=== PATIENT | female | born 1955 | race Caucasian/White ===

== ENCOUNTER 2018-02-12 12:31 | Inpatient (IN) | payer OTHER ==
[~2018-02-12] VITALS: Ht 157.5 cm; Wt 111.8 kg
--- NOTE | 2018-02-12 13:08 | EMERGENCY ROOM VISIT NOTE ---
History Report prepared by Roopa: Jimy Licona Under the Supervision of: Dr. Shira Carrion D.O. First contact with patient: 12:47 Chief Complaint: STROKE SYMPTOMS Stated Complaint: POSSIBLE STROKE Nursing Triage Summary: Pt reports yesterday at 0230 her right upper arm began hurting. She states "I was walking a little funny too so I got my cane out." and patient report that her speech is different, which they noticed last night. Pt states "I cant really write." Symptoms started 02/11/18 at 0230 in the morning. History of Present Illness The patient is a 62 year old female who presents to the Emergency Room with complaints of constant stroke symptoms starting two nights ago. The patient states that two nights ago she was starting to have difficulty speaking, and yesterday morning she woke up with some right shoulder soreness. She denies any numbness of tingling. She notes that she went to work, and she was having difficulty writing yesterday and today. The patient states that she has been having to use a cane because she feels off balance and is leaning to the right. She additionally notes that she has been having cramping in her lower back and her legs. The patient states that she went to her chiropractor for her shoulder , though they did not do anything for her. She denies any headache, recent cold symptoms, and any recent medication changes. The patient has a history of a hip replacement, diabetes, hypertension, and a kidney stone. She states that she takes a baby aspirin daily. She also has a history of HLD, though she does not take her medications. Source of History: patient Onset: two nights ago Position: other (global) Quality: other (stroke symptoms) Timing: constant Associated Symptoms: No numbness Note: Associated symptoms: Difficulty speaking, difficulty writing, right shoulder pain, cramping in her back and legs Review of Systems See HPI for pertinent positives & negatives. A total of 10 systems reviewed and were otherwise negative. Past Medical & Surgical Medical Problems: (1) Depression (2) DM type 2 (diabetes mellitus, type 2) (3) Dyslipidemia (4) HTN (hypertension) Surgical Problems: (1) History of appendectomy (2) History of carpal tunnel surgery (3) History of hysterectomy (4) History of tonsillectomy Social History Smoking Status: Never Smoker Marital Status: Housing Status: lives with family Occupation Status: employed Current/Historical Medications Scheduled Ascorbic Acid (Vitamin C), 500 MG PO DAILY Aspirin (Aspirin EC Low Dose), 81 MG PO QAM Atorvastatin (Lipitor), 80 MG PO QAM B-Complex W/ Folic Acid (B Complex Plus), 1 TAB PO DAILY Calcium/Vitamin D (Os-Santhosh 500 Plus D), 1 TAB PO DAILY Carvedilol (Coreg), 3.125 MG PO BID Cholecalciferol (Vitamin D3), 1 TAB PO DAILY Clopidogrel Bisulfate (Clopidogrel), 75 MG PO QAM Coenzyme Q10 (Ubidecarenone) (Co Q10), 1 CAP PO DAILY Escitalopram (Lexapro), 5 MG PO DAILY Losartan Potassium (Cozaar), 75 MG PO DAILY Metformin Hcl Er (Glucophage Er), 500 MG PO DAILY Soybean Lecithin (Bulk) (Lecithin), 1 TAB PO DAILY Vitamin E (Vitamin E), 1 TAB PO DAILY Scheduled PRN Loratadine (Claritin), 10 MG PO DAILY PRN for allergies Allergies Uncoded Allergies: ANTIBIOTICS (Adverse Reaction, Unknown, RASH, 02/12/18) PT SAID SOME ANTIBIOTICS GIVE HER A SLIGHT RASH BUT WASN'T SURE WHICH ONES THEY WERE Physical Exam Vital Signs Date Time Temp Pulse Resp B/P (MAP) Pulse Ox O2 Delivery O2 Flow Rate FiO2 02/12/18 14:43 73 18 189/94 97 Room Air 02/12/18 13:58 71 18 168/87 95 Room Air 02/12/18 13:24 73 20 156/101 97 Room Air 02/12/18 13:13 74 02/12/18 12:33 36.6 75 18 182/116 97 Room Air Physical Exam GENERAL: alert, obese, well appearing, well nourished, no distress, non-toxic EYE EXAM: normal conjunctiva, PERRL and EOM's grossly intact OROPHARYNX: no exudate, no erythema, lips, buccal mucosa, and tongue normal and mucous membranes are moist NECK: supple, no nuchal rigidity, no adenopathy, non-tender LUNGS: Clear to auscultation. Normal chest wall mechanics HEART: no murmurs, S1 normal and S2 normal ABDOMEN: abdomen soft, non-tender, normo-active bowel sounds, no masses, no rebound or guarding. BACK: Back is symmetrical on inspection and there is no deformity, no midline tenderness, no CVA tenderness. SKIN: no rashes and no bruising UPPER EXTREMITIES: upper extremities are grossly normal. Full range of motion. No reproducible right upper extremity pain. LOWER EXTREMITIES: No pitting edema. NEURO EXAM: Normal sensorium, cranial nerves II-XII intact, intermittent dysarthria, no weakness of arms, no weakness of legs. No drift. Finger to nose intact. Gross sensation intact. Normal heel to veliz. No facial droop. No ataxia. Medical Decision & Procedures ER Provider Diagnostic Interpretation: Radiology results have been interpreted by the radiologist and reviewed by me. HEAD WITHOUT CONTRAST (CT) CLINICAL HISTORY: 62 years-old Female with slurred speech, dizziness. Acute dizziness with slurred speech TECHNIQUE: Multiple axial CT images of the head were obtained without contrast. A dose lowering technique was utilized adhering to the principles of ALARA. CT DOSE: 1253.18 mGy.cm COMPARISON: CT cervical spine of same day. FINDINGS: No acute intracranial hemorrhage, midline shift, intracranial mass, hydrocephalus, territorial ischemia or abnormal extra-axial collection. Calcifications of the falx cerebri are noted. Ill-defined areas of low attenuation within the white matter of the signature block measures bilaterally suggest chronic microvascular ischemic changes. Cerebral vascular calcifications are seen at the level of the skull base. Ill-defined area of low attenuation is noted within the central luis enrique. The calvarium is intact. The paranasal sinuses, mastoid air cells, and middle ear cavities are clear. Orbits and soft tissues are unremarkable. IMPRESSION: 1. No acute intracranial hemorrhage, midline shift or territorial infarction. 2. Chronic microvascular ischemic changes with ill-defined area of low-attenuation within the central luis enrique suggesting age-indeterminate lacunar infarction. The above report was generated using voice recognition software. It may contain grammatical, syntax or spelling errors. Electronically signed by: Abad Lagos M.D. 02/12/2018 1:43 PM Dictated Date/Time: 02/12/2018 1:40 PM CHEST ONE VIEW PORTABLE CLINICAL HISTORY: 62 years-old Female presenting with dizziness, possible stroke. TECHNIQUE: Portable upright AP view of the chest was obtained. COMPARISON: None. FINDINGS: Atherosclerosis of the aortic arch. Heart top normal in size. Pulmonary vascular prominence. Lungs and pleural spaces clear. Degenerative changes of the thoracic spine. IMPRESSION: 1. Suggestion of mild volume overload. No steve pulmonary edema or other evidence of acute cardiopulmonary disease. Electronically signed by: Jersey Cornell M.D. 02/12/2018 1:41 PM Dictated Date/Time: 02/12/2018 1:[address] OF THE CERVICAL SPINE WITHOUT CONTRAST CLINICAL HISTORY: Right shoulder pain. Paresthesias. COMPARISON STUDY: No previous studies for comparison. TECHNIQUE: Helical axial images of the cervical spine were obtained without IV contrast. Sagittal and coronal reconstructions were viewed. A dose lowering technique was utilized adhering to the principles of ALARA. FINDINGS: Alignment of the cervical spine is anatomic with the exception of straightening. Craniocervical junction is intact. There is no fracture or suspicious lesion within the cervical spine by CT. There is made of moderate disc space narrowing and osteophytosis at C6-C7. There is suspected posterior osteophyte complex which is suboptimally assessed by CT. Note is made of several left lobe thyroid nodules that measure up to 1.2 cm. IMPRESSION: 1. No acute cervical spine fracture or subluxation. 2. Moderate degenerative disc disease at C6-C7 with moderate multilevel facet arthrosis. Suboptimal evaluation of the central canal and neural foramen given CT technique. Electronically signed by: Ruy Pagan M.D. 02/12/2018 1:45 PM Dictated Date/Time: 02/12/2018 1:42 PM Laboratory Results Test 02/12/18 13:00 02/12/18 13:15 Urine Color YELLOW Urine Appearance CLEAR (CLEAR) Urine pH 7.0 (4.5-7.5) Urine Specific [place] 1.020 (1.000-1.030) Urine Protein NEG (NEG) Urine Glucose (UA) 2+ (NEG) Urine Ketones NEG (NEG) Urine Occult Blood NEG (NEG) Urine Nitrite NEG (NEG) Urine Bilirubin NEG (NEG) Urine Urobilinogen NEG (NEG) Urine Leukocyte Esterase NEG (NEG) Prothrombin Time 9.6 SECONDS (9.0-12.0) Prothromb Time International Ratio 0.9 (0.9-1.1) Estimated Average Glucose 171 mg/dl Hemoglobin A1c 7.6 % (4.5-5.6) Magnesium Level 2.3 mg/dl (1.8-2.4) Total Bilirubin 0.5 mg/dl (0.2-1) Aspartate Amino Transf (AST/SGOT) 26 U/L (15-37) Alanine Aminotransferase (ALT/SGPT) 39 U/L (12-78) Alkaline Phosphatase 104 U/L (45-117) Troponin I < 0.015 ng/ml (0-0.045) Total Protein 7.8 gm/dl (6.4-8.2) Albumin 3.6 gm/dl (3.4-5.0) Globulin 4.2 gm/dl (2.5-4.0) Albumin/Globulin Ratio 0.9 (0.9-2) Laboratory results per my review. Medications Administered Medications (Trade) Dose Ordered Sig/Yoni Route Start Time Stop Time Status Last Admin Dose Admin Aspirin/Aluminum/ Magnesium/Ca Carb (Ascriptin Tab) 325 mg NOW STAT PO 02/12/18 14:21 02/12/18 14:22 DC 02/12/18 14:42 325 MG Acetaminophen (Tylenol Tab) 650 mg Q4H PRN PO 02/12/18 15:00 02/14/18 14:29 DC 02/13/18 11:18 650 MG ECG Per My Interpretation Indication: other (stroke symptoms) Rate (beats per minute): 66 Rhythm: normal sinus Findings: nonspecific-ST abn (mostly in V5 and V6), no ectopy, other (Normal axis. Normal intervals) ED Course 1247: The patient was evaluated in room B9. A complete history and physical exam was performed. 1410: I updated the patient, and she has had no change. I discussed the treatment plan with her, and she was agreeable. She will be evaluated by the hospitalist. 1418: I reviewed the patient's case with Latoya Rothman. She will evaluate the patient for further management. 1421: Ascriptin Tab 325mg PO Medical Decision Differential diagnosis: Etiologies such as benign positional vertigo, dehydration, hypovolemia, anemia, tumor, infection, hypoglycemia, electrolyte abnormalities, cardiac sources, intracerebral event, toxicologic, neurologic, as well as others were entertained. Patient with atypical presentation that began 48 hours prior to both pain and neurologic findings. Pain in the patient's right upper extremity as well as right upper extremity numbness and tingling with difficulty writing potentially explained by arthritis in the neck and cervical radiculopathy, however other findings of difficulty ambulating, and slurred speech more concerning for possible stroke. Patient with several risk factors for stroke and currently has untreated hyperlipidemia. No bleed noted on CT, no other evidence of infectious etiology. Electrolytes and glucose otherwise reassuring. Doubt primary cardiac etiology. Mild dysarthria noted during bedside exam, no significant extremity focal deficits noted. No other facial droop. Patient's labs otherwise reassuring. Patient agreeable with plan for additional evaluation and case discussed with the hospitalist. Medication Reconcilliation Current Medication List: was personally reviewed by me Blood Pressure Screening Patient's blood pressure: Elevated blood pressure Monitored by the hospitalist. Consults Time Called: 1411 Consulting Physician: Latoya Rothman Hospitalist Returned Call: 1418 I reviewed the patient's case with Latoya Rothman. She will evaluate the patient for further management. Impression Primary Impression: CVA (cerebral vascular accident) Additional Impressions: Cervical radiculopathy HTN (hypertension) Obesity Scribe Attestation The scribe's documentation has been prepared under my direction and personally reviewed by me in its entirety. I confirm that the note above accurately reflects all work, treatment, procedures, and medical decision making performed by me. Departure Information Dispostion Being Evaluated By Hospitalist Prescriptions Aspirin (Aspirin EC Low Dose) 81 Mg Ectab 81 MG PO QAM for 30 Days Prov: Adrian Joyner M.D. 02/14/18 Atorvastatin (LIPITOR) 40 Mg Tab 80 MG PO QAM for 30 Days, #60 TAB Prov: Adrian Joyner M.D. 02/14/18 Clopidogrel Bisulfate (Clopidogrel) 75 Mg Tab 75 MG PO QAM for 30 Days, #30 TAB Prov: Adrian Joyner M.D. 02/14/18 Referrals Med Sanchez M.D. (PCP) Patient Instructions My [facility] Health Problem Qualifiers Primary Impression: CVA (cerebral vascular accident) CVA mechanism: unspecified Qualified Codes: I63.9 - Cerebral infarction, unspecified Additional Impressions: HTN (hypertension) Hypertension type: essential hypertension Qualified Codes: I10 - Essential ( primary) hypertension Obesity Obesity type: unspecified obesity type Obesity classification: unspecified obesity classification Serious obesity comorbidity presence: unspecified whether serious comorbidity present Qualified Codes: E66.9 - Obesity, unspecified
[2018-02-12 13:26] LABS: BASO % 0.6 %; BASO ABS # 0.05 K/uL (0-0.2); EOS % 1.3 %; EOS ABS # 0.12 K/uL (0-0.5); HEMATOCRIT 37.9 % (37-47); HEMOGLOBIN 13.2 g/dL (12.0-16.0); IG# 0.02 K/uL (0.00-0.02); LYMPH % 31.5 %; LYMPH ABS # 2.81 K/uL (1.2-3.4); MEAN CELL VOLUME 92.4 fL (80-100); MEAN CORPUSCULAR HEMOGLOBIN 32.2 pg (25-34); MEAN CORPUSCULAR HGB CONC 34.8 g/dl (32-36); MEAN PLATELET VOLUME 9.6 fL (7.4-10.4); MONO ABS # 0.45 K/uL (0.11-0.59); NEUT % 61.4 %; NEUT ABS # 5.47 K/uL (1.4-6.5); PLATELET COUNT 224 K/uL (130-400); RED CELL DISTRIBUTION WIDTH CV 12.7 % (11.5-14.5); WHITE BLOOD COUNT 8.92 K/uL (4.8-10.8)
[2018-02-12 13:33] LABS: INR 0.9 (0.9-1.1)
--- NOTE | 2018-02-12 13:42 | DIAGNOSTIC IMAGING REPORT ---
CHEST ONE VIEW PORTABLE CLINICAL HISTORY: 62 years-old Female presenting with dizziness, possible stroke. TECHNIQUE: Portable upright AP view of the chest was obtained. COMPARISON: None. FINDINGS: Atherosclerosis of the aortic arch. Heart top normal in size. Pulmonary vascular prominence. Lungs and pleural spaces clear. Degenerative changes of the thoracic spine. IMPRESSION: 1. Suggestion of mild volume overload. No steve pulmonary edema or other evidence of acute cardiopulmonary disease. Electronically signed by: Jersey Cornell M.D. 02/12/2018 1:41 PM Dictated Date/Time: 02/12/2018 1:40 PM
--- NOTE | 2018-02-12 13:45 | DIAGNOSTIC IMAGING REPORT ---
HEAD WITHOUT CONTRAST (CT) CLINICAL HISTORY: 62 years-old Female with slurred speech, dizziness. Acute dizziness with slurred speech TECHNIQUE: Multiple axial CT images of the head were obtained without contrast. A dose lowering technique was utilized adhering to the principles of ALARA. CT DOSE: 1253.18 mGy.cm COMPARISON: CT cervical spine of same day. FINDINGS: No acute intracranial hemorrhage, midline shift, intracranial mass, hydrocephalus, territorial ischemia or abnormal extra-axial collection. Calcifications of the falx cerebri are noted. Ill-defined areas of low attenuation within the white matter of the signature block measures bilaterally suggest chronic microvascular ischemic changes. Cerebral vascular calcifications are seen at the level of the skull base. Ill-defined area of low attenuation is noted within the central luis enrique. The calvarium is intact. The paranasal sinuses, mastoid air cells, and middle ear cavities are clear. Orbits and soft tissues are unremarkable. IMPRESSION: 1. No acute intracranial hemorrhage, midline shift or territorial infarction. 2. Chronic microvascular ischemic changes with ill-defined area of low-attenuation within the central luis enrique suggesting age-indeterminate lacunar infarction. The above report was generated using voice recognition software. It may contain grammatical, syntax or spelling errors. Electronically signed by: Abad Lagos M.D. 02/12/2018 1:43 PM Dictated Date/Time: 02/12/2018 1:40 PM
--- NOTE | 2018-02-12 13:46 | DIAGNOSTIC IMAGING REPORT ---
CT OF THE CERVICAL SPINE WITHOUT CONTRAST CLINICAL HISTORY: Right shoulder pain. Paresthesias. COMPARISON STUDY: No previous studies for comparison. TECHNIQUE: Helical axial images of the cervical spine were obtained without IV contrast. Sagittal and coronal reconstructions were viewed. A dose lowering technique was utilized adhering to the principles of ALARA. FINDINGS: Alignment of the cervical spine is anatomic with the exception of straightening. Craniocervical junction is intact. There is no fracture or suspicious lesion within the cervical spine by CT. There is made of moderate disc space narrowing and osteophytosis at C6-C7. There is suspected posterior osteophyte complex which is suboptimally assessed by CT. Note is made of several left lobe thyroid nodules that measure up to 1.2 cm. IMPRESSION: 1. No acute cervical spine fracture or subluxation. 2. Moderate degenerative disc disease at C6-C7 with moderate multilevel facet arthrosis. Suboptimal evaluation of the central canal and neural foramen given CT technique. Electronically signed by: Ruy Pagan M.D. 02/12/2018 1:45 PM Dictated Date/Time: 02/12/2018 1:42 PM
[2018-02-12 13:47] LABS: ALBUMIN 3.6 gm/dl (3.4-5.0); ALT/SGPT 39 U/L (12-78); AST/SGOT 26 U/L (15-37); BLOOD UREA NITROGEN 15 mg/dl (7-18); CARBON DIOXIDE 25 mmol/L (21-32); CREATININE 0.79 mg/dl (0.60-1.20); GLUCOSE 173 mg/dl (70-99); POTASSIUM 3.7 mmol/L (3.5-5.1); SODIUM 140 mmol/L (136-145)
[2018-02-12 13:52] LABS: ALKALINE PHOSPHATASE 104 U/L (45-117); TOTAL PROTEIN 7.8 gm/dl (6.4-8.2)
[2018-02-12] MEDS ORDERED: ASPIRIN/ALUM/MAGNES/CAL CARB 325 MG TAB PO STA (14:21)
[2018-02-12] MEDS ORDERED: CARV3.122 PO (14:49)
[2018-02-12] MEDS ORDERED: ESCI10TA17 PO (14:49)
[2018-02-12] MEDS ORDERED: LOSA50TA54 PO (14:49)
[2018-02-12] MEDS ORDERED: CLR10 PO (14:49)
[2018-02-12] MEDS ORDERED: CHOL1000 PO (14:49)
[2018-02-12] MEDS ORDERED: SOYBGRA9 PO (14:49)
[2018-02-12] MEDS ORDERED: METF500T5 PO (14:49)
[2018-02-12] MEDS ORDERED: ASCO1CAP3 PO (14:49)
[2018-02-12] MEDS ORDERED: HYDR-5688 PO (14:49)
[2018-02-12] MEDS ORDERED: VITACRE PO (14:49)
[2018-02-12] MEDS ORDERED: ACETAMINOPHEN 325 MG TAB PO PRN (15:00)
[2018-02-12] MEDS ORDERED: ONDANSETRON INJ 2 MG/ML 2 ML VIAL IV PRN (15:00)
[2018-02-12] MEDS ORDERED: PHARMACIST DISCHARGE MED REC CONSULT PRN ×2 (15:15→20:15)
[2018-02-12] MEDS ORDERED: DEXTROSE 50% 50 ML SYR IV PRN (15:45)
[2018-02-12] MEDS ORDERED: GLUCOSE 40% GEL 15 GM TUBE PO PRN (15:45)
[2018-02-12] MEDS ORDERED: GLUCOSE 10 TABS/TUBE PO PRN (15:45)
[2018-02-12] MEDS ORDERED: GLUCAGON FOR INJ 1 MG VIAL SQ PRN (15:45)
[2018-02-12] MEDS ORDERED: B-CO-27 PO (15:50)
[2018-02-12] MEDS ORDERED: CALC500C70 PO (15:50)
[2018-02-12] MEDS ORDERED: COEN1CAP PO (15:50)
[2018-02-12] MEDS ORDERED: VITA1TAB4 PO (15:50)
[2018-02-12] MEDS ORDERED: PERFLUTREN LIPID MICROSPHERE (DEFINITY) IV ONE (16:14)
--- NOTE | 2018-02-12 16:14 | Neurology Consultation ---
Neurology Consultation Date of Consultation: Feb 12, 2018. Attending Physician: Primary Care Physician: Med Sanchez M.D. Reason for Consultation: slurred speech History of Present Illness Source: patient, spouse Azalia is a 62 year old female who has a PMH DM, HTN, kidney stone, DL (on no medications) states she started having some slurred speech Thursday night which became worse on and she woke with shoulder soreness. She went to work and was having some difficulty with writing and also started walking with a cane because she felt off balance and was walking to the right. She went to her chiropractor for her shoulder but they would treat her. She was a work and her coworker insisted she come to the ED. When asked about her blood pressure she states 190's is actually good for her. Denies CP, SOB, abdominal pain, vision changes, swallowing issues, N, V, falls +one sides weakness, slurred speech. Past Medical/Surgical History Medical Problems: (1) Cervical radiculopathy Status: Acute (2) CVA (cerebral vascular accident) Status: Acute Social History Marital Status: Housing Status: lives with family Occupation Status: employed Allergies Uncoded Allergies: ANTIBIOTICS (Adverse Reaction, Unknown, RASH, 02/12/18) PT SAID SOME ANTIBIOTICS GIVE HER A SLIGHT RASH BUT WASN'T SURE WHICH ONES THEY WERE Current Inpatient Medications Current Inpatient Medications Medications (Trade) Dose Ordered Sig/Yoni Route Start Time Stop Time Status Last Admin Dose Admin Acetaminophen (Tylenol Tab) 650 mg Q4H PRN PO 02/12/18 15:00 03/14/18 14:59 Ondansetron HCl (Zofran Inj) 4 mg Q6H PRN IV 02/12/18 15:00 03/14/18 14:59 Aspirin (Ecotrin Tab) 81 mg QAM PO 02/13/18 09:00 03/15/18 08:59 UNV Atorvastatin Calcium (Lipitor Tab) 40 mg QAM PO 02/12/18 15:15 03/14/18 15:14 UNV Miscellaneous Information (Pharmacist Discharge Med Rec Consult) 1 ea UD PRN N/A 02/12/18 15:15 03/14/18 15:14 Insulin Aspart (novoLOG ASPART) SLIDING SCALE If C... ACHS SC 02/12/18 16:00 03/14/18 15:59 UNV Glucose (Glucose 40% Gel) 15-30 GRAMS 15 GRAMS... UD PRN PO 02/12/18 15:45 03/14/18 15:44 UNV Glucose (Glucose Chew Tab) 4-8 Tablets 4 Tabl... UD PRN PO 02/12/18 15:45 03/14/18 15:44 UNV Dextrose (Dextrose 50% 50ML Syringe) 25-50ML OF 50% DW IV FOR... UD PRN IV 02/12/18 15:45 03/14/18 15:44 UNV Glucagon (Glucagon Inj) 1 mg UD PRN SQ 02/12/18 15:45 03/14/18 15:44 UNV Physical Exam Vital Signs (Past 24 Hrs): Date Time Temp Pulse Resp B/P (MAP) Pulse Ox O2 Delivery O2 Flow Rate FiO2 02/12/18 14:43 73 18 189/94 97 Room Air 02/12/18 13:58 71 18 168/87 95 Room Air 02/12/18 13:24 73 20 156/101 97 Room Air 02/12/18 13:13 74 02/12/18 12:33 36.6 75 18 182/116 97 Room Air Physical Exam: Constitutional: appearance nourished, healthy and obese Ears, Nose, Mouth and Throat: mucous membranes moist, no injection and skin normal, eyes normal Cardiovascular: normal S-1 and S-2 and regular rate and rhythm Respiratory: clear to auscultation (CTA) and no rales, rhonchi or wheeze Musculoskeletal: non pitting peripheral edema Skin: some neurocutaneous disease in LE Eyes: extraocular muscles intact (EOMI) and pupils equal, round and reactive to light (PERRL), gross peripheral vision intact NEUROLOGIC EXAMINATION: Mental status: Alert and interactive Oriented to full date and location, [facility], 2018, president penny, knows her and name Oriented to person Speech dysarthric and slurred speech Cranial Nerves flattening right nasolabial fold Reflexes: Deep tendon reflexes were symmetrical and graded 2/5. 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, hip flex right decreased (hip replacement with decreased ROM), plantar flex ext 5/5 bilaterally Laboratory Results Past 24 Hours: 02/12/18 13:15 Red Blood Count 4.10, Mean Corpuscular Volume 92.4, Mean Corpuscular Hemoglobin 32.2, Mean Corpuscular Hemoglobin Concent 34.8, Mean Platelet Volume 9.6, Neutrophils (%) (Auto) 61.4, Lymphocytes (%) (Auto) 31.5, Monocytes (%) (Auto) 5.0, Eosinophils (%) (Auto) 1.3, Basophils (%) (Auto) 0.6, Neutrophils # (Auto) 5.47, Lymphocytes # (Auto) 2.81, Monocytes # (Auto) 0.45, Eosinophils # (Auto) 0.12, Basophils # (Auto) 0.05 02/12/18 13:15 Test 02/12/18 13:00 02/12/18 13:15 Urine Color YELLOW Urine Appearance CLEAR (CLEAR) Urine pH 7.0 (4.5-7.5) Urine Specific [place] 1.020 (1.000-1.030) Urine Protein NEG (NEG) Urine Glucose (UA) 2+ (NEG) Urine Ketones NEG (NEG) Urine Occult Blood NEG (NEG) Urine Nitrite NEG (NEG) Urine Bilirubin NEG (NEG) Urine Urobilinogen NEG (NEG) Urine Leukocyte Esterase NEG (NEG) White Blood Count 8.92 K/uL (4.8-10.8) Red Blood Count 4.10 M/uL (4.2-5.4) Hemoglobin 13.2 g/dL (12.0-16.0) Hematocrit 37.9 % (37-47) Mean Corpuscular Volume 92.4 fL (80-100) Mean Corpuscular Hemoglobin 32.2 pg (25-34) Mean Corpuscular Hemoglobin Concent 34.8 g/dl (32-36) Platelet Count 224 K/uL (130-400) Mean Platelet Volume 9.6 fL (7.4-10.4) Neutrophils (%) (Auto) 61.4 % Lymphocytes (%) (Auto) 31.5 % Monocytes (%) (Auto) 5.0 % Eosinophils (%) (Auto) 1.3 % Basophils (%) (Auto) 0.6 % Neutrophils # (Auto) 5.47 K/uL (1.4-6.5) Lymphocytes # (Auto) 2.81 K/uL (1.2-3.4) Monocytes # (Auto) 0.45 K/uL (0.11-0.59) Eosinophils # (Auto) 0.12 K/uL (0-0.5) Basophils # (Auto) 0.05 K/uL (0-0.2) RDW Standard Deviation 43.0 fL (36.4-46.3) RDW Coefficient of Variation 12.7 % (11.5-14.5) Immature Granulocyte % (Auto) 0.2 % Immature Granulocyte # (Auto) 0.02 K/uL (0.00-0.02) Prothrombin Time 9.6 SECONDS (9.0-12.0) Prothromb Time International Ratio 0.9 (0.9-1.1) Anion Gap 7.0 mmol/L (3-11) Est Creatinine Clear Calc Drug Dose 82.5 ml/min Estimated GFR () 92.3 Estimated GFR (Non- 79.7 BUN/Creatinine Ratio 18.7 (10-20) Calcium Level 9.0 mg/dl (8.5-10.1) Magnesium Level 2.3 mg/dl (1.8-2.4) Total Bilirubin 0.5 mg/dl (0.2-1) Aspartate Amino Transf (AST/SGOT) 26 U/L (15-37) Alanine Aminotransferase (ALT/SGPT) 39 U/L (12-78) Alkaline Phosphatase 104 U/L (45-117) Troponin I < 0.015 ng/ml (0-0.045) Total Protein 7.8 gm/dl (6.4-8.2) Albumin 3.6 gm/dl (3.4-5.0) Globulin 4.2 gm/dl (2.5-4.0) Albumin/Globulin Ratio 0.9 (0.9-2) Imaging CXR- Suggestion of mild volume overload. No steve pulmonary edema or other evidence of acute cardiopulmonary disease. CT head- . No acute intracranial hemorrhage, midline shift or territorial infarction. 2. Chronic microvascular ischemic changes with ill-defined area of low-attenuation within the central luis enrique suggesting age-indeterminate lacunar infarction. CT c spine- . No acute cervical spine fracture or subluxation. Moderate degenerative disc disease at C6-C7 with moderate multilevel facet arthrosis. Suboptimal evaluation of the central canal and neural foramen given CT technique. Impression 62 year old female PMH DM, uncontrolled HTN, DL, morbid obesity with slurred speech and right sided weakness Plan 1. MRI for better definition of ischemic event 2. optimize HTN, DL, DM- LDL < 70 3. PT/OT speech for discharge needs 4. aspirin 81 mg continue add plavix 75 mg 5. TTE pending 6. carotid doppler 7. further recommendations after imaging is completed I have discussed above patient with Dr Kathrine Kirkpatrick, neurology. Pt still in ER, will see in am, MD Delia
--- NOTE | 2018-02-12 16:27 | History and Physical ---
History & Physical Date & Time of Service: Feb 12, 2018 ~ 14:45 Chief Complaint: Slurred Speech, Difficulty Walking Primary Care Physician: Med Sanchez M.D. History of Present Illness 62-year-old female who presents to the ER with chief complaint of slurred speech and difficulty walking. at the bedside reports that when he spoke to his on the phone Thursday evening he noted that her speech was not right. Patient reports she woke up yesterday morning and had right upper extremity pain. Whenever she was at work she noticed that she was having some troubles writing as well as using a calculator. She noted increased speech difficulties yesterday. This morning when she was trying to walk she reports she felt very off balance, requiring use of a cane. She denies headache and blurred vision. No lightheadedness, dizziness, or syncopal events. She denies chest pain, shortness of breath, diaphoresis. No other recent illnesses fever or chills. She denies abdominal pain, nausea, vomiting, diarrhea. She denies urinary symptoms. In the ED head CT is showing age-indeterminate lacunar infarct. She is hypertensive, other vitals are stable. Labs are unremarkable. She was given a full dose aspirin. Past Medical/Surgical History Medical Problems: (1) Depression (2) DM type 2 (diabetes mellitus, type 2) (3) Dyslipidemia (4) HTN (hypertension) Surgical Problems: (1) History of appendectomy (2) History of carpal tunnel surgery (3) History of hysterectomy (4) History of tonsillectomy Family History Diabetes mellitus FATHER Social History Smoking Status: Never Smoker Alcohol Use: occasionally Marital Status: Occupational Status: employed Immunizations History of Tetanus Vaccine?: Yes Tetanus Immunization Date: Jun 06, 2009 Allergies Uncoded Allergies: ANTIBIOTICS (Adverse Reaction, Unknown, RASH, 02/12/18) PT SAID SOME ANTIBIOTICS GIVE HER A SLIGHT RASH BUT WASN'T SURE WHICH ONES THEY WERE Home Medications Scheduled Ascorbic Acid (Vitamin C), 500 MG PO DAILY B-Complex W/ Folic Acid (B Complex Plus), 1 TAB PO DAILY Calcium/Vitamin D (Os-Santhosh 500 Plus D), 1 TAB PO DAILY Carvedilol (Coreg), 3.125 MG PO BID Cholecalciferol (Vitamin D3), 1 TAB PO DAILY Coenzyme Q10 (Ubidecarenone) (Co Q10), 1 CAP PO DAILY Escitalopram (Lexapro), 5 MG PO DAILY Losartan Potassium (Cozaar), 75 MG PO DAILY Metformin Hcl Er (Glucophage Er), 500 MG PO DAILY Soybean Lecithin (Bulk) (Lecithin), 1 TAB PO DAILY Vitamin E (Vitamin E), 1 TAB PO DAILY Scheduled PRN Loratadine (Claritin), 10 MG PO DAILY PRN for allergies Review of Systems ROS per HPI, all other systems reviewed and negative Physical Exam Vital Signs Date Time Temp Pulse Resp B/P (MAP) Pulse Ox O2 Delivery O2 Flow Rate FiO2 02/12/18 14:43 73 18 189/94 97 Room Air 02/12/18 13:58 71 18 168/87 95 Room Air 02/12/18 13:24 73 20 156/101 97 Room Air 02/12/18 13:13 74 02/12/18 12:33 36.6 75 18 182/116 97 Room Air General Appearance: WD/WN, no apparent distress, + obese Head: atraumatic Eyes: normal inspection, PERRL, EOMI, sclerae normal ENT: hearing grossly normal, + pertinent finding (Mucous membranes moist) Neck: supple, no JVD, trachea midline Respiratory/Chest: lungs clear, normal breath sounds, no respiratory distress Cardiovascular: regular rate, rhythm, no edema, normal peripheral pulses Abdomen/GI: normal bowel sounds, non tender, soft, no organomegaly Extremities/Musculoskelatal: normal inspection, no calf tenderness, normal capillary refill Neurologic/Psych: alert, oriented x 3, + pertinent finding (Mild difficulty with finger to nose on the right upper extremity, mild right upper extremity drift noted, slurred speech; no other focal deficits noted) Skin: normal color, warm/dry Diagnostics Laboratory Results Results Past 24 Hours Test 02/12/18 13:00 02/12/18 13:15 Range/Units Urine Color YELLOW Urine Appearance CLEAR CLEAR Urine pH 7.0 4.5-7.5 Urine Specific [place] 1.020 1.000-1.030 Urine Protein NEG NEG Urine Glucose (UA) 2+ NEG Urine Ketones NEG NEG Urine Occult Blood NEG NEG Urine Nitrite NEG NEG Urine Bilirubin NEG NEG Urine Urobilinogen NEG NEG Urine Leukocyte Esterase NEG NEG White Blood Count 8.92 4.8-10.8 K/uL Red Blood Count 4.10 4.2-5.4 M/uL Hemoglobin 13.2 12.0-16.0 g/dL Hematocrit 37.9 37-47 % Mean Corpuscular Volume 92.4 80-100 fL Mean Corpuscular Hemoglobin 32.2 25-34 pg Mean Corpuscular Hemoglobin Concent 34.8 32-36 g/dl Platelet Count 224 130-400 K/uL Mean Platelet Volume 9.6 7.4-10.4 fL Neutrophils (%) (Auto) 61.4 % Lymphocytes (%) (Auto) 31.5 % Monocytes (%) (Auto) 5.0 % Eosinophils (%) (Auto) 1.3 % Basophils (%) (Auto) 0.6 % Neutrophils # (Auto) 5.47 1.4-6.5 K/uL Lymphocytes # (Auto) 2.81 1.2-3.4 K/uL Monocytes # (Auto) 0.45 0.11-0.59 K/uL Eosinophils # (Auto) 0.12 0-0.5 K/uL Basophils # (Auto) 0.05 0-0.2 K/uL RDW Standard Deviation 43.0 36.4-46.3 fL RDW Coefficient of Variation 12.7 11.5-14.5 % Immature Granulocyte % (Auto) 0.2 % Immature Granulocyte # (Auto) 0.02 0.00-0.02 K/uL Prothrombin Time 9.6 9.0-12.0 SECONDS Prothromb Time International Ratio 0.9 0.9-1.1 Sodium Level 140 136-145 mmol/L Potassium Level 3.7 3.5-5.1 mmol/L Chloride Level 108 98-107 mmol/L Carbon Dioxide Level 25 21-32 mmol/L Anion Gap 7.0 3-11 mmol/L Blood Urea Nitrogen 15 7-18 mg/dl Creatinine 0.79 0.60-1.20 mg/dl Est Creatinine Clear Calc Drug Dose 82.5 ml/min Estimated GFR () 92.3 Estimated GFR (Non- 79.7 BUN/Creatinine Ratio 18.7 10-20 Random Glucose 173 70-99 mg/dl Calcium Level 9.0 8.5-10.1 mg/dl Magnesium Level 2.3 1.8-2.4 mg/dl Total Bilirubin 0.5 0.2-1 mg/dl Aspartate Amino Transf (AST/SGOT) 26 15-37 U/L Alanine Aminotransferase (ALT/SGPT) 39 12-78 U/L Alkaline Phosphatase 104 45-117 U/L Troponin I < 0.015 0-0.045 ng/ml Total Protein 7.8 6.4-8.2 gm/dl Albumin 3.6 3.4-5.0 gm/dl Globulin 4.2 2.5-4.0 gm/dl Albumin/Globulin Ratio 0.9 0.9-[address] IMPRESSION: 1. No acute intracranial hemorrhage, midline shift or territorial infarction. 2. Chronic microvascular ischemic changes with ill-defined area of low-attenuation within the central luis enrique suggesting age-indeterminate lacunar infarction. CXR IMPRESSION: 1. Suggestion of mild volume overload. No steve pulmonary edema or other evidence of acute cardiopulmonary disease. CERVICAL SPINE CT IMPRESSION: 1. No acute cervical spine fracture or subluxation. 2. Moderate degenerative disc disease at C6-C7 with moderate multilevel facet arthrosis. Suboptimal evaluation of the central canal and neural foramen given CT technique. Impression Assessment and Plan SLURRED SPEECH RIGHT UPPER EXTREMITY WEAKNESS R/O CVA -Admit to telemetry -Patient presenting with slurred speech and difficulty using her right arm for the past 2 days; in the ED head CT showing age-indeterminate lacunar infarct, patient denies history of prior CVA -Question if patient's right upper extremity weakness could possibly be cervical radiculopathy however given slurred speech findings, will rule out CVA -Risk factors: Hypertension, diabetes, dyslipidemia -Brain MRI, echocardiogram, carotid Dopplers -Neurochecks -Permissive hypertension -Patient with history of dyslipidemia however has declined statin therapy in the past, patient is willing to start now, will start atorvastatin 40 mg daily -S/P full dose aspirin in the ED, will continue with 81 mg daily tomorrow -Consider Plavix pending brain MRI results -Neuro consult, case discussed with Kathrine More PA-C HYPERTENSION -BP currently elevated, allowing for permissive hypertension in the setting of possible CVA -We will continue carvedilol and losartan with holding parameters in place DIABETES -Hgb A1c 7.0 10/2017 -Hold metformin and utilize SSI while hospitalized DEPRESSION -Continue escitalopram DVT PROPHYLAXIS -SCDs until brain MRI resulted DISPOSITION -In my clinical judgment this beneficiary meets acute admission criteria, established by [facility], that includes being hospitalized through two midnights. ATTENDING ADDENDUM: Patient seen and examined, care coordinated with Latoya CABRERA 62-year-old female with past medical history of hyperlipidemia, hypertension diabetes, resented with approximately > 48 hours history of right-sided weakness , slurred speech CT head without contrast: Showed chronic microvascular ischemic change with ill- defined area of low attenuation within the central luis enrique suggestive of age indeterminate lacunar infarction. No evidence of any acute stroke PHYSICAL EXAM: GENERAL: Very pleasant, well appearing female, no sign of any distress HEENT: Sclera nonicteric, PERRLA/EOMI HEART: Regular S1-S2 LUNGS: Clear to auscultate no wheezes or rales ABDOMEN: Soft nontender, active bowel sounds EXTREMITY: No lower extremity edema, no rash or deformity NEURO: Alert awake oriented 3, noted to have thick/slurred speechpatient recognizes that is different from her baseline, experiencing incoordination, dysmetria on the right hand right extremity Difficulty in writing, positive pronator drift, poor coordination on right side. Strength 4 out of 5 Normal exam on the left ASSESSMENT AND PLAN: Possible acute CVA: Presented with slurred speech/right upper extremity weakness For more than 48 hours -Out of the window for t-PA -CT head shows old lacunar stroke -MRI of brain ordered report still pending -Carotid Doppler shows: Moderate mixed plaque of the left carotid bulb and left ICA results in elevated peak systolic velocities correlate relating with stenosis of 50-69%. Possible causing embolic phenomena leading to left-sided CVA -Appreciate input from neurology -Patient already been on aspirin , added Plavix -Lipitor dose increased to 80 mg daily for high intensity statin treatment -Ordered for CT angiogram of neck for further evaluation of left carotid stenosis - will need vascular surgery consult if it is more than 70% ICA stenosis -Given acute CVA, systolic blood pressure should be maintained equal or improved to 160 for adequate cerebral perfusion -Resting echo shows: Mild concentric left ventricular hypertrophy. Left ventricular wall motion is normal. Left ventricle is hyperdynamic Ejection fraction more than 70% Mild mitral annular calcification. Grade 1 diastolic dysfunction -Patient will be monitored in telemetry to rule out any evidence of cardiac arrhythmia CODE STATUS full code Please refer to for the documentation by Latoya lynn PA-C For further discussion of other issues. Carolyn Singh MD Resuscitation Status VTE Prophylaxis Will order VTE Prophylaxis: Yes
[2018-02-12] MEDS ORDERED: CLOPIDOGREL BISULFATE 75 MG TAB PO ONE (17:15)
--- NOTE | 2018-02-12 17:39 | DIAGNOSTIC IMAGING REPORT ---
CAROTID DOPPLER NECK ART CLINICAL HISTORY: 62 years-old Female with Stroke. Acute strokelike symptoms COMPARISON: Head CT of same day TECHNIQUE: Multiple real time sonographic images of the carotid bifurcations were obtained assessing ingram scale, color Doppler and spectral wave form appearance FINDINGS: Study is limited secondary to patient body habitus. Blood pressures were not obtained secondary to intravenous catheters. RIGHT INTERNAL CAROTID: The peak systolic velocity measured 102 cm/sec. The end diastolic velocity measured 24 cm/sec. The ICA to CCA ratio measured 1.4 which correlates with a stenosis of 0-50%. Mild to moderate atherosclerotic plaquing. LEFT INTERNAL CAROTID: The peak systolic velocity measured 161 cm/sec within the mid ICA. The end diastolic velocity measured 44 cm/sec. The ICA to CCA ratio measured 2.0 which correlates with a stenosis of 50-69%. Moderate mixed plaquing of the left carotid bulb and left ICA. There is normal antegrade vertebral flow bilaterally. IMPRESSION: 1. Moderate mixed plaquing of the left carotid bulb and left ICA results in elevated peak systolic velocities correlating with stenosis of 50-69%. 2. Atherosclerotic plaquing of the right internal carotid artery without hemodynamically significant stenosis. 3. Antegrade flow of the bilateral vertebral arteries. The above report was generated using voice recognition software. It may contain grammatical, syntax or spelling errors. Electronically signed by: Abad Lagos M.D. 02/12/2018 5:38 PM Dictated Date/Time: 02/12/2018 5:34 PM
[2018-02-12 17:49] VITALS: BP 177/86; PULSE 81; TEMP 36.9; O2SAT 97; Ht 157.5 cm; Wt 111.8 kg
[2018-02-12] MEDS ORDERED: ATORVASTATIN 40 MG TAB PO SCH (18:00)
[2018-02-12] MEDS ORDERED: LORAZEPAM 2 MG/ML 1 ML VIAL IV SCH (18:30)
[2018-02-12] MEDS: INSULIN ASPART 100 UNITS/ML 3 ML PEN SC SCH ×2 (18:41→22:14)
--- NOTE | 2018-02-12 19:10 | ECHOCARDIOGRAM REPORT ---
*NOTICE TO RECEIVING CONSTITUTION PARTY AGENCY This information is strictly Confidential and protected under [place] law. [place] law prohibits you from making any further disclosure of this information unless further disclosure is expressly permitted by the written consent of the person to whom it pertains or is authorized by law. A general authorization for the release of medical or other information is not sufficient for this purpose. Hospital accepts no responsibility if the information is made available to any other person, INCLUDING THE PATIENT. Interpretation Summary * Name: SHAD EASLEY Study Date: 02/12/2018 03:40 PM BP: 189/94 mmHg * Patient Location: .ED HR: 73 * : 1955 (M/d/yyyy) Gender: Female Height: 62 in * Age: 62 yrs Ethnicity: [place] Weight: 229 lb * Ordering Physician: Latoya Calvo * Referring Physician: Self, Referred * Performed By: Rebecca Albarran RDCS * * Reason For Study: CVA * BSA: 2.0 m2 * The study was technically adequate. * -- Conclusions -- * There is mild concentric left ventricular hypertrophy. * The left ventricular wall motion is normal. * The left ventricle is hyperdynamic. * Ejection Fraction = >70 %. * There is mild mitral annular calcification. * Grade I diastolic dysfunction, (abnormal relaxation pattern). Procedure Details * A complete two-dimensional transthoracic echocardiogram was performed (2D, M-mode, Doppler and color flow Doppler). * A saline contrast injection was performed to assess for cardiac shunting. * The injection was performed through an intravenous line in the right arm. * The attending nurse who injected the saline contrast was Tammy Rogers RN. * A total of 10 cc of agitated saline was given. * A contrast injection of Definity was performed to improve assessment of LV function. * Contrast was injected into an intravenous site in the right arm. * One vial of Definity ultrasound contrast was diluted in normal saline to a total volume of 10 ml. A total of '1' ml of solution was administered during imaging. * Lot # [id number] of Definity utilized for procedure. * Expiration date 1 JAN 18. * The attending nurse who injected the contrast agent was Tammy Rogers RN. Left Ventricle * The left ventricle is normal in size. * There is mild concentric left ventricular hypertrophy. * The left ventricle is hyperdynamic. * Ejection Fraction = >70 %. * The left ventricular wall motion is normal. Right Ventricle * The right ventricle is normal size. * The right ventricular systolic function is normal as assessed by tricuspid annular plane systolic excursion (TAPSE) (normal >1.5 cm). Atria * The left atrial size is normal. * Right atrial size is normal. * The interatrial septum is intact with no evidence for an atrial septal defect. Mitral Valve * There is mild mitral annular calcification. * There is no mitral valve stenosis. * Significant mitral regurgitation is absent. Tricuspid Valve * The tricuspid valve is normal. * There is no tricuspid stenosis. * Significant tricuspid regurgitation is absent. Aortic Valve * The aortic valve is trileaflet. * Aortic stenosis is absent. * There is no significant aortic regurgitation. Pulmonic Valve * The pulmonary valve is not well seen, but the Doppler examination is normal without significant regurgitation or stenosis. Great Vessels * The aortic root and proximal ascending aorta are normal sized. Pericardium/Pleural * There is no pericardial effusion. Great Vessels * Normal inferior vena cava diameter and respiratory variation suggests normal central venous pressure. Left Ventricular Diastolic Function * Grade I diastolic dysfunction, (abnormal relaxation pattern). MMode 2D Measurements and Calculations IVSd 0.88 cm LVIDd 4.0 cm LVIDs 2.4 cm LVPWd 1.2 cm IVS/LVPW 0.76 FS 39.2 % EDV(Teich) 69.5 ml ESV(Teich) 20.7 ml EF(Teich) 70.2 % EDV(cubed) 63.4 ml ESV(cubed) 14.3 ml EF(cubed) 77.5 % LV mass(C)d 130.4 grams LV mass(C)dI 64.4 grams/m\S\2 SV(Teich) 48.8 ml SI(Teich) 24.1 ml/m\S\2 SV(cubed) 49.1 ml SI(cubed) 24.3 ml/m\S\2 Ao root diam 2.4 cm Ao root area 4.5 cm\S\2 ACS 1.8 cm LA dimension 2.9 cm asc Aorta Diam 2.0 cm LA/Ao 1.2 LVOT diam 2.0 cm LVOT area 3.2 cm\S\2 LVAd ap4 31.3 cm\S\2 LVLd ap4 8.6 cm EDV(MOD-sp4) 91.5 ml EDV(sp4-el) 96.7 ml LVAs ap4 15.7 cm\S\2 LVLs ap4 6.8 cm ESV(MOD-sp4) 29.6 ml ESV(sp4-el) 30.5 ml EF(MOD-sp4) 67.6 % EF(sp4-el) 68.5 % LVAd ap2 29.9 cm\S\2 LVLd ap2 7.7 cm EDV(MOD-sp2) 91.7 ml EDV(sp2-el) 98.7 ml LVAs ap2 16.1 cm\S\2 LVLs ap2 6.3 cm ESV(MOD-sp2) 33.1 ml ESV(sp2-el) 34.9 ml EF(MOD-sp2) 63.9 % EF(sp2-el) 64.6 % LVLd %diff -12.02 % EDV(MOD-bp) 94.4 ml LVLs %diff -80 % ESV(MOD-bp) 32.1 ml EF(MOD-bp) 66.0 % SV(MOD-sp4) 61.9 ml SI(MOD-sp4) 30.5 ml/m\S\2 SV(MOD-sp2) 58.6 ml SI(MOD-sp2) 29.0 ml/m\S\2 SV(MOD-bp) 62.3 ml SI(MOD-bp) 30.8 ml/m\S\2 SV(sp4-el) 66.3 ml SI(sp4-el) 32.7 ml/m\S\2 SV(sp2-el) 63.8 ml SI(sp2-el) 31.5 ml/m\S\2 Doppler Measurements and Calculations MV E max makenzie 89.5 cm/sec MV A max makenzie 80.3 cm/sec MV E/A 1.1 MV dec time 0.18 sec Ao V2 max 149.3 cm/sec Ao max PG 8.9 mmHg Ao max PG (full) 5.2 mmHg DELANEY(V,A) 2.1 cm\S\2 DELANEY(V,D) 2.1 cm\S\2 LV V1 max PG 3.7 mmHg LV V1 max 95.9 cm/sec PA V2 max 91.5 cm/sec PA max PG 3.3 mmHg PA acc slope 792.9 cm/sec\S\2 PA acc time 0.12 sec PI max makenzie 119.1 cm/sec PI max PG 5.7 mmHg PI dec slope 84.7 cm/sec\S\2 PI P1/2t 411.7 msec TR max makenzie 144.9 cm/sec PA pr(Accel) 24.8 mmHg
[2018-02-12 19:19] VITALS: BP_SYST 166; BP_SYST 179; BP_DIAS 111; BP_DIAS 116; PULSE 81; TEMP 36.4; O2SAT 97
[2018-02-12] MEDS ORDERED: LOSARTAN POTASSIUM 50 MG TAB PO SCH (19:45)
[2018-02-12] MEDS: CARVEDILOL 3.125 MG TAB PO SCH (19:45)
[2018-02-12] MEDS ORDERED: CARVEDILOL 3.125 MG TAB PO SCH (21:00)
--- NOTE | 2018-02-12 21:27 | DIAGNOSTIC IMAGING REPORT ---
BRAIN COMBO CLINICAL HISTORY: Stroke mental status change COMPARISON STUDY: No previous studies for comparison. TECHNIQUE: Utilizing a 1.5 Ciara magnet and dedicated coil, multiplanar, multiecho imaging of the brain was performed pre and postcontrast administration. IV administration of 10 mL of Gadavist contrast was uneventful. FINDINGS: Diffusion-weighted images show a small focus of acute ischemic change left anterior luis enrique. Signal characteristics otherwise indicate a component of mild chronic small vessel change throughout both cerebral hemispheres. Ventricular system is midline. There is no evidence for abnormal postcontrast enhancement. IMPRESSION: Small focus of acute ischemic change left anterior luis enrique. Mild chronic small vessel change. Otherwise negative study. The above report was generated using voice recognition software. It may contain grammatical, syntax or spelling errors. Electronically signed by: Hermelindo Small M.D. 02/12/2018 9:26 PM Dictated Date/Time: 02/12/2018 9:22 PM
--- NOTE | 2018-02-12 21:32 | DIAGNOSTIC IMAGING REPORT ---
MRA HEAD WITHOUT CONTRAST HISTORY: Stroke - Attention to [facility] [place] TECHNIQUE: 3-D [id number] MRA of the brain was performed without contrast. COMPARISON STUDY: None. FINDINGS: There is a component of the intracranial vasculature demonstrate moderate scattered atherosclerotic change. Multifocal areas of mild to moderate narrowing identified within the anterior middle as well as posterior cerebral circulation. The anterior cerebral is fed via a left-sided circulation. There is focal high-grade stenosis of the origin of the right anterior cerebral. Left anterior cerebral is unremarkable. The posterior circulation shows a left vertebral artery to be dominant. There is mild atherosclerotic change of the basilar. Right vertebral artery is very small most likely on a chronic and/or congenital basis. IMPRESSION: 1. Moderate multifocal areas of narrowing of the intracranial vasculature throughout the anterior middle and posterior cerebral circulation.. 2. The origin of the right anterior cerebral shows a high-grade stenosis 3. 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 The above report was generated using voice recognition software. It may contain grammatical, syntax or spelling errors. Electronically signed by: Hermelindo Small M.D. 02/12/2018 9:30 PM Dictated Date/Time: 02/12/2018 9:26 PM
--- NOTE | 2018-02-12 21:34 | DIAGNOSTIC IMAGING REPORT ---
ADDENDUM The report should read 50% to 70% narrowing of the origin of the left internal carotid artery. Electronically signed by: Hermelindo Small M.D. 02/12/2018 9:40 PM Dictated Date/Time: 02/12/2018 9:40 PM ORIGINAL REPORT MRA NECK COMBO HISTORY: Mental status change Stroke TECHNIQUE: [id number] and gadolinium-enhanced MRA of the neck was performed both before and after the intravenous administration of contrast. All measurements were calculated based on NASCET criteria. COMPARISON STUDY: None. FINDINGS: The aortic arch and proximal great vessels are widely patent. Right vertebral artery is quite small in terms of overall diameter presumably on a congenital basis. Carotid system shows a 50-70% narrowing of the origin of the right internal carotid artery. There is no significant stenotic process of the left common or internal carotid arteries. IMPRESSION: 1. Somewhat limited exam due to patient respiratory and somatic motion. 2. 50-70% narrowing origin right internal carotid artery. 3. Mild plaque formation left carotid bifurcation with no significant stenosis. 4. Small caliber right vertebral artery most likely on a congenital basis. The above report was generated using voice recognition software. It may contain grammatical, syntax or spelling errors. Electronically signed by: Hermelindo Small M.D. 02/12/2018 9:32 PM Dictated Date/Time: 02/12/2018 9:30 PM
--- NOTE | 2018-02-12 21:44 | DIAGNOSTIC IMAGING REPORT ---
NECK ANGIO WITH CONTRAST HISTORY: Stroke mental status change TECHNIQUE: Multiaxial CT images of the neck were performed following the intravenous administration of contrast to evaluate the major cervical vessels. Maximum intensity projection images were also obtained. All measurements were calculated based on NASCET criteria. A dose lowering technique was utilized adhering to the principles of ALARA. COMPARISON STUDY: MRA neck same date. Carotid Doppler same date. FINDINGS: The aortic arch and proximal great vessels are widely patent. 50-60% narrowing origin left internal carotid artery as well as left carotid bifurcation. Moderate plaque dimension right bifurcation although no significant stenotic process is appreciated at that site. Small caliber right vertebral artery and a congenital basis. Left vertebral artery is unremarkable. IMPRESSION: 1. 50% narrowing origin left internal carotid artery as well as left carotid bifurcation. 2. Scattered additional plaque formation with no additional significant stenosis. 3. Small caliber right vertebral artery on a congenital basis. The above report was generated using voice recognition software. It may contain grammatical, syntax or spelling errors. Electronically signed by: Hermelindo Small M.D. 02/12/2018 9:42 PM Dictated Date/Time: 02/12/2018 9:41 PM
[2018-02-12] MEDS ORDERED: OPTIRAY 320 IV PRN (21:45)
[2018-02-12] MEDS: LOSARTAN POTASSIUM 50 MG TAB PO SCH (22:19)
[2018-02-12 23:58] VITALS: BP 170/95; PULSE 69; TEMP 36.6; O2SAT 95
[2018-02-13] VITALS (7 sets, daily range): BP systolic 151–200; BP diastolic 83–109; PULSE 65–92; TEMP 36.8–37; O2SAT 97–99
[2018-02-13 06:41] LABS: HEMOGLOBIN A1C 7.6 % (4.5-5.6)
[2018-02-13] MEDS: CARVEDILOL 3.125 MG TAB PO SCH ×2 (07:23→21:00)
[2018-02-13] MEDS: ATORVASTATIN 40 MG TAB PO SCH (07:23)
[2018-02-13 07:24] LABS: BASO % 0.4 %; BASO ABS # 0.03 K/uL (0-0.2); EOS ABS # 0.14 K/uL (0-0.5); HEMATOCRIT 37.6 % (37-47); HEMOGLOBIN 12.7 g/dL (12.0-16.0); IG# 0.02 K/uL (0.00-0.02); LYMPH % 39.4 %; LYMPH ABS # 2.75 K/uL (1.2-3.4); MEAN CELL VOLUME 94.2 fL (80-100); MEAN CORPUSCULAR HEMOGLOBIN 31.8 pg (25-34); MEAN CORPUSCULAR HGB CONC 33.8 g/dl (32-36); MEAN PLATELET VOLUME 9.7 fL (7.4-10.4); MONO % 6.6 %; MONO ABS # 0.46 K/uL (0.11-0.59); NEUT % 51.3 %; NEUT ABS # 3.58 K/uL (1.4-6.5); PLATELET COUNT 208 K/uL (130-400); RED CELL DISTRIBUTION WIDTH CV 12.7 % (11.5-14.5); WHITE BLOOD COUNT 6.98 K/uL (4.8-10.8)
[2018-02-13] MEDS: ASPIRIN 81 MG ECTAB PO SCH (07:24)
[2018-02-13] MEDS: CALCIUM 600MG + VIT D 400 IU TAB PO SCH (07:24)
[2018-02-13] MEDS: ESCITALOPRAM OXALATE 10 MG TAB PO SCH (07:24)
[2018-02-13] MEDS: CLOPIDOGREL BISULFATE 75 MG TAB PO SCH (07:24)
[2018-02-13] MEDS: CHOLECALCIFEROL 1000 INTER.UNIT TAB PO SCH (07:25)
[2018-02-13] MEDS: INSULIN ASPART 100 UNITS/ML 3 ML PEN SC SCH ×4 (07:29→20:07)
[2018-02-13 07:43] LABS: CALCIUM 8.8 mg/dl (8.5-10.1); CREATININE 0.9 mg/dl (0.60-1.20); POTASSIUM 3.9 mmol/L (3.5-5.1)
[2018-02-13] MEDS ORDERED: LOSARTAN POTASSIUM 50 MG TAB PO SCH (09:00)
--- NOTE | 2018-02-13 09:45 | PROGRESS NOTE ---
DATE: 02/13/2018 SUBJECTIVE: I am seeing Mrs. Laureano today. Kathrine More saw her yesterday. To review her history, she had some waxing and waning neurologic symptoms from Thursday evening on. Speech was mildly dysarthric. She noted that her right arm was clumsy and there was some pain in the right arm and she went to the chiropractor on Thursday and chiropractor directed her to the hospital. She has not had any change in vision, diplopia, or dysphagia. During the night, last night at 04:00 a.m., she indicated that she had more trouble with ambulation than then she had, although that has improved. She has not had any head or neck injury, chiropractic manipulation of the neck, chest pain or palpitation. She has known significant hypertension. She has hyperlipidemia and was not on medicine. I am unsure if she was taking aspirin prior to admission. She is a nonsmoker and nondrinker. She has a family history of stroke. Her echocardiography showed no source. She has been in a sinus rhythm. 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 MRA of the neck showed a 50%-70% narrowing of the left internal carotid. MRA of the head, multifocal areas of intracranial narrowing through the anterior and posterior circulation. 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 PHYSICAL EXAMINATION: VITAL SIGNS: Temperature 36.9, pulse 92, respiratory rate 16 and blood pressure 200/96. GENERAL: She is awake and alert. Speech is dysarthric. There is mild nystagmus and right lateral gaze. Normal tompkins. Mild flattening of the right nasolabial fold. No facial anesthesia. Tongue is midline. Gag is hypoactive bilaterally. Right upper extremity strength is diffusely about 4, distally 3+ at the deltoid. There is a right drift. Right iliopsoas is 4, which may be from a prior hip surgery. Distally, she has 5. She is clumsy on the right. Reflexes are increased in the right upper. The right toe was upgoing. Gait was not tested. SELECTED LABS: LDL 132. Hemoglobin A1c 7.6. IMPRESSION: Small pontine infarct. No high-grade posterior circulation stenosis. Continue aspirin and Plavix. We will repeat a CT due to some transient worsening during the evening. I think that her care is optimized. She is obviously not hypotensive. She appears to be not dehydrated. Recommend PT, OT, and speech. I think the patient will likely need some inpatient rehabilitation. We will continue to follow with you. SYEDA
--- NOTE | 2018-02-13 09:53 | DIAGNOSTIC IMAGING REPORT ---
HEAD WITHOUT CONTRAST (CT) CT DOSE: 537.48 mGy.cm HISTORY: increased weakness, left pontine infarct TECHNIQUE: Multiaxial CT images of the head were performed without the use of intravenous contrast. A dose lowering technique was utilized adhering to the principles of ALARA. Comparison: 02/12/2018. MRI brain 02/12/2018. Findings: The paranasal sinuses and mastoid air cells are clear. Small anterior left pontine infarct is developing. No evidence for hemorrhage. No midline shift. All remaining components of the brain are unremarkable. Impression: Small acute/subacute anterior left pontine infarct. No evidence for acute intracranial hemorrhage. The above report was generated using voice recognition software. It may contain grammatical, syntax or spelling errors. Electronically signed by: Hermelindo Small M.D. 02/13/2018 9:52 AM Dictated Date/Time: 02/13/2018 9:49 AM
--- NOTE | 2018-02-13 14:19 | Progress Note ---
Medicine Progress Note Date & Time of Visit: Feb 13, 2018 at 13:51. Subjective Pt was seen and examined Sitting in chair comfortable with no distress Pt said that she feels fine She said that her speech a little slurred She said that her strength in the right upper extremity is getting better Denies any chest pain, palpitation, dizziness and SOB Objective Last 8 Hrs Date Time Temp Pulse Resp B/P (MAP) Pulse Ox O2 Delivery O2 Flow Rate FiO2 02/13/18 12:00 Room Air 02/13/18 11:20 37.0 65 18 165/102 (123) 99 Room Air 02/13/18 08:00 Room Air 02/13/18 06:59 36.9 92 16 200/96 (130) 98 Room Air Physical Exam: General- No acute distress Head- atraumatic Eyes- PERRL, EOMI ENT- oropharynx clear Neck- supple, no JVD Lungs- clear to auscultation Heart- regular rhythm; no murmur Abdomen- normal bowel sounds, soft Extremities-no calf tenderness Neuro- alert, oriented x 3; PERRL, EOMI, slurred speech, slightly decrease drier tender strength in right hand Skin- warm & dry Laboratory Results: Last 24 Hours Test 02/12/18 17:45 02/12/18 21:45 02/13/18 04:44 02/13/18 07:05 Bedside Glucose 209 mg/dl 184 mg/dl 164 mg/dl White Blood Count 6.98 K/uL Red Blood Count 3.99 M/uL Hemoglobin 12.7 g/dL Hematocrit 37.6 % Mean Corpuscular Volume 94.2 fL Mean Corpuscular Hemoglobin 31.8 pg Mean Corpuscular Hemoglobin Concent 33.8 g/dl Platelet Count 208 K/uL Mean Platelet Volume 9.7 fL Neutrophils (%) (Auto) 51.3 % Lymphocytes (%) (Auto) 39.4 % Monocytes (%) (Auto) 6.6 % Eosinophils (%) (Auto) 2.0 % Basophils (%) (Auto) 0.4 % Neutrophils # (Auto) 3.58 K/uL Lymphocytes # (Auto) 2.75 K/uL Monocytes # (Auto) 0.46 K/uL Eosinophils # (Auto) 0.14 K/uL Basophils # (Auto) 0.03 K/uL RDW Standard Deviation 44.0 fL RDW Coefficient of Variation 12.7 % Immature Granulocyte % (Auto) 0.3 % Immature Granulocyte # (Auto) 0.02 K/uL Sodium Level 138 mmol/L Potassium Level 3.9 mmol/L Chloride Level 105 mmol/L Carbon Dioxide Level 27 mmol/L Anion Gap 6.0 mmol/L Blood Urea Nitrogen 19 mg/dl Creatinine 0.90 mg/dl Est Creatinine Clear Calc Drug Dose 75.5 ml/min Estimated GFR () 78.9 Estimated GFR (Non- 68.0 BUN/Creatinine Ratio 21.2 Random Glucose 172 mg/dl Calcium Level 8.8 mg/dl Triglycerides Level 84 mg/dl Cholesterol Level 200 mg/dl HDL Cholesterol 51 mg/dl LDL Cholesterol, Calculated 132 mg/dl VLDL Cholesterol, Calculated 17 mg/dl Cholesterol/HDL Ratio 3.9 Test 02/13/18 07:18 02/13/18 11:18 Bedside Glucose 163 mg/dl 135 mg/dl Assessment & Plan SMALL ACUTE/SUBACUTE ANTERIOR LEFT PONTINE INFARCT Present with slurred speech, right upper extremity weakness and unsteady gait. MRI showed small focus of acute ischemic change left anterior luis enrique. MRA neck showed 50% to 70% narrowing of the origin of the left internal carotid artery. MRA head showed moderate multifocal areas of narrowing of the intracranial vasculature throughout the anterior middle and posterior cerebral circulation.. Repeat CT head today showed small acute/subacute anterior left pontine infarct. No evidence for acute intracranial hemorrhage. No arrhythmia on tele monitor Chol 200, LDL 132, HDL 51 and trig 84 Continue statins, plavix and aspirin Continue neuro check BP elevated to allow permissive HTN Neuro on board Continue PT/OT/Speech therapy ECHO showed * There is mild concentric left ventricular hypertrophy. * The left ventricular wall motion is normal. * The left ventricle is hyperdynamic. * Ejection Fraction = >70 %. * There is mild mitral annular calcification. * Grade I diastolic dysfunction, (abnormal relaxation pattern). HYPERTENSION BP elevated Allowing for permissive hypertension in the setting of possible CVA BP med on hold Will resume beta katy tomorrow and Losartan possible once discharge DIABETES Hgb A1c 7.6 on 02/13/18 Metformin on hold on insulin coverage DEPRESSION Continue escitalopram stable DVT PROPHYLAXIS On SCDs, Will start on heparin subq DISPOSITION Continue monitor in tele Current Inpatient Medications: Current Inpatient Medications Medications (Trade) Dose Ordered Sig/Yoni Route Start Time Stop Time Status Last Admin Dose Admin Acetaminophen (Tylenol Tab) 650 mg Q4H PRN PO 02/12/18 15:00 03/14/18 14:59 02/13/18 11:18 650 MG Ondansetron HCl (Zofran Inj) 4 mg Q6H PRN IV 02/12/18 15:00 03/14/18 14:59 Aspirin (Ecotrin Tab) 81 mg QAM PO 02/13/18 09:00 03/15/18 08:59 02/13/18 07:24 81 MG Insulin Aspart (novoLOG ASPART) SLIDING SCALE If C... ACHS SC 02/12/18 16:00 03/14/18 15:59 02/13/18 11:58 7 UNITS Glucose (Glucose 40% Gel) 15-30 GRAMS 15 GRAMS... UD PRN PO 02/12/18 15:45 03/14/18 15:44 Glucose (Glucose Chew Tab) 4-8 Tablets 4 Tabl... UD PRN PO 02/12/18 15:45 03/14/18 15:44 Dextrose (Dextrose 50% 50ML Syringe) 25-50ML OF 50% DW IV FOR... UD PRN IV 02/12/18 15:45 03/14/18 15:44 Glucagon (Glucagon Inj) 1 mg UD PRN SQ 02/12/18 15:45 03/14/18 15:44 Calcium/Vitamin D (Caltrate Plus Tab) 1 tab DAILY PO 02/13/18 09:00 03/15/18 08:59 02/13/18 07:24 1 TAB Cholecalciferol (Vitamin D Tab) 1,000 inter.unit DAILY PO 02/13/18 09:00 03/15/18 08:59 02/13/18 07:25 1,000 INTER.UNIT Escitalopram Oxalate (Lexapro Tab) 5 mg DAILY PO 02/13/18 09:00 03/15/18 08:59 02/13/18 07:24 5 MG Clopidogrel Bisulfate (plAVix TAB) 75 mg QAM PO 02/13/18 09:00 03/15/18 08:59 02/13/18 07:24 75 MG Carvedilol (Coreg Tab) 3.125 mg BID PO 02/12/18 19:45 03/14/18 20:59 02/13/18 07:23 3.125 MG Atorvastatin Calcium (Lipitor Tab) 80 mg QAM PO 02/13/18 09:00 03/14/18 17:59 02/13/18 07:23 80 MG Losartan Potassium (coZAAR TAB) 75 mg HS PO 02/12/18 21:00 03/15/18 08:59 02/12/18 22:19 75 MG Miscellaneous Information (Pharmacist Discharge Med Rec Consult) 1 ea UD PRN N/A 02/12/18 20:15 03/14/18 20:14 Ioversol (Optiray 320) 92 ml UD PRN IV 02/12/18 21:45 02/16/18 21:44
[2018-02-13] MEDS: LOSARTAN POTASSIUM 50 MG TAB PO SCH (20:11)
[2018-02-13] MEDS: HEPARIN SOD 5000 UNIT/0.5 ML CARP SQ SCH (20:14)
[2018-02-14 03:56] VITALS: BP 170/109; PULSE 66; TEMP 37; O2SAT 97
[2018-02-14 06:22] LABS: BASO % 0.5 %; BASO ABS # 0.04 K/uL (0-0.2); EOS % 2.8 %; EOS ABS # 0.21 K/uL (0-0.5); HEMATOCRIT 37.9 % (37-47); HEMOGLOBIN 12.5 g/dL (12.0-16.0); IG# 0.01 K/uL (0.00-0.02); LYMPH ABS # 3.11 K/uL (1.2-3.4); MEAN CELL VOLUME 94.5 fL (80-100); MEAN CORPUSCULAR HEMOGLOBIN 31.2 pg (25-34); MONO ABS # 0.53 K/uL (0.11-0.59); NEUT % 48.6 %; NEUT ABS # 3.69 K/uL (1.4-6.5); PLATELET COUNT 215 K/uL (130-400); RED CELL DISTRIBUTION WIDTH CV 12.6 % (11.5-14.5); RED CELL DISTRIBUTION WIDTH SD 43.7 fL (36.4-46.3); WHITE BLOOD COUNT 7.59 K/uL (4.8-10.8)
[2018-02-14 06:40] LABS: CALCIUM 8.8 mg/dl (8.5-10.1); CREATININE 0.78 mg/dl (0.60-1.20); POTASSIUM 3.7 mmol/L (3.5-5.1)
[2018-02-14] MEDS: CLOPIDOGREL BISULFATE 75 MG TAB PO SCH (07:51)
[2018-02-14] MEDS: CHOLECALCIFEROL 1000 INTER.UNIT TAB PO SCH (07:51)
[2018-02-14] MEDS: ATORVASTATIN 40 MG TAB PO SCH (07:51)
[2018-02-14] MEDS: ESCITALOPRAM OXALATE 10 MG TAB PO SCH (07:51)
[2018-02-14] MEDS: CARVEDILOL 3.125 MG TAB PO SCH (07:52)
[2018-02-14] MEDS: ASPIRIN 81 MG ECTAB PO SCH (07:52)
[2018-02-14] MEDS: CALCIUM 600MG + VIT D 400 IU TAB PO SCH (07:53)
[2018-02-14] MEDS: HEPARIN SOD 5000 UNIT/0.5 ML CARP SQ SCH (07:56)
[2018-02-14] MEDS: INSULIN ASPART 100 UNITS/ML 3 ML PEN SC SCH ×2 (07:56→11:58)
[2018-02-14 08:27] VITALS: BP 155/76; PULSE 70; TEMP 36.7; O2SAT 95
--- NOTE | 2018-02-14 13:01 | PROGRESS NOTE ---
DATE: 02/14/2018 SUBJECTIVE: I am seeing Mrs. Laureano in followup of a left pontine infarct. Follow up CT yesterday done because of transient worsening of neurologic symptoms shows an unchanged pontine infarct. The patient has improved overnight. PHYSICAL EXAMINATION: VITAL SIGNS: Temperature 36.7, pulse 70, respirations 20, blood pressure 155/76. NEUROLOGIC: The patient is awake and alert. Mild but improved dysarthria. Normal visual tompkins. Mild flattening of the right nasolabial fold. Right upper extremity is probably 4 approximately 3 distally with decreased right rapid alternating movements. There may be minimal weakness of the right iliopsoas. [id number] is clumsy on the right. [id number] is normal. Gait was not tested. IMPRESSION AND PLAN: 1. Left pontine infarction, multiple vascular risk factors including uncontrolled hypertension, hyperlipidemia and diabetes. Continue Plavix and aspirin for 3 months and then Plavix alone with risk factor modification. 2. MRA of the neck suggests a 50-70% narrowing of the left internal carotid. Follow up carotid ultrasound should be performed in 6 months and then yearly thereafter with referral to vascular surgery if 70% or greater. The patient should see us in follow up with myself or Kathrine More in 2-3 weeks. She may not return to driving at this point and she may not yet return to work. SYEDA
--- NOTE | 2018-02-14 13:13 | Progress Note ---
Medicine Progress Note Date & Time of Visit: Feb 14, 2018 at 13:06. Subjective Pt was seen and examined Sitting in chair with no distress with at bedside Pt said that strength seems to get better She said that her speech fluctuated because sometimes she feels speech got better and other time feels it is slurred Denies any chest pain, palpitation, dizziness, weakness and SOB Objective Last 8 Hrs Date Time Temp Pulse Resp B/P (MAP) Pulse Ox O2 Delivery O2 Flow Rate FiO2 02/14/18 12:00 Room Air 02/14/18 08:27 36.7 70 20 155/76 (102) 95 02/14/18 08:00 Room Air Physical Exam: General- No acute distress Head- atraumatic Eyes- PERRL, EOMI ENT- oropharynx clear Neck- supple, no JVD Lungs- clear to auscultation Heart- regular rhythm; no murmur Abdomen- normal bowel sounds, soft Extremities-no calf tenderness Neuro- alert, oriented x 3; PERRL, EOMI, slurred speech, 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 (4/5) Skin- warm & dry Laboratory Results: Last 24 Hours Test 02/13/18 16:21 02/13/18 20:06 02/14/18 05:56 02/14/18 06:57 Bedside Glucose 124 mg/dl 150 mg/dl 161 mg/dl White Blood Count 7.59 K/uL Red Blood Count 4.01 M/uL Hemoglobin 12.5 g/dL Hematocrit 37.9 % Mean Corpuscular Volume 94.5 fL Mean Corpuscular Hemoglobin 31.2 pg Mean Corpuscular Hemoglobin Concent 33.0 g/dl Platelet Count 215 K/uL Mean Platelet Volume 10.0 fL Neutrophils (%) (Auto) 48.6 % Lymphocytes (%) (Auto) 41.0 % Monocytes (%) (Auto) 7.0 % Eosinophils (%) (Auto) 2.8 % Basophils (%) (Auto) 0.5 % Neutrophils # (Auto) 3.69 K/uL Lymphocytes # (Auto) 3.11 K/uL Monocytes # (Auto) 0.53 K/uL Eosinophils # (Auto) 0.21 K/uL Basophils # (Auto) 0.04 K/uL RDW Standard Deviation 43.7 fL RDW Coefficient of Variation 12.6 % Immature Granulocyte % (Auto) 0.1 % Immature Granulocyte # (Auto) 0.01 K/uL Sodium Level 140 mmol/L Potassium Level 3.7 mmol/L Chloride Level 106 mmol/L Carbon Dioxide Level 28 mmol/L Anion Gap 6.0 mmol/L Blood Urea Nitrogen 19 mg/dl Creatinine 0.78 mg/dl Est Creatinine Clear Calc Drug Dose 87.2 ml/min Estimated GFR () 93.8 Estimated GFR (Non- 80.9 BUN/Creatinine Ratio 24.6 Random Glucose 162 mg/dl Calcium Level 8.8 mg/dl Test 02/14/18 11:26 Bedside Glucose 118 mg/dl Assessment & Plan SMALL ACUTE/SUBACUTE ANTERIOR LEFT PONTINE INFARCT Present with slurred speech, right upper extremity weakness and unsteady gait. MRI showed small focus of acute ischemic change left anterior luis enrique. MRA neck showed 50% to 70% narrowing of the origin of the left internal carotid artery. MRA head showed moderate multifocal areas of narrowing of the intracranial vasculature throughout the anterior middle and posterior cerebral circulation.. Repeat CT head today showed small acute/subacute anterior left pontine infarct. No evidence for acute intracranial hemorrhage. No arrhythmia on tele monitor Chol 200, LDL 132, HDL 51 and trig 84 Continue statins, plavix and aspirin Continue neuro check BP elevated to allow permissive HTN Neuro on board Continue PT/OT/Speech therapy Follow up with neuro Dr. Kirkpatrick on 03/19 @ 9:05AM ECHO showed * There is mild concentric left ventricular hypertrophy. * The left ventricular wall motion is normal. * The left ventricle is hyperdynamic. * Ejection Fraction = >70 %. * There is mild mitral annular calcification. * Grade I diastolic dysfunction, (abnormal relaxation pattern). HYPERTENSION BP elevated Allowing for permissive hypertension in the setting of possible CVA BP med on hold Will resume beta katy and Losartan on discharge LEFT INTERNAL CAROTID ARTERY STENOSIS MRA neck showed 50% to 70% narrowing of the origin of the left internal carotid artery. Repeat carotid u/s in 6 weeks If stenosis greater than 70%, please refer to vascular surgery DIABETES Hgb A1c 7.6 on 02/13/18 Metformin on hold on insulin coverage DEPRESSION Continue escitalopram stable DVT PROPHYLAXIS On SCDs, on heparin subq DISPOSITION Will discharge home today with home services Consultants: Neuro Current Inpatient Medications: Current Inpatient Medications Medications (Trade) Dose Ordered Sig/Yoni Route Start Time Stop Time Status Last Admin Dose Admin Acetaminophen (Tylenol Tab) 650 mg Q4H PRN PO 02/12/18 15:00 03/14/18 14:59 02/13/18 11:18 650 MG Ondansetron HCl (Zofran Inj) 4 mg Q6H PRN IV 02/12/18 15:00 03/14/18 14:59 Aspirin (Ecotrin Tab) 81 mg QAM PO 02/13/18 09:00 03/15/18 08:59 02/14/18 07:52 81 MG Insulin Aspart (novoLOG ASPART) SLIDING SCALE If C... ACHS SC 02/12/18 16:00 03/14/18 15:59 02/14/18 11:58 8 UNITS Glucose (Glucose 40% Gel) 15-30 GRAMS 15 GRAMS... UD PRN PO 02/12/18 15:45 03/14/18 15:44 Glucose (Glucose Chew Tab) 4-8 Tablets 4 Tabl... UD PRN PO 02/12/18 15:45 03/14/18 15:44 Dextrose (Dextrose 50% 50ML Syringe) 25-50ML OF 50% DW IV FOR... UD PRN IV 02/12/18 15:45 03/14/18 15:44 Glucagon (Glucagon Inj) 1 mg UD PRN SQ 02/12/18 15:45 03/14/18 15:44 Calcium/Vitamin D (Caltrate Plus Tab) 1 tab DAILY PO 02/13/18 09:00 03/15/18 08:59 02/14/18 07:53 1 TAB Cholecalciferol (Vitamin D Tab) 1,000 inter.unit DAILY PO 02/13/18 09:00 03/15/18 08:59 02/14/18 07:51 1,000 INTER.UNIT Escitalopram Oxalate (Lexapro Tab) 5 mg DAILY PO 02/13/18 09:00 03/15/18 08:59 02/14/18 07:51 5 MG Clopidogrel Bisulfate (plAVix TAB) 75 mg QAM PO 02/13/18 09:00 03/15/18 08:59 02/14/18 07:51 75 MG Carvedilol (Coreg Tab) 3.125 mg BID PO 02/12/18 19:45 03/14/18 20:59 02/13/18 07:23 3.125 MG Atorvastatin Calcium (Lipitor Tab) 80 mg QAM PO 02/13/18 09:00 03/14/18 17:59 02/14/18 07:51 80 MG Losartan Potassium (coZAAR TAB) 75 mg HS PO 02/12/18 21:00 03/15/18 08:59 02/13/18 20:11 75 MG Miscellaneous Information (Pharmacist Discharge Med Rec Consult) 1 ea UD PRN N/A 02/12/18 20:15 03/14/18 20:14 Ioversol (Optiray 320) 92 ml UD PRN IV 02/12/18 21:45 02/16/18 21:44 Heparin Sodium (Porcine) (Heparin Sq 5000 Unit/0.5ml) 5,000 unit Q12 SQ 02/13/18 21:00 03/15/18 20:59 02/14/18 07:56 5,000 UNIT
[2018-02-14] MEDS ORDERED: LPT40 PO (13:17)
[2018-02-14] MEDS ORDERED: PLV75 PO (13:17)
[2018-02-14] MEDS ORDERED: ASPI-320 PO (13:17)
--- NOTE | 2018-02-14 13:37 | Discharge Instructions ---
Discharge Instructions Date of Service Feb 14, 2018. Admission Reason for Admission: Slurred Speech Discharge Discharge Diagnosis / Problem: SMALL ACUTE/SUBACUTE ANTERIOR LEFT PONTINE INFARCT, Hypertension Discharge Goals Goal(s): Decrease discomfort, Improve function, Improve disease control Activity Recommendations Activity Limitations: resume your previous activity (as tolerated) . Instructions / Follow-Up Instructions / Follow-Up Follow up with your primary care provider within 1 week ( Dr. Sanchez's office will call you for the appointment) If you don't hear from Dr. Sanchez's office by Thursday, please call for the appointment. Follow up with Neurology Dr. Kirkpatrick on 03/19 @ 9:05 AM Continue physical therapy, occupational therapy and speech therapy ( student financial aid manager will arrange that as well as home health services) No driving or working until you reevaluate by your physician/neurology Fall precaution Your physician will check your liver enzymes between 1 to 2 weeks since you were starting on statin. Please notify physician if you see any abnormal bleeding, blood in your stool or urine since you were starting on Plavix that can thin your blood and risk of bleeding. Your physician will order a carotid ultrasound in 6 months to monitor the narrowing of the left carotid artery (in your neck) Monitor blood pressure Risk Factors for Stroke: You can reduce your chances of stroke by working with your medical provider to adopt a healthy lifestyle. Some specific ways to lower your chance of stroke are: * If you are a smoker, now is the time to stop smoking cigarettes * If you are diabetic, improve the control of your blood sugars * Avoid excessive amounts of alcohol * Control high blood pressure * Lose weight if you are overweight * Be sure to lead an active lifestyle * Eat a healthy diet low in salt, cholesterol and fat You should know about other risk factors for stroke that you are unable to control. These include: * Age 55 years or older * Male gender * Certain racial groups: , or / * Family History of Stroke, Mini stroke or Heart Attack * Sickle Cell Disease Follow Up: It is important for you to keep your follow up appointments with your medical provider. Current Hospital Diet Patient's current hospital diet: AHA Diet (Heart Healthy), Diabetes Type 2 Diet Discharge Diet Recommended Diet: AHA Diet (Heart Healthy), Diabetes Type 2 Diet Pending Studies Studies pending at discharge: no Laboratory Results Hemoglobin A1c Test 02/12/18 13:15 Range/Units Estimated Average Glucose 171 mg/dl Hemoglobin A1c 7.6 H 4.5-5.6 % Lipid Panel Test 02/13/18 07:05 Range/Units Triglycerides Level 84 0-150 mg/dl Cholesterol Level 200 0-200 mg/dl HDL Cholesterol 51 mg/dl Cholesterol/HDL Ratio 3.9 LDL Cholesterol, Calculated 132 mg/dl Medical Emergencies . Who to Call and When: Medical Emergencies: Call 911 immediately if you experience any of the following warning signs and symptoms of Stroke: * Sudden numbness or weakness of the face, arm or leg, especially on one side of the body * Sudden confusion, trouble speaking or understanding * Sudden trouble seeing in one or both eyes * Sudden trouble walking, dizziness, loss of balance or coordination * Sudden severe headache with no cause Do not delay calling 911 if you experience any warning signs or symptoms of a stroke. Delay in seeking medical attention may affect what treatments can be given to you. . Non-Emergent Contact Non-Emergency issues call your: Primary Care Provider Call Non-Emergent contact if: you have any medication questions . . "Provider Documentation" section prepared by Adrian Joyner. . Stroke Core Measures Reason no t-PA for Stroke: Treatment not indicated (out of the window) Reason no antithrom by day 2: Treatment provided - N/A Reason no antithrom at D/C: Treatment provided - N/A Reason no statin at D/C: Treatment provided - N/A Reason no anticoag w/a fib: Treatment not indicated
[2018-02-14 13:48] VITALS: BP 155/76; PULSE 70; TEMP 36.7; O2SAT 95
--- NOTE | 2018-02-17 01:20 | Discharge Summary ---
Discharge Summary Date of Service Feb 17, 2018. Discharge Summary Admission Date: Feb 12, 2018 at 15:04 Discharge Date: Feb 14, 2018 Discharge Disposition: Home with services Principal Diagnosis: SMALL ACUTE/SUBACUTE ANTERIOR LEFT PONTINE INFARCT Secondary Diagnoses/Problems: HTN LEFT INTERNAL CAROTID ARTERY STENOSIS DEPRESSION DM TYPE 2 Procedures: HEAD WITHOUT CONTRAST (CT) CT DOSE: 537.48 mGy.cm HISTORY: increased weakness, left pontine infarct TECHNIQUE: Multiaxial CT images of the head were performed without the use of intravenous contrast. A dose lowering technique was utilized adhering to the principles of ALARA. Comparison: 02/12/2018. MRI brain 02/12/2018. Findings: The paranasal sinuses and mastoid air cells are clear. Small anterior left pontine infarct is developing. No evidence for hemorrhage. No midline shift. All remaining components of the brain are unremarkable. Impression: Small acute/subacute anterior left pontine infarct. No evidence for acute intracranial hemorrhage. The above report was generated using voice recognition software. It may contain grammatical, syntax or spelling errors. Electronically signed by: Hermelindo Small M.D. 02/13/2018 9:52 AM Dictated Date/Time: 02/13/2018 9:49 AM [~ rep ct add3]] NECK ANGIO WITH CONTRAST HISTORY: Stroke mental status change TECHNIQUE: Multiaxial CT images of the neck were performed following the intravenous administration of contrast to evaluate the major cervical vessels. Maximum intensity projection images were also obtained. All measurements were calculated based on NASCET criteria. A dose lowering technique was utilized adhering to the principles of ALARA. COMPARISON STUDY: MRA neck same date. Carotid Doppler same date. FINDINGS: The aortic arch and proximal great vessels are widely patent. 50-60% narrowing origin left internal carotid artery as well as left carotid bifurcation. Moderate plaque dimension right bifurcation although no significant stenotic process is appreciated at that site. Small caliber right vertebral artery and a congenital basis. Left vertebral artery is unremarkable. IMPRESSION: 1. 50% narrowing origin left internal carotid artery as well as left carotid bifurcation. 2. Scattered additional plaque formation with no additional significant stenosis. 3. Small caliber right vertebral artery on a congenital basis. The above report was generated using voice recognition software. It may contain grammatical, syntax or spelling errors. Electronically signed by: Hermelindo Small M.D. 02/12/2018 9:42 PM Dictated Date/Time: 02/12/2018 9:41 PM [~ rep ct add3]] MRA HEAD WITHOUT CONTRAST HISTORY: Stroke - Attention to [place] TECHNIQUE: 3-D [id number] MRA of the brain was performed without contrast. COMPARISON STUDY: None. FINDINGS: There is a component of the intracranial vasculature demonstrate moderate scattered atherosclerotic change. Multifocal areas of mild to moderate narrowing identified within the anterior middle as well as posterior cerebral circulation. The anterior cerebral is fed via a left-sided circulation. There is focal high-grade stenosis of the origin of the right anterior cerebral. Left anterior cerebral is unremarkable. The posterior circulation shows a left vertebral artery to be dominant. There is mild atherosclerotic change of the basilar. Right vertebral artery is very small most likely on a chronic and/or congenital basis. IMPRESSION: 1. Moderate multifocal areas of narrowing of the intracranial vasculature throughout the anterior middle and posterior cerebral circulation.. 2. The origin of the right anterior cerebral shows a high-grade stenosis 3. 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 The above report was generated using voice recognition software. It may contain grammatical, syntax or spelling errors. Electronically signed by: Hermelindo Small M.D. 02/12/2018 9:30 PM Dictated Date/Time: 02/12/2018 9:26 PM ADDENDUM The report should read 50% to 70% narrowing of the origin of the left internal carotid artery. Electronically signed by: Hermelindo Small M.D. 02/12/2018 9:40 PM Dictated Date/Time: 02/12/2018 9:40 PM ORIGINAL REPORT MRA NECK COMBO HISTORY: Mental status change Stroke TECHNIQUE: [id number] and gadolinium-enhanced MRA of the neck was performed both before and after the intravenous administration of contrast. All measurements were calculated based on NASCET criteria. COMPARISON STUDY: None. FINDINGS: The aortic arch and proximal great vessels are widely patent. Right vertebral artery is quite small in terms of overall diameter presumably on a congenital basis. Carotid system shows a 50-70% narrowing of the origin of the right internal carotid artery. There is no significant stenotic process of the left common or internal carotid arteries. IMPRESSION: 1. Somewhat limited exam due to patient respiratory and somatic motion. 2. 50-70% narrowing origin right internal carotid artery. 3. Mild plaque formation left carotid bifurcation with no significant stenosis. 4. Small caliber right vertebral artery most likely on a congenital basis. The above report was generated using voice recognition software. It may contain grammatical, syntax or spelling errors. Electronically signed by: Hermelindo Small M.D. 02/12/2018 9:32 PM Dictated Date/Time: 02/12/2018 9:30 PM BRAIN COMBO CLINICAL HISTORY: Stroke mental status change COMPARISON STUDY: No previous studies for comparison. TECHNIQUE: Utilizing a 1.5 Ciara magnet and dedicated coil, multiplanar, multiecho imaging of the brain was performed pre and postcontrast administration. IV administration of 10 mL of Gadavist contrast was uneventful. FINDINGS: Diffusion-weighted images show a small focus of acute ischemic change left anterior luis enrique. Signal characteristics otherwise indicate a component of mild chronic small vessel change throughout both cerebral hemispheres. Ventricular system is midline. There is no evidence for abnormal postcontrast enhancement. IMPRESSION: Small focus of acute ischemic change left anterior luis enrique. Mild chronic small vessel change. Otherwise negative study. The above report was generated using voice recognition software. It may contain grammatical, syntax or spelling errors. Electronically signed by: Hermelindo Small M.D. 02/12/2018 9:26 PM Dictated Date/Time: 02/12/2018 9:22 PM CAROTID DOPPLER NECK ART CLINICAL HISTORY: 62 years-old Female with Stroke. Acute strokelike symptoms COMPARISON: Head CT of same day TECHNIQUE: Multiple real time sonographic images of the carotid bifurcations were obtained assessing ingram scale, color Doppler and spectral wave form appearance FINDINGS: Study is limited secondary to patient body habitus. Blood pressures were not obtained secondary to intravenous catheters. RIGHT INTERNAL CAROTID: The peak systolic velocity measured 102 cm/sec. The end diastolic velocity measured 24 cm/sec. The ICA to CCA ratio measured 1.4 which correlates with a stenosis of 0-50%. Mild to moderate atherosclerotic plaquing. LEFT INTERNAL CAROTID: The peak systolic velocity measured 161 cm/sec within the mid ICA. The end diastolic velocity measured 44 cm/sec. The ICA to CCA ratio measured 2.0 which correlates with a stenosis of 50-69%. Moderate mixed plaquing of the left carotid bulb and left ICA. There is normal antegrade vertebral flow bilaterally. IMPRESSION: 1. Moderate mixed plaquing of the left carotid bulb and left ICA results in elevated peak systolic velocities correlating with stenosis of 50-69%. 2. Atherosclerotic plaquing of the right internal carotid artery without hemodynamically significant stenosis. 3. Antegrade flow of the bilateral vertebral arteries. The above report was generated using voice recognition software. It may contain grammatical, syntax or spelling errors. Electronically signed by: Abad Lagos M.D. 02/12/2018 5:38 PM Dictated Date/Time: 02/12/2018 5:[address] OF THE CERVICAL SPINE WITHOUT CONTRAST CLINICAL HISTORY: Right shoulder pain. Paresthesias. COMPARISON STUDY: No previous studies for comparison. TECHNIQUE: Helical axial images of the cervical spine were obtained without IV contrast. Sagittal and coronal reconstructions were viewed. A dose lowering technique was utilized adhering to the principles of ALARA. FINDINGS: Alignment of the cervical spine is anatomic with the exception of straightening. Craniocervical junction is intact. There is no fracture or suspicious lesion within the cervical spine by CT. There is made of moderate disc space narrowing and osteophytosis at C6-C7. There is suspected posterior osteophyte complex which is suboptimally assessed by CT. Note is made of several left lobe thyroid nodules that measure up to 1.2 cm. IMPRESSION: 1. No acute cervical spine fracture or subluxation. 2. Moderate degenerative disc disease at C6-C7 with moderate multilevel facet arthrosis. Suboptimal evaluation of the central canal and neural foramen given CT technique. Electronically signed by: Ruy Pagan M.D. 02/12/2018 1:45 PM Dictated Date/Time: 02/12/2018 1:42 PM ECHO Interpretation Summary * Name: SHAD EASLEY Study Date: 02/12/2018 03:40 PM BP: 189/94 mmHg * Patient Location: C.EDB HR: 73 * : 1955 (M/d/yyyy) Gender: Female Height: 62 in * Age: 62 yrs Ethnicity: CA Weight: 229 lb * Ordering Physician: Latoya Calvo * Referring Physician: Self, Referred * Performed By: Rebecca Albarran RDCS * * Reason For Study: CVA * BSA: 2.0 m2 * The study was technically adequate. * -- Conclusions -- * There is mild concentric left ventricular hypertrophy. * The left ventricular wall motion is normal. * The left ventricle is hyperdynamic. * Ejection Fraction = >70 %. * There is mild mitral annular calcification. * Grade I diastolic dysfunction, (abnormal relaxation pattern). Procedure Details * A complete two-dimensional transthoracic echocardiogram was performed (2D, M- mode, Doppler and color flow Doppler). * A saline contrast injection was performed to assess for cardiac shunting. * The injection was performed through an intravenous line in the right arm. * The attending nurse who injected the saline contrast was Tammy Rogers RN. * A total of 10 cc of agitated saline was given. * A contrast injection of Definity was performed to improve assessment of LV function. * Contrast was injected into an intravenous site in the right arm. * One vial of Definity ultrasound contrast was diluted in normal saline to a total volume of 10 ml. A total of '1' ml of solution was administered during imaging. * Lot # [id number] of Definity utilized for procedure. * Expiration date 1 JAN 18. * The attending nurse who injected the contrast agent was Tammy Rogers RN. Left Ventricle * The left ventricle is normal in size. * There is mild concentric left ventricular hypertrophy. * The left ventricle is hyperdynamic. * Ejection Fraction = >70 %. * The left ventricular wall motion is normal. Right Ventricle * The right ventricle is normal size. * The right ventricular systolic function is normal as assessed by tricuspid annular plane systolic excursion (TAPSE) (normal >1.5 cm). Atria * The left atrial size is normal. * Right atrial size is normal. * The interatrial septum is intact with no evidence for an atrial septal defect. Mitral Valve * There is mild mitral annular calcification. * There is no mitral valve stenosis. * Significant mitral regurgitation is absent. Tricuspid Valve * The tricuspid valve is normal. * There is no tricuspid stenosis. * Significant tricuspid regurgitation is absent. Aortic Valve * The aortic valve is trileaflet. * Aortic stenosis is absent. * There is no significant aortic regurgitation. Pulmonic Valve * The pulmonary valve is not well seen, but the Doppler examination is normal without significant regurgitation or stenosis. Great Vessels * The aortic root and proximal ascending aorta are normal sized. Pericardium/Pleural * There is no pericardial effusion. Great Vessels * Normal inferior vena cava diameter and respiratory variation suggests normal central venous pressure. Left Ventricular Diastolic Function * Grade I diastolic dysfunction, (abnormal relaxation pattern). Consultations: Neuro Medication Reconciliation New Medications: Aspirin (Aspirin EC Low Dose) 81 Mg Ectab 81 MG PO QAM for 30 Days Atorvastatin (Lipitor) 40 Mg Tab 80 MG PO QAM for 30 Days, #60 TAB Clopidogrel Bisulfate (Clopidogrel) 75 Mg Tab 75 MG PO QAM for 30 Days, #30 TAB Continued Medications: Ascorbic Acid (Vitamin C) 500 Mg Cap 500 MG PO DAILY B-Complex W/ Folic Acid (B Complex Plus) 1 Tab Tab 1 TAB PO DAILY Calcium/Vitamin D (Os-Santhosh 500 Plus D) Tab 1 TAB PO DAILY, TAB Carvedilol (Coreg) 3.125 Mg Tab 3.125 MG PO BID, TAB Cholecalciferol (Vitamin D3) 1,000 Unit Tab 1 TAB PO DAILY for 90 Days, #90 TAB 3 Refills Coenzyme Q10 (Ubidecarenone) (Co Q10) 30 Mg Cap 1 CAP PO DAILY, CAP Escitalopram (Lexapro) 10 Mg Tab 5 MG PO DAILY, TAB Loratadine (Claritin) 10 Mg Tab 10 MG PO DAILY PRN for allergies, TAB Losartan Potassium (Cozaar) 50 Mg Tab 75 MG PO DAILY, TAB Metformin Hcl Er (Glucophage Er) 500 Mg Tab 500 MG PO DAILY, TAB Soybean Lecithin (Bulk) (Lecithin) 1 Gra Gra 1 TAB PO DAILY Vitamin E (Vitamin E) 400 Unit Tab 1 TAB PO DAILY Admission Information HPI (per Admitting provider): 62-year-old female who presents to the ER with chief complaint of slurred speech and difficulty walking. at the bedside reports that when he spoke to his on the phone Thursday evening he noted that her speech was not right. Patient reports she woke up yesterday morning and had right upper extremity pain. Whenever she was at work she noticed that she was having some troubles writing as well as using a calculator. She noted increased speech difficulties yesterday. This morning when she was trying to walk she reports she felt very off balance, requiring use of a cane. She denies headache and blurred vision. No lightheadedness, dizziness, or syncopal events. She denies chest pain, shortness of breath, diaphoresis. No other recent illnesses fever or chills. She denies abdominal pain, nausea, vomiting, diarrhea. She denies urinary symptoms. In the ED head CT is showing age-indeterminate lacunar infarct. She is hypertensive, other vitals are stable. Labs are unremarkable. She was given a full dose aspirin. Physical Exam (per Admitting): General Appearance: WD/WN, no apparent distress, + obese Head: atraumatic Eyes: normal inspection, PERRL, EOMI, sclerae normal ENT: hearing grossly normal, + pertinent finding (Mucous membranes moist) Neck: supple, no JVD, trachea midline Respiratory/Chest: lungs clear, normal breath sounds, no respiratory distress Cardiovascular: regular rate, rhythm, no edema, normal peripheral pulses Abdomen/GI: normal bowel sounds, non tender, soft, no organomegaly Extremities/Musculoskelatal: normal inspection, no calf tenderness, normal capillary refill Neurologic/Psych: alert, oriented x 3, + pertinent finding (Mild difficulty with finger to nose on the right upper extremity, mild right upper extremity drift noted, slurred speech; no other focal deficits noted) Skin: normal color, warm/dry Hospital Course SMALL ACUTE/SUBACUTE ANTERIOR LEFT PONTINE INFARCT Present with slurred speech, right upper extremity weakness and unsteady gait. MRI showed small focus of acute ischemic change left anterior luis enrique. MRA neck showed 50% to 70% narrowing of the origin of the left internal carotid artery. MRA head showed moderate multifocal areas of narrowing of the intracranial vasculature throughout the anterior middle and posterior cerebral circulation.. Repeat CT head today showed small acute/subacute anterior left pontine infarct. No evidence for acute intracranial hemorrhage. No arrhythmia on tele monitor Chol 200, LDL 132, HDL 51 and trig 84 Continue statins, plavix and aspirin Continue neuro check BP elevated to allow permissive HTN Neuro on board Continue PT/OT/Speech therapy Follow up with neuro Dr. Kirkpatrick on 03/19 @ 9:05AM ECHO showed * There is mild concentric left ventricular hypertrophy. * The left ventricular wall motion is normal. * The left ventricle is hyperdynamic. * Ejection Fraction = >70 %. * There is mild mitral annular calcification. * Grade I diastolic dysfunction, (abnormal relaxation pattern). HYPERTENSION BP elevated Allowing for permissive hypertension in the setting of possible CVA BP med on hold Will resume beta katy and Losartan on discharge LEFT INTERNAL CAROTID ARTERY STENOSIS MRA neck showed 50% to 70% narrowing of the origin of the left internal carotid artery. Repeat carotid u/s in 6 weeks, then yearly If stenosis greater than 70%, please refer to vascular surgery DIABETES Hgb A1c 7.6 on 02/13/18 Metformin on hold on insulin coverage DEPRESSION Continue escitalopram stable DVT PROPHYLAXIS On SCDs, on heparin subq DISPOSITION Will discharge home today with home services Total time spent on discharge = 35 MINUTES This includes examination of the patient, discharge planning, medication reconciliation, and communication with other providers. Discharge Instructions Discharge Instructions Date of Service Feb 14, 2018. Admission Reason for Admission: Slurred Speech Discharge Discharge Diagnosis / Problem: SMALL ACUTE/SUBACUTE ANTERIOR LEFT PONTINE INFARCT, Hypertension Discharge Goals Goal(s): Decrease discomfort, Improve function, Improve disease control Activity Recommendations Activity Limitations: resume your previous activity (as tolerated) . Instructions / Follow-Up Instructions / Follow-Up Follow up with your primary care provider within 1 week ( Dr. Sanchez's office will call you for the appointment) If you don't hear from Dr. Sanchez's office by Thursday, please call for the appointment. Follow up with Neurology Dr. Kirkpatrick on 03/19 @ 9:05 AM Continue physical therapy, occupational therapy and speech therapy ( [facility] manager will arrange that as well as home health services) No driving or working until you reevaluate by your physician/neurology Fall precaution Your physician will check your liver enzymes between 1 to 2 weeks since you were starting on statin. Please notify physician if you see any abnormal bleeding, blood in your stool or urine since you were starting on Plavix that can thin your blood and risk of bleeding. Your physician will order a carotid ultrasound in 6 months to monitor the narrowing of the left carotid artery (in your neck) Monitor blood pressure Risk Factors for Stroke: You can reduce your chances of stroke by working with your medical provider to adopt a healthy lifestyle. Some specific ways to lower your chance of stroke are: * If you are a smoker, now is the time to stop smoking cigarettes * If you are diabetic, improve the control of your blood sugars * Avoid excessive amounts of alcohol * Control high blood pressure * Lose weight if you are overweight * Be sure to lead an active lifestyle * Eat a healthy diet low in salt, cholesterol and fat You should know about other risk factors for stroke that you are unable to control. These include: * Age 55 years or older * Male gender * Certain racial groups: , or / * Family History of Stroke, Mini stroke or Heart Attack * Sickle Cell Disease Follow Up: It is important for you to keep your follow up appointments with your medical provider. Current Hospital Diet Patient's current hospital diet: AHA Diet (Heart Healthy), Diabetes Type 2 Diet Discharge Diet Recommended Diet: AHA Diet (Heart Healthy), Diabetes Type 2 Diet Pending Studies Studies pending at discharge: no Laboratory Results Hemoglobin A1c Test 02/12/18 13:15 Range/Units Estimated Average Glucose 171 mg/dl Hemoglobin A1c 7.6 H 4.5-5.6 % Lipid Panel Test 02/13/18 07:05 Range/Units Triglycerides Level 84 0-150 mg/dl Cholesterol Level 200 0-200 mg/dl HDL Cholesterol 51 mg/dl Cholesterol/HDL Ratio 3.9 LDL Cholesterol, Calculated 132 mg/dl Medical Emergencies . Who to Call and When: Medical Emergencies: Call 911 immediately if you experience any of the following warning signs and symptoms of Stroke: * Sudden numbness or weakness of the face, arm or leg, especially on one side of the body * Sudden confusion, trouble speaking or understanding * Sudden trouble seeing in one or both eyes * Sudden trouble walking, dizziness, loss of balance or coordination * Sudden severe headache with no cause Do not delay calling 911 if you experience any warning signs or symptoms of a stroke. Delay in seeking medical attention may affect what treatments can be given to you. . Non-Emergent Contact Non-Emergency issues call your: Primary Care Provider Call Non-Emergent contact if: you have any medication questions . . "Provider Documentation" section prepared by Adrian Joyner. . Stroke Core Measures Reason no t-PA for Stroke: Treatment not indicated (out of the window) Reason no antithrom by day 2: Treatment provided - N/A Reason no antithrom at D/C: Treatment provided - N/A Reason no statin at D/C: Treatment provided - N/A Reason no anticoag w/a fib: Treatment not indicated Additional Copies To Med Sanchez M.D.
== END 2018-02-14 14:29 | disposition home health service (06) | DRG 65 ==
LOC: C.EDB 12:31 → C.2E 15:04 → EDBEDREQ 15:08 → ENRESERV 15:17 → CANBEDREQ 16:53
PROVIDERS: ADMIT Hospitalist; ATTEND Internal Medicine
DX: I63.8 Other cerebral infarction (principal); Z68.42 Body mass index [BMI] 45.0-49.9, adult; R47.81 Slurred speech; R47.1 Dysarthria and anarthria; G83.31 Monoplegia, unspecified affecting right dominant side; R26.81 Unsteadiness on feet; R29.701 NIHSS score 1; I65.22 Occlusion and stenosis of left carotid artery; I10 Essential (primary) hypertension; E11.9 Type 2 diabetes mellitus without complications; E78.5 Hyperlipidemia, unspecified; F32.9 Major depressive disorder, single episode, unspecified; E66.01 Morbid (severe) obesity due to excess calories; Z51.81 Encounter for therapeutic drug level monitoring; Z79.899 Other long term (current) drug therapy; Z79.84 Long term (current) use of oral hypoglycemic drugs; Z79.82 Long term (current) use of aspirin; Z88.1 Allergy status to other antibiotic agents; Z83.3 Family history of diabetes mellitus

== ENCOUNTER 2024-04-24 06:43 | Inpatient (IN) ==
--- OUTSIDE RECORDS SUMMARY | 2024-04-24 06:49 | External Medical Summary | Summary of Care ---
Author Name Unknown Organization [facility] Address [address] [place] [address] Phone [phone] Care Team Providers Care Barrel Turner Name Role Phone Med Sanchez MD Primary Care Provider +1- [phone] Encounter Details Date Type Department Care Team (Late st Contact Info) Description 03/21/2024 Orders Only [place] [address] [place] [address] Clare Valles PA-C [address] [place] [address] Allergies Active Allergy Reactions Criticality Noted Date Comments Amlodipine Besylate Edema face/lips/tongue,Hiv es,Itching High 08/10/2013 Chlorthalidone Other (Please comment) 07/02/2018 Itchy eyes, red face Ciprofloxacin Itching 08/10/2013 Hydrochlorothiazide Muscle pain 08/10/2013 Lisinopril Other (Please comment) 12/04/2005 lips tingle, tolerates prinivil Other - Environmental Itching 03/16/2007 wool Saccharin 06/03/2023 Adhesive Tape Rash 09/19/2005 rash, blistering Valacyclovir Hcl Itching 08/10/2013 documented as of this encounter (statuses as of 03/21/2024) Medications Medication Sig Dispensed Refills Start Date End Date Status U-AUWWQTK-M-BIOTIN- MINERALS-FA 5 MG PO TABS takes 1 po daily 0 03/16/2007 Active VITAMIN C 500 MG PO TABS takes 1 po daily 0 03/16/2007 Active LORATADINE 10 MG PO CAPS daliy 0 Active VITAMIN E COMPLEX 400 UNIT PO CAPS 1 CAPSULE DAILY 0 07/23/2011 Act siamar VITAMIN D3 1000 UNITS PO TABS 1 daily 0 Active Coenzyme Q10 (CO Q10) 30 MG CAPS Take 1 Capsule by mouth in the morning. 30 Cap 0 07/21/2016 Active Lecithin GRAN Take by mouth. 0 11/18/2017 Active NATURAL SUPPLEMENT Take by mouth daily. shaklee osteomatrix 0 Active NATURAL SUPPLEMENTIndicatio ns:Herblax - senna and 8 complementary herbs Take by mouth daily. Indications: Herblax - senna and 8 complementary herbs 0 Active OneTouch Delica Lancets 33GIndications:DM (diabetes mellitus), type 2, uncontrolled Use to check blood sugars up to three times per day, dx E11.9 300 Each 3 08/12/2022 Active 1001 MenusTouch Ultra In Vitro Strip (Glucose Blood)Indications:U ncontrolled type 2 diabetes mellitus with complication, without long-term current use of insulin USE TO CHECK BLOOD SUGARS UP TO THREE TIMES A DAY 300 Strip 3 08/12/2022 Active Draftster María 2 [place] DeviceIndications:T ype 2 diabetes mellitus with hemoglobin A1c goal of less than 8.0% ([facility]) Use as directed. Use to monitor bg Dx E11.9 6 Each 1 12/23/2022 Active Carvedilol 6.25 MG Oral Tablet (Coreg) TAKE 1 TABLET EVERY MORNINGAND 1 TABLET BEFORE BEDTIME 180 Tablet 3 06/04/2023 Active Escitalopram Oxalate 5 MG Oral Tablet (Lexapro)Indication s:Stress and adjustment reaction TAKE 1 TABLET EVERY MORNING 90 Tablet 3 06/04/2023 Active Additional Information Patient taking differently: Takes at night, Reported on 01/22/2024 Losartan Potassium 100 MG Oral Tablet (Cozaar)Indications :HTN, goal below 140/90 TAKE 1 TABLET EVERY MORNING 90 Tablet 2 10/09/2023 Active Additional Information Patient taking differently:100 mg Oral Daily(AM), Takes at night, Reported on 01/22/2024 Clopidogrel Bisulfate 75 MG Oral Tablet (pLAVix)Indications :Hemiplga following cerebral infrc aff right dominant side (HCC) TAKE 1 TABLET EVERY MORNING 90 Tablet 2 10/09/2023 Active Allopurinol 300 MG Oral Tablet (Zyloprim) TAKE 1 TABLET EVERY MORNING 90 Tablet 2 10/09/2023 Active Additional Information Patient taking differently: Takes at night, Reported on 01/22/2024 Cyclobenzaprine HCl 5 MG Oral Tablet (Flexeril) Take 1 Tablet by mouth in the morning and 1 Tablet at noon and 1 Tablet before bedtime. 0 Active Glimepiride 2 MG Oral Tablet (Amaryl)Indications :Uncontrolled type 2 diabetes mellitus with hyperglycemia (HCC) Take 1 Tablet by mouth in the morning. 90 Tablet 1 01/19/2024 Active metFORMIN HCl ER 500 MG Oral Tablet Extended Release 24 Hour (Glucophage XR)Indications:DM type 2, not at goal (HCC) Take 1 Tablet by mouth daily. 90 Tablet 1 01/19/2024 Active documented as of this encounter (statuses as of 03/21/2024) Active Problems Problem Noted Date Diagnosed Date Uncontrolled type 2 diabetes mellitus with hyper glycemia 12/03/2022 Benign paroxysmal vertigo 09/23/2021 Type 2 diabetes mellitus wit h mild nonproliferative diabetic retinopathy without macular edema, bilateral 03/16/2019 Morbid obesity with body mas s index (BMI) of 45.0 to 49.9 in adult 02/23/2018 Major depressive disorder wi th single episode, in partial remission 02/23/2018 LVH (left ventricular hypertrophy) 02/23/2018 Asymptomatic stenosis of left carotid artery Overview: LICA 50-69% Type 2 diabetes mellitus wit h hemoglobin A1c goal of less than 8.0% 02/23/2018 Speech or language deficit, post-stroke 02/24/20 18 Hemiplga following cerebral infrc aff right murphy nant side 02/23/2018 MARJAN inhibitor intolerance 09/21/2017 Calculus of kidney 08/10/2013 HTN, GOAL BELOW 140/90 10/22/2009 Overview: Modified per HTN protocol #16. Monoclonal paraproteinemia 09/23/2007 ALLERGIC RHINITIS - MIXED TYPE 12/11/2005 Osteoarthrosis, localized, primary, involving lo wer leg 09/19/2005 Overview: ICD-10 update of inactive term documented as of this encounter (statuses as of 03/21/2024) Resolved Problems Problem Noted Date Diagnosed Date Resolved Date Body mass index (BMI) of 40. 0 to 44.9 in adult 10/13/2017 02/23/2018 Overview: Per Obesity protocol #1 DM type 2, not at goal 08/10/201309/21 Myalgia 08/10/2013 04/15/2016 Obesity, morbid (more than 1 00 lbs over ideal weight or BMI > 40) 05/14/2010 09/21/2017 Overview: Per Obesity Protocol, #19 ICD-10 update of inactive term Headache 12/11/2005 09/21/2017 Overview: ICD-10 update of inactive term HTN, goal to be determined 09/19/2005 1 12/22/2008 Overview: Modified per HTN protocol #16. Trigger finger 09/19/2005 02/23/2018 documented as of this encounter (statuses as of 03/21/2024) Immunizations Name Administration Dates Next Due COVID-19 mRNA, LNP-s, No Pre serve, 2-Dose Series (Moderna) 03/06/2021,02/06/2021 COVID-19, mRNA, LNP-s, PF, B ooster, 100mcg/0.5mg (Moderna) 06/17/2022,10/01/2021 Covid-19, Mrna, Lnp-s, Pf, B ivalent, 50 Mcg, IM, 12 yrs and above (Moderna) 12/01/2022 Seasonal Influenza, Quadrivalent Hd (Fluzone Hd) 10/20/2023 TD - Tetanus/Diptheria (ADULT) 06/06/2009 TDAP (age 11 and older)(Adacel) 08/18/2019 Varicella Zoster Vaccine (Adult) 09/01/2014 documented as of this encounter Social History Tobacco Use Types Packs/Day Years Used Date Smoking Tobacco: Never Smokeless Tobacco: Never Comments:no passive smoke ex posures Alcohol Use Standard Drinks/Week Comments Not Currently 0 (1 standard drink = 0.6 oz pur e alcohol) PHQ-2 Answer Date Recorded PHQ Adult Total Score 1 12/19/2022 Hunger Vital Sign Answer Date Recorded Within the past 12 months, y ou worried that your food would run out before you got the money to buy more. Never true 12/19/19 23 Within the past 12 months, t he food you bought just didn't last and you didn't have money to get more. Never true 12/19/2022 Sex and Gender Information Value Date Recorded Sex Assigned at Female 03/16/2019 9:08 AM EDT Gender Identity Female 03/16/2019 9:08 AM EDT Sexual Orientation Straight 03/16/2019 9: 08 AM EDT Job Start Date Occupation Industry Not on file Not on file Not on file documented as of this encounter Plan of Treatment Upcoming Encounters Date Type Department Care Team (Late st Contact Info) Description 05/27/2024 9:00 AM EDT Laboratory Laboratory, [place] [address] [place] [facility] [place] [phone] [facility] Laboratory [address] [facility] [place] [id number] 06/03/2024 2:40 PM EDT Office Visit Family [facility], [place] [address] [place] [facility] [place] [phone] Med Sanchez MD [address] [place] [facility] [place] [address] 08/02/2024 1:00 PM EDT Office Visit [facility] [place] [address] [facility] [phone] Kiya Webb MD [address] [facility] [place] [address] 03/21/2025 11:00 AM EDT Nurse Only Ancillary Department, [place] [address] [facility] [address] [place], Nurse Annual Wellness [address] [place] [facility] [place] [address] Health Maintenance Due Date Last Done Comments Pneumococcal Vaccine: 65+ Years (1 of 2 - PCV) 1960 Hepatitis C Screening 1972 Fecal Occult Blood Test 1999 Sigmoidoscopy 1999 Zoster Vaccines (2 of 3) 10/27/2014 09/01/2014 *BASELINE EKG FOR HTN 03/10/2023 COVID-19 Vaccine ( season) 2023 12/01/2022, 06/17/2022, 10/01/2021, Additional history exists Cologuard 09/12/2023 09/12/2020, 05/2020, 09/05/2020 B-12 05/15/2024 05/15/2023, 04/30, 12/21/2020, Additional history exists HbA1c 05/28/2024 11/27/2023, 04/30, 11/27/2022, Additional history exists Diabetic Eye Exam 09/22/2024 09/22/2023, , 09/19/2022, Additional history exists Albumin/Creatinine Ratio 11/27/2024 023, 05/15/2023, 11/27/2022, Additional history exists GFR 11/27/2024 11/27/2023, 04/30, 07/25/2022, Additional history exists Diabetic Foot Exam 03/15/2025 03/15/2024, 0 12/19/2022, 12/17/2021, Additional history exists Mammogram 03/21/2025 03/18/2024, 11/30, 12/11/2022, Additional history exists DXA Scan 12/04/2027 12/04/2020 DTaP,Tdap,and Td Vaccines (2 - Td or Tdap) 08/18/2029 08/18/2019, 06/06/2009 Colonoscopy 02/04/2034 02/05/2024, 02/05/2024 Colorectal Cancer Screening 02/04/2034 Influenza Vaccine (FLU shot) Completed 10/20/2023 GARDASIL-HPV IMMUNIZATION SERIES Aged Out No longer eligible based on patient's age to complete this topic Hepatitis B Aged Out No longer eligi ble based on patient's age to complete this topic MENINGOCOCCAL (MENACTRA/MENVEO) Aged Out No longer eligible based on patient's age to complete this topic documented as of this encounter Medical Devices Not on filedocumented as of this encounter Procedures Procedure Name Priority Date/Time Associated Diagnosis Comments MAMMOGRAM SCREENING BILATERAL Routine 03/18/2024 documented in this encounter Results * MAMMOGRAM SCREENING BILATERAL (03/18/2024) Anatomical Region Laterality Modality Breast Bilateral Other 03/18/2024 Clare Valles PA-C RAD MAMMOGRAPHY documented in this encounter Care Teams Barrel Turner Relationship Specialty Start Date End Date Med Sanchez MD [address] [place] [address] PCP - General Family Medicine 03/10/19 documented as of this encounter
--- OUTSIDE RECORDS SUMMARY | 2024-04-24 06:49 | External Medical Summary | Summary of Care ---
Author Name Unknown Organization [facility] Address [address] [place] [address] Phone [phone] Care Team Providers Care Radiologic Technology Instructor Name Role Phone Med Sanchez MD Primary Care Provider +1- [phone] Encounter Details Date Type Department Care Team (Late st Contact Info) Description 03/21/2024 Orders Only [place] [address] [place] [address] Clare Valles PA-C [address] [place] [address] Allergies Active Allergy Reactions Criticality [...] Dispensed Refills Start Date End Date Status [id number]-DKLHSHV-P-BIOTIN- MINERALS-FA 5 MG PO TABS takes 1 po daily 0 03/16/2007 Active VITAMIN C 500 MG PO TABS takes 1 po daily 0 03/16/2007 Active LORATADINE 10 MG PO CAPS daliy 0 Active VITAMIN E COMPLEX 400 UNIT PO CAPS 1 CAPSULE DAILY 0 07/23/2011 Act isamar VITAMIN D3 1000 UNITS PO TABS 1 [...] dx E11.9 300 Each 3 08/12/2022 Active [employer]Touch Ultra In Vitro Strip (Glucose Blood)Indications:U ncontrolled type 2 diabetes mellitus with complication, without long-term current use of insulin USE TO CHECK BLOOD SUGARS UP TO THREE TIMES A DAY 300 Strip 3 08/12/2022 Active Cubito María 2 [place] DeviceIndications:T ype 2 diabetes mellitus with hemoglobin A1c goal of less than 8.0% ([facility]) Use as directed. Use to monitor bg [...] on file documented as of this encounter Miscellaneous Notes * Result Encounter Note - Jessa Zhang RN - 03/21/2024 3:03 PM EDT Reason for Call: Mammogram Contact: My [facility] Contact Type: Test Results Outcome: MyChart letter sent Face to face time spent with Patient (minutes): 0 Total Time including non face to face (minutes): 10 * Result Encounter Note - Jessa Zhang RN - 03/21/2024 3:03 PM EDT Normal mammogram. MyChart letter sent documented in this encounter Plan of Treatment Upcoming Encounters Date Type Department Care Team (Late st Contact Info) Description 05/27/2024 9:00 AM EDT Laboratory Laboratory, [place] [address] [facility] [address] [place] [facility] [address] [facility] [id number] 06/03/2024 2:40 PM EDT Office Visit [facility] [address] [facility] [address] Med Sanchez MD [address] [place] [facility] [place] [address] 08/02/2024 1:00 PM EDT Office Visit Hematology/Oncology [place] Carrero [place] [address] [facility] [place] [phone] Kiya Webb MD [address] [place], [place] [address] 03/21/2025 11:00 AM EDT Nurse Only Ancillary Department, [place] [address] [place] [address] [place], Nurse Annual Wellness [address] [place] [facility] [place] [address] Health Maintenance Due Date Last Done Comments [...] , 09/19/2022, Additional history exists Albumin/Creatinine Ratio 11/27/202411/27/2 023, 05/15/2023, 11/27/2022, Additional history exists GFR 11/27/2024 11/27/2023, 04/30, 07/25/2022, Additional history exists Diabetic Foot Exam 03/15/2025 03/15/2024, 0 12/19/2022, 12/17/2021, Additional history exists Mammogram 03/18/2025 03/18/2024, 11/30, 12/11/2022, Additional history exists DXA [...] MAMMOGRAPHY documented in this encounter Care Teams Radiologic Technology Instructor Relationship Specialty Start Date End Date Med Sanchez MD [address] [place], [place] [phone] PCP - General Family Medicine 03/10/19 documented as of this encounter
--- OUTSIDE RECORDS SUMMARY | 2024-04-24 06:49 | External Medical Summary | Summary of Care ---
Author Name Unknown Organization [facility] Address [address] [place] [address] Phone [phone] Care Team Providers Care Care Support Representative Name Role Phone Med Sanchez MD Primary Care Provider +1- [phone] Encounter Details Date Type Department Care Team (Late st Contact Info) Description 03/21/2024 Orders Only [place] [address] [place] [address] Clare Valles PA-C [address] [place] [address] Allergies Active Allergy Reactions Criticality [...] Dispensed Refills Start Date End Date Status H-LQMWRCC-H-BIOTIN- MINERALS-FA 5 MG PO TABS takes 1 [...] dx E11.9 300 Each 3 08/12/2022 Active [employer]Touch Ultra In Vitro Strip (Glucose Blood)Indications:U ncontrolled type 2 diabetes mellitus with complication, without long-term current use of insulin USE TO CHECK BLOOD SUGARS UP TO THREE TIMES A DAY 300 Strip 3 08/12/2022 Active Get[employer] María 2 [place] DeviceIndications:T ype 2 diabetes mellitus with hemoglobin A1c goal of less than 8.0% ([facility]) Use as directed. Use to monitor bg [...] Description 05/27/2024 9:00 AM EDT Laboratory Laboratory, [place] [address] [place] [facility] [place] [phone] [facility] Laboratory [address] [facility] [place] [phone] 06/03/2024 2:40 PM EDT Office Visit Family [facility], [place] [address] [place] [phone] Med Sanchez MD [address] [place] [address] 08/02/2024 1:00 PM EDT [facility] [place] [address] [facility] [place] [phone] Kiya Webb MD [address] [facility] [place] [address] 03/21/2025 11:00 AM EDT Nurse Only Ancillary Department, [place] [address] [facility] [address] [place], Nurse Annual Wellness [address] [place] [address] Health Maintenance Due Date Last Done Comments [...] MAMMOGRAPHY documented in this encounter Care Teams Care Support Representative Relationship Specialty Start Date End Date Med Sanchez MD [address] [place] [address] PCP - General Family Medicine 03/10/19 documented as of this encounter
--- OUTSIDE RECORDS SUMMARY | 2024-04-24 06:49 | External Medical Summary | Summary of Care ---
Author Name Unknown Organization [facility] Address [address] [place] [address] Phone [phone] Care Team Providers Care Plant Operations Vice President Name Role Phone Med Sanchez MD Primary Care Provider +1- [phone] Reason for Visit * Reason Onset Date Comments Advice 01/22/2024 Encounter Details Date Type Department Care Team (Late st Contact Info) Description 01/22/2024 Telephone [facility] [address] [place] [address] Med Sanchez MD [address] [place] [address] Advice Allergies Active Allergy Reactions Criticality Noted Date [...] as of this encounter (statuses as of 04/22/2024) Medications Medication Sig Dispensed Refills Start Date End Date Status G-MYXMBKD-M-BIOTIN- MINERALS-FA 5 MG PO TABS takes 1 po daily 0 03/16/2007 Active VITAMIN C 500 MG PO TABS takes 1 po daily 0 03/16/2007 Active LORATADINE 10 MG PO CAPS daliy Active VITAMIN E COMPLEX 400 UNIT PO CAPS 1 CAPSULE DAILY 07/23/2011 Act isamar VITAMIN D3 1000 UNITS PO TABS 1 daily Active Coenzyme Q10 (CO Q10) 30 MG CAPS Take 1 Capsule by mouth in the morning. 30 Cap 0 07/21/2016 Active Lecithin GRAN Take by mouth. 11/18/2017 Active NATURAL SUPPLEMENT Take by mouth daily. coralrafaelami osteomatrix Active NATURAL SUPPLEMENTIndicatio ns:Herblax - senna and 8 complementary herbs Take by mouth daily. Indications: Herblax - senna and 8 complementary herbs Active OneTouch Delbrien Lancdemarcus 33GIndications:DM (diabetes mellitus), type 2, uncontrolled Use to check blood sugars up to three times per day, dx E11.9 300 Each 3 08/12/2022 Active OneTouch Ultra In Vitro Strip (Glucose Blood)Indications:U ncontrolled type 2 diabetes mellitus with complication, without long-term current use of insulin USE TO CHECK BLOOD SUGARS UP TO THREE TIMES A DAY 300 Strip 3 08/12/2022 Active Twones María 2 [place] DeviceIndications:T ype 2 diabetes mellitus with hemoglobin A1c goal of less than 8.0% ([facility]) Use as directed. Use to monitor bg [...] at noon and 1 Tablet before bedtime. Active Glimepiride 2 MG Oral Tablet (Amaryl)Indications [...] as of this encounter (statuses as of 04/22/2024) Active Problems Problem Noted Date Diagnosed Date [...] as of this encounter (statuses as of 04/22/2024) Resolved Problems Problem Noted Date Diagnosed Date [...] as of this encounter (statuses as of 04/22/2024) Immunizations Name Administration Dates Next Due COVID-19 [...] as of this encounter Miscellaneous Notes * Telephone Encounter - Triny Gatica LPN - 01/25/2024 1:49 PM EST Patient has been informed of below message and verbalized understanding. * Telephone Encounter - Med Sanchez MD - 01/22/2024 6:24 PM EST Suggest that she stop the clopidogrel (plavix) 5 days before the procedure. She can re-start the day after the procedure as long as there is no concern for bleeding complications. * Telephone Encounter - Henrietta Saleem OSA - 01/22/2024 12:59 PM EST Patient is having colonoscopy 02/05/24. Patient is wanting to know if she can be off her blood thinners 5-7 days before the colonoscopy. documented in this encounter Plan of Treatment Upcoming Encounters Date Type Department Care Team (Late st Contact Info) Description 06/03/2024 2:40 PM EDT Office Visit [address] [place] [address] Med Sanchez [facility] [address] [facility] [address] 08/03/2024 11:30 AM EDT [facility] [place] [address] [facility] [phone] Mitra Mueller CRNP [address] [facility] [place] [address] 03/21/2025 11:00 AM EDT Nurse Only Ancillary Department, [place] [address] [facility] [address] [place], Nurse [facility] [address] [facility] [address] Health Maintenance Due Date Last Done Comments [...] Not on filedocumented as of this encounter Care Teams Plant Operations Vice President Relationship Specialty Start Date End Date Med Sanchez MD [address] [place] [facility] [place] [address] PCP - General Family Medicine 03/10/19 documented as of this encounter
--- NOTE | 2024-04-24 06:57 | Emergency Department Note ---
ED Provider Note History of Present Illness Chief Complaint: Urinary Symptoms Stated Complaint: HEADACHE,FEVER,FREQ URINATION,LEG/BACK PAIN Time Seen by Provider: 04/24/24 06:57 This is a 69-year-old female with a history of type 2 diabetes, kidney stones, urinary incontinence, hypertension, accompanied by her brother, who presents to the emergency department with 2 days of a headache, body aches, increased urinary frequency, chills, sweats, and reported fever of 105. Symptoms started 2 days ago. She took some ibuprofen last night with minimal relief. She took her temperature under the tongue this morning which is when it read 105. She states that she checked this multiple times and it was always this high. She is still eating and drinking, staying well-hydrated. She had a little bit of nausea at one point but has not had any vomiting. Symptoms feel different than kidney stone pain. She endorses a stuffy nose but relates this to seasonal allergies. She denies any sore throat or cough. No chest pain, shortness of breath, or abdominal pain. She denies any dysuria. No known recent tick bites. No skin rashes. Of note, patient states that she did not take any of her medications this morning including blood pressure. Home Medications Medication Instructions Recorded Confirmed Type allopurinol 300 mg tablet 300 mg PO DAILY 01/03/21 04/24/24 History ascorbic acid (vitamin C) 500 mg PO DAILY 10/29/21 04/24/24 History cholecalciferol (vitamin D3) 1 cap PO DIRECTED 10/29/21 04/24/24 History [Vitamin D3] lecithin 1 cap PO DIRECTED 10/29/21 04/24/24 History loratadine 10 mg PO DAILY 10/29/21 04/24/24 History omega-3 fatty acids-fish oil 360 1 cap PO DAILY #30 caps 01/01/23 04/24/24 Rx mg-1,200 mg capsule (Fish Oil) B Complex 1 cap PO DIRECTED 04/24/24 04/24/24 History Liver Complex 1 cap PO DIRECTED 04/24/24 04/24/24 History carvedilol 6.25 mg tablet 6.25 mg PO BID 04/24/24 04/24/24 History clopidogrel 75 mg tablet 75 mg PO DAILY 04/24/24 04/24/24 History escitalopram oxalate 5 mg tablet 5 mg PO DAILY 04/24/24 04/24/24 History glimepiride 2 mg tablet 2 mg PO DAILY 04/24/24 04/24/24 History losartan 100 mg tablet 100 mg PO DAILY 04/24/24 04/24/24 History metformin 500 mg tablet,extended 500 mg PO DAILY 04/24/24 04/24/24 History release 24 hr Allergies Allergy/AdvReac Type Severity Reaction Status Date / Time adhesive tape Allergy rash Verified 11/27/22 10:41 amlodipine Allergy edema Verified 11/27/22 10:41 face/lips/tongue, hives, and itching chlorthalidone Allergy itchy Verified 11/27/22 10:41 eyes, red face ciprofloxacin [From Cipro] Allergy itching Verified 11/27/22 10:41 lisinopril Allergy lips tingle Verified 11/27/22 10:41 valacyclovir Allergy itching Verified 11/27/22 10:41 hydrochlorothiazide AdvReac muscle pain Verified 11/27/22 10:41 Past Med/Surg History Problem List (Updated 04/24/24 @ 11:55 by PRIYANK North) Leukocytosis (Acute) Acute UTI (Acute) Nephrolithiasis Urge incontinence Urinary incontinence Urinary urgency DM type 2 (diabetes mellitus, type 2) (Chronic) HTN (hypertension) (Chronic) Depression (Chronic) Dyslipidemia (Chronic) Medical History History of nephrolithiasis Surgical History History of hysterectomy History of tonsillectomy History of appendectomy History of carpal tunnel surgery Social History Smoking Status: Never smoker Preferred Language: [place] Island[place] marital status: Current Living Situation: Spouse Feels Safe at Home: Yes Physical Exam Vital Signs Vital Signs - 24 hr 04/24/24 06:46 04/24/24 07:40 04/24/24 08:40 Temperature 98.6 F Temperature Source Oral Pulse Rate 96 H 89 Pulse Rate [Finger] 87 Respiratory Rate 20 18 Blood Pressure 232/104 H 249/140 H Blood Pressure [Left Arm] 167/93 H Blood Pressure Mean 146 Blood Pressure Mean [Left Arm] 117 Pulse Oximetry 95 96 Oxygen Delivery Method Room Air Sepsis Recent Fever Within 48 Hours Yes Sepsis New/Unexplained Change in Mental Status No Sepsis Action Taken by Nursing No Action Required 04/24/24 08:47 04/24/24 08:53 04/24/24 08:59 Temperature Temperature Source Pulse Rate 88 86 Pulse Rate [Finger] Respiratory Rate 91 H Blood Pressure 167/93 H Blood Pressure [Left Arm] 172/75 H Blood Pressure Mean Blood Pressure Mean [Left Arm] 107 Pulse Oximetry 98 Oxygen Delivery Method Sepsis Recent Fever Within 48 Hours Sepsis New/Unexplained Change in Mental Status Sepsis Action Taken by Nursing 04/24/24 09:46 Temperature Temperature Source Pulse Rate Pulse Rate [Finger] 87 Respiratory Rate 22 Blood Pressure Blood Pressure [Left Arm] 184/99 H Blood Pressure Mean Blood Pressure Mean [Left Arm] 127 Pulse Oximetry 98 Oxygen Delivery Method Sepsis Recent Fever Within 48 Hours Sepsis New/Unexplained Change in Mental Status Sepsis Action Taken by Nursing CONSTITUTIONAL: Well developed, well nourished, in no acute distress, pleasant. HEAD: Normocephalic, atraumatic. EYES: conjunctivae normal, extraocular muscles intact. ENMT: External ears normal. Nose with normal external appearance, minimal congestion. Oral mucous membranes moist. Oropharynx normal. NECK: Full active range of motion. No rigidity. LYMPHATIC: No cervical adenopathy RESPIRATORY: Breathing unlabored and symmetric. Lungs clear to auscultation bilaterally. No wheeze, rales, or rhonchi. CARDIOVASCULAR: Regular rate and rhythm. No murmurs, rubs, or gallops. ABDOMEN: Normal bowel sounds. Soft, nontender, no peritonitis. No masses. No CVA tenderness bilaterally. MUSCULOSKELETAL: Moves all extremities at all joints without pain or difficulty. No cyanosis or edema. Back with full range of motion. SKIN: [place], warm, dry. No obvious rashes. NEUROLOGIC: Awake, alert, oriented. Gaze is conjugate. Face symmetric, speech normal. Moves head and all four extremities spontaneously. PSYCHIATRIC: Appropriate. Normal affect Course Administered Medications Discontinued Medications Acetaminophen (Acetaminophen 325 Mg Tab) 650 mg PO NOW STA Stop: 04/24/24 10:08 Last Admin: 04/24/24 10:19 Dose: 650 mg Documented By: NANCY Sodium Chloride (Nss) 500 mls @ 999 mls/hr IV .Q31M ONE Stop: 04/24/24 07:40 Last Infusion: 04/24/24 08:14 Dose: Infused Documented By: Admin: 04/24/24 07:40 Dose: 999 mls/hr Documented By: KT Ceftriaxone Sodium (Rocephin) 2,000 mg in 50 mls @ 100 mls/hr IV NOW STA Stop: 04/24/24 09:18 Last Infusion: 04/24/24 10:22 Dose: Infused Documented By: Admin: 04/24/24 09:46 Dose: 100 mls/hr Documented By: KT Labetalol HCl (Labetalol Hcl Iv 5 Mg/Ml 20ml) 10 mg IV NOW STA Stop: 04/24/24 07:28 Last Admin: 04/24/24 07:40 Dose: 10 mg Documented By: KT Co-signed By: MATIAS Medical Decision Making Differential Diagnosis Viral syndrome, UTI, pyelonephritis, ureterolithiasis, tickborne illness, pneumonia, abdominal infection, among other pathology Laboratory Data 04/24/24 07:17 04/24/24 07:17 Lab Results 04/24/24 04/24/24 Range/Units 07:17 08:10 WBC 14.55 H (4.8-10.8) K/ul RBC 4.01 L (4.20-5.40) M/uL Hgb 13.2 (12.0-16.0) g/dl Hct 37.8 (37.0-47.0) % MCV 94.3 (80.0-100.0) fL MCH 32.9 (25.0-34.0) pg MCHC 34.9 (32.0-36.0) g/dL RDW Std Deviation 43.5 (36.4-46.3) fL RDW Coeff of [place] 12.5 (11.5-14.5) % Plt Count 190 (130-400) K/uL MPV 10.4 (9.4-12.4) fL Immature Gran % (Auto) 0.5 % Neut % (Auto) 84.2 % Lymph % (Auto) 7.5 % [place] % (Auto) 7.4 % Eos % (Auto) 0.1 % Baso % (Auto) 0.3 % Neut # (Auto) 12.26 H (1.40-6.50) K/uL Lymph # (Auto) 1.09 L (1.20-3.40) K/uL Floyd # (Auto) 1.07 H (0.11-0.59) K/uL Eos # (Auto) 0.02 (0.00-0.50) K/uL Baso # (Auto) 0.04 (0.00-0.20) K/uL Immature Gran # (Auto) 0.07 (0.01-0.20) K/uL Sodium 136 (136-145) mmol/L Potassium 3.9 (3.5-5.1) mmol/L Chloride 103 (98-107) mmol/L Carbon Dioxide 24 (21-32) mmol/L Anion Gap 9 (3-11) BUN 15 (6-23) mg/dl Creatinine 0.84 (0.6-1.2) mg/dl Est Cr Clr Drug Dosing Not Reportable Est GFR ( Amer) 81.6 ml/min Est GFR (Non-Af Amer) 70.4 ml/min BUN/Creatinine Ratio 17.9 (10-20) Glucose 227 H (70-99(Fasting)) mg/dl Lactate 1.9 (0.4-2.0) mmol/L Calcium 9.4 (8.6-10.3) mg/dl Total Bilirubin 0.8 (0.2-1.0) mg/dl AST 18 (13-39) U/L ALT 19 (7-52) U/L Alkaline Phosphatase 82 (34-104) U/L Total Protein 7.4 (6.0-8.3) gm/dl Albumin 4.0 (3.4-5.0) gm/dl Globulin 3.4 (2.5-4.0) gm/dl Albumin/Globulin Ratio 1.2 (0.9-2) Urine Color Yellow Urine Appearance Clear (Clear) Urine pH 7.0 (4.5-7.5) Ur Specific Ignacio 1.008 (1.000-1.030) Urine Protein Negative (Negative) Urine Glucose (UA) Negative (Negative) Urine Ketones Negative (Negative) Urine Blood 3+ H (Negative) Urine Nitrite Positive A (Negative) Urine Bilirubin Negative (Negative) Urine Urobilinogen Negative (Negative) Ur Leukocyte Esterase 2+ H (Negative) Urine WBC (Auto) >50 H (0-5) /hpf Urine RBC (Auto) 3-5 H (0-2) /hpf U Hyaline Cast (Auto) 0-2 (0-2) /lpf U Epithel Cells (Auto) 0-2 (0-2) /hpf Urine Bacteria (Auto) 3+ H (None Seen) Adenovirus (PCR) Not Detected (NotDetected) B. pertussis DNA (PCR) Not Detected (NotDetected) B.parapertussis DNA PCR Not Detected (NotDetected) C. pneumoniae DNA (PCR) Not Detected (NotDetected) Coronavirus OC43 (PCR) Not Detected (NotDetected) Coronavirus HKU1 (PCR) Not Detected (NotDetected) Coronavirus 229E (PCR) Not Detected (NotDetected) SARS-CoV-2 (PCR) Not Detected (NotDetected) Coronavirus NL63 (PCR) Not Detected (NotDetected) Human Metapneumovir PCR Not Detected (NotDetected) Influenza Type A (PCR) Not Detected (NotDetected) Influenza Type B (PCR) Not Detected (NotDetected) M. pneumoniae (PCR) Not Detected (NotDetected) Parainfluenza 1 (PCR) Not Detected (NotDetected) Parainfluenza 2 (PCR) Not Detected (NotDetected) Parainfluenza 3 (PCR) Not Detected (NotDetected) Parainfluenza 4 (PCR) Not Detected (NotDetected) RSV (PCR) Not Detected (NotDetected) Entero/Rhino (PCR) Not Detected (NotDetected) Imaging Data Attestation: I personally reviewed and interpreted this imaging study as follows: (I agree with the radiologist's interpretation) Radiologist's Impression: Chest X-Ray 04/24/24 07:10 XR chest 1V portable CLINICAL HISTORY: fever body aches congestion TECHNIQUE: Single frontal radiograph of the chest was obtained. Comparison: Comparison is made to chest radiograph 02/12/2018 FINDINGS: Exam is limited by underpenetration. The cardiomediastinal silhouette is stable. The lungs are clear. No evidence of pleural effusion or pneumothorax. IMPRESSION: No acute abnormalities and in particular no radiographic evidence of pneumonia. ACT 112: Negative or not required by law. Electronically signed by: Darrel Mo M.D. 04/24/2024 8:04 AM MDM Narrative 69-year-old female presents to the emergency department with 2 days of headache, body aches, chills, sweats, increased urinary frequency, and a reported fever of 105. Symptoms started 2 days ago. See above for further details. Patient minimally uncomfortable but certainly nontoxic. She is pleasant. I checked her temperature myself orally and it was 99.0. She is hypertensive at 249/140, not tachycardic. She did not take any of her morning medications including blood pressure so she was given a dose of labetalol. Her mucous membranes are not overly dry. The rest of her exam is reassuring. IV was inserted and labs were obtained. Will check urinalysis, [employer] upper respiratory panel, chest x-ray, and decide if additional testing is necessary. Labs: Leukocytosis at 14.55. No significant anemia. No thrombocytopenia. No electrolyte disturbances. Renal function is normal. Glucose elevated 227, patient is a known diabetic. Her urine is consistent with infection with 3+ blood, positive nitrites, 2+ leukocyte esterase, greater than 50 white blood cells, 3+ bacteria, and no epithelial cells. Upper respiratory panel negative. Blood cultures obtained. Chest x-ray 1 view: Negative Patient's blood pressure did improve to 160s/170s systolic after the labetalol. Nursing stated that she was somewhat unsteady ambulating to the restroom. Patient does live at home alone. Case was reviewed with ED attending Dr. Clemente. Given the patient's report of systemic symptoms over the past few days with reported fever at home in the setting of leukocytosis and a highly suspicious UTI with significant hypertension, as well as the patient living at home alone with unsteadiness, it was felt prudent to admit her for treatment. She was given a dose of ceftriaxone. Case was discussed with Dr. Figueroa with [facility] hospitalist group who agrees patient should be admitted and will manage her care. Impression Acute UTI, Leukocytosis Discharge Plan Visit Data Chief Complaint: Urinary Symptoms Stated Complaint: HEADACHE,FEVER,FREQ URINATION,LEG/BACK PAIN ED Provider: Trevor Clemente ED Midlevel Provider: Dennis Gill Discharge Problem: Acute UTI, Leukocytosis Patient Disposition: Admitted As Inpatient Condition: Fair Forms Stand Alone Forms: [employer] [facility] Prescriptions Prescriptions: No Action ascorbic acid (vitamin C) 500 mg PO DAILY Rx Instructions: otc cholecalciferol (vitamin D3) [Vitamin D3] 1 cap PO DIRECTED Rx Instructions: otc unknown dose lecithin 1 cap PO DIRECTED Rx Instructions: otc unknown dose loratadine 10 mg PO DAILY omega-3 fatty acids-fish oil [Fish Oil] 360-1,200 mg capsule 1 cap PO DAILY Qty: 30 0RF allopurinol 300 mg tablet 300 mg PO DAILY B Complex 1 cap PO DIRECTED Rx Instructions: otc unknown dose carvedilol 6.25 mg tablet 6.25 mg PO BID clopidogrel 75 mg tablet 75 mg PO DAILY glimepiride 2 mg tablet 2 mg PO DAILY losartan 100 mg tablet 100 mg PO DAILY metformin 500 mg tablet extended release 24 hr 500 mg PO DAILY escitalopram oxalate 5 mg tablet 5 mg PO DAILY Liver Complex 1 cap PO DIRECTED Referrals Referrals: Med Sanchez MD [Primary Care Provider] - Discharge Problem: Leukocytosis Qualifiers: Leukocytosis type: unspecified Qualified Code(s): D72.829 - Elevated white blood cell count, unspecified
[2024-04-24 07:35] LABS: Basophils # (auto) 0.04 K/uL (0.00-0.20); Basophils % (auto) 0.3 %; Eosinophils # (auto) 0.02 K/uL (0.00-0.50); Eosinophils % (auto) 0.1 %; Hematocrit (blood only) 37.8 % (37.0-47.0); Hemoglobin 13.2 g/dl (12.0-16.0); Immature Granulocytes # (auto) 0.07 K/uL (0.01-0.20); Immature Granulocytes % (auto) 0.5 %; Lymphocytes # (auto) 1.09 K/uL (1.20-3.40); Lymphocytes % (auto) 7.5 %; Mean Corpuscular Hemoglobin 32.9 pg (25.0-34.0); Mean Corpuscular Hgb Conc 34.9 g/dL (32.0-36.0); Mean Corpuscular Volume 94.3 fL (80.0-100.0); Mean Platelet Volume 10.4 fL (9.4-12.4); Monocytes # (auto) 1.07 K/uL (0.11-0.59); Monocytes % (auto) 7.4 %; Neutrophils # (auto) 12.26 K/uL (1.40-6.50); Neutrophils % (auto) 84.2 %; Platelet Count 190 K/uL (130-400); RDW Coefficient of Variation 12.5 % (11.5-14.5); RDW Standard Deviation 43.5 fL (36.4-46.3); Red Blood Count 4.01 M/uL (4.20-5.40); White Blood Count 14.55 K/ul (4.8-10.8)
[2024-04-24] MEDS: LABETALOL HCL IV 5 MG/ML 20ML IV STA (07:40)
[2024-04-24] MEDS: SODIUM CHLORIDE 0.9% 500 ML IV ONE (07:40)
[2024-04-24 07:57] LABS: Alanine Aminotransferase 19 U/L (7-52); Albumin Globulin Ratio 1.2 (0.9-2); Alkaline Phosphatase 82 U/L (34-104); Anion Gap 9 (3-11); Aspartate Aminotransferase 18 U/L (13-39); BUN Creatinine Ratio 17.9 (10-20); Bilirubin,Total 0.8 mg/dl (0.2-1.0); Blood Urea Nitrogen 15 mg/dl (6-23); Calcium 9.4 mg/dl (8.6-10.3); Carbon Dioxide 24 mmol/L (21-32); Chloride 103 mmol/L (98-107); Est GFR (African American) 81.6 ml/min; Est GFR (Non-African American) 70.4 ml/min; Globulin 3.4 gm/dl (2.5-4.0); Glucose 227 mg/dl (70-99(Fasting)); Potassium 3.9 mmol/L (3.5-5.1); Sodium 136 mmol/L (136-145); Total Protein 7.4 gm/dl (6.0-8.3)
--- NOTE | 2024-04-24 08:06 | XRay Report ---
XR chest 1V portable CLINICAL HISTORY: fever body aches congestion TECHNIQUE: Single frontal radiograph of the chest was obtained. Comparison: Comparison is made to chest radiograph 02/12/2018 FINDINGS: Exam is limited by underpenetration. The cardiomediastinal silhouette is stable. The lungs are clear. No evidence of pleural effusion or pneumothorax. IMPRESSION: No acute abnormalities and in particular no radiographic evidence of pneumonia. ACT 112: Negative or not required by law. Electronically signed by: Darrel Mo M.D. 04/24/2024 8:04 AM
[2024-04-24 08:21] LABS: Appearance Urine Clear (Clear); Bacteria Urine Automated 3+ (None Seen); Bilirubin Urine Negative (Negative); Blood Urine 3+ (Negative); Cast Urine Automated 0-2 /lpf (0-2); Color Urine Yellow; Epithelial Cell Urine Auto 0-2 /hpf (0-2); Glucose Urine UA Negative (Negative); Ketones Urine Negative (Negative); Leukocyte Esterase Urine 2+ (Negative); Nitrite Urine Positive (Negative); Protein Urine Negative (Negative); Specific Gravity Urine 1.008 (1.000-1.030); Urobilinogen Urine Negative (Negative); WBC Urine Automated >50 /hpf (0-5)
[2024-04-24 08:25] LABS: Adenovirus PCR Not Detected (NotDetected); Bordetella parapertussis PCR Not Detected (NotDetected); Bordetella pertussis PCR Not Detected (NotDetected); Chlamydia pneumoniae PCR Not Detected (NotDetected); Coronavirus 229E PCR Not Detected (NotDetected); Coronavirus CoV-2 (COVID19)PCR Not Detected (NotDetected); Coronavirus HKU1 PCR Not Detected (NotDetected); Coronavirus NL63 PCR Not Detected (NotDetected); Coronavirus OC43PCR Not Detected (NotDetected); Human Metapneumovirus PCR Not Detected (NotDetected); Influenza A PCR Not Detected (NotDetected); Influenza B PCR Not Detected (NotDetected); Mycoplasma pneumoniae PCR Not Detected (NotDetected); Parainfluenza Virus 1 PCR Not Detected (NotDetected); Parainfluenza Virus 2 PCR Not Detected (NotDetected); Parainfluenza Virus 3 PCR Not Detected (NotDetected); Parainfluenza Virus 4 PCR Not Detected (NotDetected); Respiratory Syncytial VirusPCR Not Detected (NotDetected); Rhinovirus/Enterovirus PCR Not Detected (NotDetected)
[2024-04-24] MEDS: cefTRIAXone SODIUM 2,000 MG/50 ML BAG IV STA (09:46)
[2024-04-24] MEDS: ACETAMINOPHEN 325 MG TAB PO STA (10:19)
--- NOTE | 2024-04-24 10:29 | History & Physical Report ---
Date of Service April 24, 2024 Assessment & Plan (1) Acute UTI: Plan: This is a 69 y/o female with history of DM2, prior CVA, diabetic retinopathy, HTN, OA, urge incontinence, spinal stenosis, depression, and other history as outlined who presented to the ED today with fever, nausea, and urinary symptoms. Work-up in the ED consistent with UTI so she was started on ceftriaxone. - Admit to PCU - Continue ceftriaxone while culture pending - Blood cultures pending - Labs in the AM - CBC, BMP - Check renal US due to left CVA tenderness, hx nephrolithiasis (2) Hypertensive urgency: Plan: BP noted to be markedly elevated in the ED - suspect related to missed medications this AM Resume home meds but increase Coreg to 12.5 mg BID with first dose now Monitor in PCU overnight (3) DM type 2 (diabetes mellitus, type 2): Plan: Holding oral agents while admitted Insulin sliding scale Diabetic diet BSG ACHS Check A1c in the AM (last A1c 8.2 on 11/27/23) (4) Depression: Plan: Chronic, stable Continue home meds (5) Dyslipidemia: Plan: Chronic, stable (6) History of CVA (cerebrovascular accident): Plan: Continue clopidogrel Uses cane due to residual deficits Plan Pt seen and reviewed with attending physician, Dr. Figueroa. Plan of care discussed and as outlined above. Code Status: Full code DVT prophylaxis: Lovenox Dispo: PCU Neil Thompson PA-C History of Present Illness Chief Complaint: fever, pain all over Primary Care Provider: Med Sanchez MD This is a 69 y/o female with history of DM2, prior CVA, diabetic retinopathy, HTN, OA, urge incontinence, spinal stenosis, depression, and other history as outlined who presented to the ED today with fever, nausea, and urinary symptoms. She reports that she developed chills and sweats with associated myalgias two nights ago - took three ibuprofen which seemed to help. However, symptoms have continued since then with associated urinary frequency, urgency, and incontinence. She reports taking her temperature at home several times this morning with readings 105-106F so she took another ibuprofen. However, she felt so poorly that she came to the ED for evaluation. She has had nausea but no vomiting. Mouth feels very dry. Currently hungry but hasn't eaten all day. She notes chronic back pain, which is at baseline. Denies abdominal pain, diarrhea. Sugars have been in the 140s, which is usual for her. She missed her BP meds this morning due to her symptoms. She has allergy symptoms but denies other recent illness. Allergies Allergy/AdvReac Type Severity Reaction Status Date / Time adhesive tape Allergy rash Verified 11/27/22 10:41 amlodipine Allergy edema Verified 11/27/22 10:41 face/lips/tongue, hives, and itching chlorthalidone Allergy itchy Verified 11/27/22 10:41 eyes, red face ciprofloxacin [From Cipro] Allergy itching Verified 11/27/22 10:41 lisinopril Allergy lips tingle Verified 11/27/22 10:41 valacyclovir Allergy itching Verified 11/27/22 10:41 hydrochlorothiazide AdvReac muscle pain Verified 11/27/22 10:41 Home Medications Medication Instructions Recorded Confirmed Type allopurinol 300 mg tablet 300 mg PO DAILY 01/03/21 04/24/24 History ascorbic acid (vitamin C) 500 mg PO DAILY 10/29/21 04/24/24 History cholecalciferol (vitamin D3) 1 cap PO DIRECTED 10/29/21 04/24/24 History [Vitamin D3] lecithin 1 cap PO DIRECTED 10/29/21 04/24/24 History loratadine 10 mg PO DAILY 10/29/21 04/24/24 History omega-3 fatty acids-fish oil 360 1 cap PO DAILY #30 caps 01/01/23 04/24/24 Rx mg-1,200 mg capsule (Fish Oil) B Complex 1 cap PO DIRECTED 04/24/24 04/24/24 History Liver Complex 1 cap PO DIRECTED 04/24/24 04/24/24 History carvedilol 6.25 mg tablet 6.25 mg PO BID 04/24/24 04/24/24 History clopidogrel 75 mg tablet 75 mg PO DAILY 04/24/24 04/24/24 History escitalopram oxalate 5 mg tablet 5 mg PO DAILY 04/24/24 04/24/24 History glimepiride 2 mg tablet 2 mg PO DAILY 04/24/24 04/24/24 History losartan 100 mg tablet 100 mg PO DAILY 04/24/24 04/24/24 History metformin 500 mg tablet,extended 500 mg PO DAILY 04/24/24 04/24/24 History release 24 hr Past Med/Surg History Problem List (Updated 04/24/24 @ 18:44 by Flora Thompson PA-C) History of CVA (cerebrovascular accident) Hypertensive urgency Leukocytosis (Acute) Acute UTI (Acute) Nephrolithiasis Urge incontinence Urinary incontinence Urinary urgency DM type 2 (diabetes mellitus, type 2) (Chronic) HTN (hypertension) (Chronic) Depression (Chronic) Dyslipidemia (Chronic) Medical History (Updated 04/24/24 @ 18:44 by Flora Thompson PA-C) Allergic rhinitis Diabetic retinopathy MARJAN inhibitor intolerance BPV (benign positional vertigo) LVH (left ventricular hypertrophy) Osteoarthritis CVA (cerebral vascular accident) History of nephrolithiasis Surgical History History of hysterectomy History of tonsillectomy History of appendectomy History of carpal tunnel surgery Social History Smoking Status: Never smoker Hx Alcohol Use: No Hx Substance Use: No Preferred Language: Hungarian Communication Ability: Effective Magistrate Assistant Required: No Beliefs That Will Affect Care: None marital status: Current Living Situation: Alone Current Living Situation Comment: Apartment, elevator and shower Tub Other Information That Helps Us Care for You: No Feels Safe at Home: Yes Safety Concerns: Feels Safe At This Time Assistive Devices: Cane and Glasses Review of Systems Review of Systems: All systems reviewed & are unremarkable except as noted in HPI & below Constitutional: + fever, + chills, + fatigue and + malai se Eyes: no diplopia Ear, Nose, Mouth, Throat: + nasal discharge; no sore throat Respiratory: no cough and no dyspnea Cardiovascular: no chest pain, no palpitations and no syncope Gastrointestinal: + nausea; no vomiting and no diarrhea/lo ose stools Genitourinary: + urinary frequency, + urinary urgency a nd + urinary incontinence; no dysuria and no hematuria Musculoskeletal: + back pain, + neck pain and + myalgia Integumentary: no rash and no yellowing of the skin Neurologic: no seizure-like activity and no confusion Physical Exam Physical Exam: General: awake, alert, NAD HEENT: no scleral icterus, slightly dry oral mucosa Neck: trachea midline Heart: RRR Lungs: CTA bilaterally, no W/R/R Abdomen: soft, +BS, +left CVA tenderness Extremities: no pedal edema Skin: warm, dry, no jaundice Neurologic: moving all extremities, no focal deficits, oriented x 3, no dysarthria Results & Data Results & Data Vital Signs (Past 12 Hours) Vital Signs Temp Pulse Pulse Resp BP BP Pulse Ox 04/24/24 09:46 87 22 184/99 H 98 04/24/24 08:59 86 04/24/24 08:53 91 H 172/75 H 98 04/24/24 08:47 88 167/93 H 04/24/24 08:40 87 18 167/93 H 96 04/24/24 07:40 89 249/140 H 04/24/24 06:46 37.0 C 96 H 20 232/104 H 95 O2 Del Method 04/24/24 09:46 04/24/24 08:59 04/24/24 08:53 04/24/24 08:47 04/24/24 08:40 04/24/24 07:40 04/24/24 06:46 Room Air Laboratory Results Laboratory Results - last 24 hr 04/24/24 04/24/24 07:17 08:10 WBC 14.55 H RBC 4.01 L Hgb 13.2 Hct 37.8 MCV 94.3 MCH 32.9 MCHC 34.9 RDW Std Deviation 43.5 RDW Coeff of [place] 12.5 Plt Count 190 MPV 10.4 Immature Gran % (Auto) 0.5 Neut % (Auto) 84.2 Lymph % (Auto) 7.5 [place] % (Auto) 7.4 Eos % (Auto) 0.1 Baso % (Auto) 0.3 Neut # (Auto) 12.26 H Lymph # (Auto) 1.09 L [place] # (Auto) 1.07 H Eos # (Auto) 0.02 Baso # (Auto) 0.04 Immature Gran # (Auto) 0.07 Sodium 136 Potassium 3.9 Chloride 103 Carbon Dioxide 24 Anion Gap 9 BUN 15 Creatinine 0.84 Est Cr Clr Drug Dosing Not Reportable Est GFR ( Amer) 81.6 Est GFR (Non-Af Amer) 70.4 BUN/Creatinine Ratio 17.9 Glucose 227 H Lactate 1.9 Calcium 9.4 Total Bilirubin 0.8 AST 18 ALT 19 Alkaline Phosphatase 82 Total Protein 7.4 Albumin 4.0 Globulin 3.4 Albumin/Globulin Ratio 1.2 Urine Color Yellow Urine Appearance Clear Urine pH 7.0 Ur Specific [place] 1.008 Urine Protein Negative Urine Glucose (UA) Negative Urine Ketones Negative Urine Blood 3+ H Urine Nitrite Positive A Urine Bilirubin Negative Urine Urobilinogen Negative Ur Leukocyte Esterase 2+ H Urine WBC (Auto) >50 H Urine RBC (Auto) 3-5 H U Hyaline Cast (Auto) 0-2 U Epithel Cells (Auto) 0-2 Urine Bacteria (Auto) 3+ H Adenovirus (PCR) Not Detected B. pertussis DNA (PCR) Not Detected B.parapertussis DNA PCR Not Detected C. pneumoniae DNA (PCR) Not Detected Coronavirus OC43 (PCR) Not Detected Coronavirus HKU1 (PCR) Not Detected Coronavirus 229E (PCR) Not Detected SARS-CoV-2 (PCR) Not Detected Coronavirus NL63 (PCR) Not Detected Human Metapneumovir PCR Not Detected Influenza Type A (PCR) Not Detected Influenza Type B (PCR) Not Detected M. pneumoniae (PCR) Not Detected Parainfluenza 1 (PCR) Not Detected Parainfluenza 2 (PCR) Not Detected Parainfluenza 3 (PCR) Not Detected Parainfluenza 4 (PCR) Not Detected RSV (PCR) Not Detected Entero/Rhino (PCR) Not Detected Diagnostic Findings Chest X-Ray 04/24/24 07:10 XR chest 1V portable CLINICAL HISTORY: fever body aches congestion TECHNIQUE: Single frontal radiograph of the chest was obtained. Comparison: Comparison is made to chest radiograph 02/12/2018 FINDINGS: Exam is limited by underpenetration. The cardiomediastinal silhouette is stable. The lungs are clear. No evidence of pleural effusion or pneumothorax. IMPRESSION: No acute abnormalities and in particular no radiographic evidence of pneumonia. ACT 112: Negative or not required by law. Electronically signed by: Darrel Mo M.D. 04/24/2024 8:04 AM Medications Administered Discontinued Medications Acetaminophen (Acetaminophen 325 Mg Tab) 650 mg PO NOW STA Stop: 04/24/24 10:08 Last Admin: 04/24/24 10:19 Dose: 650 mg Documented By: KT Sodium Chloride (Nss) 500 mls @ 999 mls/hr IV .Q31M ONE Stop: 04/24/24 07:40 Last Infusion: 04/24/24 08:14 Dose: Infused Documented By: Admin: 04/24/24 07:40 Dose: 999 mls/hr Documented By: NANCY Ceftriaxone Sodium (Rocephin) 2,000 mg in 50 mls @ 100 mls/hr IV NOW STA Stop: 04/24/24 09:18 Last Infusion: 04/24/24 10:22 Dose: Infused Documented By: Admin: 04/24/24 09:46 Dose: 100 mls/hr Documented By: NANCY Labetalol HCl (Labetalol Hcl Iv 5 Mg/Ml 20ml) 10 mg IV NOW STA Stop: 04/24/24 07:28 Last Admin: 04/24/24 07:40 Dose: 10 mg Documented By: NANCY Co-signed By: MATIAS Code Status & VTE Plan VTE Prophylaxis Plan VTE Prophylaxis will be ordered: Yes Supervising Physician Co-Signing Physician Notes Patient seen and examined independently. Discussed with above provider. Patient presented with fever, urinary urgency, frequency and pain in left flank. Leukocytosis present. Urinalysis history of infection. On physical examination; Alert oriented x 3 Chestbilateral vesicular breath sound Abdomenleft costovertebral angle tender CVSS1-S2, no murmur Neuro- grossly intact On physical examination; Acute UTI Left pyelonephritis On ceftriaxone; past microbiology history shows pansensitive E. coli Obtain renal ultrasound given history of renal/ureteral stone Hypertensive urgency Blood pressure found to be high during the presentation Will increase Coreg to 12.5 twice daily. Continue other meds Continue to monitor I have reviewed the advanced practitioner's documentation, and I agree with, and take responsibility for the plan of care I spent a total of 35 minutes coordinating, documenting, and providing care for this patient excluding time spent in the performance of separately billed services. All of the aforementioned completed while collaborating with the assigned advanced practitioner for a full treatment plan (3) DM type 2 (diabetes mellitus, type 2) Diabetes mellitus complication status: with other specified complication Diabetes mellitus intermodal customer service insulin use: without intermodal customer service use Qualified Code(s): E11.69 - Type 2 diabetes mellitus with other specified complication (4) Depression Depression Type: unspecified Qualified Code(s): F32.A - Depression, unspecified
[2024-04-24] MEDS ORDERED: DEXTROSE 50% 50 ML SYRINGE IV PRN (11:37)
[2024-04-24] MEDS ORDERED: CARBOHYDRATES FOR HYPOGLYCEMIA PO PRN (11:37)
[2024-04-24] MEDS ORDERED: GLUCOSE 40% GEL 15 GM TUBE PO PRN (11:37)
[2024-04-24] MEDS ORDERED: GLUCOSE 10 TAB/TUBE PO PRN (11:37)
[2024-04-24] MEDS ORDERED: GLUCAGON FOR INJ 1 MG VIAL SQ PRN (11:37)
--- NOTE | 2024-04-24 12:22 | Ultrasound Report ---
US renal/blad retro comp CLINICAL HISTORY: UTI, ?pyelonephritis TECHNIQUE: Multiple sonographic real-time images of the kidneys and bladder were obtained. COMPARISON: None available at the time of this dictation. FINDINGS: The right kidney measures 10.0 cm in length, and the left kidney measures 11.2 cm in length. The right kidney is normal in size, contour, cortical thickness, and echogenicity. No hydronephrosis is identified. No renal lesion is identified. The left kidney is normal in size, contour, cortical thickness and echogenicity. Hydronephrosis is s een with ingestion of debris. No renal lesion is identified. The bladder is underdistended limiting visualization. No large intraluminal mass is seen. Hepatic john atosis is seen. IMPRESSION: 1. Left ureteral debris is seen, nonspecific but can be seen in infection. 2. Hepatic steatosis. ACT 112: Negative or not required by law. Electronically signed by: Darrel Mo M.D. 04/24/2024 12:20 PM
[2024-04-24] MEDS: carvediloL 12.5 MG TAB PO SCH (12:23)
[2024-04-24] MEDS: SODIUM CHLORIDE 0.9% 1,000 ML IV SCH (14:29)
[2024-04-24] MEDS: LOSARTAN POTASSIUM 50 MG TAB PO SCH (14:32)
[2024-04-24] MEDS: ESCITALOPRAM OXALATE 10 MG TAB PO SCH (14:32)
[2024-04-24] MEDS: CLOPIDOGREL BISULFATE 75 MG TAB PO SCH (14:33)
[2024-04-24] MEDS: ACETAMINOPHEN 325 MG TAB PO PRN (17:44)
[2024-04-24] MEDS: INSULIN ASPART PER UNIT CHARGE SC SCH (17:45)
[2024-04-24] MEDS: ENOXAPARIN INJ 40 MG/0.4 ML SYR SQ SCH (17:48)
[2024-04-24] MEDS ORDERED: PROMETHAZINE HCL 6.25 MG in SODIUM CHLORIDE 0.9% 50 ML IV PRN (17:59)
[2024-04-24 20:20] LABS: A calco-baum cmplx NotReported Not Detected (NotDetected); Bact fragilis Not Reported Not Detected (NotDetected); Blood Culture Id Panel See PCR Comment (NotDetected); C auris Not Reported Not Detected (NotDetected); CTX-M Resistant Gene Not Detected (NotDetected); Calbicans Not Reported Not Detected (NotDetected); Candida glabrata Not Reported Not Detected (NotDetected); Candida krusei Not Reported Not Detected (NotDetected); Cneoformans/gatti Not Reported Not Detected (NotDetected); Cparapsilosis Not Reported Not Detected (NotDetected); E cloacae compx Not Reported Not Detected (NotDetected); Efaecalis Not Reported Not Detected (NotDetected); Efaecium Not Reported Not Detected (NotDetected); Enterobacterales DETECTED (NotDetected); Enterobacterales Not Reported DETECTED (NotDetected); Escherichia coli Not Reported DETECTED (NotDetected); H influenzae Not Reported Not Detected (NotDetected); IMP Resistant Gene Not Detected (NotDetected); K aerogenes Not Reported Not Detected (NotDetected); KPC Resistant Gene Not Detected (NotDetected); Koxytoca Not Reported Not Detected (NotDetected); Kpneumoniae grp Not Reported Not Detected (NotDetected); Lmonocyt Not Reported Not Detected (NotDetected); N meningitidis Not Reported Not Detected (NotDetected); NDM Resistant Gene Not Detected (NotDetected); OXA 48 Like Resistant Gene Not Detected (NotDetected); P aeruginosa Not Reported Not Detected (NotDetected); Proteus spp Not Reported Not Detected (NotDetected); Salmonella spp Not Reported Not Detected (NotDetected); Smarcescens Not Reported Not Detected (NotDetected); Staph lugdunensis Not Reported Not Detected (NotDetected); Staph spp. Not Reported Not Detected (NotDetected); Staphaureus Not Reported Not Detected (NotDetected); Staphepi Not Reported Not Detected (NotDetected); Stenmaltophilia Not Reported Not Detected (NotDetected); Strep agal(GrpB) Not Reported Not Detected (NotDetected); Strep pneum Not Reported Not Detected (NotDetected); Strep pyog (GrpA) Not Reported Not Detected (NotDetected); Strep spp Not Reported Not Detected (NotDetected); VIM Resistant Gene Not Detected (NotDetected); mcr-1 Colistin Resistant Gene Not Detected (NotDetected)
[2024-04-24] MEDS: KETOROLAC TROMETHAMINE 15 MG/ML VIAL IV ONE (20:47)
[2024-04-25] MEDS: LABETALOL HCL IV 5 MG/ML 20ML IV STA (03:07)
[2024-04-25 05:56] LABS: Basophils # (auto) 0.03 K/uL (0.00-0.20); Basophils % (auto) 0.3 %; Eosinophils # (auto) 0.06 K/uL (0.00-0.50); Eosinophils % (auto) 0.5 %; Hematocrit (blood only) 34.5 % (37.0-47.0); Hemoglobin 11.8 g/dl (12.0-16.0); Immature Granulocytes # (auto) 0.05 K/uL (0.01-0.20); Immature Granulocytes % (auto) 0.4 %; Lymphocytes # (auto) 1.11 K/uL (1.20-3.40); Lymphocytes % (auto) 9.4 %; Mean Corpuscular Hemoglobin 32.8 pg (25.0-34.0); Mean Corpuscular Hgb Conc 34.2 g/dL (32.0-36.0); Mean Corpuscular Volume 95.8 fL (80.0-100.0); Mean Platelet Volume 10.6 fL (9.4-12.4); Monocytes # (auto) 0.83 K/uL (0.11-0.59); Neutrophils # (auto) 9.73 K/uL (1.40-6.50); Neutrophils % (auto) 82.4 %; Platelet Count 157 K/uL (130-400); RDW Coefficient of Variation 12.7 % (11.5-14.5); RDW Standard Deviation 44.4 fL (36.4-46.3); White Blood Count 11.81 K/ul (4.8-10.8)
[2024-04-25 06:09] LABS: BUN Creatinine Ratio 16.8 (10-20); Calcium 8.9 mg/dl (8.6-10.3); Creatinine Clr Calc Pharmacy 62.7 ml/min; Est GFR (African American) 70.3 ml/min; Est GFR (Non-African American) 60.7 ml/min; Potassium 3.8 mmol/L (3.5-5.1)
[2024-04-25 07:22] LABS: Estimated Average Glucose 177 mg/dl; Hemoglobin A1C 7.8 % (4.5-5.6)
[2024-04-25] MEDS: cefTRIAXone SODIUM 2,000 MG/50 ML BAG IV SCH (09:38)
[2024-04-25] MEDS: LORATADINE 10 MG TAB PO SCH (09:38)
[2024-04-25] MEDS: allopurinoL 300 MG TAB PO SCH (09:38)
--- NOTE | 2024-04-25 13:55 | Hospitalist Progress Note ---
Date of Service April 25, 2024 Assessment & Plan (1) Acute UTI: Plan: Sepsis POA E. coli bacteremia Left-sided pyelonephritis Patient presented to the ED today with fever, nausea, and urinary symptoms. Leukocytosis present on admission Blood culture 4 out of 4 on admission positive for gram-negative bacilli. PCR positive for E. coli Urine culturegram-negative bacilli Renal ultrasoundleft ureteral debris seen; nonspecific. Continue on ceftriaxone; will follow-up on final culture and sensitivity Repeat blood culture tomorrow a.m. Patient will need 10 to 14 days of antibiotic for gram-negative sepsis (2) Hypertensive urgency: Plan: BP noted to be markedly elevated in the ED - Coreg increased to 12.5 mg BID with first dose now (3) DM type 2 (diabetes mellitus, type 2): Plan: Holding oral agents while admitted Insulin sliding scale Diabetic diet BSG ACHS (4) Depression: Plan: Chronic, stable Continue home meds (5) Dyslipidemia: Plan: Chronic, stable (6) History of CVA (cerebrovascular accident): Plan: Continue clopidogrel Uses cane due to residual deficits Plan Full code DVT prophylaxis Lovenox Time spent evaluating patient, direct bedside care, chart review, placing orders, interpretation of diagnostic studies, discussion with consultants, patient, and family members, as well as other required patient management activities is 50 minutes Please note the above document was generated using voice recognition software. It may contain grammatical, syntax or spelling errors. Any formal questions or concerns about the content, text or information contained within the body of this dictation should be directly addressed to the provider for clarification Admission and Anticipated Discharge Date Admission Date: April 24, 2024 Subjective Patient seen and examined at bedside. She reports fever overnight with chills. She reports the left-sided costovertebral angle tenderness has improved. Vital signs stable; blood pressure improved Review of Systems Review of Systems: All systems reviewed & are unremarkable except as noted in Subjective Physical Exam Physical Exam: Constitutional: Alert oriented x 3 Respiratory: normal respiratory effort, lungs clear to auscultation, no wheeze, rales, rhonchi. Normal insp/exp effort, no accessory muscle use Cardiovascular: RRR, no murmur, no edema Vessels: no JVD or carotid bruit Chest: normal inspection of chest Abdomen: normal bowel sounds, soft, nontender, no hepatosplenomegaly. Left- sided costovertebral angle tenderness Musculoskeletal: no cyanosis or clubbing, extremities motor strength 5/5 Skin: no rashes, warm and dry normal turgor Neurologic: PERRL, EOMI, accommodation nl, no face palsy, no dysarthria CN's II- XI intact bilaterally and moves all extremities Psychiatric: A+Ox3, euthymic affect Results & Data Results & Data Vital Signs (Past 12 Hours) Vital Signs Temp Pulse Pulse Resp BP BP Pulse Ox 04/25/24 10:59 37.8 C H 79 15 155/85 H 96 04/25/24 08:11 77 04/25/24 07:20 37.4 C 77 15 159/83 H 94 04/25/24 03:31 81 153/82 H 04/25/24 02:40 37.6 C H 85 18 181/80 H 96 O2 Del Method 04/25/24 10:59 Room Air 04/25/24 08:11 04/25/24 07:20 Room Air 04/25/24 03:31 04/25/24 02:40 Room Air (3) DM type 2 (diabetes mellitus, type 2) Diabetes mellitus chcf insulin use: without intermodal customer service use Diabetes mellitus complication status: with other specified complication Qualified Code(s): E11.69 - Type 2 diabetes mellitus with other specified complication (4) Depression Depression Type: unspecified Qualified Code(s): F32.A - Depression, unspecified
[2024-04-26 06:44] LABS: Basophils # (auto) 0.03 K/uL (0.00-0.20); Basophils % (auto) 0.4 %; Eosinophils # (auto) 0.16 K/uL (0.00-0.50); Eosinophils % (auto) 1.9 %; Hematocrit (blood only) 32.6 % (37.0-47.0); Hemoglobin 11.2 g/dl (12.0-16.0); Immature Granulocytes # (auto) 0.02 K/uL (0.01-0.20); Immature Granulocytes % (auto) 0.2 %; Lymphocytes # (auto) 2.01 K/uL (1.20-3.40); Lymphocytes % (auto) 24.5 %; Mean Corpuscular Hemoglobin 32.8 pg (25.0-34.0); Mean Corpuscular Hgb Conc 34.4 g/dL (32.0-36.0); Mean Corpuscular Volume 95.6 fL (80.0-100.0); Monocytes # (auto) 0.85 K/uL (0.11-0.59); Monocytes % (auto) 10.3 %; Neutrophils # (auto) 5.15 K/uL (1.40-6.50); Neutrophils % (auto) 62.7 %; Platelet Count 168 K/uL (130-400); RDW Coefficient of Variation 12.4 % (11.5-14.5); RDW Standard Deviation 43.7 fL (36.4-46.3); Red Blood Count 3.41 M/uL (4.20-5.40); White Blood Count 8.22 K/ul (4.8-10.8)
[2024-04-26 07:11] LABS: BUN Creatinine Ratio 23.5 (10-20); Calcium 8.6 mg/dl (8.6-10.3); Creatinine Clr Calc Pharmacy 70.2 ml/min; Est GFR (African American) 80.5 ml/min; Est GFR (Non-African American) 69.4 ml/min; Potassium 3.7 mmol/L (3.5-5.1)
--- NOTE | 2024-04-26 13:28 | Hospitalist Progress Note ---
Date of Service April 26, 2024 Assessment & Plan (1) Acute UTI: Plan: Sepsis POA E. coli bacteremia Left-sided pyelonephritis Patient presented to the ED today with fever, nausea, and urinary symptoms. Leukocytosis present on admission Blood culture 4 out of 4 on admission positive for E. coli; pansensitive Urine cultureE. coli; pansensitive Renal ultrasoundleft ureteral debris seen; nonspecific. Continue on ceftriaxone as the E. coli is sensitive to ceftriaxone. Will follow-up on repeat blood culture. Plan to discharge home on oral antibiotics after blood cultures are negative for 48 hours for total of 10 to 14 days (2) Hypertensive urgency: Plan: BP noted to be markedly elevated in the ED - Coreg increased to 12.5 mg BID Blood pressure overall improved Continue to monitor (3) DM type 2 (diabetes mellitus, type 2): Plan: Holding oral agents while admitted Insulin sliding scale Diabetic diet BSG ACHS (4) Depression: Plan: Chronic, stable Continue home meds (5) Dyslipidemia: Plan: Chronic, stable (6) History of CVA (cerebrovascular accident): Plan: Continue clopidogrel Uses cane due to residual deficits Plan Full code DVT prophylaxis Lovenox Time spent evaluating patient, direct bedside care, chart review, placing orders, interpretation of diagnostic studies, discussion with consultants, patient, and family members, as well as other required patient management activities is 50 minutes Please note the above document was generated using voice recognition software. It may contain grammatical, syntax or spelling errors. Any formal questions or concerns about the content, text or information contained within the body of this dictation should be directly addressed to the provider for clarification Admission and Anticipated Discharge Date Admission Date: April 24, 2024 Subjective Patient reports that she is feeling much better compared to previous days. She has been afebrile today She reports her urinary frequency has decreased compared to previous days No significant events overnight Review of Systems Review of Systems: All systems reviewed & are unremarkable except as noted in Subjective Physical Exam Physical Exam: Constitutional: Alert oriented x 3 Respiratory: normal respiratory effort, lungs clear to auscultation, no wheeze, rales, rhonchi. Normal insp/exp effort, no accessory muscle use Cardiovascular: RRR, no murmur, no edema Vessels: no JVD or carotid bruit Chest: normal inspection of chest Abdomen: normal bowel sounds, soft, nontender, no hepatosplenomegaly. Left-s ided costovertebral angle tenderness Musculoskeletal: no cyanosis or clubbing, extremities motor strength 5/5 Skin: no rashes, warm and dry normal turgor Neurologic: PERRL, EOMI, accommodation nl, no face palsy, no dysarthria CN's II- XI intact bilaterally and moves all extremities Psychiatric: A+Ox3, euthymic affect Results & Data Results & Data Vital Signs (Past 12 Hours) Vital Signs Temp Pulse Pulse Resp BP BP Pulse Ox 04/26/24 11:01 36.5 C 69 16 123/78 94 04/26/24 07:25 36.5 C 69 14 148/81 H 95 04/26/24 06:59 69 04/26/24 03:14 36.9 C 72 18 168/93 H 96 O2 Del Method 04/26/24 11:01 Room Air 04/26/24 07:25 Room Air 04/26/24 06:59 04/26/24 03:14 Room Air (3) DM type 2 (diabetes mellitus, type 2) Diabetes mellitus termite control servicer insulin use: without termite control servicer use Diabetes mellitus complication status: with other specified complication Qualified Code(s): E11.69 - Type 2 diabetes mellitus with other specified complication (4) Depression Depression Type: unspecified Qualified Code(s): F32.A - Depression, unspecified
[2024-04-26] MEDS: POLYETHYLENE (MIRALAX) 17 GM PACK PO PRN (22:57)
[2024-04-27 07:37] LABS: Basophils # (auto) 0.05 K/uL (0.00-0.20); Basophils % (auto) 0.7 %; Eosinophils # (auto) 0.17 K/uL (0.00-0.50); Eosinophils % (auto) 2.4 %; Hematocrit (blood only) 33.1 % (37.0-47.0); Hemoglobin 11.4 g/dl (12.0-16.0); Immature Granulocytes # (auto) 0.02 K/uL (0.01-0.20); Immature Granulocytes % (auto) 0.3 %; Lymphocytes # (auto) 2.12 K/uL (1.20-3.40); Lymphocytes % (auto) 29.9 %; Mean Corpuscular Hemoglobin 32.9 pg (25.0-34.0); Mean Corpuscular Hgb Conc 34.4 g/dL (32.0-36.0); Mean Corpuscular Volume 95.4 fL (80.0-100.0); Mean Platelet Volume 11.1 fL (9.4-12.4); Monocytes # (auto) 0.74 K/uL (0.11-0.59); Monocytes % (auto) 10.5 %; Neutrophils # (auto) 3.98 K/uL (1.40-6.50); Neutrophils % (auto) 56.2 %; Platelet Count 206 K/uL (130-400); RDW Coefficient of Variation 12.8 % (11.5-14.5); RDW Standard Deviation 44.5 fL (36.4-46.3); Red Blood Count 3.47 M/uL (4.20-5.40); White Blood Count 7.08 K/ul (4.8-10.8)
[2024-04-27 07:50] LABS: BUN Creatinine Ratio 24.7 (10-20); Calcium 8.7 mg/dl (8.6-10.3); Creatinine Clr Calc Pharmacy 73.6 ml/min; Est GFR (African American) 85.3 ml/min; Est GFR (Non-African American) 73.6 ml/min; Potassium 3.9 mmol/L (3.5-5.1)
--- NOTE | 2024-04-27 20:06 | Hospitalist Progress Note ---
Date of Service April 27, 2024 Assessment & Plan (1) Acute UTI: (2) Hypertensive urgency: (3) DM type 2 (diabetes mellitus, type 2): (4) Depression: (5) Dyslipidemia: (6) History of CVA (cerebrovascular accident): Plan Pt is a 69 y/o female with history of DM2, prior CVA, diabetic retinopathy, HTN, OA, urge incontinence, spinal stenosis, depression, and other history as outlined who presented to the ED with fever, nausea, and urinary symptoms. Sepsis POA E. coli bacteremia Left-sided pyelonephritis Patient presented to the ED with fever, nausea, and urinary symptoms. Leukocytosis present on admission Blood culture 4 out of 4 on admission positive for E. coli; pansensitive Urine cultureE. coli; pansensitive Renal ultrasoundleft ureteral debris seen; nonspecific. CT abd/pelvis ordered and pending. Continue on ceftriaxone at this time Most recent repeat blood cultures x 2 sets with NGTD, await 48 hour read for discharge Plan to discharge home on oral antibiotics after blood cultures are negative for 48 hours for total of 14 days -pt with noted cipro allergy Improving Hypertensive urgency BP noted to be markedly elevated on admission - Coreg increased to 12.5 mg BID Blood pressure overall improved Continue to monitor DM type 2 (diabetes mellitus, type 2) Holding oral agents while admitted Insulin sliding scale Diabetic diet BSG ACHS Depression Chronic, stable Continue home meds Dyslipidemia Chronic, stable History of CVA (cerebrovascular accident) Continue clopidogrel Uses cane due to residual deficits Diet: DMII/HH DVT prophylaxis: Lovenox Dispo: PT/OT ordered Admission and Anticipated Discharge Date Admission Date: April 24, 2024 Subjective Pt was seen sitting at bedside. Denied acute concerns, asking about going home. Asking about her blood cultures. Denies fever or nausea. Review of Systems Review of Systems: All systems reviewed & are unremarkable except as noted in Subjective Physical Exam Physical Exam: General: Alert, oriented. No acute distress Skin: No noted rashes or bruises Psych: Appropriate mood and affect Neuro: No gross deficits while sitting in chair HEENT: NC/AT CV: RRR Resp: Breath sounds clear bilaterally, no increased effort of breathing. Abdomen: Soft, nontender, nondistended. Extremities: edema in lower extremities bilaterally. Results & Data Results & Data Vital Signs (Past 12 Hours) Vital Signs Temp Pulse Pulse Resp BP BP Pulse Ox 04/27/24 11:18 37.0 C 67 15 155/83 H 96 04/27/24 07:29 69 04/27/24 07:22 37.0 C 69 15 162/93 H 95 04/27/24 04:02 37.2 C 76 20 151/91 H 94 O2 Del Method 04/27/24 11:18 Room Air 04/27/24 07:29 04/27/24 07:22 Room Air 04/27/24 04:02 Room Air (3) DM type 2 (diabetes mellitus, type 2) Diabetes mellitus complication status: with other specified complication Diabetes mellitus terminal computer operator insulin use: without terminal computer operator use Qualified Code(s): E11.69 - Type 2 diabetes mellitus with other specified complication (4) Depression Depression Type: unspecified Qualified Code(s): F32.A - Depression, unspecified
[2024-04-28 06:42] LABS: Basophils # (auto) 0.06 K/uL (0.00-0.20); Basophils % (auto) 0.9 %; Eosinophils # (auto) 0.16 K/uL (0.00-0.50); Eosinophils % (auto) 2.4 %; Hematocrit (blood only) 34.9 % (37.0-47.0); Hemoglobin 11.8 g/dl (12.0-16.0); Immature Granulocytes # (auto) 0.02 K/uL (0.01-0.20); Immature Granulocytes % (auto) 0.3 %; Lymphocytes # (auto) 2.38 K/uL (1.20-3.40); Lymphocytes % (auto) 35.2 %; Mean Corpuscular Hemoglobin 32.6 pg (25.0-34.0); Mean Corpuscular Hgb Conc 33.8 g/dL (32.0-36.0); Mean Corpuscular Volume 96.4 fL (80.0-100.0); Mean Platelet Volume 10.6 fL (9.4-12.4); Monocytes # (auto) 0.66 K/uL (0.11-0.59); Monocytes % (auto) 9.7 %; Neutrophils # (auto) 3.49 K/uL (1.40-6.50); Neutrophils % (auto) 51.5 %; Platelet Count 209 K/uL (130-400); RDW Coefficient of Variation 12.6 % (11.5-14.5); RDW Standard Deviation 44.8 fL (36.4-46.3); Red Blood Count 3.62 M/uL (4.20-5.40); White Blood Count 6.77 K/ul (4.8-10.8)
[2024-04-28 06:44] LABS: BUN Creatinine Ratio 26.4 (10-20); Calcium 8.7 mg/dl (8.6-10.3); Creatinine Clr Calc Pharmacy 68.2 ml/min; Est GFR (African American) 78.2 ml/min; Est GFR (Non-African American) 67.5 ml/min; Magnesium 2.1 mg/dl (1.7-2.4); Phosphorus 3.9 mg/dl (2.5-4.9)
[2024-04-28] MEDS: OPTIRAY 320 100ml IV ONE (08:02)
--- NOTE | 2024-04-28 09:00 | CT Scan Report ---
ABDOMEN AND PELVIS CT WITH IV CONTRAST CT DOSE: 1380.75 mGy.cm HISTORY: bacteremia, pyelonephritis TECHNIQUE: Multiaxial CT images of the abdomen and pelvis were performed following the use of intrave nous contrast. A dose lowering technique was utilized adhering to the principles of ALARA. COMPARISON STUDY: Renal ultrasound 04/24/2024. FINDINGS: The lung bases are clear. No pneumoperitoneum. No pneumatosis. There is a right total arthr oplasty. No acute fractures. Cholelithiasis. No gallbladder wall thickening. The liver, pancreas, spl een, and adrenal glands are unremarkable. The main portal vein is patent. Calcified plaque within the normal caliber abdominal aorta. No retroperitoneal or pelvic lymphadenopathy. Mild bilateral cortica l thinning/lobulation. There is a 6 x 6 mm stone within the distal left ureter on image 264. This is just beyond the level of the left iliac vessels. This results in mild fullness within the left renal collecting system without hydronephrosis. There is heterogeneous enhancement within the left kidney w ith mild left perinephric fat stranding. This could be due to the slightly delayed nephrogram or a tijerina perimposed pyelonephritis. There is a punctate nonobstructing stone within the lower pole of the left kidney. There is a 1.5 cm exophytic cyst within the lower pole of the left kidney. Mild urothelial t hickening within the left ureter. Bladder is decompressed and not well evaluated due to the metallic artifact within the right hip prosthesis. Prior hysterectomy. Mild pelvic floor collapse. Colonic div erticulosis. No evidence for acute diverticulitis. No bowel wall thickening or obstruction. Prior roosevelt endectomy. IMPRESSION: 1. A 6 x 6 mm stone within the distal left ureter. This results in mild fullness within the left leonela l collecting system without steve hydronephrosis. 2. Left-sided nephrolithiasis. 3. Heterogeneous enhancement within the left kidney with mild left perinephric fat stranding. This co uld be due to the delayed nephrogram from the partially obstructing distal left ureteral stone or a s uperimposed pyelonephritis. There is also mild urothelial thickening within the left ureter. 4. Colonic diverticulosis. No evidence for acute diverticulitis. 5. Cholelithiasis. 6. Additional findings as described above. ACT 112: Negative or not required by law. Electronically signed by: Malcolm Nieto M.D. 04/28/2024 8:58 AM
--- NOTE | 2024-04-28 12:44 | Urology Consultation ---
Date of Consultation April 28, 2024 Assessment & Plan (1) Acute UTI: (2) Bacteremia: (3) Ureteral stone: (4) Nephrolithiasis: Plan 69yo/F admitted with E.coli bacteremia and left sided pyelonephritis. CT abdomen pelvis imaging today was notable for a 6mm distal left ureteral stone with mild fullness within the left renal collecting system without steve hydronephrosis. - Afebrile and hemodynamically stable at present - Labs today show no leukocytosis and normal renal function - Urine and blood cultures 04/24/2024 were positive with E. coli. Repeat blood cultures are preliminary no growth x 48 hours. - Pt continues on Ceftriaxone. - We reviewed her CT imaging, specifically the finding of a 6mm distal left ureteral stone. Given her positive urine and blood cultures, we discussed recommendation for left ureteral stent placement. Ureteral stents were discussed as well as postoperative issues and pain management. She is aware a second procedure will be needed for stone treatment after the infection has resolved. Risks and benefits were discussed. All questions were answered. She is agreeable to proceeding. - Plan for OR today for cystoscopy, left retrograde pyelogram, left ureteral stent placed with Dr. Vasquez. - Risks and benefits to be reviewed with patient by Dr. Vasquez. - Keep NPO. - Continue supportive care and antibiotic therapy. - Urology will follow. Attending note: Patient independently assessed, examined, interviewed, and evaluated. Patient was evaluated. Found to have bacteremia with worsening clinical condition and worsening fevers. Had undergone CT examination found to have obstructing stone within the ureter on the left. Mild hydronephrosis was noted. Did have perinephric stranding. Has been on broad-spectrum IV antibiotics with slight improvement. Agree with note as above. Extensively reviewed with nurse practitioner as well as review of notes and records. Patient's complicated medical and surgical history was reviewed and summarized as above. Patient's vitals and labs were all reviewed. Pertinent values in the HPI and plan section. Imaging was reviewed interpreted by myself. Agree with read. Vitals were reviewed. Discussed findings extensively with patient and family. Reviewed with nurse practitioner as well as consulting physicians/team. Patient's complicated medical and surgical history was reviewed and summarized above. Patient's surgical, medical, social, and family history were all reviewed with pertinent values as above. Discussed patient's current diagnosis as well as concerns and issues. Reviewed different options moving forward. Discussed potential risks and benefits as well as possible options and concerns. Reviewed potential surgical options and interventions. Discussed potential issues and concerns related to intervention. Risk and benefits were discussed extensively with patient and any available family. Discussed potential risks related to anesthesia. Discussed risks of bleeding infection and injury. Reviewed extensively risk and benefit specifically of surgical intervention. Discussed expectations with stent. Discussed bother urgency frequency. Discussed possible increasing pressure and issues with management and treatment of infection if obstruction remains. Discussed potential concerns. Discussed possible bleeding and infection. Reviewed recovery after procedure. Discussed need for future intervention on stone. Discussed other concerns and issues and all questions were answered. Patient's imaging was reviewed interpreted by myself. Does have obstructing stone in the mid to distal ureter on the left with mild to moderate hydronephrosis and perinephric stranding. Patient's labs and vitals were all reviewed. Pertinent values are in the HPI or plan section. Creatinine was 0.87. White count 6.77. Hemoglobin 11.8. Currently patient is afebrile with temp of 36.5. Oxygen saturation was 98% on room air. Other vitals are stable. Without tachycardia. Extensively reviewed risk and benefits as outlined above. Discussed options moving forward. Patient was agreeable to move forward with stent placement. Patient had been tolerating diet as of this morning. Was last eaten around 8 AM. Patient was made n.p.o. in the late morning. Has been n.p.o. since. Likely would be looking at moving forward with intervention around 4 PM. Patient was agreeable with this. Risks and benefits discussed at length for procedure. These include bleeding, infection, injury to surrounding tissues or organs, and risks associated with anesthesia. Patient states understanding and agrees to proceed. Will sign consent and proceed Plan for cystoscopy with possible left retrograde pyelogram and left stent placement. History of Present Illness Attending Physician: Nahomi Yu MD History of Present Illness 69-year-old female with history of DM2, prior CVA, diabetic retinopathy, HTN, OA, urge incontinence, spinal stenosis, and depression who presented to the ED on 04/24/2024 with fever, nausea, and urinary symptoms. Patient admitted to medicine service with sepsis and left sided pyelonephritis. Renal ultrasound imaging on arrival noted left hydronephrosis with ureteral debris which was nonspecific. Urine and blood cultures were positive for E. coli. She has been on ceftriaxone. Patient underwent CT abd pelvis imaging 04/28/24 which was notable for a 6mm distal left ureteral stone with mild fullness within the left renal collecting system without steve hydronephrosis and additional left-sided renal stones noted. Urology was consulted for obstructing stone/bacteremia/pyelonephritis. CT abdomen pelvis 04/28/24 - 1. A 6 x 6 mm stone within the distal left ureter. This results in mild fullness within the left renal collecting system without steve hydronephrosis. 2. Left-sided nephrolithiasis. 3. Heterogeneous enhancement within the left kidney with mild left perinephric fat stranding. This could be due to the delayed nephrogram from the partially obstructing distal left ureteral stone or a superimposed pyelonephritis. There is also mild urothelial thickening within the left ureter. 4. Colonic diverticulosis. No evidence for acute diverticulitis. 5. Cholelithiasis. Renal ultrasound 04/24/24- 1. Left ureteral debris is seen, nonspecific but can be seen in infection. 2. Hepatic steatosis. Patient seen at bedside today. Awake, sitting in bedside chair on arrival. No acute distress. She does report some intermittent left sided flank/back pain. Denies fever, chills, nausea, vomiting. Denies hematuria or dysuria. Denies any noticeable stone passage. She had breakfast around 8AM. She does report a history of stones with spontaneous passage. She follows with Dr. Estrella in our office for urge incontinence. Allergies Allergy/AdvReac Type Severity Reaction Status Date / Time adhesive tape Allergy rash Verified 11/27/22 10:41 amlodipine Allergy edema Verified 11/27/22 10:41 face/lips/tongue, hives, and itching chlorthalidone Allergy itchy Verified 11/27/22 10:41 eyes, red face ciprofloxacin [From Cipro] Allergy itching Verified 11/27/22 10:41 lisinopril Allergy lips tingle Verified 11/27/22 10:41 valacyclovir Allergy itching Verified 11/27/22 10:41 hydrochlorothiazide AdvReac muscle pain Verified 11/27/22 10:41 Home Medications Medication Instructions Recorded Confirmed Type allopurinol 300 mg tablet 300 mg PO DAILY 01/03/21 04/24/24 History ascorbic acid (vitamin C) 500 mg PO DAILY 10/29/21 04/24/24 History cholecalciferol (vitamin D3) 1 cap PO DIRECTED 10/29/21 04/24/24 History [Vitamin D3] lecithin 1 cap PO DIRECTED 10/29/21 04/24/24 History loratadine 10 mg PO DAILY 10/29/21 04/24/24 History omega-3 fatty acids-fish oil 360 1 cap PO DAILY #30 caps 01/01/23 04/24/24 Rx mg-1,200 mg capsule (Fish Oil) B Complex 1 cap PO DIRECTED 04/24/24 04/24/24 History Liver Complex 1 cap PO DIRECTED 04/24/24 04/24/24 History carvedilol 6.25 mg tablet 6.25 mg PO BID 04/24/24 04/24/24 History clopidogrel 75 mg tablet 75 mg PO DAILY 04/24/24 04/24/24 History escitalopram oxalate 5 mg tablet 5 mg PO DAILY 04/24/24 04/24/24 History glimepiride 2 mg tablet 2 mg PO DAILY 04/24/24 04/24/24 History losartan 100 mg tablet 100 mg PO DAILY 04/24/24 04/24/24 History metformin 500 mg tablet,extended 500 mg PO DAILY 04/24/24 04/24/24 History release 24 hr Patient History Medical History Allergic rhinitis Diabetic retinopathy MARJAN inhibitor intolerance BPV (benign positional vertigo) LVH (left ventricular hypertrophy) Osteoarthritis CVA (cerebral vascular accident) History of nephrolithiasis Surgical History History of hysterectomy History of tonsillectomy History of appendectomy History of carpal tunnel surgery Social History Smoking Status: Never smoker Hx Alcohol Use: No Hx Substance Use: No Preferred Language: [place]an Communication Ability: Effective [place] Straightener Stamper Required: No Beliefs That Will Affect Care: None marital status: Current Living Situation: Alone Current Living Situation Comment: Apartment, elevator and shower Tub Other Information That Helps Us Care for You: No Feels Safe at Home: Yes Safety Concerns: Feels Safe At This Time Assistive Devices: Cane and Glasses Review of Systems Review of Systems: All systems reviewed & are unremarkable except as noted in HPI & below Physical Exam Constitutional: well developed and well nourished; no acute distress Neck: normal visual inspection Respiratory: normal respiratory effort; no respiratory distress and no labored breathing Musculoskeletal: Head/Neck/Chest: normocephalic Skin: No visible rashes or lesions to exposed skin areas Neurologic: moves all extremities and awake Psychiatric: A+Ox3, euthymic affect Results & Data Vital Signs (Past 12 Hours) Vital Signs Temp Pulse Pulse Resp BP Pulse Ox O2 Del Method 04/28/24 11:51 36.5 C 66 18 131/83 98 Room Air 04/28/24 08:25 36.8 C 71 18 157/81 H 96 Room Air 04/28/24 07:08 64 04/28/24 05:10 36.8 C 72 20 175/99 H 96 Room Air PG Care Time/CCT Total # of Minutes Spent Total Time Spent with Patient: Total time spent is greater than 50% in coordination of care (as documented) at patient's floor/unit and/or counseling patient: Coding Level of Care Code 25425 INT INP/OBS CARE 2/55MIN Diagnoses Acute UTI N39.0 Bacteremia R78.81 Ureteral stone N20.1 Nephrolithiasis N20.0
--- NOTE | 2024-04-28 14:52 | Anesthesiology Consultation ---
Date of Service April 28, 2024 History Surgery Operation Date: 04/28/24 12:30 Proposed Procedures p Cystoscopy, Left Retrograde Pyelogram, Left Ureteral Stent - Arun Vasquez, Height/Weight Height: 5 ft 1 in Weight: 107.7 kg Allergies Allergy/AdvReac Type Severity Reaction Status Date / Time adhesive tape Allergy rash Verified 11/27/22 10:41 amlodipine Allergy edema Verified 11/27/22 10:41 face/lips/tongue, hives, and itching chlorthalidone Allergy itchy Verified 11/27/22 10:41 eyes, red face ciprofloxacin [From Cipro] Allergy itching Verified 11/27/22 10:41 lisinopril Allergy lips tingle Verified 11/27/22 10:41 valacyclovir Allergy itching Verified 11/27/22 10:41 hydrochlorothiazide AdvReac muscle pain Verified 11/27/22 10:41 Medications Home Medications Medication Instructions Recorded Confirmed Last Taken allopurinol 300 mg tablet 300 mg PO DAILY 01/03/21 04/24/24 Unknown ascorbic acid (vitamin C) 500 mg PO DAILY 10/29/21 04/24/24 Unknown cholecalciferol (vitamin D3) 1 cap PO DIRECTED 10/29/21 04/24/24 Unknown [Vitamin D3] lecithin 1 cap PO DIRECTED 10/29/21 04/24/24 Unknown loratadine 10 mg PO DAILY 10/29/21 04/24/24 Unknown omega-3 fatty acids-fish oil 360 1 cap PO DAILY #30 caps 01/01/23 04/24/24 Unknown mg-1,200 mg capsule (Fish Oil) B Complex 1 cap PO DIRECTED 04/24/24 04/24/24 Unknown Liver Complex 1 cap PO DIRECTED 04/24/24 04/24/24 Unknown carvedilol 6.25 mg tablet 6.25 mg PO BID 04/24/24 04/24/24 Unknown clopidogrel 75 mg tablet 75 mg PO DAILY 04/24/24 04/24/24 Unknown escitalopram oxalate 5 mg tablet 5 mg PO DAILY 04/24/24 04/24/24 Unknown glimepiride 2 mg tablet 2 mg PO DAILY 04/24/24 04/24/24 Unknown losartan 100 mg tablet 100 mg PO DAILY 04/24/24 04/24/24 Unknown metformin 500 mg tablet,extended 500 mg PO DAILY 04/24/24 04/24/24 Unknown release 24 hr Active Medications Generic Name Dose Route Start Last Admin Trade Name Antoineq PRN Reason Stop Dose Admin Acetaminophen 650 mg 04/24/24 13:52 04/26/24 07:12 Acetaminophen 325 Mg Tab PO 05/24/24 13:51 650 mg Q4H PRN Administration Pain or Fever Allopurinol 300 mg 04/25/24 09:00 04/28/24 08:37 Allopurinol 300 Mg Tab PO 05/25/24 08:59 300 mg DAILY LIVE Administration Carvedilol 12.5 mg 04/24/24 10:25 04/28/24 08:36 Carvedilol 12.5 Mg Tab PO 05/24/24 10:24 12.5 mg BIDM LIVE Administration Clopidogrel Bisulfate 75 mg 04/24/24 13:52 04/28/24 08:36 Clopidogrel Bisulfate 75 Mg Tab PO 05/24/24 13:51 75 mg DAILY LIVE Administration Enoxaparin Sodium 40 mg 04/24/24 17:00 04/28/24 04:36 Enoxaparin Inj 40 Mg/0.4 Ml Syr SQ 05/24/24 16:59 Not Given Q12H LIVE Escitalopram Oxalate 5 mg 04/24/24 13:52 04/28/24 08:36 Escitalopram Oxalate 10 Mg Tab PO 05/24/24 13:51 5 mg DAILY LIVE Administration Ceftriaxone Sodium 2,000 mg in 50 mls @ 100 mls/hr 04/25/24 08:00 04/28/24 09:28 Rocephin IV 04/30/24 07:59 Infused Q24H [facility] Infusion Insulin Aspart 0 units 04/24/24 16:30 04/28/24 12:35 Insulin Aspart Per Unit Charge SC 05/24/24 16:29 2 units ACHS LIVE Administration Loratadine 10 mg 04/25/24 09:00 04/28/24 08:36 Loratadine 10 Mg Tab PO 05/25/24 08:59 10 mg DAILY LIVE Administration Losartan Potassium 100 mg 04/24/24 13:52 04/28/24 08:37 Losartan Potassium 50 Mg Tab PO 05/24/24 13:51 100 mg DAILY LIVE Administration Polyethylene Glycol 17 gm 04/26/24 22:41 04/26/24 22:57 Polyethylene (Miralax) 17 Gm Pack PO 05/26/24 22:40 17 gm DAILY PRN Administration Constipation Past Medical History Medical History Allergic rhinitis Diabetic retinopathy MARJAN inhibitor intolerance BPV (benign positional vertigo) LVH (left ventricular hypertrophy) Osteoarthritis CVA (cerebral vascular accident) History of nephrolithiasis Past Surgical History Surgical History History of hysterectomy History of tonsillectomy History of appendectomy History of carpal tunnel surgery Social History Smoking Status: Never smoker Hx Alcohol Use: No Hx Substance Use: No Physical Exam Vital Signs Last Vital Signs Temp 36.5 C 04/28/24 11:51 Pulse 66 04/28/24 11:51 Resp 18 04/28/24 11:51 BP 131/83 04/28/24 11:51 Pulse Ox 98 04/28/24 11:51 O2 Del Method Room Air 04/28/24 11:51 Testing Laboratory Results 04/28/24 05:54 04/28/24 05:54 Hemoglobin A1c 7.8 % (4.5-5.6) H 04/25/24 05:19 Urine Color Yellow 04/24/24 08:10 Urine Appearance Clear (Clear) 04/24/24 08:10 Urine pH 7.0 (4.5-7.5) 04/24/24 08:10 Ur Specific [place] 1.008 (1.000-1.030) 04/24/24 08:10 Urine Protein Negative (Negative) 04/24/24 08:10 Urine Glucose (UA) Negative (Negative) 04/24/24 08:10 Urine Ketones Negative (Negative) 04/24/24 08:10 Urine Nitrite Positive (Negative) A 04/24/24 08:10 Ur Leukocyte Esterase 2+ (Negative) H 04/24/24 08:10 Urine WBC (Auto) >50 /hpf (0-5) H 04/24/24 08:10 Urine RBC (Auto) 3-5 /hpf (0-2) H 04/24/24 08:10 U Hyaline Cast (Auto) 0-2 /lpf (0-2) 04/24/24 08:10 U Epithel Cells (Auto) 0-2 /hpf (0-2) 04/24/24 08:10 Urine Bacteria (Auto) 3+ (None Seen) H 04/24/24 08:10 04/26/24 05:58 Aerobic Blood Culture - Preliminary Blood No growth in Aerobic bottle after 48 hours. Anaerobic Blood Culture - Preliminary No growth in Anaerobic bottle after 48 hours. 04/26/24 05:53 Aerobic Blood Culture - Preliminary Blood No growth in Aerobic bottle after 48 hours. Anaerobic Blood Culture - Preliminary No growth in Anaerobic bottle after 48 hours. 04/24/24 08:10 Urine Culture - Final Urine,Clean Catch Escherichia coli 04/24/24 08:17 Aerobic Blood Culture - Final Blood Escherichia coli Anaerobic Blood Culture - Final Escherichia coli 04/24/24 08:08 Aerobic Blood Culture - Final Blood Escherichia coli Anaerobic Blood Culture - Final Escherichia coli 04/28/24 04/28/24 11:39 08:06 POC Glucose 171 H 159 H Laboratory Tests 04/25/24 05:19 Hemoglobin A1c 7.8 H
--- NOTE | 2024-04-28 14:52 | Hospitalist Progress Note ---
Date of Service April 28, 2024 Assessment & Plan (1) Acute UTI: (2) Hypertensive urgency: (3) DM type 2 (diabetes mellitus, type 2): (4) Depression: (5) Dyslipidemia: (6) History of CVA (cerebrovascular accident): Plan Pt is a 69 y/o female with history of DM2, prior CVA, diabetic retinopathy, HTN, OA, urge incontinence, spinal stenosis, depression, and other history as outlined who presented to the ED with fever, nausea, and urinary symptoms. Sepsis POA E. coli bacteremia Left-sided pyelonephritis Obstructive nephrolithiasis Patient presented to the ED with fever, nausea, and urinary symptoms. Leukocytosis present on admission Blood culture 4 out of 4 on admission positive for E. coli; pansensitive Urine cultureE. coli; pansensitive Renal ultrasoundleft ureteral debris seen; nonspecific. CT abd/pelvis on 04/28 noting obstructive left sided kidney stone Urology consulted, appreciate recs -will have stent placed on 04/28 Continue on ceftriaxone at this time Most recent repeat blood cultures x 2 sets with NGTD Continue to monitor Hypertensive urgency BP noted to be markedly elevated on admission - Coreg increased to 12.5 mg BID Blood pressure overall improved Continue to monitor DM type 2 (diabetes mellitus, type 2) Holding oral agents while admitted Insulin sliding scale Diabetic diet BSG ACHS Depression Chronic, stable Continue home meds Dyslipidemia Chronic, stable History of CVA (cerebrovascular accident) Continue clopidogrel Uses cane due to residual deficits Diet: DMII/HH DVT prophylaxis: Lovenox Dispo: PT/OT ordered Admission and Anticipated Discharge Date Admission Date: April 24, 2024 Subjective Pt was seen sitting at bedside. Denied acute concerns, seen after her discussion with Urology. Notes hx of kidney stones in the past. Review of Systems Review of Systems: All systems reviewed & are unremarkable except as noted in Subjective Physical Exam Physical Exam: General: Alert, oriented. No acute distress Skin: No noted rashes or bruises Psych: Appropriate mood and affect Neuro: No gross deficits while sitting in chair HEENT: NC/AT CV: RRR Resp: Breath sounds clear bilaterally, no increased effort of breathing. Abdomen: Soft, nontender, nondistended. Extremities: edema in lower extremities bilaterally. Results & Data Results & Data Vital Signs (Past 12 Hours) Vital Signs Temp Pulse Pulse Resp BP Pulse Ox O2 Del Method 04/28/24 11:51 36.5 C 66 18 131/83 98 Room Air 04/28/24 08:25 36.8 C 71 18 157/81 H 96 Room Air 04/28/24 07:08 64 04/28/24 05:10 36.8 C 72 20 175/99 H 96 Room Air (3) DM type 2 (diabetes mellitus, type 2) Diabetes mellitus complication status: with other specified complication Diabetes mellitus terminal computer operator insulin use: without terminal computer operator use Qualified Code(s): E11.69 - Type 2 diabetes mellitus with other specified complication (4) Depression Depression Type: unspecified Qualified Code(s): F32.A - Depression, unspecified
[2024-04-28] MEDS ORDERED: PROPOFOL IV EMULSION 10 MG/ML 20 ML VIAL IV ONE ×2 (15:57→16:36)
[2024-04-28] MEDS ORDERED: LIDOCAINE 2% 2 ML VIAL/AMP(20MG/ML) INFIL ONE (15:57)
[2024-04-28] MEDS ORDERED: MIDAZOLAM HCL 1 MG/ML 2ML VIAL ONE (15:58)
[2024-04-28] MEDS ORDERED: fentaNYL citrate PF 100 MCG/2 ML VIAL ONE (15:58)
[2024-04-28] MEDS ORDERED: ONDANSETRON INJ 2 MG/ML 2 ML VIAL IV PRN (16:36)
[2024-04-28] MEDS ORDERED: ePHEDrine sulfate 50 MG/ML AMP IV PRN (16:36)
[2024-04-28] MEDS ORDERED: ATROPINE SULFATE 0.1 MG/ML 10ML SYR IV PRN (16:36)
[2024-04-28] MEDS ORDERED: fentaNYL citrate PF 100 MCG/2 ML VIAL IV PRN (16:36)
[2024-04-28] MEDS ORDERED: ONDANSETRON INJ 2 MG/ML 2 ML VIAL ONE (17:00)
[2024-04-28] MEDS: DIATRIZOATE MEGLUMINE 30% 100ML VIAL INSTIL ONE (17:08)
--- NOTE | 2024-04-28 17:21 | Operative Report ---
PG Post Operative Report Pre & Post Diagnosis Operation Date: 04/28/24 12:30 Pre-Op Diagnosis: (1) Acute UTI: (2) Bacteremia: (3) Ureteral stone: (4) Nephrolithiasis: Post-Op Diagnosis: (1) Acute UTI: (2) Bacteremia: (3) Ureteral stone: (4) Nephrolithiasis: I identified the patient and participated in the time-out.: Yes Procedure Operation Date: 04/28/24 12:30 Actual Procedures p Cystoscopy with Left Aspiration, Left Retrograde Pyelogram, and Left Ureteral Stent(Not Applicable) - Arun Vasquez, Surgeon Arun Vasquez, II, DO [id number] Programmer None Estimated Blood Loss 1 Findings Consistent with Post-Op Diagnosis Stent placed in good position. Significant obstruction by stone in mid ureter. Specimens Urine Left Kidney Drains 4.8 Fr x 24 cm Left Anesthesia Type MAC Complications none Disposition Disposition: Recovery Room Indications Patient with obstruction due to significant ureteral stone. Risks and benefits discussed at length. Description of Procedure Patient was consented and brought back to the operating room. Patient was placed under anesthesia in the supine position and moved to the dorsal lithotomy position. Patient was prepped and draped in the regular sterile fashion. A time out was completed. A 30degree Cystoscope was placed into the bladder and the entire bladder was examined. The UO's were identified. The UO was cannulized with a catheter and a wire was placed to try to bypass the stone. With some manipulation it did advance past the stone and the catheter was able to get to the renal pelvis. Urine was aspirated and sent for culture. A retrograde pyelogram was completed. A wire was then replaced. With the wire in place, a 4.8 Fr Double J stent was placed. It was confirmed with fluoroscopy. With the stent in place, the bladder was emptied. The scope was removed. The patient was cleaned, aroused from anesthesia, and transferred to the pacu in stable condition having tolerated the procedure well with no complications. I was present and participated in all aspects of the procedure. The patient will be monitored in the PACU until transferred. Plan for 1-2 weeks of antibiotics and followup in office to set up stone treatment. I attest to the content of the Intraoperative Record and any orders documented therein. Any exceptions are noted below.
--- NOTE | 2024-04-28 17:38 | Anesthesiology Progress Note ---
Date of Service April 28, 2024 Anesthesia Post Procedure Vital Signs Vital Signs: Temp Pulse Pulse Pulse Resp BP BP 04/28/24 17:25 70 14 162/93 H 04/28/24 17:19 36.3 C L 69 14 151/83 H 04/28/24 16:24 36.8 C 59 L 12 211/100 H 04/28/24 15:50 58 L 04/28/24 15:40 36.8 C 56 L 18 164/82 H 04/28/24 11:51 36.5 C 66 18 131/83 04/28/24 08:25 36.8 C 71 18 157/81 H 04/28/24 07:08 64 04/28/24 05:10 36.8 C 72 20 175/99 H 04/28/24 00:00 36.8 C 71 20 158/86 H 04/27/24 22:01 71 04/27/24 19:51 36.6 C 73 18 158/83 H Pulse Ox O2 Del Method O2 Flow Rate 04/28/24 17:25 100 Oxymask 5 04/28/24 17:19 100 Oxymask 5 04/28/24 16:24 100 Room Air 04/28/24 15:50 04/28/24 15:40 98 Room Air 04/28/24 11:51 98 Room Air 04/28/24 08:25 96 Room Air 04/28/24 07:08 04/28/24 05:10 96 Room Air 04/28/24 00:00 93 Room Air 04/27/24 22:01 04/27/24 19:51 95 Room Air Pain Intensity Head: Pain Intensity: 2 Transfer of Care Handoff Completed per policy Notes Mental Status: alert / awake / arousable Patient Amnestic to Procedure: Yes Nausea / Vomiting: adequately controlled Pain: adequately controlled Airway Patency, RR, SpO2: stable & adequate BP & HR: stable & adequate Hydration State: stable & adequate Anesthetic Complications: no major complications apparent and Pt Satisfied with anesthetic care
--- NOTE | 2024-04-28 18:05 | Fluoroscopy Report ---
FL retrograde includes kub CLINICAL HISTORY: RETROGRADE TECHNIQUE: 4 views were obtained with the C-arm in the OR with the above procedure. Total fluoroscopy time was 35 seconds. Comparison: Comparison is made to CT abdomen pelvis 04/28/2024 FINDINGS/IMPRESSION: Intraoperative images were obtained of left stent exchange. Please correlate with intraoperative fluoroscopy and operative report. ACT 112: Negative or not required by law. Electronically signed by: Darrel Mo M.D. 04/28/2024 6:03 PM
[2024-04-29 07:09] LABS: Basophils # (auto) 0.08 K/uL (0.00-0.20); Eosinophils # (auto) 0.18 K/uL (0.00-0.50); Eosinophils % (auto) 2.3 %; Hematocrit (blood only) 36.8 % (37.0-47.0); Hemoglobin 12.2 g/dl (12.0-16.0); Immature Granulocytes # (auto) 0.03 K/uL (0.01-0.20); Immature Granulocytes % (auto) 0.4 %; Lymphocytes % (auto) 32.6 %; Mean Corpuscular Hemoglobin 32.6 pg (25.0-34.0); Mean Corpuscular Hgb Conc 33.2 g/dL (32.0-36.0); Mean Corpuscular Volume 98.4 fL (80.0-100.0); Mean Platelet Volume 10.1 fL (9.4-12.4); Monocytes # (auto) 0.59 K/uL (0.11-0.59); Monocytes % (auto) 7.7 %; Neutrophils # (auto) 4.29 K/uL (1.40-6.50); Platelet Count 223 K/uL (130-400); RDW Coefficient of Variation 12.8 % (11.5-14.5); RDW Standard Deviation 46.1 fL (36.4-46.3); Red Blood Count 3.74 M/uL (4.20-5.40); White Blood Count 7.67 K/ul (4.8-10.8)
[2024-04-29 07:23] LABS: BUN Creatinine Ratio 23.3 (10-20); Calcium 9.3 mg/dl (8.6-10.3); Creatinine Clr Calc Pharmacy 65.7 ml/min; Est GFR (African American) 75.1 ml/min; Est GFR (Non-African American) 64.8 ml/min; Magnesium 2.1 mg/dl (1.7-2.4); Potassium 4.4 mmol/L (3.5-5.1)
[2024-04-29 07:54] VITALS: RESP 18
--- NOTE | 2024-04-29 08:01 | Urology Progress Note ---
Date of Service April 29, 2024 Assessment & Plan (1) Acute UTI: (2) Bacteremia: (3) Ureteral stone: (4) Nephrolithiasis: Plan 69yo/F admitted with E.coli bacteremia and left sided pyelonephritis. CT abdomen pelvis imaging 04/28 was notable for a 6mm distal left ureteral stone w ith mild fullness within the left renal collecting system without steve hydronephrosis. - POD #1 s/p Cystoscopy with Left Aspiration, Left Retrograde Pyelogram, and Left Ureteral Stent - Feeling well, tolerating the stent with minimal bother - Afebrile and hemodynamically stable at present - Labs today show no leukocytosis and normal renal function - Urine and blood cultures 04/24/2024 were positive with E. coli. Repeat blood cultures are preliminary no growth x 48 hours. - Urine kidney aspirate culture pending - Pt continues on Ceftriaxone. - Okay to d/c from perspective when medically stable per primary team - Plan to D/C with course of appropriate PO antibiotics for a total of 14 days - Expected clinical course reviewed, all questions answered - Will arrange outpatient follow-up with our service to discuss definitive stone treatment after infection has resolved. - Urology will sign-off. Please call with any further questions or concerns. Admission and Anticipated Discharge Date Admission Date: April 24, 2024 Subjective Pt seen and examined at bedside Awake, sitting in bedside chair on arrival No acute distress Tolerating the stent with minimal bother No fevers Voiding without issue Review of Systems Constitutional: as per Subjective / HPI Genitourinary: as per Subjective / HPI Physical Exam Constitutional: no acute distress Respiratory: no respiratory distress and no labored breathing Neurologic: awake Psychiatric: A+Ox3, euthymic affect Results & Data Vital Signs (Past 12 Hours) Vital Signs Temp Pulse Pulse Resp BP Pulse Ox O2 Del Method 04/29/24 07:52 36.8 C 66 18 167/85 H 97 Room Air 04/29/24 03:57 37.0 C 71 20 157/83 H 95 Room Air 04/28/24 23:42 36.8 C 61 20 155/79 H 96 Room Air 04/28/24 21:58 61 PG Care Time/CCT Total # of Minutes Spent Total Time Spent with Patient: Total time spent is greater than 50% in coordination of care (as documented) at patient's floor/unit and/or counseling patient: Coding Level of Care Code 16696 SUB INP/OBS CARE MIN Diagnoses Acute UTI N39.0 Bacteremia R78.81 Ureteral stone N20.1 Nephrolithiasis N20.0
--- NOTE | 2024-04-29 15:12 | Hospitalist Progress Note ---
Date of Service April 29, 2024 Assessment & Plan (1) Acute UTI: (2) Hypertensive urgency: (3) DM type 2 (diabetes mellitus, type 2): (4) Depression: (5) Dyslipidemia: (6) History of CVA (cerebrovascular accident): Plan Pt is a 69 y/o female with history of DM2, prior CVA, diabetic retinopathy, HTN, OA, urge incontinence, spinal stenosis, depression, and other history as outlined who presented to the ED with fever, nausea, and urinary symptoms. Sepsis POA E. coli bacteremia Left-sided pyelonephritis Obstructive nephrolithiasis Patient presented to the ED with fever, nausea, and urinary symptoms. Leukocytosis present on admission Blood culture 4 out of 4 on admission positive for E. coli; pansensitive Urine cultureE. coli; pansensitive Renal ultrasoundleft ureteral debris seen; nonspecific. CT abd/pelvis on 04/28 noting obstructive left sided kidney stone Urology consulted, appreciate recs -s/p stent placement on 04/28 -urine Cx kidney aspirate pending -Plan to D/C with course of appropriate PO antibiotics for a total of 14 days Continue on ceftriaxone at this time Most recent repeat blood cultures x 2 sets with NGTD Continue to monitor Anticipate discharge in AM with finalized intraop culture Hypertensive urgency BP noted to be markedly elevated on admission - Coreg increased to 12.5 mg BID On losartan 100mg daily Pt with noted allergies to HCTZ, chlorthalidone, amlodipine, lisinopril PRN IV hydralazine Continue to monitor DM type 2 (diabetes mellitus, type 2) Holding oral agents while admitted Insulin sliding scale Diabetic diet BSG ACHS Depression Chronic, stable Continue home meds Dyslipidemia Chronic, stable History of CVA (cerebrovascular accident) Continue clopidogrel Uses cane due to residual deficits Diet: DMII/HH DVT prophylaxis: Lovenox Dispo: PT/OT ordered Admission and Anticipated Discharge Date Admission Date: April 24, 2024 Subjective pt seen while sitting at bedside. Denied acute concerns. Tolerating the stent, denied symptoms. Review of Systems Review of Systems: All systems reviewed & are unremarkable except as noted in Subjective Physical Exam Physical Exam: General: Alert, oriented. No acute distress Skin: No noted rashes or bruises Psych: Appropriate mood and affect Neuro: No gross deficits while sitting in chair HEENT: NC/AT CV: RRR Resp: Breath sounds clear bilaterally, no increased effort of breathing. Abdomen: Soft, nontender, nondistended. Extremities: edema in lower extremities bilaterally. Results & Data Results & Data Vital Signs (Past 12 Hours) Vital Signs Temp Pulse Pulse Resp BP Pulse Ox O2 Del Method 04/29/24 11:30 36.8 C 70 18 153/73 H 96 Room Air 04/29/24 08:00 61 04/29/24 07:52 36.8 C 66 18 167/85 H 97 Room Air 04/29/24 03:57 37.0 C 71 20 157/83 H 95 Room Air (3) DM type 2 (diabetes mellitus, type 2) Diabetes mellitus complication status: with other specified complication Diabetes mellitus terminal block assembler insulin use: without terminal block assembler use Qualified Code(s): E11.69 - Type 2 diabetes mellitus with other specified complication (4) Depression Depression Type: unspecified Qualified Code(s): F32.A - Depression, unspecified
[2024-04-29] MEDS: hydrALAZINE HCL 20 MG/ML VIAL IV ONE (19:47)
[2024-04-30] MEDS: LOSARTAN POTASSIUM 50 MG TAB PO STA (04:53)
[2024-04-30 06:42] LABS: Basophils # (auto) 0.07 K/uL (0.00-0.20); Basophils % (auto) 0.8 %; Eosinophils # (auto) 0.24 K/uL (0.00-0.50); Eosinophils % (auto) 2.8 %; Hematocrit (blood only) 35.2 % (37.0-47.0); Hemoglobin 11.9 g/dl (12.0-16.0); Immature Granulocytes # (auto) 0.03 K/uL (0.01-0.20); Immature Granulocytes % (auto) 0.4 %; Lymphocytes # (auto) 2.88 K/uL (1.20-3.40); Lymphocytes % (auto) 33.7 %; Mean Corpuscular Hemoglobin 32.9 pg (25.0-34.0); Mean Corpuscular Hgb Conc 33.8 g/dL (32.0-36.0); Mean Corpuscular Volume 97.2 fL (80.0-100.0); Mean Platelet Volume 10.2 fL (9.4-12.4); Monocytes # (auto) 0.63 K/uL (0.11-0.59); Monocytes % (auto) 7.4 %; Neutrophils % (auto) 54.9 %; Platelet Count 255 K/uL (130-400); RDW Coefficient of Variation 12.5 % (11.5-14.5); RDW Standard Deviation 45.4 fL (36.4-46.3); Red Blood Count 3.62 M/uL (4.20-5.40); White Blood Count 8.55 K/ul (4.8-10.8)
[2024-04-30 08:13] LABS: Calcium 9.2 mg/dl (8.6-10.3); Creatinine Clr Calc Pharmacy 66.4 ml/min; Est GFR (African American) 76.1 ml/min; Est GFR (Non-African American) 65.7 ml/min; Magnesium 2.1 mg/dl (1.7-2.4); Phosphorus 3.6 mg/dl (2.5-4.9); Potassium 4.2 mmol/L (3.5-5.1)
[2024-04-30 11:11] VITALS: BP 106/73; TEMP 98.2; O2SAT 97
--- NOTE | 2024-04-30 13:51 | Discharge Summary ---
Discharge Summary Date of Service April 30, 2024 Principal Dx & Hospital Course #1 = Principal Diagnosis (1) Acute UTI: (2) Hypertensive urgency: (3) DM type 2 (diabetes mellitus, type 2): (4) Depression: (5) Dyslipidemia: (6) History of CVA (cerebrovascular accident): Plan Pt is a 69 y/o female with history of DM2, prior CVA, diabetic retinopathy, HTN, OA, urge incontinence, spinal stenosis, depression, and other history as outlined who presented to the ED with fever, nausea, and urinary symptoms. Sepsis POA E. coli bacteremia Left-sided pyelonephritis Obstructive nephrolithiasis Patient presented to the ED with fever, nausea, and urinary symptoms. Leukocytosis present on admission Blood cultures 4 out of 4 on admission positive for E. coli; pansensitive Urine cultureE. coli; pansensitive Renal ultrasoundleft ureteral debris seen CT abd/pelvis on 04/28 noting obstructive left sided kidney stone Most recent repeat blood cultures x 2 sets with NGTD Urology consulted, appreciate recs -s/p stent placement on 04/28 -urine Cx kidney aspirate no growth -Plan to D/C with course of appropriate PO antibiotics for a total of 14 days -Urology followup after dc for stent and stone management Treated with IV Rocephin and discharged with po ciprofloxacin for total 14 days of treatment. Per pt, she has never had noted reaction in the chart of itching to cipro. PCP and Urology f/u after discharge Hypertensive urgency BP noted to be markedly elevated on admission Coreg increased to 12.5 mg BID On losartan 100mg daily Pt with noted allergies to HCTZ, chlorthalidone, amlodipine, lisinopril PRN IV hydralazine Discharged with increased dose of coreg at 12.5mg bid PCP follow up after discharge DM type 2 (diabetes mellitus, type 2) Holding oral agents while admitted Insulin sliding scale Diabetic diet BSG ACHS Depression Chronic, stable Continue home meds Dyslipidemia Chronic, stable History of CVA (cerebrovascular accident) Continue clopidogrel Uses cane due to residual deficits Notes For Next Care Provider Medication Changes From Visit Cipro 500mg BID to complete 14 day treatment Coreg dose increased to 12.5mg BID Admission HPI Per Admitting Provider This is a 69 y/o female with history of DM2, prior CVA, diabetic retinopathy, HTN, OA, urge incontinence, spinal stenosis, depression, and other history as outlined who presented to the ED today with fever, nausea, and urinary symptoms. She reports that she developed chills and sweats with associated myalgias two nights ago - took three ibuprofen which seemed to help. However, symptoms have continued since then with associated urinary frequency, urgency, and incontinence. She reports taking her temperature at home several times this morning with readings 105-106F so she took another ibuprofen. However, she felt so poorly that she came to the ED for evaluation. She has had nausea but no vomiting. Mouth feels very dry. Currently hungry but hasn't eaten all day. She notes chronic back pain, which is at baseline. Denies abdominal pain, diarrhea. Sugars have been in the 140s, which is usual for her. She missed her BP meds this morning due to her symptoms. She has allergy symptoms but denies other recent illness. Admission Exam Per Admitting Provider General: awake, alert, NAD HEENT: no scleral icterus, slightly dry oral mucosa Neck: trachea midline Heart: RRR Lungs: CTA bilaterally, no W/R/R Abdomen: soft, +BS, +left CVA tenderness Extremities: no pedal edema Skin: warm, dry, no jaundice Neurologic: moving all extremities, no focal deficits, oriented x 3, no dysarthria Discharge Exam General: Alert, oriented. No acute distress Skin: No noted rashes or bruises Psych: Appropriate mood and affect Neuro: No gross deficits while sitting in chair HEENT: NC/AT CV: RRR Resp: Breath sounds clear bilaterally, no increased effort of breathing. Abdomen: Soft, nontender, nondistended. Extremities: edema in lower extremities bilaterally. Updated Medication List Medication Instructions Recorded Confirmed Type allopurinol 300 mg tablet 300 mg PO DAILY 01/03/21 04/24/24 History ascorbic acid (vitamin C) 500 mg PO DAILY 10/29/21 04/24/24 History cholecalciferol (vitamin D3) 1 cap PO DIRECTED 10/29/21 04/24/24 History [Vitamin D3] lecithin 1 cap PO DIRECTED 10/29/21 04/24/24 History loratadine 10 mg PO DAILY 10/29/21 04/24/24 History omega-3 fatty acids-fish oil 360 1 cap PO DAILY #30 caps 01/01/23 04/24/24 Rx mg-1,200 mg capsule (Fish Oil) B Complex 1 cap PO DIRECTED 04/24/24 04/24/24 History Liver Complex 1 cap PO DIRECTED 04/24/24 04/24/24 History clopidogrel 75 mg tablet 75 mg PO DAILY 04/24/24 04/24/24 History escitalopram oxalate 5 mg tablet 5 mg PO DAILY 04/24/24 04/24/24 History glimepiride 2 mg tablet 2 mg PO DAILY 04/24/24 04/24/24 History losartan 100 mg tablet 100 mg PO DAILY 04/24/24 04/24/24 History metformin 500 mg tablet,extended 500 mg PO DAILY 04/24/24 04/24/24 History release 24 hr carvedilol 12.5 mg tablet 12.5 mg PO BIDM #60 tabs 04/30/24 Rx ciprofloxacin HCl 500 mg tablet 500 mg PO BID #16 tabs 04/30/24 Rx (Cipro) Hospital Stay Data Consultations 04/24/24 09:17 ED Decision to Admit Stat 04/28/24 09:40 Consult Urology Routine Procedures Performed Operation Date: 04/28/24 12:30 Actual Procedures p Cystoscopy, Left Retrograde Pyelogram, Left Ureteral Stent(Not Applicable) - Arun Vasquez, Diagnostic Imagining Performed 04/24/24 10:25 US Renal Bladder [US renal/blad retro comp] Routine 04/28/24 FL retrograde includes kub Routine 04/28/24 08:00 CT Abd and Pelvis [CT abd pelvis IV con only] Routine Chest X-Ray 04/24/24 07:10 XR chest 1V portable CLINICAL HISTORY: fever body aches congestion TECHNIQUE: Single frontal radiograph of the chest was obtained. Comparison: Comparison is made to chest radiograph 02/12/2018 FINDINGS: Exam is limited by underpenetration. The cardiomediastinal silhouette is stable. The lungs are clear. No evidence of pleural effusion or pneumothorax. IMPRESSION: No acute abnormalities and in particular no radiographic evidence of pneumonia. ACT 112: Negative or not required by law. Electronically signed by: Darrel Mo M.D. 04/24/2024 8:04 AM Renal Ultrasound 04/24/24 10:25 US renal/blad retro comp CLINICAL HISTORY: UTI, ?pyelonephritis TECHNIQUE: Multiple sonographic real-time images of the kidneys and bladder were obtained. COMPARISON: None available at the time of this dictation. FINDINGS: The right kidney measures 10.0 cm in length, and the left kidney measures 11.2 cm in length. The right kidney is normal in size, contour, cortical thickness, and echogenicity. No hydronephrosis is identified. No renal lesion is identified. The left kidney is normal in size, contour, cortical thickness and echogenicity. Hydronephrosis is seen with ingestion of debris. No renal lesion is identified. The bladder is underdistended limiting visualization. No large intraluminal mass is seen. Hepatic steatosis is seen. IMPRESSION: 1. Left ureteral debris is seen, nonspecific but can be seen in infection. 2. Hepatic steatosis. ACT 112: Negative or not required by law. Electronically signed by: Darrel Mo M.D. 04/24/2024 12:20 PM Retrograde Pyelogram 04/28/24 00:00 FL retrograde includes kub CLINICAL HISTORY: RETROGRADE TECHNIQUE: 4 views were obtained with the C-arm in the OR with the above procedure. Total fluoroscopy time was 35 seconds. Comparison: Comparison is made to CT abdomen pelvis 04/28/2024 FINDINGS/IMPRESSION: Intraoperative images were obtained of left stent exchange. Please correlate with intraoperative fluoroscopy and operative report. ACT 112: Negative or not required by law. Electronically signed by: Darrel Mo M.D. 04/28/2024 6:03 PM Abdomen/Pelvis CT 04/28/24 08:[address] WITH IV CONTRAST CT DOSE: 1380.75 mGy.cm HISTORY: bacteremia, pyelonephritis TECHNIQUE: Multiaxial CT images of the abdomen and pelvis were performed following the use of intravenous contrast. A dose lowering technique was utilized adhering to the principles of ALARA. COMPARISON STUDY: Renal ultrasound 04/24/2024. FINDINGS: The lung bases are clear. No pneumoperitoneum. No pneumatosis. There is a right total arthroplasty. No acute fractures. Cholelithiasis. No gallbladder wall thickening. The liver, pancreas, spleen, and adrenal glands are unremarkable. The main portal vein is patent. Calcified plaque within the normal caliber abdominal aorta. No retroperitoneal or pelvic lymphadenopathy. Mild bilateral cortical thinning/lobulation. There is a 6 x 6 mm stone within the distal left ureter on image 264. This is just beyond the level of the left iliac vessels. This results in mild fullness within the left renal collecting system without hydronephrosis. There is heterogeneous enhancement within the left kidney with mild left perinephric fat stranding. This could be due to the slightly delayed nephrogram or a superimposed pyelonephritis. There is a punctate nonobstructing stone within the lower pole of the left kidney. There is a 1.5 cm exophytic cyst within the lower pole of the left kidney. Mild urothelial thickening within the left ureter. Bladder is decompressed and not well evaluated due to the metallic artifact within the right hip prosthesis. Prior hysterectomy. Mild pelvic floor collapse. Colonic diverticulosis. No evidence for acute diverticulitis. No bowel wall thickening or obstruction. Prior appendectomy. IMPRESSION: 1. A 6 x 6 mm stone within the distal left ureter. This results in mild fullness within the left renal collecting system without steve hydronephrosis. 2. Left-sided nephrolithiasis. 3. Heterogeneous enhancement within the left kidney with mild left perinephric fat stranding. This could be due to the delayed nephrogram from the partially obstructing distal left ureteral stone or a superimposed pyelonephritis. There is also mild urothelial thickening within the left ureter. 4. Colonic diverticulosis. No evidence for acute diverticulitis. 5. Cholelithiasis. 6. Additional findings as described above. ACT 112: Negative or not required by law. Electronically signed by: Malcolm Nieto M.D. 04/28/2024 8:58 AM Discharge Instructions Given to Patient (Per Discharging Provider) Ms. Laureano, You had a stent placed for a kidney stone and a very bad infection in your blood. We are discharging you home with about 8 more days of treatment to complete a 14 day course of antibiotics. You indicated that you do not recall a reaction to the medication ciprofloxacin and you are agreeable to taking it. Please take it as prescribed and please keep close follow up with Urology about your kidney stones and your stent. Your Coreg medication dose was increased to help with your blood pressure Please keep close follow up with your primary care provider after discharge. Please do not hesitate to come back to the emergency room if your symptoms worsen or return. It was a pleasure taking care of you while you were here. Please see additional instructions from your urologist below: Total Time Total Time Spent Total Time Spent (In Minutes): 75
[2024-04-30 14:08] VITALS: PULSE 66
[2024-04-30] MEDS ORDERED: cefTRIAXone SODIUM 2,000 MG/50 ML BAG IV STA (14:21)
[2024-04-30] MEDS: CIPROFLOXACIN 500 MG TAB PO STA (15:13)
[2024-05-01] MEDS ORDERED: LOSARTAN POTASSIUM 50 MG TAB PO SCH (13:52)
== END 2024-04-30 15:53 | disposition home or self-care (01) | DRG 854 ==
LOC: ED 06:43 → SUATTDRO 10:25 → 2N 10:25

== ENCOUNTER 2024-05-31 15:22 | Inpatient (IN) ==
[2024-05-31] MEDS: SODIUM CHLORIDE 0.9% 500 ML IV STA (15:43)
[2024-05-31 15:59] LABS: Basophils # (auto) 0.04 K/uL (0.00-0.20); Basophils % (auto) 0.4 %; Eosinophils # (auto) 0.04 K/uL (0.00-0.50); Eosinophils % (auto) 0.4 %; Hematocrit (blood only) 36.4 % (37.0-47.0); Hemoglobin 12.5 g/dl (12.0-16.0); Immature Granulocytes # (auto) 0.05 K/uL (0.01-0.20); Immature Granulocytes % (auto) 0.5 %; Lymphocytes # (auto) 1.37 K/uL (1.20-3.40); Lymphocytes % (auto) 12.5 %; Mean Corpuscular Hgb Conc 34.3 g/dL (32.0-36.0); Mean Platelet Volume 10.5 fL (9.4-12.4); Monocytes # (auto) 0.66 K/uL (0.11-0.59); Neutrophils % (auto) 80.2 %; Platelet Count 162 K/uL (130-400); RDW Coefficient of Variation 13.1 % (11.5-14.5); RDW Standard Deviation 46.4 fL (36.4-46.3); Red Blood Count 3.79 M/uL (4.20-5.40); White Blood Count 10.96 K/ul (4.8-10.8)
[2024-05-31 16:14] LABS: Albumin Globulin Ratio 1.3 (0.9-2); Albumin Level 3.9 gm/dl (3.4-5.0); BUN Creatinine Ratio 16.9 (10-20); Bilirubin,Total 0.6 mg/dl (0.2-1.0); Calcium 9.4 mg/dl (8.6-10.3); Creatinine Clr Calc Pharmacy 67.9 ml/min; Est GFR (African American) 76.1 ml/min; Est GFR (Non-African American) 65.7 ml/min; Globulin 3.1 gm/dl (2.5-4.0); Potassium 3.8 mmol/L (3.5-5.1)
[2024-05-31] MEDS: CEFEPIME 2,000 MG/20 ML VIAL IV STA (16:14)
[2024-05-31 16:18] LABS: Appearance Urine Turbid (Clear); Bilirubin Urine 1+ (Negative); Blood Urine 3+ (Negative); Color Urine Dark Yellow; Glucose Urine UA Trace (Negative); Ketones Urine Negative (Negative); Leukocyte Esterase Urine 2+ (Negative); Nitrite Urine Positive (Negative); Protein Urine 2+ (Negative); RBC Urine Automated >20 /hpf (0-2); Specific Gravity Urine 1.021 (1.000-1.030); Urobilinogen Urine Negative (Negative); WBC Urine Automated >50 /hpf (0-5); pH Urine 5.5 (4.5-7.5)
[2024-05-31 16:30] LABS: Bacteria Urine Automated 2+ (None Seen); Red Blood Cell Casts Urine Present /lpf (None Prsent)
--- NOTE | 2024-05-31 16:48 | Emergency Department Note ---
Impression & Plan UTI (urinary tract infection), S/P ureteral stent placement, Leukocytosis, History of sepsis ED Provider Note NAME: SHAD EASLEY AGE: 69 SEX: F : 1955 ARRIVES VIA: Walk-In INFORMANT: [Patient] ED PROVIDER(S): [Colin Lazar MD] CHIEF COMPLAINT: Referred HISTORY OF PRESENT ILLNESS: Patient is a 69-year-old female who states that she was in the hospital a month ago for sepsis thought secondary to a urine infection with ureteral obstruction. She was discharged from the hospital. The patient states that she had a left ureteral stent in place and then yesterday, had the stent exchanged. Since the stent exchange, she has had increased pain in the right hip, she has a right hip replacement. She has had lower back pain. She has developed chills, nausea and sweats. She spoke with her doctors office, she was referred to the ER. Of note, the patient is on Keflex, this was prescribed yesterday twice a day. PMHx/PSHx/Social Hx: See Below PHYSICAL EXAM: GENERAL: Patient is in no acute distress. HEENT: No acute trauma, normocephalic atraumatic, mucous membranes moist, no nasal congestion. NECK: No stridor, no adenopathy, no meningismus, trachea is midline. LUNGS: Clear to auscultation bilaterally, no wheeze, no rhonchi, breath sounds equal. HEART: Without murmurs gallops or rubs, regular rate and rhythm. ABDOMEN: Soft, nontender, no peritonitis. EXTREMITIES: No cyanosis, full range of motion of all the joints without pain or difficulty. NEUROLOGIC: Oriented x 3, no acute motor or sensory deficits, no focal weakness. SKIN: No jaundice, no diaphoresis. DIFFERENTIAL DIAGNOSIS: Sepsis or bacteremia, UTI, renal failure, electrolyte imbalance, dehydration, viral illness, among others. EMERGENCY DEPARTMENT PROCEDURES: MEDICAL DECISION MAKING: There is a mild leukocytosis, this is consistent with infection. There is a normal hemoglobin and platelet count. No renal failure or significant electrolyte abnormality. Lactic acid level is not elevated making severe sepsis less likely. No concerning liver enzyme elevation. Urinalysis does show findings of infection. KUB shows the left ureteral stent to be in position. On exam, the patient was not toxic in appearance. She was not hypotensive. Patient received IV saline, 500 cc, she was given IV cefepime as antibiotic coverage. I did speak with urology. The patient does not need any acute urologic intervention. She needs IV hydration, IV antibiotics and admission/observation. I spoke with the patient and case management, the on-call hospitalist was consulted. In short, patient appears to have a UTI/pyonephritis, she may have some bacteremia given the acute onset of symptoms. She is status post ureteral manipulation/stenting. Prior/Outside records/notes reviewed: Yesterday's urology note describing her stent exchange. Imaging/x-ray results per my interpretation: KUB shows the ureteral stent to be in proper position. Chronic Medical/Social conditions affecting care: Advanced age. Care/Management discussed with: Urology on-call-Dr. Reyes Level of care consideration(s): After review of the information above and other included data: --I believe the patient requires escalation of care to admission DISPOSITION: Admission Past Med/Surg History Problem List (Updated 06/01/24 @ 00:42 by Colin Lazar MD) History of sepsis (Acute) Leukocytosis (Acute) S/P ureteral stent placement (Acute) UTI (urinary tract infection) (Acute) S/P ureteral stent placement Complicated UTI (urinary tract infection) Ureteral stone Bacteremia History of CVA (cerebrovascular accident) Hypertensive urgency Leukocytosis (Acute) Nephrolithiasis Urge incontinence Urinary incontinence Urinary urgency Dyslipidemia (Chronic) Depression (Chronic) DM type 2 (diabetes mellitus, type 2) (Chronic) HTN (hypertension) (Chronic) Medical History Lumbar spondylolysis follows with healthcare business analyst Dyslipidemia per medical record - pt denies History of kidney stones (2012) no surgical intervention - passed on her own Diabetes mellitus, type 2 NIDDM Anxiety Hypertension Kidney stone On anticoagulant therapy History of stroke (01/2018) presented with right sided weakness and slurred speech. currently has mild right sided weakness (improved), reason for plavix. follows with [facility] [place] PRN. Allergic rhinitis Diabetic retinopathy pt denies BPV (benign positional vertigo) chronic LVH (left ventricular hypertrophy) pt unaware Osteoarthritis Surgical History History of bilateral tubal ligation S/P epidural steroid injection none currently History of colonoscopy History of right hip replacement S/P cystoscopy with ureteral stent placement (04/28/24) at [facility] S/P HORACIO-BSO History of tonsillectomy History of appendectomy History of carpal tunnel surgery bilateral Family History Mother Family history of reaction to anesthesia "have to be careful how much they give to her" denies any other problems Social History Smoking Status: Never smoker Second Hand Exposure: No; Do You Dip or Chew Tobacco: No; Hx Alcohol Use: No Hx Substance Use: No Preferred Language: [place] Communication Ability: Effective Tile Layer Supervisor Required: No Beliefs That Will Affect Care: None marital status: Current Living Situation: Spouse Current Living Situation Comment: Apartment, elevator and shower Tub Feels Safe at Home: No Is there a partner from a previous relationship who is making you feel unsafe now?: No Assistive Devices: Cane Allergies Allergies Allergy/AdvReac Type Severity Reaction Status Date / Time adhesive tape Allergy Severe rash Verified 05/30/24 06:33 amlodipine Allergy Severe edema Verified 05/30/24 06:33 face/lips/tongue, hives, and itching chlorthalidone Allergy Severe itchy Verified 05/30/24 06:33 eyes, red face ciprofloxacin [From Cipro] Allergy Severe itching Verified 05/30/24 06:33 gabapentin Allergy Severe leg Verified 05/30/24 06:33 swelling lisinopril Allergy Severe lips tingle Verified 05/30/24 06:33 pregabalin [From Lyrica] Allergy Severe leg Verified 05/30/24 06:33 swelling valacyclovir Allergy Severe itching Verified 05/30/24 06:33 hydrochlorothiazide AdvReac Intermediate muscle pain Verified 05/30/24 06:33 artificial sweetners Allergy Severe skin Uncoded 05/30/24 06:33 crawling & lip numbness Home Meds Home Medications Medication Instructions Recorded Confirmed allopurinol 300 mg tablet 300 mg PO HS 01/03/21 05/31/24 lecithin 1 cap PO CQWK 10/29/21 05/31/24 Liver Complex 1 cap PO DAILY 04/24/24 05/31/24 clopidogrel 75 mg tablet 75 mg PO QAM 04/24/24 05/31/24 escitalopram oxalate 5 mg tablet 5 mg PO HS 04/24/24 05/31/24 (Lexapro) glimepiride 2 mg tablet 2 mg PO QAM 04/24/24 05/31/24 losartan 100 mg tablet 100 mg PO HS 04/24/24 05/31/24 metformin 500 mg tablet,extended 500 mg PO HS 04/24/24 05/31/24 release 24 hr Herb Lax Complex 1 dose PO QAM 05/17/24 05/31/24 Shaklee Supplements 1 dose PO QAM 05/17/24 05/31/24 omega-3 fatty acids-fish oil 360 1 cap PO [facility] 05/17/24 05/31/24 mg-1,200 mg capsule (Fish Oil) vitamin B complex 1 tab PO QAM 05/17/24 05/31/24 vitamin E mixed 1,000 unit capsule 1,000 unit PO DAILY 05/17/24 05/31/24 acetaminophen 500 mg tablet 1,000 mg PO Q6H PRN Pain 05/31/24 05/31/24 (Tylenol Extra Strength) carvedilol 3.125 mg tablet 3.125 mg PO BID 05/31/24 05/31/24 Previous Rx's Medication Instructions Recorded cephalexin 500 mg capsule 500 mg PO BID 7 days #14 caps 05/30/24 oxycodone-acetaminophen 7.5 mg-325 1 tab PO Q8H PRN pain #7 tabs 05/30/24 mg tablet (Percocet) phenazopyridine 200 mg tablet 200 mg PO Q8H PRN pain #10 tabs 05/30/24 (Pyridium) tamsulosin 0.4 mg capsule 0.4 mg PO HS #30 caps 05/30/24 Results & Data (ED) Vital Signs Vital Signs - 24 hr 05/31/24 15:25 05/31/24 16:03 05/31/24 16:10 Temperature 36.1 C L Temperature Source Temporal Artery Scan Pulse Rate 87 80 Pulse Rate from SpO2 Sensor Respiratory Rate 17 Respiratory Effort / Characteristics Non-Labored Spontaneous Respiratory Depth Normal Respiratory Pattern Regular Blood Pressure 165/92 H 136/81 Blood Pressure Mean 116 116 Pulse Oximetry 94 Oxygen Delivery Method Room Air Sepsis Recent Fever Within 48 Hours Yes Sepsis New/Unexplained Change in Mental Status N/A Sepsis Action Taken by Nursing No Action Required 05/31/24 16:12 05/31/24 16:12 05/31/24 16:21 Temperature Temperature Source Pulse Rate 81 Pulse Rate from SpO2 Sensor 81 Respiratory Rate 15 Respiratory Effort / Characteristics Respiratory Depth Respiratory Pattern Blood Pressure 125/79 125/79 Blood Pressure Mean 102 102 Pulse Oximetry 96 Oxygen Delivery Method Sepsis Recent Fever Within 48 Hours Sepsis New/Unexplained Change in Mental Status Sepsis Action Taken by Nursing 05/31/24 16:36 05/31/24 16:42 05/31/24 16:54 Temperature Temperature Source Pulse Rate 81 81 79 Pulse Rate from SpO2 Sensor 81 81 79 Respiratory Rate 16 20 19 Respiratory Effort / Characteristics Respiratory Depth Respiratory Pattern Blood Pressure Blood Pressure Mean Pulse Oximetry 96 95 96 Oxygen Delivery Method Sepsis Recent Fever Within 48 Hours Sepsis New/Unexplained Change in Mental Status Sepsis Action Taken by Nursing 05/31/24 17:00 05/31/24 17:00 05/31/24 17:21 Temperature Temperature Source Pulse Rate Pulse Rate from SpO2 Sensor 80 Respiratory Rate Respiratory Effort / Characteristics Respiratory Depth Respiratory Pattern Blood Pressure 174/94 H 174/94 H Blood Pressure Mean 123 123 Pulse Oximetry 95 Oxygen Delivery Method Sepsis Recent Fever Within 48 Hours Sepsis New/Unexplained Change in Mental Status Sepsis Action Taken by Nursing 05/31/24 17:36 05/31/24 17:42 Temperature Temperature Source Pulse Rate 77 77 Pulse Rate from SpO2 Sensor 77 78 Respiratory Rate 18 16 Respiratory Effort / Characteristics Respiratory Depth Respiratory Pattern Blood Pressure Blood Pressure Mean Pulse Oximetry 98 100 Oxygen Delivery Method Sepsis Recent Fever Within 48 Hours Sepsis New/Unexplained Change in Mental Status Sepsis Action Taken by Custodial Medications Current Medication List: was personally reviewed by me Laboratory Data Attestation: I reviewed the patient's lab results. 05/31/24 15:39 05/31/24 15:39 Lab Results 05/31/24 05/31/24 05/31/24 Range/Units 15:25 15:39 16:10 WBC 10.96 H (4.8-10.8) K/ul RBC 3.79 L (4.20-5.40) M/uL Hgb 12.5 (12.0-16.0) g/dl Hct 36.4 L (37.0-47.0) % MCV 96.0 (80.0-100.0) fL MCH 33.0 (25.0-34.0) pg MCHC 34.3 (32.0-36.0) g/dL RDW Std Deviation 46.4 H (36.4-46.3) fL RDW Coeff of [place] 13.1 (11.5-14.5) % Plt Count 162 (130-400) K/uL MPV 10.5 (9.4-12.4) fL Immature Gran % (Auto) 0.5 % Neut % (Auto) 80.2 % Lymph % (Auto) 12.5 % [place] % (Auto) 6.0 % Eos % (Auto) 0.4 % Baso % (Auto) 0.4 % Neut # (Auto) 8.80 H (1.40-6.50) K/uL Lymph # (Auto) 1.37 (1.20-3.40) K/uL [place] # (Auto) 0.66 H (0.11-0.59) K/uL Eos # (Auto) 0.04 (0.00-0.50) K/uL Baso # (Auto) 0.04 (0.00-0.20) K/uL Immature Gran # (Auto) 0.05 (0.01-0.20) K/uL Sodium 135 L (136-145) mmol/L Potassium 3.8 (3.5-5.1) mmol/L Chloride 102 (98-107) mmol/L Carbon Dioxide 26 (21-32) mmol/L Anion Gap 7 (3-11) BUN 15 (6-23) mg/dl Creatinine 0.89 (0.6-1.2) mg/dl Est Cr Clr Drug Dosing 67.9 ml/min Est GFR ( Amer) 76.1 ml/min Est GFR (Non-Af Amer) 65.7 ml/min BUN/Creatinine Ratio 16.9 (10-20) Glucose 257 H (70-99(Fasting)) mg/dl Lactate 1.6 (0.4-2.0) mmol/L Calcium 9.4 (8.6-10.3) mg/dl Total Bilirubin 0.6 (0.2-1.0) mg/dl AST 20 (13-39) U/L ALT 15 (7-52) U/L Alkaline Phosphatase 67 (34-104) U/L Total Protein 7.0 (6.0-8.3) gm/dl Albumin 3.9 (3.4-5.0) gm/dl Globulin 3.1 (2.5-4.0) gm/dl Albumin/Globulin Ratio 1.3 (0.9-2) Urine Color Dark Yellow Urine Appearance Turbid A (Clear) Urine pH 5.5 (4.5-7.5) Ur Specific [place] 1.021 (1.000-1.030) Urine Protein 2+ H (Negative) Urine Glucose (UA) Trace H (Negative) Urine Ketones Negative (Negative) Urine Blood 3+ H (Negative) Urine Nitrite Positive A (Negative) Urine Bilirubin 1+ H (Negative) Urine Urobilinogen Negative (Negative) Ur Leukocyte Esterase 2+ H (Negative) Urine WBC (Auto) >50 H (0-5) /hpf Urine RBC (Auto) >20 H (0-2) /hpf U Hyaline Cast (Auto) 6-10 H (0-2) /lpf U Epithel Cells (Auto) 6-10 H (0-2) /hpf Urine Bacteria (Auto) 2+ H (None Seen) RBC Casts Present A (None Prsent) /lpf Administered Medications Allopurinol (Allopurinol 300 Mg Tab) [address] [facility] Stop: 06/30/24 20:59 Last Admin: 05/31/24 21:53 Dose: 300 mg Documented By: SRW Carvedilol (Carvedilol 3.125 Mg Tab) 3.125 mg [facility] Stop: 06/30/24 20:59 Last Admin: 05/31/24 21:47 Dose: 3.125 mg Documented By: SRW Enoxaparin Sodium (Enoxaparin Inj 40 Mg/0.4 Ml Syr) [address] [facility] Stop: 06/30/24 20:59 Last Admin: 05/31/24 21:47 Dose: 40 mg Documented By: SRW Escitalopram Oxalate (Escitalopram Oxalate 10 Mg Tab) [address] [facility] Stop: 06/30/24 20:59 Last Admin: 05/31/24 21:47 Dose: 5 mg Documented By: SRW Cefepime HCl 2,000 mg/ Syringe 20 mls @ 5 mls/min IV Q8H [facility]; Protocol Stop: 06/11/24 00:00 Last Admin: 05/31/24 23:57 Dose: 5 mls/min Documented By: EVA Insulin Aspart (Insulin Aspart Per Unit Charge) 0 units SC ACHS [facility] Stop: 06/30/24 20:59 Last Admin: 05/31/24 21:47 Dose: 1 units Documented By: SRW Co-signed By: JUANITO Insulin Glargine (Lantus Per Unit Charge) 0 units SQ BID [facility]; Protocol Stop: 06/30/24 20:59 Last Admin: 05/31/24 21:45 Dose: 5 units Documented By: SRW Co-signed By: JUANITO Losartan Potassium (Losartan Potassium 50 Mg Tab) 100 mg PO HS [facility] Stop: 06/30/24 20:59 Last Admin: 05/31/24 21:54 Dose: 100 mg Documented By: W Tamsulosin HCl (Tamsulosin Hcl 0.4 Mg Cap) 0.4 mg PO HS [facility] Stop: 06/30/24 20:59 Last Admin: 05/31/24 21:54 Dose: 0.4 mg Documented By: EVA Discontinued Medications Sodium Chloride (Nss) 500 mls @ 999 mls/hr IV .Q31M STA Stop: 05/31/24 15:59 Last Infusion: 05/31/24 18:46 Dose: Infused Documented By: Admin: 05/31/24 15:43 Dose: 999 mls/hr Documented By: DANIELA Cefepime HCl (Maxipime) 2,000 mg in 20 mls @ 5 mls/min IV NOW STA; Protocol Stop: 05/31/24 16:03 Last Admin: 05/31/24 16:14 Dose: 5 mls/min Documented By: BERE Imaging Data Radiologist's Impression: KUB X-Ray 05/31/24 16:00 KUB HISTORY: Left ureteral stent position. Fever. Chills. COMPARISON: Abdomen and pelvis CT 04/28/2024. FINDINGS: The bowel gas pattern is unremarkable. There are no dilated loops of small bowel to suggest an obstruction. A left ureteral stent appears in good position. The renal shadows are mostly obscured by overlying bowel gas. No definite renal or ureteral calculi. Calcifications in the deep pelvis favor phleboliths. There is a right hip prosthesis. Cholelithiasis. Moderate fecal retention. No pneumoperitoneum or pneumatosis. IMPRESSION: 1. A left ureteral stent appears in good position. 2. No definite renal or ureteral calculi. 3. Cholelithiasis. ACT 112: Negative or not required by law. Electronically signed by: Malcolm Nieto M.D. 05/31/2024 6:10 PM Discharge Plan Visit Data Chief Complaint: Referred by Doctor Stated Complaint: STINT, KIDNEY STONE, FEVER, SWEAT, CHILLS ED Provider: Colin Lazar Discharge Problem: UTI (urinary tract infection), S/P ureteral stent placement, Leukocytosis, History of sepsis Patient Disposition: Admitted As Inpatient Condition: Fair Discharge Instructions Interventions: ED Discharge Assessment Last Done: 05/31/24 19:55 Discharge Problem: UTI (urinary tract infection) Qualifiers: Urinary tract infection type: acute pyelonephritis Qualified Code(s): N10 - Acute pyelonephritis Leukocytosis Qualifiers: Leukocytosis type: unspecified Qualified Code(s): D72.829 - Elevated white blood cell count, unspecified
--- NOTE | 2024-05-31 18:12 | XRay Report ---
KUB HISTORY: Left ureteral stent position. Fever. Chills. COMPARISON: Abdomen and pelvis CT 04/28/2024. FINDINGS: The bowel gas pattern is unremarkable. There are no dilated loops of small bowel to suggest an obstruction. A left ureteral stent appears in good position. The renal shadows are mostly obscur ed by overlying bowel gas. No definite renal or ureteral calculi. Calcifications in the deep pelvis f avor phleboliths. There is a right hip prosthesis. Cholelithiasis. Moderate fecal retention. No pneum operitoneum or pneumatosis. IMPRESSION: 1. A left ureteral stent appears in good position. 2. No definite renal or ureteral calculi. 3. Cholelithiasis. ACT 112: Negative or not required by law. Electronically signed by: Malcolm Nieto M.D. 05/31/2024 6:10 PM
--- NOTE | 2024-05-31 19:41 | History & Physical Report ---
Date of Service May 31, 2024 Assessment & Plan (1) Complicated UTI (urinary tract infection): (2) S/P ureteral stent placement: (3) DM type 2 (diabetes mellitus, type 2): (4) HTN (hypertension): (5) History of CVA (cerebrovascular accident): Plan This is a 69-year-old female who has a significant past medical history of T2DM, mild nonproliferative diabetic retinopathy, HTN, asymptomatic stenosis of left carotid artery, history of CVA with residual right-sided weakness, depression, history of BPPV, monoclonal paraproteinemia who presents to ED secondary to fever and chills x 1 day. Hx of admission 04/24-04/30 2/2 e. coli bacteremia in setting of UTI, obstructive ureteral stone s/p stent placement 05/30 went in for lithotripsy and stent exchange Complicated UTI -she does not meet sepsis criteria S/P Cystoscopy with left Ureteroscopy, Retrograde Pyelogram, Laser Destruction of the Stone, Stone basket extraction, Exchange/Insertion of Left Stent by Dr. Vasquez on 05/30 admit to [facility] continue IV cefepime await urine and blood culture KUB: L Ureteral stent in good position flomax, prn pyridium and oxy consult urology T2DM with hyperglycemia a1c 7.8 on 04/25/24 hold metformin and glipizide lantus/novolog per protocol Hx of CVA with residual R sided weakness asymptomatic L carotid artery stenosis continue plavix and statin pt was off plavix for 1 week prior to urologic procedure HTN pt bp elevated in ED 170s systolically currently documented at 205/126; however discussed with Nurse who states in 170 systolic and she will re document continue coreg, losartan monitor closely need for prn Depression Chronic, stable Continue home meds Dyslipidemia Chronic, stable Morbid obesity BMI 43.5 encourage diet/lifestyle modifications when able DVT ppx: SQ Lovenox FULL CODE PCP: Laura Dispo: admit to [facility] due to acute complicated UTI Pt was seen and examined in collaboration with Dr. Doyle, please see addendum A total of 62 minutes was spent coordinating, documenting, and providing care for this patient excluding time spent in the performance of separately billed services. This included personally viewing all current laboratories and imaging studies, medication reconciliation, outpatient chart review, and discussion with specialists. History of Present Illness Chief Complaint: Fever and chills x 1 day. Primary Care Provider: Med Sanchez MD This is a 69-year-old female who has a significant past medical history of T2DM, mild nonproliferative diabetic retinopathy, HTN, asymptomatic stenosis of left carotid artery, history of CVA with residual right-sided weakness, depression, history of BPPV, monoclonal paraproteinemia who presents to ED secondary to fever and chills x 1 day. Of significance patient had a recent hospitalization 04/24 to 04/30 secondary to sepsis, E. coli bacteremia, left-sided pyelonephritis and obstructive nephrolithiasis. She was seen and evaluated by urology during admission and underwent left ureteral stent placement on 04/28 and was treated with appropriate course of oral antibiotics for 14 days. Yesterday on 05/30 she underwent ureteroscopic with laser lithotripsy and stent exchange. Postoperatively she was discharged on course of oral Keflex and thus far has had 2 doses. This morning she woke up at approximately 4 AM with a fever greater than 101. She further complains of off-and-on chills, sweats and rigors. She generally feels unwell. She has chronic urinary urgency and incontinence but denies any dysuria or hematuria. She states when she was hospitalized at the end of March she did not have any urinary symptoms during that admission. She currently denies any lightheadedness, dizziness, chest pain, shortness breath, URI symptoms, nausea, vomiting or abdominal pain. She does have chronic low back pain. Her brother is at bedside who also helps elicit history. At [facility] [place] [facility] she ambulates with a cane due to prior history of CVA. In ED patient made hemodynamically stable although she was hypertensive. Lab work notable for borderline leukocytosis at 11,000, BUN/creatinine stable at 15 and 0.89, hyperglycemic at 257 and urinalysis concerning for infection. KUB revealed left ureteral stent in good location. ED provider discussed with urologist on-call who recommended admission with IV antibiotics and as long as the stent was in place no further surgical intervention required. She was treated empirically with IV cefepime. Blood and urine cultures were obtained. Allergies Allergy/AdvReac Type Severity Reaction Status Date / Time adhesive tape Allergy Severe rash Verified 05/30/24 06:33 amlodipine Allergy Severe edema Verified 05/30/24 06:33 face/lips/tongue, hives, and itching chlorthalidone Allergy Severe itchy Verified 05/30/24 06:33 eyes, red face ciprofloxacin [From Cipro] Allergy Severe itching Verified 05/30/24 06:33 gabapentin Allergy Severe leg Verified 05/30/24 06:33 swelling lisinopril Allergy Severe lips tingle Verified 05/30/24 06:33 pregabalin [From Lyrica] Allergy Severe leg Verified 05/30/24 06:33 swelling valacyclovir Allergy Severe itching Verified 05/30/24 06:33 hydrochlorothiazide AdvReac Intermediate muscle pain Verified 05/30/24 06:33 artificial sweetners Allergy Severe skin Uncoded 05/30/24 06:33 crawling & lip numbness Home Medications Medication Instructions Recorded Confirmed Type allopurinol 300 mg tablet 300 mg PO HS 01/03/21 05/31/24 History lecithin 1 cap PO CQWK 10/29/21 05/31/24 History Liver Complex 1 cap PO DAILY 04/24/24 05/31/24 History clopidogrel 75 mg tablet 75 mg PO QAM 04/24/24 05/31/24 History escitalopram oxalate 5 mg tablet 5 mg PO HS 04/24/24 05/31/24 History (Lexapro) glimepiride 2 mg tablet 2 mg PO QAM 04/24/24 05/31/24 History losartan 100 mg tablet 100 mg PO HS 04/24/24 05/31/24 History metformin 500 mg tablet,extended 500 mg PO HS 04/24/24 05/31/24 History release 24 hr Herb Lax Complex 1 dose PO QAM 05/17/24 05/31/24 History Shaklee Supplements 1 dose PO QAM 05/17/24 05/31/24 History omega-3 fatty acids-fish oil 360 1 cap PO QAM 05/17/24 05/31/24 History mg-1,200 mg capsule (Fish Oil) vitamin B complex 1 tab PO QAM 05/17/24 05/31/24 History vitamin E mixed 1,000 unit capsule 1,000 unit PO DAILY 05/17/24 05/31/24 History cephalexin 500 mg capsule 500 mg PO BID 7 days #14 caps 05/30/24 05/31/24 Rx oxycodone-acetaminophen 7.5 mg-325 1 tab PO Q8H PRN pain #7 tabs 05/30/24 05/31/24 Rx mg tablet (Percocet) phenazopyridine 200 mg tablet 200 mg PO Q8H PRN pain #10 tabs 05/30/24 05/31/24 Rx (Pyridium) tamsulosin 0.4 mg capsule 0.4 mg PO HS #30 caps 05/30/24 05/31/24 Rx acetaminophen 500 mg tablet 1,000 mg PO Q6H PRN Pain 05/31/24 05/31/24 History (Tylenol Extra Strength) carvedilol 3.125 mg tablet 3.125 mg PO BID 05/31/24 05/31/24 History Past Med/Surg History Problem List (Updated 05/31/24 @ 19:46 by Mari Jalloh PA-C) S/P ureteral stent placement Complicated UTI (urinary tract infection) Ureteral stone Bacteremia History of CVA (cerebrovascular accident) Hypertensive urgency Leukocytosis (Acute) Nephrolithiasis Urge incontinence Urinary incontinence Urinary urgency Dyslipidemia (Chronic) Depression (Chronic) DM type 2 (diabetes mellitus, type 2) (Chronic) HTN (hypertension) (Chronic) Medical History Lumbar spondylolysis follows with day care center director Dyslipidemia per medical record - pt denies History of kidney stones (2012) no surgical intervention - passed on her own Diabetes mellitus, type 2 NIDDM Anxiety Hypertension Kidney stone On anticoagulant therapy History of stroke (01/2018) presented with right sided weakness and slurred speech. currently has mild right sided weakness (improved), reason for plavix. follows with [facility] neurology PRN. Allergic rhinitis Diabetic retinopathy pt denies BPV (benign positional vertigo) chronic LVH (left ventricular hypertrophy) pt unaware Osteoarthritis Surgical History History of bilateral tubal ligation S/P epidural steroid injection none currently History of colonoscopy History of right hip replacement S/P cystoscopy with ureteral stent placement (04/28/24) at [facility] S/P HORACIO-BSO History of tonsillectomy History of appendectomy History of carpal tunnel surgery bilateral Family History Mother Family history of reaction to anesthesia "have to be careful how much they give to her" denies any other problems Social History Smoking Status: Never smoker Second Hand Exposure: No; Do You Dip or Chew Tobacco: No; Hx Alcohol Use: No Hx Substance Use: No Preferred Language: Kenyan Communication Ability: Effective Desulfurizer Machine Required: No Beliefs That Will Affect Care: None marital status: Current Living Situation: Alone Current Living Situation Comment: Apartment, elevator and shower Tub Feels Safe at Home: Yes Assistive Devices: Cane and Glasses Review of Systems Review of Systems: All systems reviewed & are unremarkable except as noted in HPI & below Physical Exam Physical Exam: Constitutional: WD/WN, morbidly obese, F, vitals as above, NAD, sitting up in bed, pleasant, conversing easily Head: Normocephalic, Atraumatic Eyes: conjunctivae normal, anicteric sclerae ENMT: external ear and nose normal, oropharynx normal Neck: trachea midline, no thyromegaly normal visual inspection Respiratory: normal respiratory effort, lungs clear to auscultation, no wheeze, rales, rhonchi. Normal insp/exp effort, no accessory muscle use Cardiovascular: RRR, no murmur, no edema Vessels: no JVD or carotid bruit Chest: normal inspection of chest Abdomen: normal bowel sounds, soft, obese abdomen, no cva tenderness, nontender, Musculoskeletal: no cyanosis or clubbing, AROM x 4 Skin: no rashes, warm and dry normal turgor Neurologic: accommodation nl, no face palsy, no dysarthria CN's II-XI intact bilaterally and moves all extremities Psychiatric: A+Ox3, euthymic affect : deferred Results & Data Results & Data Vital Signs (Past 12 Hours) Vital Signs Temp Pulse Pulse Resp BP BP Pulse Ox 05/31/24 19:00 81 16 205/129 H 97 05/31/24 18:42 77 23 05/31/24 18:36 82 23 05/31/24 18:21 78 20 05/31/24 18:12 78 20 96 05/31/24 18:03 78 15 96 05/31/24 17:42 77 16 100 05/31/24 17:36 77 18 98 05/31/24 17:21 95 05/31/24 17:00 174/94 H 05/31/24 17:00 174/94 H 05/31/24 16:54 79 19 96 05/31/24 16:42 81 20 95 05/31/24 16:36 81 16 96 05/31/24 16:21 81 15 96 05/31/24 16:12 125/79 05/31/24 16:12 125/79 05/31/24 16:10 136/81 05/31/24 16:03 80 05/31/24 15:25 36.1 C L 87 17 165/92 H 94 O2 Del Method 05/31/24 19:00 Room Air 05/31/24 18:42 05/31/24 18:36 05/31/24 18:21 05/31/24 18:12 05/31/24 18:03 05/31/24 17:42 05/31/24 17:36 05/31/24 17:21 05/31/24 17:00 05/31/24 17:00 05/31/24 16:54 05/31/24 16:42 05/31/24 16:36 05/31/24 16:21 05/31/24 16:12 05/31/24 16:12 05/31/24 16:10 05/31/24 16:03 05/31/24 15:25 Room Air Diagnostic Findings KUB X-Ray 05/31/24 16:00 KUB HISTORY: Left ureteral stent position. Fever. Chills. COMPARISON: Abdomen and pelvis CT 04/28/2024. FINDINGS: The bowel gas pattern is unremarkable. There are no dilated loops of small bowel to suggest an obstruction. A left ureteral stent appears in good position. The renal shadows are mostly obscured by overlying bowel gas. No definite renal or ureteral calculi. Calcifications in the deep pelvis favor phleboliths. There is a right hip prosthesis. Cholelithiasis. Moderate fecal retention. No pneumoperitoneum or pneumatosis. IMPRESSION: 1. A left ureteral stent appears in good position. 2. No definite renal or ureteral calculi. 3. Cholelithiasis. ACT 112: Negative or not required by law. Electronically signed by: Malcolm Nieto M.D. 05/31/2024 6:10 PM Medications Administered Medication List Discontinued Medications Sodium Chloride (Nss) 500 mls @ 999 mls/hr IV .Q31M STA Stop: 05/31/24 15:59 Last Infusion: 05/31/24 18:46 Dose: Infused Documented By: Admin: 05/31/24 15:43 Dose: 999 mls/hr Documented By: DANIELA Cefepime HCl (Maxipime) 2,000 mg in 20 mls @ 5 mls/min IV NOW STA; Protocol Stop: 05/31/24 16:03 Last Admin: 05/31/24 16:14 Dose: 5 mls/min Documented By: BERE COVID-19 Results Results COVID-19 Adm Lab Results: RBC 3.79 M/uL (4.20-5.40) L 05/31/24 WBC 10.96 K/ul (4.8-10.8) H 05/31/24 Hgb 12.5 g/dl (12.0-16.0) 05/31/24 Hct 36.4 % (37.0-47.0) L 05/31/24 Plt Count 162 K/uL (130-400) 05/31/24 Neutrophils (%) (Auto) 80.2 % 05/31/24 Lymphocytes (%) (Auto) 12.5 % 05/31/24 Monocytes # (Auto) 0.66 K/uL (0.11-0.59) H 05/31/24 Eosinophils # (Auto) 0.04 K/uL (0.00-0.50) 05/31/24 Immature Granulocyte % (Auto) 0.5 % 05/31/24 Neutrophils # (Auto) 8.80 K/uL (1.40-6.50) H 05/31/24 Lymphocytes # (Auto) 1.37 K/uL (1.20-3.40) 05/31/24 Monocytes # (Auto) 0.66 K/uL (0.11-0.59) H 05/31/24 Eosinophils # (Auto) 0.04 K/uL (0.00-0.50) 05/31/24 Basophils # (Auto) 0.04 K/uL (0.00-0.20) 05/31/24 Immature Granulocyte # (Auto) 0.05 K/uL (0.01-0.20) 4 Na 135 mmol/L (136-145) L 05/31/24 K 3.8 mmol/L (3.5-5.1) 05/31/24 Cl 102 mmol/L (98-107) 05/31/24 CO2 26 mmol/L (21-32) 05/31/24 Anion Gap 7 (3-11) 05/31/24 BUN 15 mg/dl (6-23) 05/31/24 Creatinine 0.89 mg/dl (0.6-1.2) 05/31/24 BUN/Creatinine Ratio 16.9 (10-20) 05/31/24 Glucose Level 257 mg/dl (70-99(Fasting)) H 05/31/24 Ca 9.4 mg/dl (8.6-10.3) 05/31/24 Total Bilirubin 0.6 mg/dl (0.2-1.0) 05/31/24 AST/SGOT 20 U/L (13-39) 05/31/24 ALT/SGPT 15 U/L (7-52) 05/31/24 Alkaline Phosphatase 67 U/L (34-104) 05/31/24 Total Protein 7.0 gm/dl (6.0-8.3) 05/31/24 Albumin 3.9 gm/dl (3.4-5.0) 05/31/24 Globulin 3.1 gm/dl (2.5-4.0) 05/31/24 Albumin/Globulin Ratio 1.3 (0.9-2) 05/31/24 Code Status & VTE Plan Code Status FULL CODE VTE Prophylaxis Plan VTE Prophylaxis will be ordered: Yes Supervising Physician Co-Signing Physician Notes I have reviewed the advanced practitioner's documentation on the date of service referenced in note, and I agree with, and take responsibility for the plan of care. Pt seen in the ED with Mari Jalloh PA-C. Her brother is preent as well. She is a good historian. Chart and data reviewed. Will continue IV Cefepime and await culture results. I have spent a total of 25 minutes coordinating, documenting and providing care for the patient excluding time spent in the performance of separately billed services or time spent by another provider/QHP. (3) DM type 2 (diabetes mellitus, type 2) Diabetes mellitus complication status: with other specified complication Diabetes mellitus laborer marine terminal insulin use: without laborer marine terminal use Qualified Code(s): E11.69 - Type 2 diabetes mellitus with other specified complication (4) HTN (hypertension) Hypertension type: primary hypertension Qualified Code(s): I10 - Essential (primary) hypertension
[2024-05-31] MEDS ORDERED: GLUCOSE 40% GEL 15 GM TUBE PO PRN (20:15)
[2024-05-31] MEDS ORDERED: GLUCAGON FOR INJ 1 MG VIAL SQ PRN (20:15)
[2024-05-31] MEDS ORDERED: PHENAZOPYRIDINE HCL 200 MG TAB PO PRN (20:15)
[2024-05-31] MEDS ORDERED: DEXTROSE 50% 50 ML SYRINGE IV PRN (20:15)
[2024-05-31] MEDS ORDERED: oxyCODONE/APAP 7.5/325MG TAB PO PRN (20:15)
[2024-05-31] MEDS ORDERED: CARBOHYDRATES FOR HYPOGLYCEMIA PO PRN (20:15)
[2024-05-31] MEDS ORDERED: GLUCOSE 10 TAB/TUBE PO PRN (20:15)
[2024-05-31] MEDS ORDERED: ONDANSETRON INJ 2 MG/ML 2 ML VIAL IV PRN (20:15)
[2024-05-31] MEDS: LANTUS PER UNIT CHARGE SQ SCH (21:45)
[2024-05-31] MEDS: INSULIN ASPART PER UNIT CHARGE SC SCH (21:47)
[2024-05-31] MEDS: carvediloL 3.125 MG TAB PO SCH (21:47)
[2024-05-31] MEDS: ESCITALOPRAM OXALATE 10 MG TAB PO SCH (21:47)
[2024-05-31] MEDS: ENOXAPARIN INJ 40 MG/0.4 ML SYR SQ SCH (21:47)
[2024-05-31] MEDS: allopurinoL 300 MG TAB PO SCH (21:53)
[2024-05-31] MEDS: LOSARTAN POTASSIUM 50 MG TAB PO SCH (21:54)
[2024-05-31] MEDS: TAMSULOSIN HCL 0.4 MG CAP PO SCH (21:54)
[2024-05-31] MEDS: CEFEPIME 2,000 MG in SYRINGE 0 ML IV SCH (23:57)
[2024-06-01] MEDS: CLOPIDOGREL BISULFATE 75 MG TAB PO SCH (07:43)
[2024-06-01 07:56] LABS: Hematocrit (blood only) 30.7 % (37.0-47.0); Hemoglobin 10.3 g/dl (12.0-16.0); Mean Corpuscular Hemoglobin 32.4 pg (25.0-34.0); Mean Corpuscular Hgb Conc 33.6 g/dL (32.0-36.0); Mean Corpuscular Volume 96.5 fL (80.0-100.0); Mean Platelet Volume 10.7 fL (9.4-12.4); Platelet Count 152 K/uL (130-400); RDW Coefficient of Variation 12.9 % (11.5-14.5); RDW Standard Deviation 45.6 fL (36.4-46.3); Red Blood Count 3.18 M/uL (4.20-5.40); White Blood Count 8.38 K/ul (4.8-10.8)
[2024-06-01 08:14] LABS: BUN Creatinine Ratio 19.7 (10-20); Calcium 8.5 mg/dl (8.6-10.3); Creatinine Clr Calc Pharmacy 88.8 ml/min; Est GFR (African American) 103.7 ml/min; Est GFR (Non-African American) 89.5 ml/min; Potassium 3.8 mmol/L (3.5-5.1)
--- NOTE | 2024-06-01 08:22 | Urology Consultation ---
Date of Consultation June 01, 2024 Assessment & Plan (1) S/P ureteral stent placement: (2) Complicated UTI (urinary tract infection): 69 yo/F admitted for suspected UTI after urologic procedure. She is s/p left ureteroscopy, laser lithotripsy and stent exchange on 05/30 Afebrile, hemodynamically stable Labs reviewedcreatinine 0.66, no leukocytosis UA appears grossly positive Urine and blood cultures are pending Continue with broad spectrum antibiotics and narrow per sensitivity data when available Stent in good position on KUB No acute intervention at this time Continue with supportive care, antibiotics and medical management per hospital medicine service We will arrange her outpatient stent removal after hospitalization, will determine timing based on clinical course will sign off, please contact our service with any additional questions or concerns History of Present Illness Attending Physician: Marie Pagan MD History of Present Illness This is a 69-year-old female with history of prior CVA, DM 2, diabetic retinopathy, hypertension, urge incontinence, who presented to the emergency department for evaluation of back pain, fever/chills and nausea after recent stone treatment. She was hospitalized in March for left ureteral stone, E. coli bacteremia and left-sided pyelonephritis. She underwent left ureteral stent placement on 04/28/[address] Vasquez, then definitive stone treatment with left ureteroscopy, laser lithotripsy and left stent exchange on 05/30. On arrival to ED, she was afebrile, hypertensive, but otherwise stable vitals. Lab work showed sodium 135, creatinine 0.89, WBC 10.96, hemoglobin 12.5. Urinalysis notable for 3+ blood, positive nitrates, 2+ LE, >50 WBC, >20 RBC and 2+ bacteria. Urine and blood cultures collected. KUB shows a left ureteral stent in good position. She was treated with IV fluids, cefepime in the ED. She was admitted to the hospital medicine service for complicated UTI. Patient seen and examined at bedside this morning. She is sitting up in bedside chair. She reports developing fever/chills symptoms after her surgery on 05/30 prompting her to go to the ED. Feels better since arrival. She is voiding spontaneously. No dysuria or hematuria. Denies nausea, vomiting, fever or chills at present. Allergies Allergy/AdvReac Type Severity Reaction Status Date / Time adhesive tape Allergy Severe rash Verified 05/30/24 06:33 amlodipine Allergy Severe edema Verified 05/30/24 06:33 face/lips/tongue, hives, and itching chlorthalidone Allergy Severe itchy Verified 05/30/24 06:33 eyes, red face ciprofloxacin [From Cipro] Allergy Severe itching Verified 05/30/24 06:33 gabapentin Allergy Severe leg Verified 05/30/24 06:33 swelling lisinopril Allergy Severe lips tingle Verified 05/30/24 06:33 pregabalin [From Lyrica] Allergy Severe leg Verified 05/30/24 06:33 swelling valacyclovir Allergy Severe itching Verified 05/30/24 06:33 hydrochlorothiazide AdvReac Intermediate muscle pain Verified 05/30/24 06:33 artificial sweetners Allergy Severe skin Uncoded 05/30/24 06:33 crawling & lip numbness Home Medications Medication Instructions Recorded Confirmed Type allopurinol 300 mg tablet 300 mg PO HS 01/03/21 05/31/24 History lecithin 1 cap PO CQWK 10/29/21 05/31/24 History Liver Complex 1 cap PO DAILY 04/24/24 05/31/24 History clopidogrel 75 mg tablet 75 mg PO [facility] 04/24/24 05/31/24 History escitalopram oxalate 5 mg tablet 5 mg PO HS 04/24/24 05/31/24 History (Lexapro) glimepiride 2 mg tablet 2 mg PO QA 04/24/24 05/31/24 History losartan 100 mg tablet 100 mg PO HS 04/24/24 05/31/24 History metformin 500 mg tablet,extended 500 mg PO HS 04/24/24 05/31/24 History release 24 hr Herb Lax Complex 1 dose PO QAM 05/17/24 05/31/24 History Shaklee Supplements 1 dose PO QA 05/17/24 05/31/24 History omega-3 fatty acids-fish oil 360 1 cap PO QAM 05/17/24 05/31/24 History mg-1,200 mg capsule (Fish Oil) vitamin B complex 1 tab PO QAM 05/17/24 05/31/24 History vitamin E mixed 1,000 unit capsule 1,000 unit PO DAILY 05/17/24 05/31/24 History cephalexin 500 mg capsule 500 mg PO BID 7 days #14 caps 05/30/24 05/31/24 Rx oxycodone-acetaminophen 7.5 mg-325 1 tab PO Q8H PRN pain #7 tabs 05/30/24 05/31/24 Rx mg tablet (Percocet) phenazopyridine 200 mg tablet 200 mg PO Q8H PRN pain #10 tabs 05/30/24 05/31/24 Rx (Pyridium) tamsulosin 0.4 mg capsule 0.4 mg PO HS #30 caps 05/30/24 05/31/24 Rx acetaminophen 500 mg tablet 1,000 mg PO Q6H PRN Pain 05/31/24 05/31/24 History (Tylenol Extra Strength) carvedilol 3.125 mg tablet 3.125 mg PO BID 05/31/24 05/31/24 History Patient History Medical History Lumbar spondylolysis follows with childcare administrator Dyslipidemia per medical record - pt denies History of kidney stones (2012) no surgical intervention - passed on her own Diabetes mellitus, type 2 NIDDM Anxiety Hypertension Kidney stone On anticoagulant therapy History of stroke (01/2018) presented with right sided weakness and slurred speech. currently has mild right sided weakness (improved), reason for plavix. follows with [facility] neurology PRN. Allergic rhinitis Diabetic retinopathy pt denies BPV (benign positional vertigo) chronic LVH (left ventricular hypertrophy) pt unaware Osteoarthritis Surgical History History of bilateral tubal ligation S/P epidural steroid injection none currently History of colonoscopy History of right hip replacement S/P cystoscopy with ureteral stent placement (04/28/24) at [facility] S/P HORACIO-BSO History of tonsillectomy History of appendectomy History of carpal tunnel surgery bilateral Family History Mother Family history of reaction to anesthesia "have to be careful how much they give to her" denies any other problems Social History Smoking Status: Never smoker Second Hand Exposure: No; Do You Dip or Chew Tobacco: No; Hx Alcohol Use: No Hx Substance Use: No Preferred Language: Romansh Communication Ability: Effective Director Of Clinical Applications Required: No Beliefs That Will Affect Care: None marital status: Current Living Situation: Spouse Current Living Situation Comment: Apartment, elevator and shower Tub Feels Safe at Home: No Is there a partner from a previous relationship who is making you feel unsafe now?: No Assistive Devices: Cane Review of Systems Review of Systems: ROS was performed with pertinent positives noted as above; all other systems negative Physical Exam Constitutional: + obese; no acute distress Eyes: no scleral abnormality Respiratory: normal respiratory effort; no respiratory distress and no labored breathing Gastrointestinal (Abdomen): Inspection/Auscultation: abdomen normal to inspection; abdomen not distended Musculoskeletal: Head/Neck/Chest: normocephalic Skin: no visible rashes Neurologic: moves all extremities and awake Psychiatric: Orientation: alert and oriented x 3 Results & Data Vital Signs (Past 12 Hours) Vital Signs Temp Pulse Pulse Resp BP Pulse Ox O2 Del Method 06/01/24 07:54 36.7 C 83 18 156/94 H 95 Room Air 06/01/24 03:44 36.8 C 87 18 137/85 95 Room Air 06/01/24 00:14 87 05/31/24 20:35 37.2 C 91 H 16 151/82 H 96 Room Air PG Care Time/CCT Total # of Minutes Spent Total Time Spent with Patient: Total time spent is greater than 50% in coordination of care (as documented) at patient's floor/unit and/or counseling patient: Coding Level of Care Code 71211 IN/OBS CONSULT LVL 4,60M Diagnoses S/P ureteral stent placement Z96.0 Complicated UTI (urinary tract infection) N39.0
--- NOTE | 2024-06-01 10:58 | Hospitalist Progress Note ---
Date of Service June 01, 2024 Assessment & Plan (1) Complicated UTI (urinary tract infection): (2) S/P ureteral stent placement: (3) DM type 2 (diabetes mellitus, type 2): (4) HTN (hypertension): (5) History of CVA (cerebrovascular accident): Plan 69-year-old female who has a significant past medical history of T2DM, mild nonproliferative diabetic retinopathy, HTN, asymptomatic stenosis of left carotid artery, CVA with residual right-sided weakness, depression, history of BPPV, monoclonal paraproteinemia who presents to ED secondary to fever and chills x 1 day. Of note: Hx of admission 04/24-04/30 2/2 e. coli bacteremia in setting of UTI, obstructive ureteral stone s/p stent placement. 05/30 went in for lithotripsy and stent exchange. She is being managed for the following: Complicated UTI -she does not meet sepsis criteria at presentation UTI as complication of care: iso recent urologic procedure, see below. Pt comes in w/ fever and chills iso S/P Cystoscopy with left Ureteroscopy, Retrograde Pyelogram, Laser Destruction of the Stone, Stone basket extraction, Exchange/Insertion of Left Stent by Dr. Vasquez on 05/30 Admitting XR KUB: L Ureteral stent in good position c/w IV cefepime 05/31, f/u 05/31 blood and urine culture. c/w flomax, prn pyridium and oxy Uro on board, no acute intervention for now. T2DM with hyperglycemia: a1c 7.8 on 04/25/24. hold metformin and glipizide. lantus/novolog per protocol HTN: uncontrolled at presentation likely 2/2 acute illness. c/w home coreg, losartan. BP fairly under control now. Monitor. Hx of CVA with residual R sided weakness/asymptomatic L carotid artery stenosis: continue plavix and statin. pt was off plavix for 1 week prior to urologic procedure Other chronic medical conditions: Continue with/resume home meds as and when able Depression: Chronic, stable. Continue home meds Dyslipidemia: Chronic, stable, not on any statin at home. Morbid obesity: Encourage diet/lifestyle modification DVT prophylaxis: Subcu Lovenox Full code Dispo: Pending culture and sensitivity availability. Admission and Anticipated Discharge Date Admission Date: May 31, 2024 Subjective patient was seen and examined at bedside. Patient was sitting up in chair, on room air, resting comfortably, not in any acute distress. Patient denies any further chills and rigors, reports feeling better, reports eating okay and moving bowels okay. Patient denies any pain or burning with passing urine. Discussed with urology, no plan for acute intervention. Continue medical management. Physical Exam Physical Exam: GENERAL: Alert and oriented x3. NAD, on RA. Obese Class III HEENT: No pallor, no icterus. Pupils equal, round and reactive to light. Oral mucosa moist. NECK: No JVD, no neck masses. HEART: S1 and S2 heard. Regular rate and rhythm. No murmur, no gallop. RESPIRATORY SYSTEM: Normal AP diameter. No accessory muscle use. No wheezing, no crackles. ABDOMEN: Soft, bowel sounds present, nontender, no distention. CENTRAL NERVOUS SYSTEM: No facial droop. Speech is clear. Obeys simple commands. Moves extremities. EXTREMITIES: No edema, no erythema seen. No CVA angle tenderness. 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
[2024-06-02 08:09] LABS: Hematocrit (blood only) 33.2 % (37.0-47.0); Hemoglobin 11.2 g/dl (12.0-16.0); Mean Corpuscular Hemoglobin 32.7 pg (25.0-34.0); Mean Corpuscular Hgb Conc 33.7 g/dL (32.0-36.0); Mean Corpuscular Volume 96.8 fL (80.0-100.0); Mean Platelet Volume 10.6 fL (9.4-12.4); Platelet Count 160 K/uL (130-400); RDW Standard Deviation 46.4 fL (36.4-46.3); Red Blood Count 3.43 M/uL (4.20-5.40); White Blood Count 6.08 K/ul (4.8-10.8)
[2024-06-02 08:19] LABS: Calcium 8.6 mg/dl (8.6-10.3); Magnesium 1.9 mg/dl (1.7-2.4); Potassium 4.2 mmol/L (3.5-5.1)
[2024-06-02 08:24] LABS: BUN Creatinine Ratio 26.6 (10-20); Creatinine Clr Calc Pharmacy 91.6 ml/min; Est GFR (African American) 104.8 ml/min; Est GFR (Non-African American) 90.4 ml/min; Phosphorus 2.9 mg/dl (2.5-4.9)
[2024-06-02] MEDS: PSYLLIUM or GUAR GUM FIBER 4GM PACKET PO SCH (11:48)
--- NOTE | 2024-06-02 14:39 | Hospitalist Progress Note ---
Date of Service June 02, 2024 Assessment & Plan (1) Complicated UTI (urinary tract infection): (2) S/P ureteral stent placement: (3) DM type 2 (diabetes mellitus, type 2): (4) HTN (hypertension): (5) History of CVA (cerebrovascular accident): Plan 69-year-old female who has a significant past medical history of T2DM, mild nonproliferative diabetic retinopathy, HTN, asymptomatic stenosis of left carotid artery, CVA with residual right-sided weakness, depression, history of BPPV, monoclonal paraproteinemia who presents to ED secondary to fever and chills x 1 day. Of note: Hx of admission 04/24-04/30 2/2 e. coli bacteremia in setting of UTI, obstructive ureteral stone s/p stent placement. 05/30 went in for lithotripsy and stent exchange. She is being managed for the following: Complicated UTI -she does not meet sepsis criteria at presentation UTI as complication of care: iso recent urologic procedure, see below. Pt comes in w/ fever and chills iso S/P Cystoscopy with left Ureteroscopy, Retrograde Pyelogram, Laser Destruction of the Stone, Stone basket extraction, Exchange/Insertion of Left Stent by Dr. Vasquez on 05/30 Admitting XR KUB: L Ureteral stent in good position c/w IV cefepime 05/31, f/u 05/31 blood and urine culture - no growth so far. c/w flomax, prn pyridium and oxy Uro on board, no acute intervention for now. T2DM with hyperglycemia: a1c 7.8 on 04/25/24. hold metformin and glipizide. lantus/novolog per protocol HTN: uncontrolled at presentation likely 2/2 acute illness. c/w home coreg, losartan. BP fairly under control now. Monitor. Hx of CVA with residual R sided weakness/asymptomatic L carotid artery stenosis: continue plavix and statin. pt was off plavix for 1 week prior to urologic procedure Other chronic medical conditions: Continue with/resume home meds as and when able Depression: Chronic, stable. Continue home meds Dyslipidemia: Chronic, stable, not on any statin at home. Morbid obesity: Encourage diet/lifestyle modification DVT prophylaxis: Subcu Lovenox Full code Dispo: likely mason. Pt wanted her son Yo be updated ([phone]). Called the number twice from hospital line, couldn't connect. Third time could connect, left voicemail to call us back and ask for updates. Admission and Anticipated Discharge Date Admission Date: May 31, 2024 Subjective Patient was seen and examined at bedside. Patient was sitting up in chair, on room air, resting comfortably, not in any acute distress. Patient denies any further chills and rigors, reports feeling better, reports eating okay and moving bowels okay. Patient denies any pain or burning with passing urine. pt reports chronic low back pain which has not increased or worsened here. Physical Exam Physical Exam: GENERAL: Alert and oriented x3. NAD, on RA. Obese Class III HEENT: No pallor, no icterus. Pupils equal, round and reactive to light. Oral mucosa moist. NECK: No JVD, no neck masses. HEART: S1 and S2 heard. Regular rate and rhythm. No murmur, no gallop. RESPIRATORY SYSTEM: Normal AP diameter. No accessory muscle use. No wheezing, no crackles. ABDOMEN: Soft, bowel sounds present, nontender, no distention. CENTRAL NERVOUS SYSTEM: No facial droop. Speech is clear. Obeys simple commands. Moves extremities. EXTREMITIES: No edema, no erythema seen. No CVA angle tenderness. 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
[2024-06-02] MEDS: ACETAMINOPHEN 325 MG TAB PO PRN (16:30)
[2024-06-02] MEDS: oxyCODONE HCL IR 5 MG TAB (IMMEDIATE RELEASE) PO ONE (18:32)
[2024-06-02] MEDS: hydrALAZINE HCL 20 MG/ML VIAL IV ONE (18:32)
[2024-06-03 07:23] LABS: Hematocrit (blood only) 34.5 % (37.0-47.0); Hemoglobin 11.5 g/dl (12.0-16.0); Mean Corpuscular Hemoglobin 32.3 pg (25.0-34.0); Mean Corpuscular Hgb Conc 33.3 g/dL (32.0-36.0); Mean Corpuscular Volume 96.9 fL (80.0-100.0); Mean Platelet Volume 10.1 fL (9.4-12.4); Platelet Count 194 K/uL (130-400); RDW Coefficient of Variation 12.7 % (11.5-14.5); RDW Standard Deviation 45.8 fL (36.4-46.3); Red Blood Count 3.56 M/uL (4.20-5.40); White Blood Count 6.61 K/ul (4.8-10.8)
[2024-06-03 07:27] LABS: BUN Creatinine Ratio 23.8 (10-20); Calcium 9.3 mg/dl (8.6-10.3); Creatinine Clr Calc Pharmacy 69.9 ml/min; Est GFR (African American) 81.6 ml/min; Est GFR (Non-African American) 70.4 ml/min; Potassium 4.2 mmol/L (3.5-5.1)
[2024-06-03] MEDS ORDERED: hydrALAZINE HCL 20 MG/ML VIAL IV PRN (07:31)
--- NOTE | 2024-06-03 10:17 | Discharge Summary ---
Date of Service June 03, 2024 Admission HPI Per Admitting Provider This is a 69-year-old female who has a significant past medical history of T2DM, mild nonproliferative diabetic retinopathy, HTN, asymptomatic stenosis of left carotid artery, history of CVA with residual right-sided weakness, depression, history of BPPV, monoclonal paraproteinemia who presents to ED secondary to fever and chills x 1 day. Of significance patient had a recent hospitalization 04/24 to 04/30 secondary to sepsis, E. coli bacteremia, left-sided pyelonephritis and obstructive nephrolithiasis. She was seen and evaluated by urology during admission and underwent left ureteral stent placement on 04/28 and was treated with appropriate course of oral antibiotics for 14 days. Yesterday on 05/30 she underwent ureteroscopic with laser lithotripsy and stent exchange. Postoperatively she was discharged on course of oral Keflex and thus far has had 2 doses. This morning she woke up at approximately 4 AM with a fever greater than 101. She further complains of off-and-on chills, sweats and rigors. She generally feels unwell. She has chronic urinary urgency and incontinence but denies any dysuria or hematuria. She states when she was hospitalized at the end of March she did not have any urinary symptoms during that admission. She currently denies any lightheadedness, dizziness, chest pain, shortness breath, URI symptoms, nausea, vomiting or abdominal pain. She does have chronic low back pain. Her brother is at bedside who also helps elicit history. At baseline she ambulates with a cane due to prior history of CVA. In ED patient made hemodynamically stable although she was hypertensive. Lab work notable for borderline leukocytosis at 11,000, BUN/creatinine stable at 15 and 0.89, hyperglycemic at 257 and urinalysis concerning for infection. KUB revealed left ureteral stent in good location. ED provider discussed with urologist on-call who recommended admission with IV antibiotics and as long as the stent was in place no further surgical intervention required. She was treated empirically with IV cefepime. Blood and urine cultures were obtained. Admission Exam Per Admitting Provider Constitutional: WD/WN, morbidly obese, F, vitals as above, NAD, sitting up in bed, pleasant, conversing easily Head: Normocephalic, Atraumatic Eyes: conjunctivae normal, anicteric sclerae ENMT: external ear and nose normal, oropharynx normal Neck: trachea midline, no thyromegaly normal visual inspection Respiratory: normal respiratory effort, lungs clear to auscultation, no wheeze, rales, rhonchi. Normal insp/exp effort, no accessory muscle use Cardiovascular: RRR, no murmur, no edema Vessels: no JVD or carotid bruit Chest: normal inspection of chest Abdomen: normal bowel sounds, soft, obese abdomen, no cva tenderness, nontender, Musculoskeletal: no cyanosis or clubbing, AROM x 4 Skin: no rashes, warm and dry normal turgor Neurologic: accommodation nl, no face palsy, no dysarthria CN's II-XI intact bilaterally and moves all extremities Psychiatric: A+Ox3, euthymic affect : deferred Principal Diagnosis uti Discharge Exam GENERAL: Alert and oriented x3. NAD, on RA. Obese Class III HEENT: No pallor, no icterus. Pupils equal, round and reactive to light. Oral mucosa moist. NECK: No JVD, no neck masses. HEART: S1 and S2 heard. Regular rate and rhythm. No murmur, no gallop. RESPIRATORY SYSTEM: Normal AP diameter. No accessory muscle use. No wheezing, no crackles. ABDOMEN: Soft, bowel sounds present, nontender, no distention. CENTRAL NERVOUS SYSTEM: No facial droop. Speech is clear. Obeys simple commands. Moves extremities. EXTREMITIES: No edema, no erythema seen. No CVA angle tenderness. Discharge Data Allergies Allergy/AdvReac Type Severity Reaction Status Date / Time adhesive tape Allergy Severe rash Verified 05/30/24 06:33 amlodipine Allergy Severe edema Verified 05/30/24 06:33 face/lips/tongue, hives, and itching chlorthalidone Allergy Severe itchy Verified 05/30/24 06:33 eyes, red face ciprofloxacin [From Cipro] Allergy Severe itching Verified 05/30/24 06:33 gabapentin Allergy Severe leg Verified 05/30/24 06:33 swelling lisinopril Allergy Severe lips tingle Verified 05/30/24 06:33 pregabalin [From Lyrica] Allergy Severe leg Verified 05/30/24 06:33 swelling valacyclovir Allergy Severe itching Verified 05/30/24 06:33 hydrochlorothiazide AdvReac Intermediate muscle pain Verified 05/30/24 06:33 artificial sweetners Allergy Severe skin Uncoded 05/30/24 06:33 crawling & lip numbness Consultations 05/31/24 17:47 ED Decision to Admit Stat 05/31/24 17:55 Consult Urology Routine Hospital Course (1) Complicated UTI (urinary tract infection): (2) S/P ureteral stent placement: (3) DM type 2 (diabetes mellitus, type 2): (4) HTN (hypertension): (5) History of CVA (cerebrovascular accident): Plan 69-year-old female who has a significant past medical history of T2DM, mild nonproliferative diabetic retinopathy, HTN, asymptomatic stenosis of left carotid artery, CVA with residual right-sided weakness, depression, history of BPPV, monoclonal paraproteinemia who presents to ED secondary to fever and chills x 1 day. Of note: Hx of admission 04/24-04/30 2/2 e. coli bacteremia in setting of UTI, obstructive ureteral stone s/p stent placement. 05/30 went in for lithotripsy and stent exchange. She was managed for the following: Complicated UTI -she does not meet sepsis criteria at presentation UTI as complication of care: iso recent urologic procedure, see below. Pt comes in w/ fever and chills iso S/P Cystoscopy with left Ureteroscopy, Retrograde Pyelogram, Laser Destruction of the Stone, Stone basket extraction, Exchange/Insertion of Left Stent by Dr. Vasquez on 05/30 Admitting XR KUB: L Ureteral stent in good position c/w IV cefepime 05/31, f/u 05/31 blood and urine culture - no growth so far. Patient to follow-up on final results of blood culture during PCP visit within a week time, patient has been made aware. To p.o. antibiotic on discharge to complete the 7-day therapy. Probiotics added. Continue with Flomax and as needed Pyridium. Patient to follow-up with urology in 1 to 2 weeks time upon discharge, patient has been made aware. T2DM with hyperglycemia: a1c 7.8 on 04/25/24. hold metformin and glipizide. lantus/novolog per protocol HTN: uncontrolled at presentation likely 2/2 acute illness. c/w home coreg, losartan. BP fairly under control now. Monitor. Hx of CVA with residual R sided weakness/asymptomatic L carotid artery stenosis: continue plavix and statin. pt was off plavix for 1 week prior to urologic procedure Other chronic medical conditions: Continue with/resume home meds as and when able Depression: Chronic, stable. Continue home meds Dyslipidemia: Chronic, stable, not on any statin at home. Morbid obesity: Encourage diet/lifestyle modification DVT prophylaxis: Subcu Lovenox Full code Dispo: likely mason. Pt wanted her son Yo be updated ([phone]). Updated 06/03 over the phone and went over the discharge instructions. Patient is being discharged with following instructions at the point of discharge: Follow-up with your primary care physician within a week time and likely you will need labs CBC/CMP/magnesium/phosphorus. Follow-up on the final results of your blood culture when you visit your PCP office within a week time. You were admitted and treated for concern of UTI , you will be discharged on antibiotic to complete the course for UTI. Take your probiotics. Take your medications as prescribed. Follow-up with your primary care physician within a week time and your urology physician in 1 to 2 weeks time. Please make sure that you are able to get your medications today by calling your pharmacy before you leave the hospital so that your treatment continuity is not broken. Home Health Attestation I certify that this patient is under my care and that I, or a physicians administrative assistant data entry working with me, had a face to-face encounter that meets the home health [id number] encounter requirements with this patient. The encounter with the patient was in whole, or in part, for the following medical condition, which is the primary reason for home health care (list medical condition): I certify that, based on my findings, the following services are medically necessary home health services: My clinical findings support the need for the above services because: Further, I certify that my clinical findings support that this patient is homebound (i.e. absences from home require considerable and taxing effort and are for medical reasons or anglican services or infrequently or of short duration when for other reasons) because: Certification for Home Health Services: Based on the above findings, I certify that this patient is confined to the home and needs intermittent residential care, physical therapy and/or speech therapy or continues to need occupational therapy. The patient is under my care, and I have initiated the establishment of the plan of care. This patient will be followed by a physician who will periodically review the plan of care. Total Time Total Time Spent Total Time Spent (In Minutes): 45 Discharge Plan Discharge Items Patient Disposition: Home - Self-Care Reason For Visit: UTI Discharge Diagnosis: uti Condition on Discharge: Fair Activity: Resume your previous activity Non-emergency contact: Primary Care Provider Call non-emergency contact if: you have any medication questions, your symptoms worsen and your temperature is above 101.5 Follow-up/Referrals: Med Sanchez MD [Primary Care Provider] - Diet: Carb Consistent or DM2 and Heart Healthy Addtl Attending Provider Instructions: Follow-up with your primary care physician within a week time and likely you will need labs CBC/CMP/magnesium/phosphorus. Follow-up on the final results of your blood culture when you visit your PCP office within a week time. You were admitted and treated for concern of UTI , you will be discharged on antibiotic to complete the course for UTI. Take your probiotics. Take your medications as prescribed. Follow-up with your primary care physician within a week time and your urology physician in 1 to 2 weeks time. Please make sure that you are able to get your medications today by calling your pharmacy before you leave the hospital so that your treatment continuity is not broken. Pending Studies at Discharge: No Stand-Alone Forms: My [employer], Smoking Cessation Medications and DC Order Prescriptions: New cefdinir 300 mg capsule 300 mg PO BID 4 Days Qty: 8 0RF Probiotic 3 billion cell capsule 3,000 mmu cells PO DAILY 7 Days Qty: 7 0RF Rx Instructions: administer with a meal Continued lecithin 1 cap PO CQWK Rx Instructions: otc unknown dose allopurinol 300 mg tablet 300 mg PO HS vitamin B complex Tablet 1 tab PO QAM vitamin E mixed 1,000 unit Capsule 1,000 unit PO DAILY Herb Lax Complex 1 dose PO QAM Shaklee Supplements 1 dose PO QAM omega-3 fatty acids-fish oil [Fish Oil] 360-1,200 mg capsule 1 cap PO QAM phenazopyridine [Pyridium] 200 mg tablet 200 mg PO Q8H PRN (Reason: pain) Qty: 10 0RF tamsulosin 0.4 mg capsule 0.4 mg PO HS Qty: 30 0RF oxycodone-acetaminophen [Percocet] 7.5-325 mg tablet 1 tab PO Q8H PRN (Reason: pain) Qty: 7 0RF clopidogrel 75 mg tablet 75 mg PO QAM glimepiride 2 mg tablet 2 mg PO QAM losartan 100 mg tablet 100 mg PO HS metformin 500 mg tablet extended release 24 hr 500 mg PO HS escitalopram oxalate [Lexapro] 5 mg tablet 5 mg PO HS Liver Complex 1 cap PO DAILY acetaminophen [Tylenol Extra Strength] 500 mg Tablet 1,000 mg PO Q6H PRN (Reason: Pain) carvedilol 3.125 mg Tablet 3.125 mg PO BID Rx Instructions: must administer with a meal/food Discontinued cephalexin 500 mg capsule 500 mg PO BID 7 Days Qty: 14 0RF Discharge Orders: Discharge Order (Routine); Ordered 06/03/24 Ordered By: Marie Pagan Admission Data Admit Date/Time: 05/31/24 17:55 Attending Provider: Marie Pagan Admit Provider: Lonnie Doyle Primary Care Provider: Med Sanchez Other Providers: Maciel Reyes; Lonnie Doyle
== END 2024-06-03 14:17 | disposition home or self-care (01) | DRG 857 ==
LOC: ED 15:22 → 2N 17:55 → SUATTDRO 17:55 → 2N 19:55

== ENCOUNTER 2025-09-23 04:58 | Inpatient (IN) ==
--- NOTE | 2025-09-23 05:23 | Emergency Department Note ---
Impression & Plan Nausea & vomiting Hand off ED Provider Note HPI: History obtained from patient and patient's son at the bedside. The patient is a very pleasant 70-year-old female with history of recently diagnosed pancreatic cancer in July 2025, who presents the emergency department with chief complaint of nausea and vomiting. Patient states she just had a port placed to the right subclavian vein yesterday at [facility], patient states that she has had some issues tolerating any p.o. intake since that procedure was done yesterday morning. Patient states she gets severe nausea and vomiting even with small amounts of fluids. Patient states she also has some pain to the right side of her abdomen. Patient states that she does have a fentanyl patch in place for pain. Patient states that she is scheduled to start chemotherapy in the near future for her pancreatic cancer but she has not yet started undergoing any chemo or radiation therapy. On arrival here to the emergency room the patient is hemodynamically stable, she appears to be in no acute distress on my initial evaluation. ROS: - Per HPI Differential Diagnosis: Small bowel obstruction, metastatic disease within the abdomen/pelvis, urinary tract infection, acute cholecystitis, pyelonephritis, acute appendicitis sepsis/infection, amongst other potential pathologies. *Outpatient medications and allergy history reviewed. PE: General: Alert HEENT: Normocephalic, trachea midline Eyes: Extraocular eye movement is intact, no scleral erythema Pulmonary: Clear to auscultation bilaterally, no wheezing Cardio: Regular rate and rhythm GI: Abdomen is soft to palpation, there is moderate tenderness over the mid abdomen to palpation without guarding or rigidity : No suprapubic tenderness MSK: No evidence of trauma or malformation of the extremities, no edema Skin: Surgical wounds to the right upper chest appear to be healing appropriately without surrounding erythema or purulent drainage, otherwise no evidence of rash Neuro: Alert, no focal deficits Psychiatric: Cooperative INDEPENDENT INTERPRETATIONS: court monitor: (As interpreted by myself): - An order was placed for continuous cardiac monitoring - Patient was noted to be in sinus rhythm with a rate of 60 Chest x-ray: (As interpreted by myself): Interventions provided in ED: -IV fluid bolus, IV Zofran, IV morphine Medical Decision Making: IV was established and lab work obtained, patient was placed on court monitor. Lab work shows no leukocytosis, hemoglobin is stable, platelet count is normal, lactic acid is within normal limits. CMP does not show any evidence of any critical findings, lipase is normal, urinalysis is pending. Patient was given IV fluids as well as IV Zofran and ordered a dose of IV morphine. On my reassessment she states that her symptoms are somewhat improved. CT imaging of the abdomen and pelvis with IV contrast was obtained given the patient's nausea and vomiting, the results are currently pending radiology interpretation at the time of signout in the morning to my colleague, Dr. Kenney. Disposition will be pending results of CT imaging and patient's symptomatic improvement. The patient and her son at the bedside were updated and aware of the findings to this point. Diagnosis: 1. Nausea and vomiting, acute 2. History of pancreatic cancer Disposition: Handoff Hermelindo Byers DO Emergency Medicine Past Med/Surg History Problem List (Updated 09/23/25 @ 07:10 by Hermelindo Byers DO) Nausea & vomiting (Acute) Acute UTI (Acute) Abdominal pain, epigastric (Acute) Renal cyst (Chronic) Leukocytosis (Acute) History of CVA (cerebrovascular accident) Hypertensive urgency Nephrolithiasis (Chronic) Urinary incontinence (Chronic) Dyslipidemia (Chronic) Depression (Chronic) DM type 2 (diabetes mellitus, type 2) (Chronic) HTN (hypertension) (Chronic) Medical History History of sepsis Complicated UTI (urinary tract infection) Ureteral stone Bacteremia Leukocytosis Lumbar spondylolysis follows with residential caregiver Dyslipidemia per medical record - pt denies History of kidney stones (2012) no surgical intervention - passed on her own Diabetes mellitus, type 2 NIDDM Anxiety Hypertension Kidney stone On anticoagulant therapy History of stroke (01/2018) presented with right sided weakness and slurred speech. currently has mild right sided weakness (improved), reason for plavix. [place] [facility] [place]. Allergic rhinitis Diabetic retinopathy pt denies BPV (benign positional vertigo) chronic LVH (left ventricular hypertrophy) pt unaware Osteoarthritis Surgical History S/P ureteral stent placement History of bilateral tubal ligation S/P epidural steroid injection none currently History of colonoscopy History of right hip replacement S/P cystoscopy with ureteral stent placement (04/28/24) at [facility] S/P HORACIO-BSO History of tonsillectomy History of appendectomy History of carpal tunnel surgery bilateral Family History Mother Family history of reaction to anesthesia "have to be careful how much they give to her" denies any other problems Social History Smoking Status: Never smoker Second Hand Exposure: No; Do You Dip or Chew Tobacco: No; Hx Alcohol Use: No Hx Substance Use: No Preferred Language: Bahraini Communication Ability: Effective Casino Worker Required: No Beliefs That Will Affect Care: None marital status: Current Living Situation: Spouse Current Living Situation Comment: Apartment, elevator and shower Tub Feels Safe at Home: Yes Assistive Devices: Cane Allergies Allergies Allergy/AdvReac Type Severity Reaction Status Date / Time amlodipine Allergy Severe edema Verified 09/15/25 22:59 face/lips/tongue, hives, and itching valacyclovir Allergy Severe itching Verified 09/15/25 22:59 adhesive tape Allergy Intermediate BLISTERY Verified 09/15/25 22:59 RASH chlorthalidone Allergy Intermediate itchy Verified 09/15/25 22:59 eyes, red face ciprofloxacin [From Cipro] Allergy Intermediate itching Verified 09/15/25 22:59 lisinopril Allergy Intermediate lips Verified 09/15/25 22:59 tingle-tolerates Prinivil saccharin Allergy Intermediate SEE COMMENT Verified 09/15/25 22:59 wool Allergy Intermediate Itching Verified 09/15/25 22:59 gabapentin AdvReac Severe leg Verified 09/15/25 22:59 swelling pregabalin [From Lyrica] AdvReac Severe leg Verified 09/15/25 22:59 swelling hydrochlorothiazide AdvReac Intermediate muscle pain Verified 09/15/25 22:59 [id number] Reductase AdvReac Intermediate "I didn't Verified 09/15/25 22:59 Inhibitor feel good at all" Home Meds Home Medications Medication Instructions Recorded Confirmed allopurinol 300 mg tablet 300 mg PO QAM 01/03/21 09/16/25 Liver Complex 1 cap PO DAILY 04/24/24 09/16/25 clopidogrel 75 mg tablet 75 mg PO QAM 04/24/24 09/16/25 glimepiride 2 mg tablet 2 mg PO QAM 04/24/24 09/16/25 losartan 100 mg tablet 100 mg PO QAM 04/24/24 09/16/25 metformin 500 mg tablet,extended 500 mg PO QAM 04/24/24 09/16/25 release 24 hr Shaklee Supplements 1 dose PO QAM 05/17/24 09/16/25 omega-3 fatty acids-fish oil 360 1 cap PO QAM 05/17/24 09/16/25 mg-1,200 mg capsule (Fish Oil) vitamin B complex 1 tab PO QAM 05/17/24 09/16/25 acetaminophen 500 mg tablet 1,000 mg PO Q6H PRN Pain 05/31/24 09/16/25 (Tylenol Extra Strength) ascorbic acid (vitamin C) 500 mg 500 mg PO DAILY 09/16/25 09/16/25 tablet (Vitamin C) bisacodyl 10 mg rectal suppository 10 mg LA BID PRN Constipation 09/16/25 09/16/25 buprenorphine 5 mcg/hour weekly 5 mcg transdermal WK 09/16/25 09/16/25 transdermal patch carvedilol 12.5 mg tablet 12.5 mg PO BID 09/16/25 09/16/25 cholecalciferol (vitamin D3) 25 25 mcg PO DAILY 09/16/25 09/16/25 mcg (1,000 unit) capsule (Vitamin D3) cyclobenzaprine 5 mg tablet 5 mg PO TID 09/16/25 09/16/25 desvenlafaxine succinate 25 mg 25 mg PO DAILY 09/16/25 09/16/25 tablet,extended release 24 hr (Pristiq) hydrocortisone 2.5 % topical cream 1 applic LA BID PRN Hemorrhoids 09/16/25 09/16/25 with perineal applicator hydromorphone 2 mg tablet 2 mg PO Q6H PRN Severe Pain (Scale 09/16/25 09/16/25 Score 7-10) lecithin 1,200 mg capsule 1,200 mg PO DAILY 09/16/25 09/16/25 loratadine 10 mg tablet (Claritin) 10 mg PO DAILY 09/16/25 09/16/25 naloxegol 25 mg tablet (Movantik) 25 mg PO DAILY 09/16/25 09/16/25 polyethylene glycol 3350 17 17 g PO DAILY 09/16/25 09/16/25 gram/dose oral powder (Miralax) senna 1 cap PO DAILY 09/16/25 09/16/25 [id number]-icdskko-L.acidophilus-herbal no.279 545 mg capsule (Narcosoft) vitamin E 268 mg (400 unit) capsule 268 mg PO DAILY 09/16/25 09/16/25 Results & Data (ED) Vital Signs Vital Signs - 24 hr 09/23/25 05:01 09/23/25 06:01 09/23/25 06:58 Temperature 36.5 C Temperature Source Oral Pulse Rate 58 L 64 Pulse Rate [Apical] 66 Pulse Rhythm Regular Regular Pulse Rhythm [Apical] Regular Pulse Strength Normal Pulse Strength [Apical] Normal Respiratory Rate 18 20 20 Respiratory Effort / Characteristics Non-Labored Spontaneous Non-Labored Spontaneous Respiratory Depth Normal Normal Respiratory Pattern Regular Regular Blood Pressure 158/75 H Blood Pressure [Left Arm] 180/100 H Blood Pressure Mean 102 Blood Pressure Mean [Left Arm] 126 Blood Pressure Position Sitting Blood Pressure Position [Left Arm] Lying Pulse Oximetry 97 98 97 Oxygen Delivery Method Room Air Room Air Room Air Sepsis Recent Fever Within 48 Hours No Sepsis New/Unexplained Change in Mental Status N/A Sepsis Action Taken by Nursing No Action Required 09/23/25 06:58 Temperature Temperature Source Pulse Rate 69 Pulse Rate [Apical] Pulse Rhythm Pulse Rhythm [Apical] Pulse Strength Pulse Strength [Apical] Respiratory Rate Respiratory Effort / Characteristics Respiratory Depth Respiratory Pattern Blood Pressure Blood Pressure [Left Arm] Blood Pressure Mean Blood Pressure Mean [Left Arm] Blood Pressure Position Blood Pressure Position [Left Arm] Pulse Oximetry Oxygen Delivery Method Sepsis Recent Fever Within 48 Hours Sepsis New/Unexplained Change in Mental Status Sepsis Action Taken by Nursing Laboratory Data 09/23/25 05:32 09/23/25 05:32 Lab Results 09/23/25 09/23/25 09/23/25 Range/Units 05:32 06:06 06:53 WBC 5.06 (4.8-10.8) K/ul RBC 3.31 L (4.20-5.40) M/uL Hgb 10.9 L (12.0-16.0) g/dl Hct 32.6 L (37.0-47.0) % MCV 98.5 (80.0-100.0) fL MCH 32.9 (25.0-34.0) pg MCHC 33.4 (32.0-36.0) g/dL RDW Std Deviation 47.7 H (36.4-46.3) fL RDW Coeff of [place] 13.2 (11.5-14.5) % Plt Count 166 (130-400) K/uL MPV 10.1 (9.4-12.4) fL Immature Gran % (Auto) 0.4 % Neut % (Auto) 70.7 % Lymph % (Auto) 16.4 % [place] % (Auto) 9.7 % Eos % (Auto) 2.2 % Baso % (Auto) 0.6 % Neut # (Auto) 3.58 (1.40-6.50) K/uL Lymph # (Auto) 0.83 L (1.20-3.40) K/uL [place] # (Auto) 0.49 (0.11-0.59) K/uL Eos # (Auto) 0.11 (0.00-0.50) K/uL Baso # (Auto) 0.03 (0.00-0.20) K/uL Immature Gran # (Auto) 0.02 (0.01-0.20) K/uL PT 11.2 (9.0-12.0) Seconds INR 1.1 (0.9-1.1) Sodium 136 (136-145) mmol/L Potassium 4.2 (3.5-5.1) mmol/L Chloride 104 (98-107) mmol/L Carbon Dioxide 24 (21-32) mmol/L Anion Gap 8 (3-11) BUN 18 (6-23) mg/dl Creatinine 0.92 (0.6-1.2) mg/dl Est Cr Clr Drug Dosing Not Reportable eGFR 66.57 BUN/Creatinine Ratio 19.6 (10-20) Glucose 123 H (70-99(Fasting)) mg/dl Lactate 0.7 (0.4-2.0) mmol/L Calcium 9.1 (8.6-10.3) mg/dl Total Bilirubin 0.3 (0.2-1.0) mg/dl AST 25 (13-39) U/L ALT 13 (7-52) U/L Alkaline Phosphatase 67 (34-104) U/L Total Protein 6.6 (6.0-8.3) gm/dl Albumin 3.0 L (3.4-5.0) gm/dl Globulin 3.6 (2.5-4.0) gm/dl Albumin/Globulin Ratio 0.8 L (0.9-2) Lipase 53 (11-82) U/L Urine Comment Administered Medications Discontinued Medications Sodium Chloride (Nss) 500 mls @ 999 mls/hr IV .Q31M ONE Stop: 09/23/25 05:38 Last Infusion: 09/23/25 06:16 Dose: Infused Documented By: Admin: 09/23/25 05:45 Dose: 999 mls/hr Documented By: javed Ioversol (Optiray 320 100ml) 94 ml IV ONCE ONE Stop: 09/23/25 06:43 Last Admin: 09/23/25 06:42 Dose: 94 ml Documented By: SUMMER Ondansetron HCl (Ondansetron Inj 2 Mg/Ml 2 Ml Vial) 4 mg IV NOW STA Stop: 09/23/25 05:19 Last Admin: 09/23/25 05:46 Dose: 4 mg Documented By: javed Imaging Data Radiologist's Impression: Chest X-Ray 09/23/25 05:08 EXAM: XR chest 1V portable CLINICAL HISTORY: pain near SC port. TECHNIQUE: An X-ray image of the chest was obtained in AP projection. COMPARISON: 09/15/2025. FINDINGS: Pulmonary Parenchyma: There is no evidence of consolidation, collapse, or focal opacities. No pulmonary nodules are identified. There is no evidence of pleural effusion or pleural thickening. Heart and Mediastinum: The heart size and shape are normal. There is no mediastinal widening or masses. No hilar or mediastinal lymphadenopathy is present. Calcified aortic arch. Bony Thorax: There is osteopenia with degenerative changes. Soft Tissues: The soft tissues overlying the chest wall are unremarkable. Right CVL reaching the SVC. There is a metallic needle seen overlying the right chest wall, which could be at the implanted port opening. Clinical correlation is needed. IMPRESSION: 1. Right CVL reaching the SVC. New finding. 2. There is a metallic needle seen overlying the right chest wall, which could be at the implanted port opening. Clinical correlation is needed. New finding. 3. No acute cardiopulmonary abnormalities are identified. 4. Otherwise, no significant interval changes. Electronically signed by Gabriele Nuñez 09-23-2025 06:22 AM Discharge Plan Visit Data Chief Complaint: Abdominal Pain Stated Complaint: CANCER PAIN AND POST OP CHEMO PORT INSTALL ED Provider: Barby Kenney Discharge Problem: Nausea & vomiting Patient Disposition: Still a Patient Condition: Fair Forms Stand Alone Forms: My [facility] Prescriptions Prescriptions: No Action allopurinol 300 mg tablet 300 mg PO QAM vitamin B complex Tablet 1 tab PO QAM Shaklee Supplements 1 dose PO QAM omega-3 fatty acids-fish oil [Fish Oil] 360-1,200 mg capsule 1 cap PO QAM carvedilol 12.5 mg Tablet 12.5 mg PO BID Rx Instructions: must administer with a meal/food lecithin 1,200 mg Capsule 1,200 mg PO DAILY hydrocortisone 2.5 % Cream With Perineal Applicator 1 applic LA BID PRN (Reason: Hemorrhoids) hydromorphone 2 mg tablet 2 mg PO Q6H PRN (Reason: Severe Pain (Scale Score 7-10)) ascorbic acid (vitamin C) [Vitamin C] 500 mg Tablet 500 mg PO DAILY bisacodyl 10 mg Suppository 10 mg LA BID PRN (Reason: Constipation) polyethylene glycol 3350 [Miralax] 17 gram/dose Powder 17 g PO DAILY vitamin E 268 mg (400 unit) Capsule 268 mg PO DAILY loratadine [Claritin] 10 mg Tablet 10 mg PO DAILY cholecalciferol (vitamin D3) [Vitamin D3] 25 mcg (1,000 unit) Capsule 25 mcg PO DAILY cyclobenzaprine 5 mg Tablet 5 mg PO TID buprenorphine 5 mcg/hour patch weekly 5 mcg transdermal WK Movantik 25 mg tablet 25 mg PO DAILY Rx Instructions: NOT TO START UNTIL 09/15/25 desvenlafaxine succinate [Pristiq] 25 mg Tablet Extended Release 24 Hr 25 mg PO DAILY Narcosoft 545 mg Capsule 1 cap PO DAILY clopidogrel 75 mg tablet 75 mg PO QAM glimepiride 2 mg tablet 2 mg PO QAM losartan 100 mg tablet 100 mg PO QAM metformin 500 mg tablet extended release 24 hr 500 mg PO QAM Liver Complex 1 cap PO DAILY acetaminophen [Tylenol Extra Strength] 500 mg Tablet 1,000 mg PO Q6H PRN (Reason: Pain) Referrals Referrals: Med Sanchez MD [Primary Care Provider] -
[2025-09-23] MEDS: SODIUM CHLORIDE 0.9% 500 ML IV ONE (05:45)
[2025-09-23] MEDS: ONDANSETRON INJ 2 MG/ML 2 ML VIAL IV STA ×2 (05:46→08:54)
[2025-09-23 05:58] LABS: Hematocrit (blood only) 32.6 % (37.0-47.0); Hemoglobin 10.9 g/dl (12.0-16.0); Immature Granulocytes # (auto) 0.02 K/uL (0.01-0.20); Immature Granulocytes % (auto) 0.4 %; Mean Corpuscular Hemoglobin 32.9 pg (25.0-34.0); Mean Corpuscular Volume 98.5 fL (80.0-100.0); Platelet Count 166 K/uL (130-400); RDW Standard Deviation 47.7 fL (36.4-46.3); Red Blood Count 3.31 M/uL (4.20-5.40); White Blood Count 5.06 K/ul (4.8-10.8)
--- NOTE | 2025-09-23 06:22 | XRay Report ---
EXAM: XR chest 1V portable CLINICAL HISTORY: pain near SC port. TECHNIQUE: An X-ray image of the chest was obtained in AP projection. COMPARISON: 09/15/2025. FINDINGS: Pulmonary Parenchyma: There is no evidence of consolidation, collapse, or focal opacities. No pulmonary nodules are identified. There is no evidence of pleural effusion or pleural thickening. Heart and Mediastinum: The heart size and shape are normal. There is no mediastinal widening or masses. No hilar or mediastinal lymphadenopathy is present. Calcified aortic arch. Bony Thorax: There is osteopenia with degenerative changes. Soft Tissues: The soft tissues overlying the chest wall are unremarkable. Right CVL reaching the SVC. There is a metallic needle seen overlying the right chest wall, which could be at the implanted port opening. Clinical correlation is needed. IMPRESSION: 1. Right CVL reaching the SVC. New finding. 2. There is a metallic needle seen overlying the right chest wall, which could be at the implanted port opening. Clinical correlation is needed. New finding. 3. No acute cardiopulmonary abnormalities are identified. 4. Otherwise, no significant interval changes. Electronically signed by Gabriele Nuñez 09-23-2025 06:22 AM
[2025-09-23 06:31] LABS: Alanine Aminotransferase 13 U/L (7-52); Albumin Globulin Ratio 0.8 (0.9-2); Albumin Level 3.0 gm/dl (3.4-5.0); Alkaline Phosphatase 67 U/L (34-104); Anion Gap 8 (3-11); Bilirubin,Total 0.3 mg/dl (0.2-1.0); Blood Urea Nitrogen 18 mg/dl (6-23); Calcium 9.1 mg/dl (8.6-10.3); Carbon Dioxide 24 mmol/L (21-32); Chloride 104 mmol/L (98-107); Globulin 3.6 gm/dl (2.5-4.0); Glucose 123 mg/dl (70-99(Fasting)); Lipase 53 U/L (11-82); Potassium 4.2 mmol/L (3.5-5.1); Sodium 136 mmol/L (136-145); Total Protein 6.6 gm/dl (6.0-8.3)
[2025-09-23] MEDS: OPTIRAY 320 100ml IV ONE (06:42)
[2025-09-23 06:48] LABS: INR 1.1 (0.9-1.1); Prothrombin Time 11.2 Seconds (9.0-12.0)
--- NOTE | 2025-09-23 07:05 | Emergency Department Note ---
ED Visit Note Patient signed out to me by Dr. Byers at 07:00 am. Patient is a 70-year-old female presenting with nausea and vomiting. Patient was recently diagnosed with pancreatic cancer in July 2025. She was at [facility] yesterday getting a port placed in her right subclavian vein. She reports she has been having issues tolerating oral intake since her procedure yesterday morning. She is also complaining of pain in the right side of her abdomen. She has a fentanyl patch in place for pain. She is supposed to start chemotherapy in the future but is not currently undergoing chemo. MDM: - Patient signed out to me pending CT scan and improvement in symptoms. - Laboratory workup interpreted by myself showed normal WBC; stable electrolytes; normal AST/ALT; normal lipase; normal lactate - UA negative for infection - CT abdomen/pelvis with IV contrast showed increasing size of the pancreatic head mass that is now seen adherent to the superior mesenteric artery. Noted to have cholelithiasis with a newly developed gallbladder distention and mild Len cholecystic edema concerning for potential acute inflammation. Ultrasound was recommended. - US gallbladder ordered. - Patient was given 4 mg IV morphine and 4 mg IV Zofran for further pain control and nausea control prior to going to ultrasound. - On reassessment, patient is still complaining of significant generalized abdominal pain and nausea. 0.5 mg of IV Dilaudid and 5 mg IV Compazine ordered. - Discussed CT results with the patient and her son at bedside. Patient is agreeable to admission for her intractable abdominal pain, nausea and vomiting. She reportedly has had decreased oral intake for the last week or so per the son. They report that it was deemed that her cancer was nonoperable and the goal was to start chemotherapy to attempt to shrink the mass on her pancreatic head. - US gallbladder showed cholelithiasis with suspected acute cholecystitis. Noted to have mild bile duct dilatation. - IV zosyn ordered. - On reassessment, the patient is not having pain in her right upper quadrant. She is more tender overlying her epigastric region. She has had normal laboratory workup in the emergency department, so acute cholecystitis does seem less likely, however, antibiotics were ordered. I do feel like her pain is more likely to be in the setting of her enlarging pancreatic mass. - Discussed case with [facility] with general surgery. They will see patient as consult. - Discussion was had with bilingual case manager about patient's case and need for admission - Hospitalist, Dr. Nobles, consulted for admission at 09:48 am. - Patient admitted to [facility] service for further evaluation and management.
[2025-09-23] MEDS: MoRPHine SULFATE 2 MG/ML CARP IV STA (07:18)
[2025-09-23 08:00] LABS: Appearance Urine Clear (Clear); Bacteria Urine Automated None Seen (None Seen); Glucose Urine UA Negative (Negative); RBC Urine Automated 0-2 /hpf (0-2); WBC Urine Automated 0-5 /hpf (0-5)
--- NOTE | 2025-09-23 08:03 | CT Scan Report ---
EXAM: CT abd pelvis IV con only CLINICAL HISTORY: Nausea, vomiting, pancreatic CA, eval for SBO. TECHNIQUE: CT of the abdomen and pelvis was performed with contrast administration 94 ml Optiray 320 mg/ml, using the following protocol: axial images were obtained, and coronal and sagittal images were reconstructed. One of the following dose reduction techniques was utilized for this exam: automated exposure control, adjustment of the mA and/or kV according to patient size, and use of iterative reconstruction. COMPARISON: Comparison is made with 08/09/2025. FINDINGS: Abdomen: Pancreas: There is an increase in the size of the pancreatic head heterogeneous cystic lesion, now measuring 43 × 37.5 mm (previously 24.5 × 22.8 mm), and it is now seen adherent to the superior mesenteric artery. The pancreatic body and tail are diffusely atrophied, without pancreatic duct dilatation. The lesion is surrounded by faint mesenteric edema, which is unchanged. Liver: The liver is normal in size, shape, and density. No focal lesions, cysts, or masses are identified. Hepatic vasculature and biliary ducts are unremarkable. Gallbladder and Biliary System: The gallbladder is normal in size and shape. There is a medium-sized stone inside, without signs of obstruction or inflammation (unchanged), with newly developed gallbladder distension and mild pericholecystic edema. This could be acute inflammation; ultrasound and clinical correlation are needed. Spleen: The spleen is normal in size, shape, and density. No splenic lesions or masses are identified. Appendix: The appendix is not seen. No evidence of appendiceal abscess or perforation. Kidneys and Adrenal Glands: Both kidneys are normal in size, shape, and position. Cortical thickness is within normal limits. No renal calculi or hydronephrosis. There is a left renal simple cortical cyst (stable). The adrenal glands are unremarkable, with no evidence of masses or hyperplasia. Pelvis: Urinary Bladder: The urinary bladder is normal in contour and wall thickness. No intraluminal lesions are identified. Uterus: The uterus is not seen (could be surgically removed). Ovaries: The ovaries are not well visualized, but no gross abnormalities are noted. Vagina: The vagina is normal in contour and wall thickness. Peritoneal and Retroperitoneal Structures: No free fluid or abnormal fluid collections are identified within the abdomen or pelvis. No lymphadenopathy is noted. Bowel: There is multiple sigmoid diverticulosis without signs of diverticulitis. The visualized bowel loops are normal in caliber and appearance. No evidence of bowel obstruction or wall thickening. Bones and Soft Tissues: There is hyperlordosis of the lumbar spine. Grade 1 anterolisthesis of L5 over S1 is present. A T12 inferior endplate sclerotic focus is unchanged. There is a right total hip replacement. Pelvic bones and soft tissues are unremarkable. No fractures or abnormal masses are identified. IMPRESSION: There are no apparent signs of small bowel obstruction. There is an increased size of the pancreatic head mass, now measuring 43 × 37.5 mm (previously 24.5 × 22.8 mm), and it is now seen adherent to the superior mesenteric artery. The mass is surrounded by faint fat edema and a few small local lymph nodes (stable). Cholelithiasis with newly developed gallbladder distension and mild pericholecystic edema could be acute inflammation. Ultrasound and clinical correlation are needed. Electronically signed by Gabriele Nuñez 09-23-2025 08:02 AM
[2025-09-23] MEDS: MoRPHine SULFATE 4 MG/ML 1 ML CARP\\VIAL IV STA (08:54)
[2025-09-23] MEDS: ONDANSETRON INJ 2 MG/ML 2 ML VIAL ONE (08:54)
[2025-09-23] MEDS: PROCHLORPERAZINE 1 ML IV ONE (09:38)
[2025-09-23] MEDS: SODIUM CHLORIDE 0.9% 1,000 ML IV ONE (09:39)
[2025-09-23] MEDS: HYDROmorphone INJ 0.5 MG/0.5 ML SYR IV STA (09:39)
--- NOTE | 2025-09-23 09:44 | Ultrasound Report ---
Clinical history: Abdominal pain. Pancreatic cancer Technique: Sonography was performed of the right upper quadrant of the abdomen No prior examination is available for comparison Findings: There is a 4.8 x 3.9 x 3.5 cm hypoechoic mass within the pancreatic head, consistent with the known pancreatic carcinoma There is fatty infiltration of the liver. No definite liver mass is seen There is a mobile gallstone. The gallbladder is distended. The gallbladder wall is mildly thickened and appears edematous, measuring 5 mm. The common bile duct is mildly dilated, measuring 8 mm No ascites is seen Impression: 1. Cholelithiasis with suspected acute cholecystitis 2. Fatty infiltration of the liver 3. Mild bile duct dilatation 4. 4.8 cm pancreatic head mass, consistent with the known pancreatic carcinoma ACT 112: Positive. There are findings on this exam that require communication between the performing entity and the patient following Patient Test Result Information Act ([place] ACT 112) guidelines. Electronically signed by Roc Doss 09-23-2025 09:42 AM
--- NOTE | 2025-09-23 10:52 | History & Physical Report ---
Date of Service September 23, 2025 Assessment & Plan (1) Acute cholecystitis: (2) Intractable abdominal pain: (3) Nausea & vomiting: (4) Pancreatic adenocarcinoma: Plan Suspected acute cholecystitis Intractable nausea, vomiting secondary to above Recently diagnosed to have pancreatic adenocarcinoma --CT ABD:There are no apparent signs of small bowel obstruction. There is an increased size of the pancreatic head mass, now measuring 43 × 37.5 mm (previously 24.5 × 22.8 mm), and it is now seen adherent to the superior mesenteric artery. The mass is surrounded by faint fat edema and a few small local lymph nodes (stable). Cholelithiasis with newly developed gallbladder distension and mild pericholecystic edema could be acute inflammation. Ultrasound and clinical correlation are needed. --Gall bladder USD:Cholelithiasis with suspected acute cholecystitis. Fatty infiltration of the liver. Mild bile duct dilatation . 4.8 cm pancreatic head mass, consistent with the known pancreatic carcinoma --Blood cultures pending --Normal lactate labs --Normal lipase --LFTs within normal limits N.p.o., IV fluids, pain control as needed Antiemetics as needed Empirically started on Zosyn Surgery consulted Anemia of chronic disease Denies any bleeding issues Monitor CBC Generalized weakness Deconditioning PT OT when appropriate Pancreatic adenocarcinoma Evaluated by general surgery at [facility] and was currently thought to be inoperable. Consideration for surgery after chemotherapy per record Follows with [facility] oncology Dr. Webb and palliative care as outpatient Chemo port placed on 09/22/2025 Was planned to be started on chemotherapy next week Poor prognosis Palliative care consulted to address goals of care CVA with residual right hemiparesis Left carotid artery stenosis Currently on Plavix Not on statin Hypertension Continue losartan, carvedilol Monitor blood pressure GERD Continue PPI, famotidine DM Type II: Hold p.m. Continue insulin while hospitalized Monitor blood glucose levels DVT Px: Lovenox SQ CODE STATUS Full code as per my discussion with patient and patient's family at bedside Disposition Admit to med/tele I personally interviewed and examined the patient at bedside. Reviewed old records, imaging studies, blood work. I spent a total of 75 minutes coordinating, documenting, and providing care for this patient. History of Present Illness Chief Complaint: Abdominal Pain Primary Care Provider: Med Sanchez MD Patient is a 70-year-old female with history of CVA with residual right hemiparesis, hypertension, diabetes mellitus, left carotid stenosis, pancreatic adenocarcinoma, mood disorder, monoclonal paraproteinemia and other medical problems presents with history of worsening abdominal pain associate with nausea and vomiting. History is obtained from patient and patient's son at bedside, ol d records and from ER staff. As per family, patient was diagnosed to have pancreatic cancer in July 2025 and currently follows with [facility] oncology Dr. Webb. She was also evaluated by Dr. Rhodes in [facility] and was thought to be inoperable currently but consideration if tumor shrinks with chemotherapy in the future. She had port placement for chemotherapy at [facility] yesterday. Patient is planned for chemotherapy on 09/27/2025. Patient and family reports that she has not been able to eat or drink due to intractable nausea and vomiting for the past 3 days. She also had worsening abdominal pain which increases with activity and food intake. Last bowel movement 3 days ago. She reports having intermittent dizziness. Patient was recently treated for urinary tract infection and constipation. Denies any history of chest pain, dyspnea, cough, fever, chills, headache, change in vision, blood in stools, dysuria, hematuria. Allergies Allergy/AdvReac Type Severity Reaction Status Date / Time amlodipine Allergy Severe edema Verified 09/15/25 22:59 face/lips/tongue, hives, and itching valacyclovir Allergy Severe itching Verified 09/15/25 22:59 adhesive tape Allergy Intermediate BLISTERY Verified 09/15/25 22:59 RASH chlorthalidone Allergy Intermediate itchy Verified 09/15/25 22:59 eyes, red face ciprofloxacin [From Cipro] Allergy Intermediate itching Verified 09/15/25 22:59 lisinopril Allergy Intermediate lips Verified 09/15/25 22:59 tingle-tolerates Prinivil saccharin Allergy Intermediate SEE COMMENT Verified 09/15/25 22:59 wool Allergy Intermediate Itching Verified 09/15/25 22:59 gabapentin AdvReac Severe leg Verified 09/15/25 22:59 swelling pregabalin [From Lyrica] AdvReac Severe leg Verified 09/15/25 22:59 swelling hydrochlorothiazide AdvReac Intermediate muscle pain Verified 09/15/25 22:59 Azxhgbl-XOZ-XeD Reductase AdvReac Intermediate "I didn't Verified 09/15/25 22:59 Inhibitor feel good at all" Home Medications Medication Instructions Recorded Confirmed Type allopurinol 300 mg tablet 300 mg PO QAM 01/03/21 09/23/25 History clopidogrel 75 mg tablet 75 mg PO QAM 04/24/24 09/23/25 History glimepiride 2 mg tablet 2 mg PO QAM 04/24/24 09/23/25 History losartan 100 mg tablet 100 mg PO QAM 04/24/24 09/23/25 History metformin 500 mg tablet,extended 500 mg PO QAM 04/24/24 09/23/25 History release 24 hr omega-3 fatty acids-fish oil 360 1 cap PO QAM 05/17/24 09/23/25 History mg-1,200 mg capsule (Fish Oil) vitamin B complex 1 tab PO QAM 05/17/24 09/23/25 History acetaminophen 500 mg tablet 1,000 mg PO Q6H PRN Pain 05/31/24 09/23/25 History (Tylenol Extra Strength) ascorbic acid (vitamin C) 500 mg 500 mg PO DAILY 09/16/25 09/23/25 History tablet (Vitamin C) bisacodyl 10 mg rectal suppository 10 mg [place] BID PRN Constipation 09/16/25 09/23/25 History carvedilol 12.5 mg tablet 12.5 mg PO BID 09/16/25 09/23/25 History cholecalciferol (vitamin D3) 25 25 mcg PO DAILY 09/16/25 09/23/25 History mcg (1,000 unit) capsule (Vitamin D3) hydrocortisone 2.5 % topical cream 1 applic [place] BID PRN Hemorrhoids 09/16/25 09/23/25 History with perineal applicator hydromorphone 2 mg tablet 2 mg PO Q6H PRN Severe Pain (Scale 09/16/25 09/23/25 History Score 7-10) loratadine 10 mg tablet (Claritin) 10 mg PO DAILY 09/16/25 09/23/25 History naloxegol 25 mg tablet (Movantik) 25 mg PO DAILY 09/16/25 09/23/25 History polyethylene glycol 3350 17 17 g PO DAILY 09/16/25 09/23/25 History gram/dose oral powder (Miralax) senna 1 cap PO DAILY 09/16/25 09/23/25 History joer-djrukjgm-ayexbqj-L.acidophilus-herbal no.279 545 mg capsule (Narcosoft) Zofran 8 mg PO Q8H PRN Nausea And Vomiting 09/23/25 09/23/25 History famotidine 40 mg PO HS 09/23/25 09/23/25 History fentanyl 12 mcg/hr transdermal 1 patch transdermal Q72H 09/23/25 09/23/25 History patch pantoprazole 40 mg PO DAILY 09/23/25 09/23/25 History Past Med/Surg History Problem List (Updated 09/23/25 @ 11:06 by Chai Nobles MD) Pancreatic adenocarcinoma Acute cholecystitis (Acute) Intractable abdominal pain (Acute) Nausea & vomiting (Acute) Acute UTI (Acute) Abdominal pain, epigastric (Acute) Renal cyst (Chronic) Leukocytosis (Acute) History of CVA (cerebrovascular accident) Hypertensive urgency Nephrolithiasis (Chronic) Urinary incontinence (Chronic) Dyslipidemia (Chronic) Depression (Chronic) DM type 2 (diabetes mellitus, type 2) (Chronic) HTN (hypertension) (Chronic) Medical History History of sepsis Complicated UTI (urinary tract infection) Ureteral stone Bacteremia Leukocytosis Lumbar spondylolysis follows with [facility] urgent care Dyslipidemia per medical record - pt denies History of kidney stones (2012) no surgical intervention - passed on her own Diabetes mellitus, type 2 NIDDM Anxiety Hypertension Kidney stone On anticoagulant therapy History of stroke (01/2018) presented with right sided weakness and slurred speech. currently has mild right sided weakness (improved), reason for plavix. follows with [facility] neurology PRN. Allergic rhinitis Diabetic retinopathy pt denies BPV (benign positional vertigo) chronic LVH (left ventricular hypertrophy) pt unaware Osteoarthritis Surgical History S/P ureteral stent placement History of bilateral tubal ligation S/P epidural steroid injection none currently History of colonoscopy History of right hip replacement S/P cystoscopy with ureteral stent placement (04/28/24) at [facility] S/P HORACIO-BSO History of tonsillectomy History of appendectomy History of carpal tunnel surgery bilateral Family History Mother Family history of reaction to anesthesia "have to be careful how much they give to her" denies any other problems Social History Smoking Status: Never smoker Second Hand Exposure: No; Do You Dip or Chew Tobacco: No; Hx Alcohol Use: No Hx Substance Use: No Preferred Language: Mosotho Communication Ability: Effective Fryline Attendant Required: No Beliefs That Will Affect Care: None marital status: Current Living Situation: Spouse Current Living Situation Comment: Apartment, elevator and shower Tub Feels Safe at Home: Yes Assistive Devices: Cane Review of Systems Review of Systems: All systems reviewed & are unremarkable except as noted in Subjective Physical Exam Physical Exam: Physical Exam: Vitals signs as noted above General Appearance:Obese, no apparent distress Head: normocephalic, Atraumatic Eyes: normal inspection, EOMI Neck: supple, Trachea midline Respiratory/Chest: Normal breath sounds, CTA, No accessory muscle use Cardiovascular: S1, S2, No murmur ,+ Chemo port on Left Abdomen/GI:Soft, generalized tender, distended, minimal guarding, no rigidity, Bowel sounds present Extremities/Musculoskeletal:normal inspection, no edema Neurologic/Psych:AAOX3, minimal right hemiparesis but otherwise grossly no focal deficits Skin: normal color, warm Results & Data Results & Data Vital Signs (Past 12 Hours) Vital Signs Temp Pulse Pulse Resp BP BP Pulse Ox 09/23/25 08:09 65 22 150/84 H 96 09/23/25 06:58 69 09/23/25 06:58 66 20 180/100 H 97 09/23/25 06:57 66 22 150/84 H 97 09/23/25 06:01 64 20 98 09/23/25 05:01 36.5 C 58 L 18 158/75 H 97 O2 Del Method 09/23/25 08:09 Room Air 09/23/25 06:58 09/23/25 06:58 Room Air 09/23/25 06:57 Room Air 09/23/25 06:01 Room Air 09/23/25 05:01 Room Air Laboratory Results Short CBC 09/23/25 Range/Units 05:32 WBC 5.06 (4.8-10.8) K/ul Hgb 10.9 L (12.0-16.0) g/dl Hct 32.6 L (37.0-47.0) % Plt Count 166 (130-400) K/uL BMP 09/23/25 05:32 Sodium 136 Potassium 4.2 Chloride 104 Carbon Dioxide 24 BUN 18 Creatinine 0.92 Glucose 123 H Calcium 9.1 Liver Function 09/23/25 Range/Units 05:32 Total Bilirubin 0.3 (0.2-1.0) mg/dl AST 25 (13-39) U/L ALT 13 (7-52) U/L Alkaline Phosphatase 67 (34-104) U/L Albumin 3.0 L (3.4-5.0) gm/dl Urine 09/23/25 Range/Units 06:53 Urine Color Yellow Urine Appearance Clear (Clear) Urine pH 7.0 (4.5-7.5) Ur Specific [place] 1.039 H (1.000-1.030) Urine Protein Trace H (Negative) Urine Glucose (UA) Negative (Negative) Diagnostic Findings --CT ABD:There are no apparent signs of small bowel obstruction. There is an increased size of the pancreatic head mass, now measuring 43 × 37.5 mm (previously 24.5 × 22.8 mm), and it is now seen adherent to the superior mesenteric artery. The mass is surrounded by faint fat edema and a few small local lymph nodes (stable). Cholelithiasis with newly developed gallbladder distension and mild pericholecystic edema could be acute inflammation. Ultrasound and clinical correlation are needed. --Gall bladder USD:Cholelithiasis with suspected acute cholecystitis. Fatty infiltration of the liver. Mild bile duct dilatation . 4.8 cm pancreatic head mass, consistent with the known pancreatic carcinoma --CXR:Right CVL reaching the SVC. New finding. There is a metallic needle seen overlying the right chest wall, which could be at the implanted port opening. Clinical correlation is needed. New finding. No acute cardiopulmonary abnormalities are identified. Otherwise, no significant interval changes. Medications Administered Home Medications Medication Instructions Recorded Confirmed allopurinol 300 mg tablet 300 mg PO QAM 01/03/21 09/23/25 clopidogrel 75 mg tablet 75 mg PO QAM 04/24/24 09/23/25 glimepiride 2 mg tablet 2 mg PO QAM 04/24/24 09/23/25 losartan 100 mg tablet 100 mg PO QAM 04/24/24 09/23/25 metformin 500 mg tablet,extended 500 mg PO QAM 04/24/24 09/23/25 release 24 hr omega-3 fatty acids-fish oil 360 1 cap PO QAM 05/17/24 09/23/25 mg-1,200 mg capsule (Fish Oil) vitamin B complex 1 tab PO QAM 05/17/24 09/23/25 acetaminophen 500 mg tablet 1,000 mg PO Q6H PRN Pain 05/31/24 09/23/25 (Tylenol Extra Strength) ascorbic acid (vitamin C) 500 mg 500 mg PO DAILY 09/16/25 09/23/25 tablet (Vitamin C) bisacodyl 10 mg rectal suppository 10 mg WI BID PRN Constipation 09/16/25 09/23/25 carvedilol 12.5 mg tablet 12.5 mg PO BID 09/16/25 09/23/25 cholecalciferol (vitamin D3) 25 25 mcg PO DAILY 09/16/25 09/23/25 mcg (1,000 unit) capsule (Vitamin D3) hydrocortisone 2.5 % topical cream 1 applic WI BID PRN Hemorrhoids 09/16/25 09/23/25 with perineal applicator hydromorphone 2 mg tablet 2 mg PO Q6H PRN Severe Pain (Scale 09/16/25 09/23/25 Score 7-10) loratadine 10 mg tablet (Claritin) 10 mg PO DAILY 09/16/25 09/23/25 naloxegol 25 mg tablet (Movantik) 25 mg PO DAILY 09/16/25 09/23/25 polyethylene glycol 3350 17 17 g PO DAILY 09/16/25 09/23/25 gram/dose oral powder (Miralax) senna 1 cap PO DAILY 09/16/25 09/23/25 ewxo-yharcvyf-lwhycrm-L.acidophilus-herbal no.279 545 mg capsule (Narcosoft) Zofran 8 mg PO Q8H PRN Nausea And Vomiting 09/23/25 09/23/25 famotidine 40 mg PO HS 09/23/25 09/23/25 fentanyl 12 mcg/hr transdermal 1 patch transdermal Q72H 09/23/25 09/23/25 patch pantoprazole 40 mg PO DAILY 10/25/25 10/25/25 Code Status & VTE Plan VTE Prophylaxis Plan VTE Prophylaxis will be ordered: Yes
--- NOTE | 2025-09-23 11:42 | Surgery Consultation ---
Date of Consultation September 23, 2025 Assessment & Plan (1) Pancreatic adenocarcinoma: Her CT and ultrasound images and results were personally viewed and interpreted by myself She does have some increased gallbladder distention as compared with her CT scan weeks ago, however she has been having pain for 2-1/2 weeks and this could certainly be related to her pancreatic mass not her gallbladder She is not a surgical candidate due to the presence of her pancreatic mass Can treat her with antibiotics if she is able to tolerate a diet nothing needs to be done for the gallbladder itself Surgery will sign off at this time, please call with any questions or concerns (2) Gallstones: History of Present Illness Reason for Consultation: Possible cholecystitis History of Present Illness This is a 70-year-old female who was admitted earlier this morning. She states that she has had progressive abdominal pain over the last 2-1/2 weeks. It got so bad last night that she came into the emergency room. It is in the upper abdomen centrally. She denies any nausea or vomiting. She did have some constipation more recently and had a port placed yesterday in preparation for chemotherapy as she has a newly diagnosed pancreatic mass in the last 6 weeks. She had a CT abdomen pelvis that was suspicious for cholecystitis surgery was consulted. Denies any fevers or chills. Allergies Allergy/AdvReac Type Severity Reaction Status Date / Time amlodipine Allergy Severe edema Verified 09/15/25 22:59 face/lips/tongue, hives, and itching valacyclovir Allergy Severe itching Verified 09/15/25 22:59 adhesive tape Allergy Intermediate BLISTERY Verified 09/15/25 22:59 RASH chlorthalidone Allergy Intermediate itchy Verified 09/15/25 22:59 eyes, red face ciprofloxacin [From Cipro] Allergy Intermediate itching Verified 09/15/25 22:59 lisinopril Allergy Intermediate lips Verified 09/15/25 22:59 tingle-tolerates Prinivil saccharin Allergy Intermediate SEE COMMENT Verified 09/15/25 22:59 wool Allergy Intermediate Itching Verified 09/15/25 22:59 gabapentin AdvReac Severe leg Verified 09/15/25 22:59 swelling pregabalin [From Lyrica] AdvReac Severe leg Verified 09/15/25 22:59 swelling hydrochlorothiazide AdvReac Intermediate muscle pain Verified 09/15/25 22:59 Txgqmun-OZI-SeF Reductase AdvReac Intermediate "I didn't Verified 09/15/25 22:59 Inhibitor feel good at all" Home Medications Medication Instructions Recorded Confirmed Type allopurinol 300 mg tablet 300 mg PO QAM 01/03/21 09/23/25 History clopidogrel 75 mg tablet 75 mg PO QAM 04/24/24 09/23/25 History glimepiride 2 mg tablet 2 mg PO QAM 04/24/24 09/23/25 History losartan 100 mg tablet 100 mg PO QAM 04/24/24 09/23/25 History metformin 500 mg tablet,extended 500 mg PO QAM 04/24/24 09/23/25 History release 24 hr omega-3 fatty acids-fish oil 360 1 cap PO QAM 05/17/24 09/23/25 History mg-1,200 mg capsule (Fish Oil) vitamin B complex 1 tab PO QAM 05/17/24 09/23/25 History acetaminophen 500 mg tablet 1,000 mg PO Q6H PRN Pain 05/31/24 09/23/25 History (Tylenol Extra Strength) ascorbic acid (vitamin C) 500 mg 500 mg PO DAILY 09/16/25 09/23/25 History tablet (Vitamin C) bisacodyl 10 mg rectal suppository 10 mg [place] BID PRN Constipation 09/16/25 09/23/25 History carvedilol 12.5 mg tablet 12.5 mg PO BID 09/16/25 09/23/25 History cholecalciferol (vitamin D3) 25 25 mcg PO DAILY 09/16/25 09/23/25 History mcg (1,000 unit) capsule (Vitamin D3) hydrocortisone 2.5 % topical cream 1 applic [place] BID PRN Hemorrhoids 09/16/25 09/23/25 History with perineal applicator hydromorphone 2 mg tablet 2 mg PO Q6H PRN Severe Pain (Scale 09/16/25 09/23/25 History Score 7-10) loratadine 10 mg tablet (Claritin) 10 mg PO DAILY 09/16/25 09/23/25 History naloxegol 25 mg tablet (Movantik) 25 mg PO DAILY 09/16/25 09/23/25 History polyethylene glycol 3350 17 17 g PO DAILY 09/16/25 09/23/25 History gram/dose oral powder (Miralax) senna 1 cap PO DAILY 09/16/25 09/23/25 History exsi-sphkharj-rakaxie-L.acidophilus-herbal no.279 545 mg capsule (Narcosoft) Zofran 8 mg PO Q8H PRN Nausea And Vomiting 09/23/25 09/23/25 History famotidine 40 mg PO HS 09/23/25 09/23/25 History fentanyl 12 mcg/hr transdermal 1 patch transdermal Q72H 09/23/25 09/23/25 History patch pantoprazole 40 mg PO DAILY 09/23/25 09/23/25 History Patient History Medical History History of sepsis Complicated UTI (urinary tract infection) Ureteral stone Bacteremia Leukocytosis Lumbar spondylolysis follows with childcare worker Dyslipidemia per medical record - pt denies History of kidney stones (2012) no surgical intervention - passed on her own Diabetes mellitus, type 2 NIDDM Anxiety Hypertension Kidney stone On anticoagulant therapy History of stroke (01/2018) presented with right sided weakness and slurred speech. currently has mild right sided weakness (improved), reason for plavix. follows with [facility] neurology PRN. Allergic rhinitis Diabetic retinopathy pt denies BPV (benign positional vertigo) chronic LVH (left ventricular hypertrophy) pt unaware Osteoarthritis Surgical History S/P ureteral stent placement History of bilateral tubal ligation S/P epidural steroid injection none currently History of colonoscopy History of right hip replacement S/P cystoscopy with ureteral stent placement (04/28/24) at [facility] S/P HORACIO-BSO History of tonsillectomy History of appendectomy History of carpal tunnel surgery bilateral Family History Mother Family history of reaction to anesthesia "have to be careful how much they give to her" denies any other problems Social History Smoking Status: Never smoker Second Hand Exposure: No; Do You Dip or Chew Tobacco: No; Hx Alcohol Use: No Hx Substance Use: No Preferred Language: Sri Lankan Communication Ability: Effective Test Conductor Required: No Beliefs That Will Affect Care: None marital status: Current Living Situation: Spouse Current Living Situation Comment: Apartment, elevator and shower Tub Feels Safe at Home: Yes Assistive Devices: Cane Review of Systems Constitutional: no fever and no chills Eyes: no blind spots and no corrective lenses Ear, Nose, Mouth, Throat: no ear pain and no dizziness Respiratory: no cough and no dyspnea Cardiovascular: no chest pain and no dyspnea on exertion Gastrointestinal: + abdominal pain; no nausea and no vomit ing Genitourinary: no dysuria and no urinary urgency Musculoskeletal: no back pain and no neck pain Integumentary: no lesions, no changing lesions, no skin ulcer and no erythema Neurologic: no headache(s) and no confusion Psychiatric: no behavioral changes and no depression Hematologic / Lymphatic: no easy bleeding and no easy bruising Physical Exam Constitutional: WD/WN, vitals as above Eyes: PERRL, conjunctivae normal, anicteric sclerae ENMT: external ear and nose normal, oropharynx normal Neck: trachea midline, no thyromegaly Respiratory: normal respiratory effort, lungs clear to auscultation Cardiovascular: RRR, no murmur, no edema Gastrointestinal (Abdomen): Inspection/Auscultation: abdomen normal to inspection; abdomen not distended Percussion/Palpation: + abdomen tender (Epigastrium) and abdomen soft; no guarding and no hernia Musculoskeletal: no cyanosis or clubbing, extremities motor strength 5/5 Skin: no rashes, warm and dry Neurologic: PERRL, EOMI, accommodation nl, no face palsy, no dysarthria Psychiatric: A+Ox3, euthymic affect Results & Data Vital Signs (Past 12 Hours) Vital Signs Temp Pulse Pulse Resp BP BP Pulse Ox 09/23/25 11:26 71 09/23/25 10:51 67 16 168/96 H 95 09/23/25 09:48 63 17 182/94 H 94 09/23/25 08:09 65 22 150/84 H 96 09/23/25 06:58 69 09/23/25 06:58 66 20 180/100 H 97 09/23/25 06:57 66 22 150/84 H 97 09/23/25 06:01 64 20 98 09/23/25 05:01 36.5 C 58 L 18 158/75 H 97 O2 Del Method 09/23/25 11:26 09/23/25 10:51 Room Air 09/23/25 09:48 Room Air 09/23/25 08:09 Room Air 09/23/25 06:58 09/23/25 06:58 Room Air 09/23/25 06:57 Room Air 09/23/25 06:01 Room Air 09/23/25 05:01 Room Air PG Care Time/CCT Total # of Minutes Spent Total Time Spent with Patient: Total time spent is greater than 50% in coordination of care (as documented) at patient's floor/unit and/or counseling patient: Coding Level of Care Code 17826 INT INP/OBS CARE 75MIN Diagnoses Pancreatic adenocarcinoma C25.9 Gallstones K80.20
[2025-09-23] MEDS: PIPERACILLIN/TAZOBACTAM 4.5 GM/100 ML BAG IV ONE (11:51)
[2025-09-23] MEDS ORDERED: DEXTROSE 50% 50 ML SYRINGE IV PRN (11:53)
[2025-09-23] MEDS ORDERED: GLUCOSE 40% GEL 15 GM TUBE PO PRN (11:53)
[2025-09-23] MEDS ORDERED: CARBOHYDRATES FOR HYPOGLYCEMIA PO PRN (11:53)
[2025-09-23] MEDS ORDERED: GLUCOSE 10 TAB/TUBE PO PRN (11:53)
[2025-09-23] MEDS ORDERED: GLUCAGON FOR INJ 1 MG VIAL SQ PRN (11:53)
[2025-09-23] MEDS: HYDROmorphone INJ 0.5 MG/0.5 ML SYR IV PRN ×2 (12:11→16:29)
[2025-09-23] MEDS: ONDANSETRON INJ 2 MG/ML 2 ML VIAL IV PRN (12:11)
[2025-09-23] MEDS: PANTOprazole 40 MG/10 ML SYR IV SCH (12:58)
[2025-09-23] MEDS: INSULIN ASPART PER UNIT CHARGE SC SCH ×2 (13:08→18:11)
[2025-09-23] MEDS: LACTATED RINGER'S 1,000 ML IV SCH (13:15)
[2025-09-23] MEDS ORDERED: Nursing to Pharmacy Communication SCH (15:45)
[2025-09-23] MEDS: PROMETHAZINE 6.25 MG/50.25 ML BAG IV ONE (16:36)
[2025-09-23] MEDS: PIPERACILLIN/TAZOBACTAM 4.5 GM/100 ML BAG IV SCH (16:57)
[2025-09-23] MEDS: LOSARTAN POTASSIUM 50 MG TAB PO SCH (17:01)
[2025-09-23] MEDS: ACETAMINOPHEN 1,000 MG/100 ML VIAL IV PRN (19:11)
[2025-09-23] MEDS: FAMOTIDINE 20 MG TAB PO SCH (20:18)
[2025-09-24] MEDS: POLYETHYLENE (MIRALAX) 17 GM PACK PO PRN (03:32)
[2025-09-24 07:29] LABS: Hematocrit (blood only) 31.3 % (37.0-47.0); Hemoglobin 10.3 g/dl (12.0-16.0); Immature Granulocytes # (auto) 0.02 K/uL (0.01-0.20); Immature Granulocytes % (auto) 0.3 %; Mean Corpuscular Hemoglobin 32.8 pg (25.0-34.0); Mean Corpuscular Volume 99.7 fL (80.0-100.0); Platelet Count 178 K/uL (130-400); RDW Standard Deviation 47.9 fL (36.4-46.3); Red Blood Count 3.14 M/uL (4.20-5.40); White Blood Count 5.77 K/ul (4.8-10.8)
[2025-09-24 07:45] LABS: Albumin Level 2.8 gm/dl (3.4-5.0); Anion Gap 7.0 (3-11); Bilirubin,Total 0.3 mg/dl (0.2-1.0); Calcium 9.0 mg/dl (8.6-10.3); Carbon Dioxide 26.0 mmol/L (21-32); Chloride 102.0 mmol/L (98-107); Magnesium 1.8 mg/dl (1.7-2.4); Potassium 4.3 mmol/L (3.5-5.1); Sodium 135.0 mmol/L (136-145)
[2025-09-24 07:51] LABS: Alanine Aminotransferase 11.0 U/L (7-52); Albumin Globulin Ratio 0.8 (0.9-2); Alkaline Phosphatase 63.0 U/L (34-104); Blood Urea Nitrogen 10.0 mg/dl (6-23); Creatinine Clr Calc Pharmacy 81.1 ml/min; Globulin 3.3 gm/dl (2.5-4.0); Glucose 93.0 mg/dl (70-99(Fasting)); Total Protein 6.1 gm/dl (6.0-8.3)
[2025-09-24] MEDS: LORATADINE 10 MG TAB PO SCH (08:41)
[2025-09-24] MEDS: CLOPIDOGREL BISULFATE 75 MG TAB PO SCH (08:41)
[2025-09-24] MEDS: ENOXAPARIN INJ 40 MG/0.4 ML SYR SQ SCH (08:41)
[2025-09-24] MEDS ORDERED: LOSARTAN POTASSIUM 50 MG TAB PO SCH (09:00)
--- NOTE | 2025-09-24 13:54 | Hospitalist Progress Note ---
Date of Service September 24, 2025 Assessment & Plan (1) Acute cholecystitis: (2) Intractable abdominal pain: (3) Nausea & vomiting: (4) Pancreatic adenocarcinoma: Plan Ms. Laureano is a 70-year-old female with history of CVA with residual right hemiparesis, hypertension, diabetes mellitus, left carotid stenosis, pancreatic adenocarcinoma, mood disorder, monoclonal paraproteinemia and other medical problems admitted for worsening abdominal pain associated with nausea and vomiting. Patient recently diagnosed with pancreatic adenocarcinoma. Imaging from 07/2025 till now notes that there has been increase in lesion size from 24.5-22.8mm to 43-37.5 mm Symptoms are similar to what initially led to diagnosis. Patient evaluated for concern of possible cholecystitis given distention noted, but the pain is likely 2/2 pancreatic mass per gen surg. Also patient is not a surgical candidate iso pancreatic mass. Discussed with sons at bedside who are exploring goals with patient. Discussed briefly hospice and timing, sons have not explored this conversation yet with p atient. Patient is aware, but still looking towards possibly starting treatment. Son to call and discuss with Jon tomorrow morning for further planning and [facility] discussions. Sons provide support for patient during this time. #Intractable nausea, vomiting #Pancreatic adnenocarcinoma likely 2.2 progression on mass rather than cholecystitis per gen surgery --CT ABD:There are no apparent signs of small bowel obstruction. There is an increased size of the pancreatic head mass, now measuring 43 × 37.5 mm (previously 24.5 × 22.8 mm), and it is now seen adherent to the superior mesenteric artery. The mass is surrounded by faint fat edema and a few small local lymph nodes (stable). Cholelithiasis with newly developed gallbladder distension and mild pericholecystic edema could be acute inflammation. Ultrasound and clinical correlation are needed. --Gall bladder USD:Cholelithiasis with suspected acute cholecystitis. Fatty infiltration of the liver. Mild bile duct dilatation . 4.8 cm pancreatic head mass, consistent with the known pancreatic carcinoma --Blood cultures NGTD --Normal lactate labs --Normal lipase --LFTs within normal limits advance diet as tolerated on zosyn empirically for ?pratik, downgrade tomorrow to po regimen Port placed 09/22, planning for treatment [facility] Dr. Webb on Thursday -son to call and discuss with Dr. Webb in am Increased fentanyl patch from 12mcg to 25mcg Resumed home po hydromorphone 2mg q6 hours with IV for breakthrough Will consider lyrica as adjunct palliative consulted #Anemia of chronic disease Denies any bleeding issues Monitor CBC #Generalized weakness Deconditioning PT OT when appropriate #CVA with residual right hemiparesis Left carotid artery stenosis Currently on Plavix Not on statin #Hypertension Continue losartan, carvedilol Monitor blood pressure #GERD Continue PPI, famotidine #DM Type II: Continue insulin while hospitalized Monitor blood glucose levels DVT Px: Lovenox SQ CODE STATUS Full code Disposition med/tele Admission and Anticipated Discharge Date Admission Date: September 23, 2025 Subjective Uncontrolled pain, gastric discomfort iso pancreatic mass reports that there is a combination of reduced hunger and pain Sons at bedside, reports that mass is 2 times bigger than a month ago---her week has been complicated by pain control and poor po intake. Patient understands she may not make it to her planned treatment come Thursday goal is expressed to prioritize pain control at this time sons working to discuss patient's thoughts on hospice v palliative role in current mgmt Physical Exam Constitutional: AOx2-3 iso pain medication Respiratory: normal respiratory effort, lungs clear to auscultation Cardiovascular: RRR, no murmur, no edema Gastrointestinal (Abdomen): epigastric discomfort Results & Data Results & Data Vital Signs (Past 12 Hours) Vital Signs Temp Pulse Pulse Resp BP Pulse Ox O2 Del Method 09/24/25 11:18 36.3 C L 66 20 167/84 H 95 Room Air 09/24/25 08:04 36.5 C 68 20 185/96 H 96 Room Air 09/24/25 07:51 60 09/24/25 02:47 36.8 C 69 20 171/96 H 95 Room Air Laboratory Results Short CBC 09/24/25 Range/Units 06:38 WBC 5.77 (4.8-10.8) K/ul Hgb 10.3 L (12.0-16.0) g/dl Hct 31.3 L (37.0-47.0) % Plt Count 178 (130-400) K/uL BMP 09/24/25 06:38 Sodium 135 L Potassium 4.3 Chloride 102 Carbon Dioxide 26 BUN 10 Creatinine 0.69 Glucose 93 Calcium 9.0 Liver Function 09/24/25 Range/Units 06:38 Total Bilirubin 0.3 (0.2-1.0) mg/dl AST 19 (13-39) U/L ALT 11 (7-52) U/L Alkaline Phosphatase 63 (34-104) U/L Albumin 2.8 L (3.4-5.0) gm/dl
[2025-09-24] MEDS: HYDROmorphone INJ 2 MG/ML SYR/VIAL IM PRN (18:32)
[2025-09-25 08:29] LABS: Hematocrit (blood only) 34.6 % (37.0-47.0); Hemoglobin 11.2 g/dl (12.0-16.0); Mean Corpuscular Hemoglobin 32.3 pg (25.0-34.0); Mean Corpuscular Volume 99.7 fL (80.0-100.0); Platelet Count 207 K/uL (130-400); RDW Standard Deviation 48.0 fL (36.4-46.3); Red Blood Count 3.47 M/uL (4.20-5.40); White Blood Count 6.87 K/ul (4.8-10.8)
[2025-09-25 08:53] LABS: Anion Gap 6.0 (3-11); Blood Urea Nitrogen 11.0 mg/dl (6-23); Calcium 9.4 mg/dl (8.6-10.3); Carbon Dioxide 29.0 mmol/L (21-32); Chloride 100.0 mmol/L (98-107); Creatinine Clr Calc Pharmacy 58.0 ml/min; Glucose 83.0 mg/dl (70-99(Fasting)); Magnesium 1.9 mg/dl (1.7-2.4); Potassium 4.5 mmol/L (3.5-5.1); Sodium 135.0 mmol/L (136-145)
[2025-09-25] MEDS: PROCHLORPERAZINE 5 MG in SYRINGE 4 ML IV ONE (08:56)
--- NOTE | 2025-09-25 09:07 | Palliative Care Consultation ---
Date of Consultation September 25, 2025 Assessment & Plan (1) Nausea & vomiting: Pt states nausea relieved by zofran, she is focused on constipation and pain at this time. Continue zofran 4 mg IV Q4H PRN Continue PPI (2) Intractable abdominal pain: Pt has had repeat ED visits/admissions for intractable pain over past several weeks. Review of PDMP reveals pt prescribed Tramadol in May, Oxycodone 5mg in July and Buprenorphine then Dilaudid in August this year for intractable abdominal pain. Pt states that her pain is generalized, gnawing abdominal pain which is aggravated by any movement as well as after meals. Her pain at worst is 9::10 and she reports only modest improvement with opiods analgesics to 8:10 prior to this admission. She reports that IV tylenol has given her the most relief. Decadron ordered by primary team may also offer some relief. BSRN administered 2mg IV Dilaudid while I was with pt, I returned to reassess 40min later and pt shared that she has complete relief of her pain "as long as I do not move". Discussed increasing PO dilaudid to 5mg PRN Q4h PRN for BTP (equivalent dose to 2mg iv dilaudid). Can use PRN use over next 24h to determine need for increase in TD fentanyl. Continue TD Fentanyl 25 Mcg/Hr 1 patch TD Q3D LIVE continue Tylenol 1000mg IV q8h PRN Increase PO Dialudid to 5mg Q4h PRN for BTP Continue dilaudid 2mg IVP q3h PRN for BTP if unable to take PO (3) Therapeutic opioid-induced constipation (OIC): Patient shared that she has not had a BM in 5 days. KUB pending. continue aggressive bowel regime, consider relistor for constipation refractory to current bowel regime. Continue: Miralax 17 gm PO DAILY PRN Docusate Sodium/Senna 1 tab PO QAM LIVE Consider Relistor if constipation refractory to above. (4) Palliative care by specialist: Assessed pt at bedside, no visitors present. Introduced Palliative Medicine and explained our role in advanced care planning, symptom management and navigation through the progression of life limiting disease. Patient was receptive to palliative services for goals of care discussions. Reviewed we are different from hospice, a home health nurse visiting service. (5) Counseling regarding goals of care: Patient in acute pain on my assessment, did not address goals of care her at that time. I did spend 30 minutes discussion GOC with her son, Donis, later in the afternoon, patient's pain was well managed but she was drowsy and participated minimally in discussion. Donis shared that he is a social scientist/continuous pillowcase cutter in [place] and he has taken leave to move in with his mother and care for her since her initial cancer diagnosis. He shared that he and his brother have had lengthy discussion with Azalia since learning that her cancer has advanced this weekend. He shared that the patient has said that she most wishes to be home and not be in pain and they wish to honor that. He is hopeful that her pain can be managed well enough for her to return home, but is understanding that she cannot leave the hospital in intractable pain. He shared that Dr Webb had advised them on Thursday to report to [facility] ED, but he is unaware if Dr. Webb is aware of the results of the repeat CT scan. He shared that Azalia is concerned that with her intractable pain and constipation, she may not tolerate treatment. He stated that his experience and knowledge of his mother has he and his brother "leaning towards taking her home with hospice". He and his brother have discussed this with Azalia and are making arrangements to bring her home on hospice, He asked for a list of hospice agencies for [facility]. Donis did state that they want to hear from Jon prior to transition to [facility], but have comfort as primary goal, if Jon can offer treatment that might reduce her pain they would like to consider options. Discussed code status and helped Donis understand that CPR is only done after a person has and involves uncomfortable and invasive procedures that, if successful, have high risk of multiple complications including but not limited to rib fractures, pneumo/hemothorax, WILLIAM, ventilator dependence, anoxic brain injury, and mcfp/permanent cognitive and functional deficits. Donis shared that Azalia has been clear about her wishes to not be dependent on machines to keep her alive. He shared that they had discussed this over the weekend as well, Azalia told them she would only want resuscitated if she had a chance of full recovery. He asked for time to discuss with his brother again, but shared that they would likely change to DNR/DNI and transition to [facility], unless Dr. Webb feels that chemotherapy is still appropriate and offers possibility of cure/palliation. Family made aware that Dr Cabral will continue to follow for further palliative needs this week as I will not be on site. Plan as above History of Present Illness Reason for Consultation: GOC, symptom mgmt Requesting Physician: Chai Nobles MD Attending Physician: Diane Shin MD History of Present Illness Ms. Laureano is a 70-year-old female with history of CVA with residual right hemiparesis, hypertension, T2DM, mild nonproliferative diabetic retinopathy, left carotid stenosis, pancreatic adenocarcinoma, mood disorder, monoclonal paraproteinemia, HTN, CVA with residual right-sided weakness and BPPV, who presents to ED on 09/23 after 3 days of worsening abdominal pain associate with nausea and vomiting. Last bowel movement 3 days ago. She was recently discharged (09/15) from [facility] after a week admission for similar complaints. She also was treated and released in [facility] ED 09/16 for similar complaint. She has recent diagnosis of pancreatic cancer (07/2025) following with [facility] oncology Dr. Webb with plan to begin chemotherapy on 09/27/2025. She was also evaluated by Dr. Rhodes in [facility] and was thought to be inoperab le currently but consideration if tumor shrinks with chemotherapy in the future. She has also been evaluated by GI surgery during this admission and again deemed not a surgical candidate due to the presence of her pancreatic mass. Allergies Allergy/AdvReac Type Severity Reaction Status Date / Time amlodipine Allergy Severe edema Verified 09/15/25 22:59 face/lips/tongue, hives, and itching valacyclovir Allergy Severe itching Verified 09/15/25 22:59 adhesive tape Allergy Intermediate BLISTERY Verified 09/15/25 22:59 RASH chlorthalidone Allergy Intermediate itchy Verified 09/15/25 22:59 eyes, red face ciprofloxacin [From Cipro] Allergy Intermediate itching Verified 09/15/25 22:59 lisinopril Allergy Intermediate lips Verified 09/15/25 22:59 tingle-tolerates Prinivil saccharin Allergy Intermediate SEE COMMENT Verified 09/15/25 22:59 wool Allergy Intermediate Itching Verified 09/15/25 22:59 gabapentin AdvReac Severe leg Verified 09/15/25 22:59 swelling pregabalin [From Lyrica] AdvReac Severe leg Verified 09/15/25 22:59 swelling hydrochlorothiazide AdvReac Intermediate muscle pain Verified 09/15/25 22:59 Djeqlel-YOV-YfG Reductase AdvReac Intermediate "I didn't Verified 09/15/25 22:59 Inhibitor feel good at all" Home Medications Medication Instructions Recorded Confirmed Type allopurinol 300 mg tablet 300 mg PO QAM 01/03/21 09/23/25 History clopidogrel 75 mg tablet 75 mg PO QAM 04/24/24 09/23/25 History glimepiride 2 mg tablet 2 mg PO QAM 04/24/24 09/23/25 History losartan 100 mg tablet 100 mg PO QAM 04/24/24 09/23/25 History metformin 500 mg tablet,extended 500 mg PO QAM 04/24/24 09/23/25 History release 24 hr omega-3 fatty acids-fish oil 360 1 cap PO QAM 05/17/24 09/23/25 History mg-1,200 mg capsule (Fish Oil) vitamin B complex 1 tab PO QAM 05/17/24 09/23/25 History acetaminophen 500 mg tablet 1,000 mg PO Q6H PRN Pain 05/31/24 09/23/25 History (Tylenol Extra Strength) ascorbic acid (vitamin C) 500 mg 500 mg PO DAILY 09/16/25 09/23/25 History tablet (Vitamin C) bisacodyl 10 mg rectal suppository 10 mg WI BID PRN Constipation 09/16/25 09/23/25 History carvedilol 12.5 mg tablet 12.5 mg PO BID 09/16/25 09/23/25 History cholecalciferol (vitamin D3) 25 25 mcg PO DAILY 09/16/25 09/23/25 History mcg (1,000 unit) capsule (Vitamin D3) hydrocortisone 2.5 % topical cream 1 applic WI BID PRN Hemorrhoids 09/16/25 09/23/25 History with perineal applicator hydromorphone 2 mg tablet 2 mg PO Q6H PRN Severe Pain (Scale 09/16/25 09/23/25 History Score 7-10) loratadine 10 mg tablet (Claritin) 10 mg PO DAILY 09/16/25 09/23/25 History naloxegol 25 mg tablet (Movantik) 25 mg PO DAILY 09/16/25 09/23/25 History polyethylene glycol 3350 17 17 g PO DAILY 09/16/25 09/23/25 History gram/dose oral powder (Miralax) senna 1 cap PO DAILY 09/16/25 09/23/25 History bpht-avtfotyv-itjejzp-L.acidophilus-herbal no.279 545 mg capsule (Narcosoft) Zofran 8 mg PO Q8H PRN Nausea And Vomiting 09/23/25 09/23/25 History famotidine 40 mg PO HS 09/23/25 09/23/25 History fentanyl 12 mcg/hr transdermal 1 patch transdermal Q72H 09/23/25 09/23/25 History patch pantoprazole 40 mg PO DAILY 09/23/25 09/23/25 History Patient History Medical History History of sepsis Complicated UTI (urinary tract infection) Ureteral stone Bacteremia Leukocytosis Lumbar spondylolysis follows with career services representative Dyslipidemia per medical record - pt denies History of kidney stones (2012) no surgical intervention - passed on her own Diabetes mellitus, type 2 NIDDM Anxiety Hypertension Kidney stone On anticoagulant therapy History of stroke (01/2018) presented with right sided weakness and slurred speech. currently has mild right sided weakness (improved), reason for plavix. [place] with [facility] PRN. Allergic rhinitis Diabetic retinopathy pt denies BPV (benign positional vertigo) chronic LVH (left ventricular hypertrophy) pt unaware Osteoarthritis Surgical History S/P ureteral stent placement History of bilateral tubal ligation S/P epidural steroid injection none currently History of colonoscopy History of right hip replacement S/P cystoscopy with ureteral stent placement (04/28/24) at [facility] S/P HORACIO-BSO History of tonsillectomy History of appendectomy History of carpal tunnel surgery bilateral Family History Mother Family history of reaction to anesthesia "have to be careful how much they give to her" denies any other problems Social History Smoking Status: Never smoker Second Hand Exposure: No; Do You Dip or Chew Tobacco: No; Hx Alcohol Use: No Hx Substance Use: No Preferred Language: Haitian Communication Ability: Effective Film Crew Member Required: No Beliefs That Will Affect Care: None marital status: Current Living Situation: Family Current Living Situation Comment: Apartment, elevator and shower Tub Feels Safe at Home: Yes Assistive Devices: Cane Review of Systems Review of Systems: All systems reviewed & are unremarkable except as noted in HPI & below Gastrointestinal: + abdominal pain, + bloating, + nausea a nd + constipation Physical Exam Constitutional: WD/WN, vitals as above + obese and cooperative; + uncomfortable Eyes: PERRL, conjunctivae normal, anicteric sclerae Respiratory: normal respiratory effort, lungs clear to auscultation Cardiovascular: Rate/Rhythm: regular rate and + tachycardic Gastrointestinal (Abdomen): Inspection/Auscultation: + abdomen distended Percussion/Palpation: + abdomen tender and abdomen soft Musculoskeletal: no cyanosis or clubbing, extremities motor strength 5/5 Neurologic: PERRL, EOMI, accommodation nl, no face palsy, no dysarthria Psychiatric: A+Ox3, euthymic affect Results & Data Vital Signs (Past 12 Hours) Vital Signs Temp Pulse Pulse Resp BP Pulse Ox O2 Del Method 09/25/25 07:54 59 L 09/25/25 07:40 36.4 C L 69 16 135/86 96 Room Air 09/25/25 02:52 36.4 C L 65 18 131/89 92 Room Air 09/24/25 22:00 36.9 C 63 18 172/103 H 97 Room Air 09/24/25 21:59 62 Laboratory Results Abnormal lab results 09/24/25 09/24/25 09/24/25 Range/Units 11:44 16:44 20:00 RBC (4.20-5.40) M/uL Hgb (12.0-16.0) g/dl Hct (37.0-47.0) % RDW Std Deviation (36.4-46.3) fL Sodium (136-145) mmol/L POC Glucose 132 H 127 H 122 H (70-99) mg/dl 09/25/25 Range/Units 07:26 RBC 3.47 L (4.20-5.40) M/uL Hgb 11.2 L (12.0-16.0) g/dl Hct 34.6 L (37.0-47.0) % RDW Std Deviation 48.0 H (36.4-46.3) fL Sodium 135 L (136-145) mmol/L POC Glucose (70-99) mg/dl Diagnostic Findings Chest X-Ray 09/23/25 05:08 EXAM: XR chest 1V portable CLINICAL HISTORY: pain near SC port. TECHNIQUE: An X-ray image of the chest was obtained in AP projection. COMPARISON: 09/15/2025. FINDINGS: Pulmonary Parenchyma: There is no evidence of consolidation, collapse, or focal opacities. No pulmonary nodules are identified. There is no evidence of pleural effusion or pleural thickening. Heart and Mediastinum: The heart size and shape are normal. There is no mediastinal widening or masses. No hilar or mediastinal lymphadenopathy is present. Calcified aortic arch. Bony Thorax: There is osteopenia with degenerative changes. Soft Tissues: The soft tissues overlying the chest wall are unremarkable. Right CVL reaching the SVC. There is a metallic needle seen overlying the right chest wall, which could be at the implanted port opening. Clinical correlation is needed. IMPRESSION: 1. Right CVL reaching the SVC. New finding. 2. There is a metallic needle seen overlying the right chest wall, which could be at the implanted port opening. Clinical correlation is needed. New finding. 3. No acute cardiopulmonary abnormalities are identified. 4. Otherwise, no significant interval changes. Electronically signed by Gabriele Nuñez 09-23-2025 06:22 AM Abdomen/Pelvis CT 09/23/25 05:18 EXAM: CT abd pelvis IV con only CLINICAL HISTORY: Nausea, vomiting, pancreatic CA, eval for SBO. TECHNIQUE: CT of the abdomen and pelvis was performed with contrast administration 94 ml Optiray 320 mg/ml, using the following protocol: axial images were obtained, and coronal and sagittal images were reconstructed. One of the following dose reduction techniques was utilized for this exam: automated exposure control, adjustment of the mA and/or kV according to patient size, and use of iterative reconstruction. COMPARISON: Comparison is made with 08/09/2025. FINDINGS: Abdomen: Pancreas: There is an increase in the size of the pancreatic head heterogeneous cystic lesion, now measuring 43 × 37.5 mm (previously 24.5 × 22.8 mm), and it is now seen adherent to the superior mesenteric artery. The pancreatic body and tail are diffusely atrophied, without pancreatic duct dilatation. The lesion is surrounded by faint mesenteric edema, which is unchanged. Liver: The liver is normal in size, shape, and density. No focal lesions, cysts, or masses are identified. Hepatic vasculature and biliary ducts are unremarkable. Gallbladder and Biliary System: The gallbladder is normal in size and shape. There is a medium-sized stone inside, without signs of obstruction or inflammation (unchanged), with newly developed gallbladder distension and mild pericholecystic edema. This could be acute inflammation; ultrasound and clinical correlation are needed. Spleen: The spleen is normal in size, shape, and density. No splenic lesions or masses are identified. Appendix: The appendix is not seen. No evidence of appendiceal abscess or perforation. Kidneys and Adrenal Glands: Both kidneys are normal in size, shape, and position. Cortical thickness is within normal limits. No renal calculi or hydronephrosis. There is a left renal simple cortical cyst (stable). The adrenal glands are unremarkable, with no evidence of masses or hyperplasia. Pelvis: Urinary Bladder: The urinary bladder is normal in contour and wall thickness. No intraluminal lesions are identified. Uterus: The uterus is not seen (could be surgically removed). Ovaries: The ovaries are not well visualized, but no gross abnormalities are noted. Vagina: The vagina is normal in contour and wall thickness. Peritoneal and Retroperitoneal Structures: No free fluid or abnormal fluid collections are identified within the abdomen or pelvis. No lymphadenopathy is noted. Bowel: There is multiple sigmoid diverticulosis without signs of diverticulitis. The visualized bowel loops are normal in caliber and appearance. No evidence of bowel obstruction or wall thickening. Bones and Soft Tissues: There is hyperlordosis of the lumbar spine. Grade 1 anterolisthesis of L5 over S1 is present. A T12 inferior endplate sclerotic focus is unchanged. There is a right total hip replacement. Pelvic bones and soft tissues are unremarkable. No fractures or abnormal masses are identified. IMPRESSION: There are no apparent signs of small bowel obstruction. There is an increased size of the pancreatic head mass, now measuring 43 × 37.5 mm (previously 24.5 × 22.8 mm), and it is now seen adherent to the superior mesenteric artery. The mass is surrounded by faint fat edema and a few small local lymph nodes (stable). Cholelithiasis with newly developed gallbladder distension and mild pericholecystic edema could be acute inflammation. Ultrasound and clinical correlation are needed. Electronically signed by Gabriele Nuñez 09-23-2025 08:02 AM Gallbladder Ultrasound 09/23/25 08:05 Clinical history: Abdominal pain. Pancreatic cancer Technique: Sonography was performed of the right upper quadrant of the abdomen No prior examination is available for comparison Findings: There is a 4.8 x 3.9 x 3.5 cm hypoechoic mass within the pancreatic head, consistent with the known pancreatic carcinoma There is fatty infiltration of the liver. No definite liver mass is seen There is a mobile gallstone. The gallbladder is distended. The gallbladder wall is mildly thickened and appears edematous, measuring 5 mm. The common bile duct is mildly dilated, measuring 8 mm No ascites is seen Impression: 1. Cholelithiasis with suspected acute cholecystitis 2. Fatty infiltration of the liver 3. Mild bile duct dilatation 4. 4.8 cm pancreatic head mass, consistent with the known pancreatic carcinoma ACT 112: Positive. There are findings on this exam that require communication between the performing entity and the patient following Patient Test Result Information Act ([place] ACT 112) guidelines. Electronically signed by Roc Doss 09-23-2025 09:42 AM Medications Administered Current Inpatient Medications Allopurinol (Allopurinol 300 Mg Tab) 300 mg PO QAM [facility] Stop: 10/24/25 08:59 Last Admin: 09/25/25 08:44 Dose: 300 mg Bisacodyl (Bisacodyl 10 Mg Supp) 10 mg WI BID PRN PRN Reason: Constipation Stop: 10/23/25 11:52 Last Admin: 09/25/25 00:14 Dose: 10 mg Carvedilol (Carvedilol 12.5 Mg Tab) 12.5 mg PO BID LIVE Stop: 10/23/25 20:59 Last Admin: 09/25/25 08:46 Dose: Not Given Clopidogrel Bisulfate (Clopidogrel Bisulfate 75 Mg Tab) 75 mg PO QAM [facility] Stop: 10/24/25 08:59 Last Admin: 09/25/25 08:44 Dose: 75 mg Dextrose (Dextrose 50% 50 Ml Syringe) 25 - 50 ml IV UD PRN; Protocol PRN Reason: Hypoglycemia Protocol Stop: 10/23/25 11:52 Enoxaparin Sodium (Enoxaparin Inj 40 Mg/0.4 Ml Syr) 40 mg SQ QAM LIVE Stop: 10/24/25 08:59 Last Admin: 09/25/25 08:45 Dose: 40 mg Famotidine (Famotidine 20 Mg Tab) 40 mg PO HS LIVE Stop: 10/23/25 20:59 Last Admin: 09/24/25 20:03 Dose: 40 mg Fentanyl (Fentanyl 25 Mcg/Hr Tdsy) 1 patch TD Q3D LIVE Stop: 10/08/25 12:14 Last Admin: 09/24/25 12:43 Dose: 1 patch Glucagon (Glucagon For Inj 1 Mg Vial) 1 mg SQ UD PRN; Protocol PRN Reason: Hypoglycemia Protocol Stop: 10/23/25 11:52 Glucose (Glucose 40% Gel 15 Gm Tube) 15 - 30 gm PO UD PRN; Protocol PRN Reason: Hypoglycemia Protocol Stop: 10/23/25 11:52 Glucose (Glucose 10 Tab/Tube) 4 - 8 tab PO UD PRN; Protocol PRN Reason: Hypoglycemia Protocol Stop: 10/23/25 11:52 Heparin Sodium (Porcine) (Heparin 100 Unit/Ml 5ml Flush) 5 ml FLUSH PRN PRN PRN Reason: Flush Stop: 10/25/25 04:31 Hydralazine HCl (Hydralazine Hcl 20 Mg/Ml Vial) 10 mg IV Q6H PRN PRN Reason: Hypertension SBp>180 Stop: 10/23/25 12:47 Last Admin: 09/23/25 12:58 Dose: 10 mg Hydromorphone HCl (Hydromorphone Hcl 2 Mg Tab) 2 mg PO Q6H PRN PRN Reason: Severe Pain (Scale 7, 8, 9,10) Stop: 10/08/25 11:59 Last Admin: 09/24/25 22:19 Dose: 2 mg Hydromorphone HCl (Hydromorphone Inj 2 Mg/Ml Syr/Vial) 2 mg IV Q3H PRN PRN Reason: Breakthrough Pain Stop: 10/08/25 12:06 Piperacillin Sod/Tazobactam Sod (Zosyn) 4.5 gm in 100 mls @ 25 mls/hr IV Q8H LIVE; Protocol Stop: 10/03/25 15:59 Last Admin: 09/25/25 08:46 Dose: 25 mls/hr Acetaminophen (Ofirmev) 1,000 mg in 100 mls @ 400 mls/hr IV Q8H PRN PRN Reason: Pain or Fever Stop: 09/26/25 11:52 Last Infusion: 09/25/25 00:29 Dose: Infused Pantoprazole Sodium (Protonix) 40 mg in 10 mls @ 5 mls/min IV DAILY LIVE Stop: 10/23/25 11:59 Last Admin: 09/25/25 08:46 Dose: 5 mls/min Insulin Aspart (Insulin Aspart Per Unit Charge) 0 units SC ACHS LIVE Stop: 10/23/25 16:29 Last Admin: 09/25/25 08:39 Dose: Not Given Loratadine (Loratadine 10 Mg Tab) 10 mg PO DAILY LIVE Stop: 10/24/25 08:59 Last Admin: 09/25/25 08:44 Dose: 10 mg Losartan Potassium (Losartan Potassium 50 Mg Tab) 100 mg PO QAM [facility] Stop: 10/23/25 12:59 Last Admin: 09/25/25 08:44 Dose: 100 mg Miscellaneous (Check Fentanyl Patch Placement) 1 each N/A QS [facility] Stop: 10/23/25 15:59 Last Admin: 09/25/25 08:47 Dose: 1 each Miscellaneous (Carbohydrates For Hypoglycemia ) 15 - 30 gm PO UD PRN PRN Reason: Hypoglycemia Protocol Stop: 10/23/25 11:52 Miscellaneous (Fentanyl Patch Remove & Waste) 1 each N/A Q3D [facility] Stop: 10/24/25 05:59 Last Admin: 09/24/25 05:32 Dose: 1 each Miscellaneous (Fentanyl Patch Remove & Waste) 1 each N/A Q3D [facility] Stop: 10/24/25 12:14 Last Admin: 09/24/25 12:44 Dose: 1 each Miscellaneous (Check Fentanyl Patch Placement) 1 each N/A QS [facility] Stop: 10/24/25 15:59 Last Admin: 09/25/25 08:50 Dose: 1 each Ondansetron HCl (Ondansetron Inj 2 Mg/Ml 2 Ml Vial) 4 mg IV Q4H PRN PRN Reason: Nausea Stop: 10/23/25 11:52 Last Admin: 09/24/25 23:55 Dose: 4 mg Polyethylene Glycol (Polyethylene (Miralax) 17 Gm Pack) 17 gm PO DAILY PRN PRN Reason: Constipation Stop: 10/23/25 11:52 Last Admin: 09/24/25 20:03 Dose: 17 gm Senna/Docusate Sodium (Docusate Sodium/Senna 50/8.6mg Tab) 1 tab PO QAM LIVE Stop: 10/25/25 08:59 PG Care Time/CCT Total # of Minutes Spent Total Time Spent with Patient: Total time spent is greater than 50% in coordination of care (as documented) at patient's floor/unit and/or counseling patient: Advanced Care Planning 14468 Advanced Care Planning 30 [place] [address] IN/OBS CONSULT LVL 4,60M Patient Type New History Expanded Problem Focused Exam Expanded Problem Focused Medical Decision Making Moderate Complexity Diagnoses Nausea & vomiting R11.2 Intractable abdominal pain R10.9 Therapeutic opioid-induced constipation (OIC) K59.03; T40.2X5A Palliative care by specialist Z51.5 Counseling regarding goals of care Z71.89 Additional Codes Advanced Care Planning - 36171 Advanced Care Planning 30 Min: 48713 Advanced Care Planning 30 Min ([id number])
[2025-09-25] MEDS: DOCUSATE SODIUM/SENNA 50/8.6MG TAB PO SCH (10:08)
[2025-09-25] MEDS: HYDROmorphone INJ 2 MG/ML SYR/VIAL IV PRN (11:23)
[2025-09-25] MEDS ORDERED: dexAMETHasone**PF** 10 MG/ML VIAL IV ONE (12:01)
--- NOTE | 2025-09-25 12:07 | Hospitalist Progress Note ---
Date of Service September 25, 2025 Assessment & Plan (1) Acute cholecystitis: (2) Intractable abdominal pain: (3) Nausea & vomiting: (4) Pancreatic adenocarcinoma: Plan Ms. Laureano is a 70-year-old female with history of CVA with residual right hemiparesis, hypertension, diabetes mellitus, left carotid stenosis, pancreatic adenocarcinoma, mood disorder, monoclonal paraproteinemia and other medical problems admitted for worsening abdominal pain associated with nausea and vomiting. Patient recently diagnosed with pancreatic adenocarcinoma. Imaging from 07/2025 till now notes that there has been increase in lesion size from 24.5-22.8mm to 43-37.5 mm Symptoms are similar to what initially led to diagnosis. Patient evaluated for concern of possible cholecystitis given distention noted, but the pain is likely 2/2 pancreatic mass per gen surg. Also patient is not a surgical candidate iso pancreatic mass. Spoke to son at bedside. Likely will pursue Hospice. Awaiting conversation with Dr. Webb as well as optimize pain control. #Intractable nausea, vomiting #Pancreatic adnenocarcinoma likely 2.2 progression on mass rather than cholecystitis per gen surgery --CT ABD:There are no apparent signs of small bowel obstruction. There is an increased size of the pancreatic head mass, now measuring 43 × 37.5 mm (previously 24.5 × 22.8 mm), and it is now seen adherent to the superior mesenteric artery. The mass is surrounded by faint fat edema and a few small local lymph nodes (stable). Cholelithiasis with newly developed gallbladder distension and mild pericholecystic edema could be acute inflammation. Ultrasound and clinical correlation are needed. --Gall bladder USD:Cholelithiasis with suspected acute cholecystitis. Fatty infiltration of the liver. Mild bile duct dilatation . 4.8 cm pancreatic head mass, consistent with the known pancreatic carcinoma --Blood cultures NGTD --Normal lactate labs --Normal lipase --LFTs within normal limits advance diet as tolerated on zosyn empirically for ?pratik, downgrade tomorrow to po regimen Port placed 09/22, planning for treatment with Dr. Webb on Thursday -son to call and discuss with Dr. Webb -Message sent to Dr. Webb to discuss further Continue fentanyl patch 25mcg Continue home po hydromorphone 2mg q6 hours, likely to increase to 5mg PO per palliative with IV for breakthrough Start IV decadron 10mg x 1 and assess palliative consulted, appreciate recs and GoC -Currently ongoing #OIC trial relistor as months on large doses of pain regimen continue senakot #Anemia of chronic disease Denies any bleeding issues Monitor CBC #Generalized weakness Deconditioning PT OT when appropriate #CVA with residual right hemiparesis Left carotid artery stenosis Currently on Plavix Not on statin #Hypertension Continue losartan, carvedilol Monitor blood pressure #GERD Continue PPI, famotidine #DM Type II: Continue insulin while hospitalized Monitor blood glucose levels DVT Px: Lovenox SQ CODE STATUS Full code as of now Disposition med/tele Admission and Anticipated Discharge Date Admission Date: September 23, 2025 Subjective Reports uncontrolled pain at this time Abdominal pain as stretching and uncomfortable, reports nausea as well Physical Exam Constitutional: uncomfortable patient Respiratory: normal respiratory effort, lungs clear to auscultation Cardiovascular: RRR, no murmur, no edema Gastrointestinal (Abdomen): epigastric discomfort Results & Data Results & Data Vital Signs (Past 12 Hours) Vital Signs Temp Pulse Pulse Resp BP Pulse Ox O2 Del Method 09/25/25 11:46 36.5 C 71 18 193/103 H 96 Room Air 09/25/25 07:54 59 L 09/25/25 07:40 36.4 C L 69 16 135/86 96 Room Air 09/25/25 02:52 36.4 C L 65 18 131/89 92 Room Air Laboratory Results Short CBC 09/25/25 Range/Units 07:26 WBC 6.87 (4.8-10.8) K/ul Hgb 11.2 L (12.0-16.0) g/dl Hct 34.6 L (37.0-47.0) % Plt Count 207 (130-400) K/uL BMP 09/25/25 07:26 Sodium 135 L Potassium 4.5 Chloride 100 Carbon Dioxide 29 BUN 11 Creatinine 0.94 Glucose 83 Calcium 9.4 Medications Administered Home Medications Medication Instructions Recorded Confirmed Last Taken allopurinol 300 mg tablet 300 mg PO QAM 01/03/21 09/23/25 09/15/25 19:00 clopidogrel 75 mg tablet 75 mg PO QAM 04/24/24 09/23/25 05/23/24 glimepiride 2 mg tablet 2 mg PO M 04/24/24 09/23/2525 19:00 losartan 100 mg tablet 100 mg PO QAM 04/24/24 09/23/25 09/15/25 19:00 metformin 500 mg tablet,extended 500 mg PO QAM 04/24/24 09/23/25 09/15/25 19:00 release 24 hr omega-3 fatty acids-fish oil 360 1 cap PO QAM 05/17/24 09/23/25 05/23/24 mg-1,200 mg capsule (Fish Oil) vitamin B complex 1 tab PO QAM 05/17/24 09/23/25 05/23/24 acetaminophen 500 mg tablet 1,000 mg PO Q6H PRN Pain 05/31/24 09/23/25 09/15/25 21:00 (Tylenol Extra Strength) ascorbic acid (vitamin C) 500 mg 500 mg PO DAILY 09/16/25 09/23/25 Unknown tablet (Vitamin C) bisacodyl 10 mg rectal suppository 10 mg AR BID PRN Constipation 09/16/25 09/23/25 09/15/25 11:00 carvedilol 12.5 mg tablet 12.5 mg PO BID 09/16/25 09/23/25 Unknown cholecalciferol (vitamin D3) 25 25 mcg PO DAILY 09/16/25 09/23/25 Unknown mcg (1,000 unit) capsule (Vitamin D3) hydrocortisone 2.5 % topical cream 1 applic AR BID PRN Hemorrhoids 09/16/25 09/23/25 Unknown with perineal applicator hydromorphone 2 mg tablet 2 mg PO Q6H PRN Severe Pain (Scale 09/16/25 09/23/25 09/15/25 21:30 Score 7-10) 4 MG PER PT'S SON loratadine 10 mg tablet (Claritin) 10 mg PO DAILY 09/16/25 09/23/25 Unknown naloxegol 25 mg tablet (Movantik) 25 mg PO DAILY 09/16/25 09/23/25 Unknown polyethylene glycol 3350 17 17 g PO DAILY 09/16/25 09/23/25 09/15/25 13:00 gram/dose oral powder (Miralax) senna 1 cap PO DAILY 09/16/25 09/23/25 Unknown abjm-stiznyza-zqlwjwm-L.acidophilus-herbal no.279 545 mg capsule (Narcosoft) Zofran 8 mg PO Q8H PRN Nausea And Vomiting 09/23/25 09/23/25 Unknown famotidine 40 mg PO HS 09/23/25 09/23/25 Unknown fentanyl 12 mcg/hr transdermal 1 patch transdermal Q72H 09/23/25 09/23/25 Unknown patch pantoprazole 40 mg PO DAILY 09/23/25 09/23/25 Unknown Active Medications Generic Name Dose Route Start Last Admin Trade Name Freq PRN Reason Stop Dose Admin Allopurinol 300 mg 09/24/25 09:00 09/25/25 08:44 Allopurinol 300 Mg Tab PO 10/24/25 08:59 300 mg QAM LIVE Administration Bisacodyl 10 mg 09/23/25 11:53 09/25/25 00:14 Bisacodyl 10 Mg Supp AR 10/23/25 11:52 10 mg BID PRN Administration Constipation Carvedilol 12.5 mg 09/23/25 21:00 09/25/25 08:46 Carvedilol 12.5 Mg Tab PO 10/23/25 20:59 Not Given BID LIVE Clopidogrel Bisulfate 75 mg 09/24/25 09:00 09/25/25 08:44 Clopidogrel Bisulfate 75 Mg Tab PO 10/24/25 08:59 75 mg QAM LIVE Administration Enoxaparin Sodium 40 mg 09/24/25 09:00 09/25/25 08:45 Enoxaparin Inj 40 Mg/0.4 Ml Syr SQ 10/24/25 08:59 40 mg QAM LIVE Administration Famotidine 40 mg 09/23/25 21:00 09/24/25 20:03 Famotidine 20 Mg Tab PO 10/23/25 20:59 40 mg HS LIVE Administration Fentanyl 1 patch 09/24/25 12:15 09/24/25 12:43 Fentanyl 25 Mcg/Hr Tdsy TD 10/08/25 12:14 1 patch Q3D LIVE Administration Hydralazine HCl 10 mg 09/23/25 12:48 09/25/25 11:33 Hydralazine Hcl 20 Mg/Ml Vial IV 10/23/25 12:47 10 mg Q6H PRN Administration Hypertension SBp>180 Hydromorphone HCl 2 mg 09/24/25 12:00 09/25/25 10:08 Hydromorphone Hcl 2 Mg Tab PO 10/08/25 11:59 2 mg Q6H PRN Administration Severe Pain (Scale 7, 8, 9,10) Hydromorphone HCl 2 mg 09/25/25 08:35 09/25/25 11:23 Hydromorphone Inj 2 Mg/Ml Syr/Vial IV 10/08/25 12:06 2 mg Q3H PRN Administration Breakthrough Pain Piperacillin Sod/Tazobactam Sod 4.5 gm in 100 mls @ 25 mls/hr 09/23/25 16:00 09/25/25 08:46 Zosyn IV 10/03/25 15:59 25 mls/hr Q8H LIVE Administration Protocol Acetaminophen 1,000 mg in 100 mls @ 400 mls/hr 09/23/25 11:53 09/25/25 00:29 Ofirmev IV 09/26/25 11:52 Infused Q8H PRN Infusion Pain or Fever Pantoprazole Sodium 40 mg in 10 mls @ 5 mls/min 09/23/25 12:00 09/25/25 08:46 Protonix IV 10/23/25 11:59 5 mls/min DAILY LIVE Administration Insulin Aspart 0 units 09/23/25 16:30 09/25/25 08:39 Insulin Aspart Per Unit Charge SC 10/23/25 16:29 Not Given ACHS LIVE Loratadine 10 mg 09/24/25 09:00 09/25/25 08:44 Loratadine 10 Mg Tab PO 10/24/25 08:59 10 mg DAILY LIVE Administration Losartan Potassium 100 mg 09/23/25 13:00 09/25/25 08:44 Losartan Potassium 50 Mg Tab PO 10/23/25 12:59 100 mg QAM LIVE Administration Miscellaneous 1 each 09/23/25 16:00 09/25/25 08:47 Check Fentanyl Patch Placement N/A 10/23/25 15:59 1 each QS LIVE Administration Miscellaneous 1 each 09/24/25 06:00 09/24/25 05:32 Fentanyl Patch Remove & Waste N/A 10/24/25 05:59 1 each Q3D LIVE Administration Miscellaneous 1 each 09/24/25 12:15 09/24/25 12:44 Fentanyl Patch Remove & Waste N/A 10/24/25 12:14 1 each Q3D LIVE Administration Miscellaneous 1 each 09/24/25 16:00 09/25/25 08:50 Check Fentanyl Patch Placement N/A 10/24/25 15:59 1 each QS LIVE Administration Ondansetron HCl 4 mg 09/23/25 11:53 09/24/25 23:55 Ondansetron Inj 2 Mg/Ml 2 Ml Vial IV 10/23/25 11:52 4 mg Q4H PRN Administration Nausea Polyethylene Glycol 17 gm 09/23/25 11:53 09/24/25 20:03 Polyethylene (Miralax) 17 Gm Pack PO 10/23/25 11:52 17 gm DAILY PRN Administration Constipation Senna/Docusate Sodium 1 tab 09/25/25 09:00 09/25/25 10:08 Docusate Sodium/Senna 50/8.6mg Tab PO 10/25/25 08:59 1 tab QAM LIVE Administration
[2025-09-25] MEDS: dexAMETHasone 10 MG in SYRINGE 0 ML IV STA (13:15)
--- NOTE | 2025-09-25 13:18 | XRay Report ---
KUB HISTORY: abdominal pain COMPARISON STUDY: 09/15/[address] of 09/23/2025 FINDINGS: Stable gallstone at the right upper quadrant. There is mild to moderate retained stool. No bowel obstruction seen. No gross free air. IMPRESSION: No acute findings. ACT 112: Negative or not required by law. The above report was generated using voice recognition software. It may contain grammatical, syntax o r spelling errors. Electronically signed by: Jake He M.D. 09/25/2025 1:16 PM
[2025-09-25] MEDS: METHYLNALTREXONE BROMIDE 12 MG/0.6 ML VIAL SQ SCH (14:42)
[2025-09-26] MEDS ORDERED: dexAMETHasone**PF** 10 MG/ML VIAL IV ONE (09:30)
[2025-09-26] MEDS: dexAMETHasone 4 MG in SYRINGE 0 ML IV ONE (11:34)
[2025-09-26 12:46] LABS: Alanine Aminotransferase 13.0 U/L (7-52); Albumin Globulin Ratio 0.8 (0.9-2); Albumin Level 3.2 gm/dl (3.4-5.0); Alkaline Phosphatase 76.0 U/L (34-104); Anion Gap 10.0 (3-11); Bilirubin,Total 0.4 mg/dl (0.2-1.0); Blood Urea Nitrogen 13.0 mg/dl (6-23); Calcium 9.5 mg/dl (8.6-10.3); Carbon Dioxide 25.0 mmol/L (21-32); Chloride 99.0 mmol/L (98-107); Creatinine Clr Calc Pharmacy 80.9 ml/min; Globulin 3.9 gm/dl (2.5-4.0); Glucose 192.0 mg/dl (70-99(Fasting)); Magnesium 1.8 mg/dl (1.7-2.4); Potassium 4.2 mmol/L (3.5-5.1); Sodium 134.0 mmol/L (136-145); Total Protein 7.1 gm/dl (6.0-8.3)
--- NOTE | 2025-09-26 17:18 | Hospitalist Progress Note ---
Date of Service September 26, 2025 Assessment & Plan (1) Acute cholecystitis: (2) Intractable abdominal pain: (3) Nausea & vomiting: (4) Pancreatic adenocarcinoma: Plan Ms. Laureano is a 70-year-old female with history of CVA with residual right hemiparesis, hypertension, diabetes mellitus, left carotid stenosis, pancreatic adenocarcinoma, mood disorder, monoclonal paraproteinemia and other medical problems admitted for worsening abdominal pain associated with nausea and vomiting. Patient recently diagnosed with pancreatic adenocarcinoma. Imaging from 07/2025 till now notes that there has been increase in lesion size from 24.5-22.8mm to 43-37.5 mm Symptoms are similar to what initially led to diagnosis. Patient evaluated for concern of possible cholecystitis given distention noted, but the pain is likely 2/2 pancreatic mass per gen surg. Also patient is not a surgical candidate iso pancreatic mass. Son and patient are pursuing hospice at this time. Son picked [facility] hospice. Palliative had further GOC and patient transitioned to DNR, as well as downgraded to med/surg at this time. Once pain regimen optimized po, will plan for discharge with home on hospice likely . #Intractable nausea, vomiting #Pancreatic adnenocarcinoma likely 2.2 progression on mass rather than cholecystitis per gen surgery --CT ABD:There are no apparent signs of small bowel obstruction. There is an increased size of the pancreatic head mass, now measuring 43 × 37.5 mm (previously 24.5 × 22.8 mm), and it is now seen adherent to the superior mesenteric artery. The mass is surrounded by faint fat edema and a few small local lymph nodes (stable). Cholelithiasis with newly developed gallbladder distension and mild pericholecystic edema could be acute inflammation. Ultrasound and clinical correlation are needed. --Gall bladder USD:Cholelithiasis with suspected acute cholecystitis. Fatty infiltration of the liver. Mild bile duct dilatation . 4.8 cm pancreatic head mass, consistent with the known pancreatic carcinoma --Blood cultures NGTD --Normal lactate labs --Normal lipase --LFTs within normal limits advance diet as tolerated will downgrade to po regimen prior to d/c Port placed 09/22, planning for treatment with Dr. Webb on Thursday -Dr. Webb reports poor prognosis, agrees with Hospice Continue fentanyl patch, increased by palliative Continue home po hydromorphone improvement noted with IV decadron, started on 4mg bid palliative consulted, discussion had with palliative about hospice discharge planning -down graded to medsurg at this time and transitioned to DNR/DNI #OIC trial relistor as months on large doses of pain regimen continue senakot #Anemia of chronic disease Denies any bleeding issues #Generalized weakness Deconditioning encourage activity as tolerated #CVA with residual right hemiparesis Left carotid artery stenosis Currently on Plavix Not on statin #Hypertension Continue losartan, carvedilol Monitor blood pressure #GERD Continue PPI, famotidine #DM Type II: Continue insulin while hospitalized Monitor blood glucose levels DVT Px: Lovenox SQ CODE STATUS Full code as of now Disposition medsurg Admission and Anticipated Discharge Date Admission Date: September 23, 2025 Subjective patient with more back pain in morning and feels she doesn't get her meds in time overnight patient feels most relief with steroids at this time working to increase intake as able, but still worried about pain and discomfort working to solidify hospice plans with son and patient Physical Exam Constitutional: uncomfortable, mild distress, eased after steroid Respiratory: normal respiratory effort, lungs clear to auscultation Cardiovascular: RRR, no murmur, no edema Gastrointestinal (Abdomen): epigastric tenderness remains Results & Data Results & Data Vital Signs (Past 12 Hours) Vital Signs Temp Pulse Pulse Resp BP BP Pulse Ox 09/26/25 16:25 83 09/26/25 15:04 36.6 C 82 20 180/112 H 98 09/26/25 11:33 84 09/26/25 11:00 36.4 C L 94 H 20 161/93 H 96 09/26/25 08:23 194/96 H 09/26/25 07:35 212/124 H 09/26/25 07:16 36.4 C L 86 20 196/123 H 96 O2 Del Method 09/26/25 16:25 09/26/25 15:04 Room Air 09/26/25 11:33 09/26/25 11:00 Room Air 09/26/25 08:23 09/26/25 07:35 09/26/25 07:16 Room Air Laboratory Results [facility] 09/26/25 12:03 Sodium 134 L Potassium 4.2 Chloride 99 Carbon Dioxide 25 BUN 13 Creatinine 0.67 Glucose 192 H Calcium 9.5 Liver Function 10/28/25 Range/Units 12:03 Total Bilirubin 0.4 (0.2-1.0) mg/dl AST 20 (13-39) U/L ALT 13 (7-52) U/L Alkaline Phosphatase 76 (34-104) U/L Albumin 3.2 L (3.4-5.0) gm/dl Medications Administered Home Medications Medication Instructions Recorded Confirmed Last Taken allopurinol 300 mg tablet 300 mg PO QAM 01/03/21 09/23/25 09/15/25 19:00 clopidogrel 75 mg tablet 75 mg PO QAM 04/24/24 09/23/25 05/23/24 glimepiride 2 mg tablet 2 mg PO QAM 04/24/24 09/23/25 09/15/25 19:00 losartan 100 mg tablet 100 mg PO QAM 04/24/24 09/23/25 09/15/25 19:00 metformin 500 mg tablet,extended 500 mg PO [facility] 04/24/24 09/23/25 09/15/25 19:00 release 24 hr omega-3 fatty acids-fish oil 360 1 cap PO QAM 05/17/24 09/23/25 05/23/24 mg-1,200 mg capsule (Fish Oil) vitamin B complex 1 tab PO QAM 05/17/24 09/23/25 05/23/24 acetaminophen 500 mg tablet 1,000 mg PO Q6H PRN Pain 05/31/24 09/23/25 09/15/25 21:00 (Tylenol Extra Strength) ascorbic acid (vitamin C) 500 mg 500 mg PO DAILY 09/16/25 09/23/25 Unknown tablet (Vitamin C) bisacodyl 10 mg rectal suppository 10 mg AR BID PRN Constipation 09/16/25 09/23/25 09/15/25 11:00 carvedilol 12.5 mg tablet 12.5 mg PO BID 09/16/25 09/23/25 Unknown cholecalciferol (vitamin D3) 25 25 mcg PO DAILY 09/16/25 09/23/25 Unknown mcg (1,000 unit) capsule (Vitamin D3) hydrocortisone 2.5 % topical cream 1 applic AR BID PRN Hemorrhoids 09/16/25 09/23/25 Unknown with perineal applicator hydromorphone 2 mg tablet 2 mg PO Q6H PRN Severe Pain (Scale 09/16/25 09/23/25 09/15/25 21:30 Score 7-10) 4 MG PER PT'S SON loratadine 10 mg tablet (Claritin) 10 mg PO DAILY 09/16/25 09/23/25 Unknown naloxegol 25 mg tablet (Movantik) 25 mg PO DAILY 09/16/25 09/23/25 Unknown polyethylene glycol 3350 17 17 g PO DAILY 09/16/25 09/23/25 09/15/25 13:00 gram/dose oral powder (Miralax) senna 1 cap PO DAILY 09/16/25 09/23/25 Unknown hycs-tivflnxz-kwrahhv-L.acidophilus-herbal no.279 545 mg capsule (Narcosoft) Zofran 8 mg PO Q8H PRN Nausea And Vomiting 09/23/25 09/23/25 Unknown famotidine 40 mg PO HS 09/23/25 09/23/25 Unknown fentanyl 12 mcg/hr transdermal 1 patch transdermal Q72H 09/23/25 09/23/25 Unknown patch pantoprazole 40 mg PO DAILY 09/23/25 09/23/25 Unknown Active Medications Generic Name Dose Route Start Last Admin Trade Name Freq PRN Reason Stop Dose Admin Allopurinol 300 mg 09/24/25 09:00 09/26/25 07:47 Allopurinol 300 Mg Tab PO 10/24/25 08:59 300 mg QAM LIVE Administration Bisacodyl 10 mg 09/23/25 11:53 09/25/25 00:14 Bisacodyl 10 Mg Supp AR 10/23/25 11:52 10 mg BID PRN Administration Constipation Carvedilol 12.5 mg 09/23/25 21:00 09/25/25 21:40 Carvedilol 12.5 Mg Tab PO 10/23/25 20:59 12.5 mg BID LIVE Administration Clopidogrel Bisulfate 75 mg 09/24/25 09:00 09/26/25 07:47 Clopidogrel Bisulfate 75 Mg Tab PO 10/24/25 08:59 75 mg QAM LIVE Administration Enoxaparin Sodium 40 mg 09/24/25 09:00 09/26/25 07:47 Enoxaparin Inj 40 Mg/0.4 Ml Syr SQ 10/24/25 08:59 40 mg QAM LIVE Administration Famotidine 40 mg 09/23/25 21:00 09/25/25 21:40 Famotidine 20 Mg Tab PO 10/23/25 20:59 40 mg HS LIVE Administration Fentanyl 1 patch 09/24/25 12:15 09/24/25 12:43 Fentanyl 25 Mcg/Hr Tdsy TD 10/08/25 12:14 1 patch Q3D LIVE Administration Fentanyl 1 patch 09/26/25 15:30 09/26/25 16:11 Fentanyl 12 Mcg/Hr Tdsy TD 10/10/25 15:29 1 patch Q3D LIVE Administration Hydralazine HCl 10 mg 09/23/25 12:48 09/26/25 07:48 Hydralazine Hcl 20 Mg/Ml Vial IV 10/23/25 12:47 10 mg Q6H PRN Administration Hypertension SBp>180 Piperacillin Sod/Tazobactam Sod 4.5 gm in 100 mls @ 25 mls/hr 09/23/25 16:00 09/26/25 13:48 Zosyn IV 10/03/25 15:59 Infused Q8H LIVE Infusion Protocol Pantoprazole Sodium 40 mg in 10 mls @ 5 mls/min 09/23/25 12:00 09/26/25 07:47 Protonix IV 10/23/25 11:59 5 mls/min DAILY LIVE Administration Insulin Aspart 0 units 09/23/25 16:30 09/26/25 13:56 Insulin Aspart Per Unit Charge SC 10/23/25 16:29 1 units ACHS LIVE Administration Loratadine 10 mg 09/24/25 09:00 09/26/25 11:39 Loratadine 10 Mg Tab PO 10/24/25 08:59 10 mg DAILY LIVE Administration Losartan Potassium 100 mg 09/23/25 13:00 09/26/25 07:47 Losartan Potassium 50 Mg Tab PO 10/23/25 12:59 100 mg QAM LIVE Administration Methylnaltrexone [place] 12 mg 09/25/25 13:30 09/25/25 14:42 Methylnaltrexone [place] 12 Mg/0.6 Ml Vial SQ 10/25/25 13:29 12 mg Q2D LIVE Administration Miscellaneous 1 each 09/24/25 12:15 09/24/25 12:44 Fentanyl Patch Remove & Waste N/A 10/24/25 12:14 1 each Q3D LIVE Administration Miscellaneous 1 each 09/24/25 16:00 09/26/25 16:14 Check Fentanyl Patch Placement N/A 10/24/25 15:59 1 each QS LIVE Administration Miscellaneous 1 each 09/26/25 15:30 09/26/25 16:14 Fentanyl Patch Remove & Waste N/A 10/26/25 15:29 Not Given Q3D LIVE Ondansetron HCl 4 mg 09/23/25 11:53 09/24/25 23:55 Ondansetron Inj 2 Mg/Ml 2 Ml Vial IV 10/23/25 11:52 4 mg Q4H PRN Administration Nausea Polyethylene Glycol 17 gm 09/23/25 11:53 09/24/25 20:03 Polyethylene (Miralax) 17 Gm Pack PO 10/23/25 11:52 17 gm DAILY PRN Administration Constipation Senna/Docusate Sodium 1 tab 09/25/25 09:00 09/26/25 11:39 Docusate Sodium/Senna 50/8.6mg Tab PO 10/25/25 08:59 1 tab QAM LIVE Administration
[2025-09-26] MEDS: HYDROmorphone INJ 2 MG/ML SYR/VIAL IV PRN (23:19)
[2025-09-27 08:37] LABS: Hematocrit (blood only) 34.7 % (37.0-47.0); Hemoglobin 11.7 g/dl (12.0-16.0); Mean Corpuscular Hemoglobin 32.1 pg (25.0-34.0); Mean Corpuscular Volume 95.3 fL (80.0-100.0); Platelet Count 290 K/uL (130-400); RDW Standard Deviation 46.1 fL (36.4-46.3); Red Blood Count 3.64 M/uL (4.20-5.40); White Blood Count 10.22 K/ul (4.8-10.8)
[2025-09-27 09:10] LABS: Anion Gap 11.0 (3-11); Blood Urea Nitrogen 16.0 mg/dl (6-23); Calcium 9.8 mg/dl (8.6-10.3); Carbon Dioxide 25.0 mmol/L (21-32); Chloride 98.0 mmol/L (98-107); Creatinine Clr Calc Pharmacy 70.4 ml/min; Glucose 162.0 mg/dl (70-99(Fasting)); Magnesium 1.9 mg/dl (1.7-2.4); Potassium 4.4 mmol/L (3.5-5.1); Sodium 134.0 mmol/L (136-145)
[2025-09-27] MEDS: AMOXICILLIN/CLAVULANATE 875 MG TAB PO SCH (10:00)
--- NOTE | 2025-09-27 14:26 | Hospitalist Progress Note ---
Date of Service September 27, 2025 Assessment & Plan (1) Acute cholecystitis: (2) Intractable abdominal pain: (3) Nausea & vomiting: (4) Pancreatic adenocarcinoma: Plan Ms. Laureano is a 70-year-old female with history of CVA with residual right hemiparesis, hypertension, diabetes mellitus, left carotid stenosis, pancreatic adenocarcinoma, mood disorder, monoclonal paraproteinemia and other medical problems admitted for worsening abdominal pain associated with nausea and vomiting. Patient recently diagnosed with pancreatic adenocarcinoma. Imaging from 07/2025 till now notes that there has been increase in lesion size from 24.5-22.8mm to 43-37.5 mm Symptoms are similar to what initially led to diagnosis. Patient evaluated for concern of possible cholecystitis given distention noted, but the pain is likely 2/2 pancreatic mass per gen surg. Also patient is not a surgical candidate iso pancreatic mass. Son and patient are pursuing hospice at this time. Son picked UP hospice. Palliative had further GOC and patient transitioned to DNR, as well as downgraded to med/surg at this time. Pain is better controlled at this time. Plan for possible discharge Thursday to hospice. #Intractable nausea, vomiting #Pancreatic adenocarcinoma likely 2.2 progression on mass rather than cholecystitis per gen surgery --CT ABD:There are no apparent signs of small bowel obstruction. There is an increased size of the pancreatic head mass, now measuring 43 × 37.5 mm (pr eviously 24.5 × 22.8 mm), and it is now seen adherent to the superior mesenteric artery. The mass is surrounded by faint fat edema and a few small local lymph nodes (stable). Cholelithiasis with newly developed gallbladder distension and mild pericholecystic edema could be acute inflammation. Ultrasound and clinical correlation are needed. --Gall bladder USD:Cholelithiasis with suspected acute cholecystitis. Fatty infiltration of the liver. Mild bile duct dilatation . 4.8 cm pancreatic head mass, consistent with the known pancreatic carcinoma --Blood cultures NGTD --Normal lactate labs --Normal lipase --LFTs within normal limits advance diet as tolerated will downgrade to po regimen prior to d/c Port placed 09/22, planning for treatment with Dr. Webb on Thursday -Dr. Webb reports poor prognosis, agrees with Hospice Continue fentanyl patch, increased by palliative Continue home po hydromorphone improvement noted with IV decadron, continue on 4mg bid palliative consulted, discussion had with palliative about hospice discharge planning -down graded to [facility] at this time and transitioned to DNR/DNI Plan for dc likely Thursday #OIC trial relistor as months on large doses of pain regimen continue senakot #Anemia of chronic disease Denies any bleeding issues #Generalized weakness Deconditioning encourage activity as tolerated #CVA with residual right hemiparesis Left carotid artery stenosis Currently on Plavix Not on statin #Hypertension Continue losartan, carvedilol Monitor blood pressure #GERD Continue PPI, famotidine #DM Type II: Continue insulin while hospitalized Monitor blood glucose levels DVT Px: Lovenox SQ CODE STATUS Full code as of now Disposition [facility] Admission and Anticipated Discharge Date Admission Date: September 23, 2025 Subjective NAEO reports feeling much better overall states that her pain is more controlled denies any new needs at this time Physical Exam Constitutional: WD/WN, vitals as above Respiratory: normal respiratory effort, lungs clear to auscultation Cardiovascular: RRR, no murmur, no edema Gastrointestinal (Abdomen): normal bowel sounds, soft, nontender, no hepatosplenomegaly Results & Data Results & Data Vital Signs (Past 12 Hours) Vital Signs Temp Pulse Resp BP BP Pulse Ox O2 Del Method 09/27/25 13:01 119/78 09/27/25 08:00 Room Air 09/27/25 07:45 36.4 C L 85 20 136/90 95 Room Air 09/27/25 05:50 193/118 H Laboratory Results Short CBC 09/27/25 Range/Units 08:11 WBC 10.22 (4.8-10.8) K/ul Hgb 11.7 L (12.0-16.0) g/dl Hct 34.7 L (37.0-47.0) % Plt Count 290 (130-400) K/uL BMP 09/27/25 08:11 Sodium 134 L Potassium 4.4 Chloride 98 Carbon Dioxide 25 BUN 16 Creatinine 0.77 Glucose 162 H Calcium 9.8 Medications Administered Home Medications Medication Instructions Recorded Confirmed Last Taken allopurinol 300 mg tablet 300 mg PO QAM 01/03/21 09/23/25 09/15/25 19:00 clopidogrel 75 mg tablet 75 mg PO QAM 04/24/24 09/23/25 05/23/24 glimepiride 2 mg tablet 2 mg PO QAM 04/24/24 09/23/25 09/15/25 19:00 losartan 100 mg tablet 100 mg PO QAM 04/24/24 09/23/25 09/15/25 19:00 metformin 500 mg tablet,extended 500 mg PO QAM 04/24/24 09/23/25 09/15/25 19:00 release 24 hr omega-3 fatty acids-fish oil 360 1 cap PO QAM 05/17/24 09/23/25 05/23/24 mg-1,200 mg capsule (Fish Oil) vitamin B complex 1 tab PO QAM 05/17/24 09/23/25 05/23/24 acetaminophen 500 mg tablet 1,000 mg PO Q6H PRN Pain 05/31/24 09/23/25 09/15/25 21:00 (Tylenol Extra Strength) ascorbic acid (vitamin C) 500 mg 500 mg PO DAILY 09/16/25 09/23/25 Unknown tablet (Vitamin C) bisacodyl 10 mg rectal suppository 10 mg [place] BID PRN Constipation 09/16/25 09/23/25 09/15/25 11:00 carvedilol 12.5 mg tablet 12.5 mg PO BID 09/16/25 09/23/25 Unknown cholecalciferol (vitamin D3) 25 25 mcg PO DAILY 09/16/25 09/23/25 Unknown mcg (1,000 unit) capsule (Vitamin D3) hydrocortisone 2.5 % topical cream 1 applic [place] BID PRN Hemorrhoids 09/16/25 09/23/25 Unknown with perineal applicator hydromorphone 2 mg tablet 2 mg PO Q6H PRN Severe Pain (Scale 09/16/25 09/23/25 09/15/25 21:30 Score 7-10) 4 MG PER PT'S SON loratadine 10 mg tablet (Claritin) 10 mg PO DAILY 09/16/25 09/23/25 Unknown naloxegol 25 mg tablet (Movantik) 25 mg PO DAILY 09/16/25 09/23/25 Unknown polyethylene glycol 3350 17 17 g PO DAILY 09/16/25 09/23/25 09/15/25 13:00 gram/dose oral powder (Miralax) senna 1 cap PO DAILY 09/16/25 09/23/25 Unknown ciuk-gbaesqbc-teczuft-L.acidophilus-herbal no.279 545 mg capsule (Narcosoft) Zofran 8 mg PO Q8H PRN Nausea And Vomiting 09/23/25 09/23/25 Unknown famotidine 40 mg PO HS 09/23/25 09/23/25 Unknown fentanyl 12 mcg/hr transdermal 1 patch transdermal Q72H 09/23/25 09/23/25 Unknown patch pantoprazole 40 mg PO DAILY 09/23/25 09/23/25 Unknown Active Medications Generic Name Dose Route Start Last Admin Trade Name Freq PRN Reason Stop Dose Admin Allopurinol 300 mg 09/24/25 09:00 09/27/25 10:01 Allopurinol 300 Mg Tab PO 10/24/25 08:59 300 mg QAM LIVE Administration Amoxicillin/Clavulanate Potassium 1 tab 09/27/25 08:00 09/27/25 10:00 Amoxicillin/Clavulanate 875 Mg Tab PO 10/01/25 07:59 1 tab BIDM LIVE Administration Protocol Bisacodyl 10 mg 09/23/25 11:53 09/25/25 00:14 Bisacodyl 10 Mg Supp [place] 10/23/25 11:52 10 mg BID PRN Administration Constipation Carvedilol 25 mg 09/27/25 09:00 09/27/25 10:01 Carvedilol 25 Mg Tab PO 10/27/25 08:59 25 mg BID LIVE Administration Clopidogrel Bisulfate 75 mg 09/24/25 09:00 09/27/25 10:01 Clopidogrel Bisulfate 75 Mg Tab PO 10/24/25 08:59 75 mg QAM LIVE Administration Dexamethasone 4 mg 09/26/25 21:00 09/27/25 10:02 Dexamethasone 4 Mg Tab PO 10/26/25 20:59 4 mg BID LIVE Administration Enoxaparin Sodium 40 mg 09/24/25 09:00 09/27/25 10:02 Enoxaparin Inj 40 Mg/0.4 Ml Syr SQ 10/24/25 08:59 40 mg QAM LIVE Administration Famotidine 40 mg 09/23/25 21:00 09/26/25 20:19 Famotidine 20 Mg Tab PO 10/23/25 20:59 40 mg HS LIVE Administration Fentanyl 1 patch 09/24/25 12:15 09/27/25 13:56 Fentanyl 25 Mcg/Hr Tdsy TD 10/08/25 12:14 1 patch Q3D LIVE Administration Fentanyl 1 patch 09/26/25 15:30 09/26/25 16:11 Fentanyl 12 Mcg/Hr Tdsy TD 10/10/25 15:29 1 patch Q3D LIVE Administration Hydralazine HCl 10 mg 09/23/25 12:48 09/27/25 05:54 Hydralazine Hcl 20 Mg/Ml Vial IV 10/23/25 12:47 10 mg Q6H PRN Administration Hypertension SBp>180 Hydralazine HCl 25 mg 09/27/25 09:00 09/27/25 14:05 Hydralazine Hcl 25 Mg Tab PO 10/27/25 08:59 25 mg TID LIVE Administration Hydromorphone HCl 3 mg 09/26/25 15:27 09/26/25 23:19 Hydromorphone Inj 2 Mg/Ml Syr/Vial IV 10/08/25 12:06 3 mg Q3H PRN Administration Breakthrough Pain Hydromorphone HCl 6 mg 09/26/25 15:28 09/27/25 05:47 Hydromorphone Hcl 2 Mg Tab PO 10/08/25 11:59 6 mg Q4H PRN Administration Breakthrough Pain Insulin Aspart 0 units 09/23/25 16:30 09/27/25 13:44 Insulin Aspart Per Unit Charge SC 10/23/25 16:29 2 units ACHS LIVE Administration Loratadine 10 mg 09/24/25 09:00 09/27/25 10:03 Loratadine 10 Mg Tab PO 10/24/25 08:59 10 mg DAILY LIVE Administration Losartan Potassium 100 mg 09/23/25 13:00 09/27/25 10:03 Losartan Potassium 50 Mg Tab PO 10/23/25 12:59 100 mg QAM LIVE Administration Methylnaltrexone [place] 12 mg 09/25/25 13:30 09/27/25 14:03 Methylnaltrexone [place] 12 Mg/0.6 Ml Vial SQ 10/25/25 13:29 12 mg Q2D LIVE Administration Miscellaneous 1 each 09/24/25 12:15 09/27/25 13:51 Fentanyl Patch Remove & Waste N/A 10/24/25 12:14 1 each Q3D LIVE Administration Miscellaneous 1 each 09/24/25 16:00 09/27/25 13:43 Check Fentanyl Patch Placement N/A 10/24/25 15:59 1 each QS LIVE Administration Miscellaneous 1 each 09/26/25 15:30 09/26/25 16:14 Fentanyl Patch Remove & Waste N/A 10/26/25 15:29 Not Given Q3D LIVE Miscellaneous 1 each 09/26/25 16:00 09/27/25 09:59 Check Fentanyl Patch Placement N/A 10/26/25 15:59 1 each QS LIVE Administration Ondansetron HCl 4 mg 09/23/25 11:53 09/24/25 23:55 Ondansetron Inj 2 Mg/Ml 2 Ml Vial IV 10/23/25 11:52 4 mg Q4H PRN Administration Nausea Pantoprazole Sodium 40 mg 09/27/25 09:00 09/27/25 10:03 Pantoprazole 40 Mg Tab PO 10/27/25 08:59 40 mg QAM LIVE Administration Polyethylene Glycol 17 gm 09/23/25 11:53 09/24/25 20:03 Polyethylene (Miralax) 17 Gm Pack PO 10/23/25 11:52 17 gm DAILY PRN Administration Constipation Senna/Docusate Sodium 1 tab 09/25/25 09:00 09/27/25 10:09 Docusate Sodium/Senna 50/8.6mg Tab PO 10/25/25 08:59 1 tab QAM LIVE Administration
[2025-09-27] MEDS: HEPARIN 100 UNIT/ML 5ML FLUSH FLUSH PRN (16:12)
--- NOTE | 2025-09-27 17:33 | Palliative Care Progress Note ---
Date of Service September 27, 2025 Assessment & Plan (1) Cancer related pain: (2) Palliative care by specialist: (3) Therapeutic opioid-induced constipation (OIC): Plan Continue TDF 37.5mcg q72h Continue Decadron 4mg BID Use Dilaudid 6mg PO q4h prn BTP and may use Dilaudid IV for BTP unrelieved by oral meds Hospice dc planned for Thursday per family Thank you for allowing us to participate in the ongoing care of this patient. Please page with any additional concerns. Livan Cabral DNP Director, Palliative Medicine Admission and Anticipated Discharge Date Admission Date: September 23, 2025 Subjective Azalia reports signif improvement in her pain now reporting pain level 0-2. Her son Shiv is visiting Moving around better, appetite better, Shiv shares she ate >50% of meals today Denies n/v/d Feels "amazing" after shower and hair wash yesterday Review of Systems Review of Systems: All systems reviewed & are unremarkable except as noted in Subjective Physical Exam Constitutional: well nourished, + physical limitations, cooperative and comfortable Eyes: PERRL, conjunctivae normal, anicteric sclerae Neck: trachea midline, no thyromegaly Respiratory: normal respiratory effort, able to speak in complete sentences and symmetric chest movement Skin: no rashes, warm and dry Psychiatric: Orientation: alert and oriented x 3 Affect: euthymic affect Insight: excellent insight Judgment: excellent judgement Results & Data Vital Signs (Past 12 Hours) Vital Signs Temp Pulse Resp BP BP Pulse Ox O2 Del Method 09/27/25 15:04 36.7 C 78 20 102/71 96 Room Air 09/27/25 13:01 119/78 09/27/25 08:00 Room Air 09/27/25 07:45 36.4 C L 85 20 136/90 95 Room Air 09/27/25 05:50 193/118 H PG Care Time/CCT Total # of Minutes Spent Total Time Spent: 55 Total Time Spent with Patient: Total time spent is greater than 50% in coordination of care (as documented) at patient's floor/unit and/or counseling patient: Coding [place] [address] SUB INP/OBS CARE 3/50MIN Patient Type Established History Comprehensive Exam Comprehensive Medical Decision Making High Complexity Diagnoses Cancer related pain G89.3 Palliative care by specialist Z51.5 Therapeutic opioid-induced constipation (OIC) K59.03; T40.2X5A Comment [id number]
[2025-09-28] MEDS: KETOROLAC TROMETHAMINE 15 MG/ML VIAL IV ONE (06:07)
[2025-09-28] MEDS: hydrALAZINE 10 MG TAB PO SCH (09:10)
[2025-09-28] MEDS: NALOXEGOL OXALATE 25 MG TAB PO SCH (09:10)
--- NOTE | 2025-09-28 11:37 | Hospitalist Progress Note ---
Date of Service September 28, 2025 Assessment & Plan (1) Acute cholecystitis: (2) Intractable abdominal pain: (3) Nausea & vomiting: (4) Pancreatic adenocarcinoma: Plan Ms. Laureano is a 70-year-old female with history of CVA with residual right hemiparesis, hypertension, diabetes mellitus, left carotid stenosis, pancreatic adenocarcinoma, mood disorder, monoclonal paraproteinemia and other medical problems admitted for worsening abdominal pain associated with nausea and vomiting. Patient recently diagnosed with pancreatic adenocarcinoma. Imaging from 07/2025 till now notes that there has been increase in lesion size from 24.5-22.8mm to 43-37.5 mm Symptoms are similar to what initially led to diagnosis. Patient evaluated for concern of possible cholecystitis given distention noted, but the pain is likely 2/2 pancreatic mass per gen surg. Also patient is not a surgical candidate iso pancreatic mass. Son and patient are pursuing hospice at this time. Son picked UP hospice. Palliative had further GOC and patient transitioned to DNR, as well as downgraded to med/surg at this time. Pain is better controlled at this time. Plan for possible discharge Thursday to hospice. #Intractable nausea, vomiting #Pancreatic adenocarcinoma likely 2.2 progression on mass rather than cholecystitis per gen surgery --CT ABD:There are no apparent signs of small bowel obstruction. There is an increased size of the pancreatic head mass, now measuring 43 × 37.5 mm (pr eviously 24.5 × 22.8 mm), and it is now seen adherent to the superior mesenteric artery. The mass is surrounded by faint fat edema and a few small local lymph nodes (stable). Cholelithiasis with newly developed gallbladder distension and mild pericholecystic edema could be acute inflammation. Ultrasound and clinical correlation are needed. --Gall bladder USD:Cholelithiasis with suspected acute cholecystitis. Fatty infiltration of the liver. Mild bile duct dilatation . 4.8 cm pancreatic head mass, consistent with the known pancreatic carcinoma --Blood cultures NGTD --Normal lactate labs --Normal lipase --LFTs within normal limits advance diet as tolerated will downgrade to po regimen prior to d/c Port placed 09/22, planning for treatment with Dr. Webb on Thursday -Dr. Webb reports poor prognosis, agrees with Hospice Reviewed the palliative recommendations: Continue TDF 37.5mcg q72h Continue Decadron 4mg BID Use Dilaudid 6mg PO q4h prn BTP and may use Dilaudid IV for BTP unrelieved by oral meds Hospice dc planned for Thursday per family palliative consulted, discussion had with palliative about hospice discharge planning -down graded to [facility] at this time and transitioned to DNR/DNI Plan for dc likely Thursday #OIC trial relistor as months on large doses of pain regimen continue senakot #Anemia of chronic disease Denies any bleeding issues #Generalized weakness Deconditioning encourage activity as tolerated #CVA with residual right hemiparesis Left carotid artery stenosis Currently on Plavix Not on statin #Hypertension Continue losartan, carvedilol Monitor blood pressure #GERD Continue PPI, famotidine #DM Type II: Continue insulin while hospitalized Monitor blood glucose levels DVT Px: Lovenox SQ CODE STATUS DNR.DNI Disposition [facility] Admission and Anticipated Discharge Date Admission Date: September 23, 2025 Subjective reports feeling confused overnight, but feels better this morning denies any uncontrolled symptoms at this time Physical Exam Constitutional: WD/WN, vitals as above Respiratory: normal respiratory effort, lungs clear to auscultation Cardiovascular: RRR, no murmur, no edema Gastrointestinal (Abdomen): normal bowel sounds, soft, nontender, no hepatosplenomegaly Results & Data Results & Data Vital Signs (Past 12 Hours) Vital Signs Temp Pulse Resp BP BP Pulse Ox O2 Del Method 09/28/25 11:28 36.5 C 73 18 160/95 H 94 Room Air 09/28/25 08:26 36.4 C L 72 18 174/93 H 96 Room Air Medications Administered Home Medications Medication Instructions Recorded Confirmed Last Taken allopurinol 300 mg tablet 300 mg PO QAM 01/03/21 09/23/25 09/15/25 19:00 clopidogrel 75 mg tablet 75 mg PO QAM 04/24/24 09/23/25 05/23/24 glimepiride 2 mg tablet 2 mg PO QAM 04/24/24 09/23/25 09/15/25 19:00 losartan 100 mg tablet 100 mg PO QAM 04/24/24 09/23/25 09/15/25 19:00 metformin 500 mg tablet,extended 500 mg PO QAM 04/24/24 09/23/25 09/15/25 19:00 release 24 hr omega-3 fatty acids-fish oil 360 1 cap PO QAM 05/17/24 09/23/25 05/23/24 mg-1,200 mg capsule (Fish Oil) vitamin B complex 1 tab PO QAM 05/17/24 09/23/25 05/23/24 acetaminophen 500 mg tablet 1,000 mg PO Q6H PRN Pain 05/31/24 09/23/25 09/15/25 21:00 (Tylenol Extra Strength) ascorbic acid (vitamin C) 500 mg 500 mg PO DAILY 09/16/25 09/23/25 Unknown tablet (Vitamin C) bisacodyl 10 mg rectal suppository 10 mg [place] BID PRN Constipation 09/16/25 09/23/25 09/15/25 11:00 carvedilol 12.5 mg tablet 12.5 mg PO BID 09/16/25 09/23/25 Unknown cholecalciferol (vitamin D3) 25 25 mcg PO DAILY 09/16/25 09/23/25 Unknown mcg (1,000 unit) capsule (Vitamin D3) hydrocortisone 2.5 % topical cream 1 applic [place] BID PRN Hemorrhoids 09/16/25 09/23/25 Unknown with perineal applicator hydromorphone 2 mg tablet 2 mg PO Q6H PRN Severe Pain (Scale 09/16/25 09/23/25 09/15/25 21:30 Score 7-10) 4 MG PER PT'S SON loratadine 10 mg tablet (Claritin) 10 mg PO DAILY 09/16/25 09/23/25 Unknown naloxegol 25 mg tablet (Movantik) 25 mg PO DAILY 09/16/25 09/23/25 Unknown polyethylene glycol 3350 17 17 g PO DAILY 09/16/25 09/23/25 09/15/25 13:00 gram/dose oral powder (Miralax) senna 1 cap PO DAILY 09/16/25 09/23/25 Unknown icxb-iblamlxf-npditlr-L.acidophilus-herbal no.279 545 mg capsule (Narcosoft) Zofran 8 mg PO Q8H PRN Nausea And Vomiting 09/23/25 09/23/25 Unknown famotidine 40 mg PO HS 09/23/25 09/23/25 Unknown fentanyl 12 mcg/hr transdermal 1 patch transdermal Q72H 09/23/25 09/23/25 Unknown patch pantoprazole 40 mg PO DAILY 09/23/25 09/23/25 Unknown Active Medications Generic Name Dose Route Start Last Admin Trade Name Freq PRN Reason Stop Dose Admin Allopurinol 300 mg 09/24/25 09:00 09/28/25 09:10 Allopurinol 300 Mg Tab PO 10/24/25 08:59 300 mg QAM LIVE Administration Amoxicillin/Clavulanate Potassium 1 tab 09/27/25 08:00 09/28/25 09:10 Amoxicillin/Clavulanate 875 Mg Tab PO 10/01/25 07:59 1 tab BIDM LIVE Administration Protocol Bisacodyl 10 mg 09/23/25 11:53 09/25/25 00:14 Bisacodyl 10 Mg Supp [place] 10/23/25 11:52 10 mg BID PRN Administration Constipation Carvedilol 25 mg 09/27/25 09:00 09/28/25 09:10 Carvedilol 25 Mg Tab PO 10/27/25 08:59 25 mg BID LIVE Administration Clopidogrel Bisulfate 75 mg 09/24/25 09:00 09/28/25 09:10 Clopidogrel Bisulfate 75 Mg Tab PO 10/24/25 08:59 75 mg QAM LIVE Administration Dexamethasone 4 mg 09/26/25 21:00 09/28/25 09:10 Dexamethasone 4 Mg Tab PO 10/26/25 20:59 4 mg BID LIVE Administration Enoxaparin Sodium 40 mg 09/24/25 09:00 09/28/25 09:11 Enoxaparin Inj 40 Mg/0.4 Ml Syr SQ 10/24/25 08:59 40 mg QAM LIVE Administration Famotidine 40 mg 09/23/25 21:00 09/27/25 21:08 Famotidine 20 Mg Tab PO 10/23/25 20:59 40 mg HS LIVE Administration Fentanyl 1 patch 09/24/25 12:15 09/27/25 13:56 Fentanyl 25 Mcg/Hr Tdsy TD 10/08/25 12:14 1 patch Q3D LIVE Administration Fentanyl 1 patch 09/26/25 15:30 09/26/25 16:11 Fentanyl 12 Mcg/Hr Tdsy TD 10/10/25 15:29 1 patch Q3D LIVE Administration Heparin Sodium (Porcine) 5 ml 09/25/25 04:32 09/27/25 16:12 Heparin 100 Unit/Ml 5ml Flush FLUSH 10/25/25 04:31 5 ml PRN PRN Administration Flush Hydralazine HCl 10 mg 09/23/25 12:48 09/27/25 05:54 Hydralazine Hcl 20 Mg/Ml Vial IV 10/23/25 12:47 10 mg Q6H PRN Administration Hypertension SBp>180 Hydralazine HCl 10 mg 09/28/25 09:00 09/28/25 09:10 Hydralazine 10 Mg Tab PO 10/28/25 08:59 10 mg BID LIVE Administration Hydromorphone HCl 3 mg 09/26/25 15:27 09/26/25 23:19 Hydromorphone Inj 2 Mg/Ml Syr/Vial IV 10/08/25 12:06 3 mg Q3H PRN Administration Breakthrough Pain Hydromorphone HCl 6 mg 09/26/25 15:28 09/28/25 04:19 Hydromorphone Hcl 2 Mg Tab PO 10/08/25 11:59 6 mg Q4H PRN Administration Breakthrough Pain Insulin Aspart 0 units 09/23/25 16:30 09/28/25 09:27 Insulin Aspart Per Unit Charge SC 10/23/25 16:29 Not Given ACHS LIVE Loratadine 10 mg 09/24/25 09:00 09/28/25 09:10 Loratadine 10 Mg Tab PO 10/24/25 08:59 10 mg DAILY LIVE Administration Losartan Potassium 100 mg 09/23/25 13:00 09/28/25 09:10 Losartan Potassium 50 Mg Tab PO 10/23/25 12:59 100 mg QAM LIVE Administration Miscellaneous 1 each 09/24/25 12:15 09/27/25 13:51 Fentanyl Patch Remove & Waste N/A 10/24/25 12:14 1 each Q3D LIVE Administration Miscellaneous 1 each 09/24/25 16:00 09/28/25 09:11 Check Fentanyl Patch Placement N/A 10/24/25 15:59 1 each QS LIVE Administration Miscellaneous 1 each 09/26/25 15:30 09/26/25 16:14 Fentanyl Patch Remove & Waste N/A 10/26/25 15:29 Not Given Q3D LIVE Miscellaneous 1 each 09/26/25 16:00 09/28/25 09:15 Check Fentanyl Patch Placement N/A 10/26/25 15:59 1 each QS LIVE Administration Naloxegol 25 mg 09/28/25 09:00 09/28/25 09:10 Naloxegol Oxalate 25 Mg Tab PO 10/28/25 08:59 25 mg DAILY LIVE Administration Ondansetron HCl 4 mg 09/23/25 11:53 09/24/25 23:55 Ondansetron Inj 2 Mg/Ml 2 Ml Vial IV 10/23/25 11:52 4 mg Q4H PRN Administration Nausea Pantoprazole Sodium 40 mg 09/27/25 09:00 09/28/25 09:10 Pantoprazole 40 Mg Tab PO 10/27/25 08:59 40 mg QAM LIVE Administration Polyethylene Glycol 17 gm 09/23/25 11:53 09/24/25 20:03 Polyethylene (Miralax) 17 Gm Pack PO 10/23/25 11:52 17 gm DAILY PRN Administration Constipation Senna/Docusate Sodium 1 tab 09/25/25 09:00 09/28/25 09:10 Docusate Sodium/Senna 50/8.6mg Tab PO 10/25/25 08:59 1 tab QAM LIVE Administration
[2025-09-29 03:16] VITALS: PULSE 75; RESP 16; O2SAT 94
[2025-09-29] MEDS: ACETAMINOPHEN 1,000 MG/100 ML VIAL IV STA (03:37)
[2025-09-29 08:21] VITALS: BP 118/79; TEMP 98.2
--- NOTE | 2025-09-29 10:48 | Discharge Summary ---
Discharge Summary Date of Service September 29, 2025 Principal Dx & Hospital Course #1 = Principal Diagnosis (1) Acute cholecystitis: (2) Intractable abdominal pain: (3) Nausea & vomiting: (4) Pancreatic adenocarcinoma: Plan Ms. Laureano is a 70-year-old female with history of CVA with residual right hemiparesis, hypertension, diabetes mellitus, left carotid stenosis, pancreatic adenocarcinoma, mood disorder, monoclonal paraproteinemia and other medical problems admitted for worsening abdominal pain associated with nausea and vomiting. Patient recently diagnosed with pancreatic adenocarcinoma. Imaging from 07/2025 till now notes that there has been increase in lesion size from 24.5-22.8mm to 43-37.5 mm Symptoms are similar to what initially led to diagnosis. Patient evaluated for concern of possible cholecystitis given distention noted, but the pain is likely 2/2 pancreatic mass per gen surg. Also patient is not a surgical candidate iso pancreatic mass. Son and patient are pursuing hospice at this time. Son picked UP hospice. Palliative had further GOC and patient transitioned to DNR, as well as downgraded to med/surg at this time. Pain is better controlled at this time. Plan for possible discharge Thursday to hospice. #Intractable nausea, vomiting #Pancreatic adenocarcinoma likely 2.2 progression on mass rather than cholecystitis per gen surgery --CT ABD:There are no apparent signs of small bowel obstruction. There is an increased size of the pancreatic head mass, now measuring 43 × 37.5 mm (previously 24.5 × 22.8 mm), and it is now seen adherent to the superior mesenteric artery. The mass is surrounded by faint fat edema and a few small local lymph nodes (stable). Cholelithiasis with newly developed gallbladder distension and mild pericholecystic edema could be acute inflammation. Ultrasound and clinical correlation are needed. --Gall bladder USD:Cholelithiasis with suspected acute cholecystitis. Fatty infiltration of the liver. Mild bile duct dilatation . 4.8 cm pancreatic head mass, consistent with the known pancreatic carcinoma --Blood cultures NGTD --Normal lactate labs --Normal lipase --LFTs within normal limits advance diet as tolerated will downgrade to po regimen prior to d/c Port placed 09/22, planning for treatment with Dr. Webb on Thursday -Dr. Webb reports poor prognosis, agrees with Hospice Reviewed the palliative recommendations: Continue TDF 37.5mcg q72h Continue Decadron 4mg BID Use Dilaudid 6mg PO q4h prn BTP and may use Dilaudid IV for BTP unrelieved by oral meds Hospice dc planned for Thursday per family palliative consulted, discussion had with palliative about hospice discharge planning -down graded to medsurg at this time and transitioned to DNR/DNI Plan for dc likely Thursday #OIC trial relistor as months on large doses of pain regimen continue senakot #Anemia of chronic disease Denies any bleeding issues #Generalized weakness Deconditioning encourage activity as tolerated #CVA with residual right hemiparesis Left carotid artery stenosis Currently on Plavix Not on statin #Hypertension Continue losartan, carvedilol Monitor blood pressure #GERD Continue PPI, famotidine #DM Type II: Continue insulin while hospitalized Monitor blood glucose levels DVT Px: Lovenox SQ CODE STATUS DNR.DNI Disposition medsurg Notes For Next Care Provider Discharge to [facility] home hospice. Medication Changes From Visit TDF 37.5mcg q72h Decadron 4mg BID Dilaudid 6mg PO q4h prn BTP Admission HPI Per Admitting Provider Patient is a 70-year-old female with history of CVA with residual right hemiparesis, hypertension, diabetes mellitus, left carotid stenosis, pancreatic adenocarcinoma, mood disorder, monoclonal paraproteinemia and other medical problems presents with history of worsening abdominal pain associate with nausea and vomiting. History is obtained from patient and patient's son at bedside, old records and from ER staff. As per family, patient was diagnosed to have pancreatic cancer in July 2025 and currently follows with [facility] oncology Dr. Webb. She was also evaluated by Dr. Rhodes in [facility] and was thought to be inoperable currently but consideration if tumor shrinks with chemotherapy in the future. She had port placement for chemotherapy at [facility] yesterday. Patient is planned for chemotherapy on 09/27/2025. Patient and family reports that she has not been able to eat or drink due to intractable nausea and vomiting for the past 3 days. She also had worsening abdominal pain which increases with activity and food intake. Last bowel movement 3 days ago. She reports having intermittent dizziness. Patient was recently treated for urinary tract infection and constipation. Denies any history of chest pain, dyspnea, cough, fever, chills, headache, change in vision, blood in stools, dysuria, hematuria. Admission Exam Per Admitting Provider General Appearance:Obese, no apparent distress Head: normocephalic, Atraumatic Eyes: normal inspection, EOMI Neck: supple, Trachea midline Respiratory/Chest: Normal breath sounds, CTA, No accessory muscle use Cardiovascular: S1, S2, No murmur ,+ Chemo port on Left Abdomen/GI:Soft, generalized tender, distended, minimal guarding, no rigidity, Bowel sounds present Extremities/Musculoskeletal:normal inspection, no edema Neurologic/Psych:AAOX3, minimal right hemiparesis but otherwise grossly no focal deficits Skin: normal color, warm Discharge Exam General- adult female seen at bedside Head- atraumatic Eyes- PERRL, EOMI, anicteric ENT- oropharynx clear Neck- supple, no JVD, no adenopathy, no thyromegaly; carotids +2/2, no bruits appreciated Lungs- clear to auscultation and percussion Heart- regular rhythm; no murmur, no gallop, no rub appreciated Abdomen- normal bowel sounds, soft, mild distension Extremities- no pretibial edema, no calf tenderness; peripheral pulses intact Neuro- alert, oriented x 3; PERRL, EOMI; Skin- warm & dry Updated Medication List Medication Instructions Recorded Confirmed Type allopurinol 300 mg tablet 300 mg PO QAM 01/03/21 09/23/25 History clopidogrel 75 mg tablet 75 mg PO QAM 04/24/24 09/23/25 History glimepiride 2 mg tablet 2 mg PO QAM 04/24/24 09/23/25 History losartan 100 mg tablet 100 mg PO QAM 04/24/24 09/23/25 History metformin 500 mg tablet,extended 500 mg PO QAM 04/24/24 09/23/25 History release 24 hr omega-3 fatty acids-fish oil 360 1 cap PO QAM 05/17/24 09/23/25 History mg-1,200 mg capsule (Fish Oil) vitamin B complex 1 tab PO QAM 05/17/24 09/23/25 History acetaminophen 500 mg tablet 1,000 mg PO Q6H PRN Pain 05/31/24 09/23/25 History (Tylenol Extra Strength) ascorbic acid (vitamin C) 500 mg 500 mg PO DAILY 09/16/25 09/23/25 History tablet (Vitamin C) bisacodyl 10 mg rectal suppository 10 mg SD BID PRN Constipation 09/16/25 09/23/25 History cholecalciferol (vitamin D3) 25 25 mcg PO DAILY 09/16/25 09/23/25 History mcg (1,000 unit) capsule (Vitamin D3) hydrocortisone 2.5 % topical cream 1 applic SD BID PRN Hemorrhoids 09/16/25 09/23/25 History with perineal applicator loratadine 10 mg tablet (Claritin) 10 mg PO DAILY 09/16/25 09/23/25 History naloxegol 25 mg tablet (Movantik) 25 mg PO DAILY 09/16/25 09/23/25 History polyethylene glycol 3350 17 17 g PO DAILY 09/16/25 09/23/25 History gram/dose oral powder (Miralax) senna 1 cap PO DAILY 09/16/25 09/23/25 History hwmx-racrnjfo-zvzvjqd-L.acidophilus-herbal no.279 545 mg capsule (Narcosoft) Zofran 8 mg PO Q8H PRN Nausea And Vomiting 09/23/25 09/23/25 History famotidine 40 mg PO HS 09/23/25 09/23/25 History carvedilol 25 mg tablet 25 mg PO BID 30 days #60 tabs 09/28/25 Rx dexamethasone 4 mg tablet 4 mg PO BID 14 days #28 tabs 09/28/25 Rx fentanyl 12 mcg/hr transdermal 1 patch transdermal Q3D 15 days #5 09/28/25 Rx patch ea fentanyl 25 mcg/hr transdermal 1 patch transdermal Q3D 15 days #5 09/28/25 Rx patch ea hydralazine 10 mg tablet 10 mg PO BID 30 days #60 tabs 09/28/25 Rx hydromorphone 2 mg tablet 6 mg (3 x 2 mg) PO Q4H PRN 09/28/25 Rx (Dilaudid) breakthrough pain 7 days #60 tabs pantoprazole 40 mg tablet,delayed 40 mg PO QAM 30 days #30 tabs 09/28/25 Rx release Hospital Stay Data Consultations 09/23/25 09:42 ED Decision to Admit Stat 09/23/25 10:40 Consult General Surgery Routine 09/23/25 11:53 Consult Palliative Care Routine Diagnostic Imagining Performed 09/23/25 05:18 CT Abd and Pelvis [CT abd pelvis IV con only] Stat 09/23/25 08:05 US gallbladder Stat Laboratory Results WBC 10.22 K/ul (4.8-10.8) 09/27/25 08:11 RBC 3.64 M/uL (4.20-5.40) L 09/27/25 08:11 Hgb 11.7 g/dl (12.0-16.0) L 09/27/25 08:11 Hct 34.7 % (37.0-47.0) L 09/27/25 08:11 MCV 95.3 fL (80.0-100.0) 09/27/25 08:11 MCH 32.1 pg (25.0-34.0) 09/27/25 08:11 MCHC 33.7 g/dL (32.0-36.0) 09/27/25 08:11 RDW Std Deviation 46.1 fL (36.4-46.3) 09/27/25 08:11 RDW Coeff of [place] 13.2 % (11.5-14.5) 09/27/25 08:11 Plt Count 290 K/uL (130-400) 09/27/25 08:11 MPV 9.2 fL (9.4-12.4) L 09/27/25 08:11 Immature Gran % (Auto) 0.3 % 09/24/25 06:38 Neut % (Auto) 62.5 % 09/24/25 06:38 Lymph % (Auto) 26.7 % 09/24/25 06:38 [place] % (Auto) 8.3 % 09/24/25 06:38 Eos % (Auto) 1.7 % 09/24/25 06:38 Baso % (Auto) 0.5 % 09/24/25 06:38 Neut # (Auto) 3.60 K/uL (1.40-6.50) 09/24/25 06:38 Lymph # (Auto) 1.54 K/uL (1.20-3.40) 09/24/25 06:38 [place] # (Auto) 0.48 K/uL (0.11-0.59) 09/24/25 06:38 Eos # (Auto) 0.10 K/uL (0.00-0.50) 09/24/25 06:38 Baso # (Auto) 0.03 K/uL (0.00-0.20) 09/24/25 06:38 Immature Gran # (Auto) 0.02 K/uL (0.01-0.20) 09/24/25 06:38 PT 11.2 Seconds (9.0-12.0) 09/23/25 05:32 INR 1.1 (0.9-1.1) 09/23/25 05:32 Sodium 134 mmol/L (136-145) L 09/27/25 08:11 Potassium 4.4 mmol/L (3.5-5.1) 09/27/25 08:11 Chloride 98 mmol/L (98-107) 09/27/25 08:11 Carbon Dioxide 25 mmol/L (21-32) 09/27/25 08:11 Anion Gap 11 (3-11) 09/27/25 08:11 BUN 16 mg/dl (6-23) 09/27/25 08:11 Creatinine 0.77 mg/dl (0.6-1.2) 09/27/25 08:11 Est Cr Clr Drug Dosing 70.4 ml/min 09/27/25 08:11 eGFR 82.42 09/27/25 08:11 BUN/Creatinine Ratio 20.8 (10-20) H 09/27/25 08:11 Glucose 162 mg/dl (70-99(Fasting)) H 09/27/25 08:11 POC Glucose 173 mg/dl (70-99) H 09/29/25 08:01 Lactate 0.7 mmol/L (0.4-2.0) 09/23/25 06:06 Calcium 9.8 mg/dl (8.6-10.3) 09/27/25 08:11 Phosphorus 3.7 mg/dl (2.5-4.9) D 09/27/25 08:11 Magnesium 1.9 mg/dl (1.7-2.4) 09/27/25 08:11 Total Bilirubin 0.4 mg/dl (0.2-1.0) 09/26/25 12:03 AST 20 U/L (13-39) 09/26/25 12:03 ALT 13 U/L (7-52) 09/26/25 12:03 Alkaline Phosphatase 76 U/L (34-104) 09/26/25 12:03 Total Protein 7.1 gm/dl (6.0-8.3) 09/26/25 12:03 Albumin 3.2 gm/dl (3.4-5.0) L 09/26/25 12:03 Globulin 3.9 gm/dl (2.5-4.0) 09/26/25 12:03 Albumin/Globulin Ratio 0.8 (0.9-2) L 09/26/25 12:03 Lipase 53 U/L (11-82) 09/23/25 05:32 Urine Color Yellow 09/23/25 06:53 Urine Appearance Clear (Clear) 09/23/25 06:53 Urine pH 7.0 (4.5-7.5) 09/23/25 06:53 Ur Specific [place] 1.039 (1.000-1.030) H 09/23/25 06:53 Urine Protein Trace (Negative) H 09/23/25 06:53 Urine Glucose (UA) Negative (Negative) 09/23/25 06:53 Urine Ketones Trace (Negative) H 09/23/25 06:53 Urine Blood Negative (Negative) 09/23/25 06:53 Urine Nitrite Negative (Negative) 09/23/25 06:53 Urine Bilirubin Negative (Negative) 09/23/25 06:53 Urine Urobilinogen Negative (Negative) 09/23/25 06:53 Ur Leukocyte Esterase Trace (Negative) H 09/23/25 06:53 Urine WBC (Auto) 0-5 /hpf (0-5) 09/23/25 06:53 Urine RBC (Auto) 0-2 /hpf (0-2) 09/23/25 06:53 U Hyaline Cast (Auto) 6-10 /lpf (0-2) H 09/23/25 06:53 U Epithel Cells (Auto) 3-5 /hpf (0-2) H 09/23/25 06:53 Urine Bacteria (Auto) None Seen (None Seen) 09/23/25 06:53 Urine Mucus Present (None Prsent) A 09/23/25 06:53 Urine Comment 09/23/25 06:53 Impressions Chest X-Ray 09/23/25 05:08 EXAM: XR chest 1V portable CLINICAL HISTORY: pain near SC port. TECHNIQUE: An X-ray image of the chest was obtained in AP projection. COMPARISON: 09/15/2025. FINDINGS: Pulmonary Parenchyma: There is no evidence of consolidation, collapse, or focal opacities. No pulmonary nodules are identified. There is no evidence of pleural effusion or pleural thickening. Heart and Mediastinum: The heart size and shape are normal. There is no mediastinal widening or masses. No hilar or mediastinal lymphadenopathy is present. Calcified aortic arch. Bony Thorax: There is osteopenia with degenerative changes. Soft Tissues: The soft tissues overlying the chest wall are unremarkable. Right CVL reaching the SVC. There is a metallic needle seen overlying the right chest wall, which could be at the implanted port opening. Clinical correlation is needed. IMPRESSION: 1. Right CVL reaching the SVC. New finding. 2. There is a metallic needle seen overlying the right chest wall, which could be at the implanted port opening. Clinical correlation is needed. New finding. 3. No acute cardiopulmonary abnormalities are identified. 4. Otherwise, no significant interval changes. Electronically signed by Gabriele Nuñez 09-23-2025 06:22 AM Abdomen/Pelvis CT 09/23/25 05:18 EXAM: CT abd pelvis IV con only CLINICAL HISTORY: Nausea, vomiting, pancreatic CA, eval for SBO. TECHNIQUE: CT of the abdomen and pelvis was performed with contrast administration 94 ml Optiray 320 mg/ml, using the following protocol: axial images were obtained, and coronal and sagittal images were reconstructed. One of the following dose reduction techniques was utilized for this exam: automated exposure control, adjustment of the mA and/or kV according to patient size, and use of iterative reconstruction. COMPARISON: Comparison is made with 08/09/2025. FINDINGS: Abdomen: Pancreas: There is an increase in the size of the pancreatic head heterogeneous cystic lesion, now measuring 43 × 37.5 mm (previously 24.5 × 22.8 mm), and it is now seen adherent to the superior mesenteric artery. The pancreatic body and tail are diffusely atrophied, without pancreatic duct dilatation. The lesion is surrounded by faint mesenteric edema, which is unchanged. Liver: The liver is normal in size, shape, and density. No focal lesions, cysts, or masses are identified. Hepatic vasculature and biliary ducts are unremarkable. Gallbladder and Biliary System: The gallbladder is normal in size and shape. There is a medium-sized stone inside, without signs of obstruction or inflammation (unchanged), with newly developed gallbladder distension and mild pericholecystic edema. This could be acute inflammation; ultrasound and clinical correlation are needed. Spleen: The spleen is normal in size, shape, and density. No splenic lesions or masses are identified. Appendix: The appendix is not seen. No evidence of appendiceal abscess or perforation. Kidneys and Adrenal Glands: Both kidneys are normal in size, shape, and position. Cortical thickness is within normal limits. No renal calculi or hydronephrosis. There is a left renal simple cortical cyst (stable). The adrenal glands are unremarkable, with no evidence of masses or hyperplasia. Pelvis: Urinary Bladder: The urinary bladder is normal in contour and wall thickness. No intraluminal lesions are identified. Uterus: The uterus is not seen (could be surgically removed). Ovaries: The ovaries are not well visualized, but no gross abnormalities are noted. Vagina: The vagina is normal in contour and wall thickness. Peritoneal and Retroperitoneal Structures: No free fluid or abnormal fluid collections are identified within the abdomen or pelvis. No lymphadenopathy is noted. Bowel: There is multiple sigmoid diverticulosis without signs of diverticulitis. The visualized bowel loops are normal in caliber and appearance. No evidence of bowel obstruction or wall thickening. Bones and Soft Tissues: There is hyperlordosis of the lumbar spine. Grade 1 anterolisthesis of L5 over S1 is present. A T12 inferior endplate sclerotic focus is unchanged. There is a right total hip replacement. Pelvic bones and soft tissues are unremarkable. No fractures or abnormal masses are identified. IMPRESSION: There are no apparent signs of small bowel obstruction. There is an increased size of the pancreatic head mass, now measuring 43 × 37.5 mm (previously 24.5 × 22.8 mm), and it is now seen adherent to the superior mesenteric artery. The mass is surrounded by faint fat edema and a few small local lymph nodes (stable). Cholelithiasis with newly developed gallbladder distension and mild pericholecystic edema could be acute inflammation. Ultrasound and clinical correlation are needed. Electronically signed by Gabriele Nuñez 09-23-2025 08:02 AM Gallbladder Ultrasound 09/23/25 08:05 Clinical history: Abdominal pain. Pancreatic cancer Technique: Sonography was performed of the right upper quadrant of the abdomen No prior examination is available for comparison Findings: There is a 4.8 x 3.9 x 3.5 cm hypoechoic mass within the pancreatic head, consistent with the known pancreatic carcinoma There is fatty infiltration of the liver. No definite liver mass is seen There is a mobile gallstone. The gallbladder is distended. The gallbladder wall is mildly thickened and appears edematous, measuring 5 mm. The common bile duct is mildly dilated, measuring 8 mm No ascites is seen Impression: 1. Cholelithiasis with suspected acute cholecystitis 2. Fatty infiltration of the liver 3. Mild bile duct dilatation 4. 4.8 cm pancreatic head mass, consistent with the known pancreatic carcinoma ACT 112: Positive. There are findings on this exam that require communication between the performing entity and the patient following Patient Test Result Information Act ([place] ACT 112) guidelines. Electronically signed by Roc Doss 09-23-2025 09:42 AM KUB X-Ray 09/25/25 08:36 KUB HISTORY: abdominal pain COMPARISON STUDY: 09/15/[address] of 09/23/2025 FINDINGS: Stable gallstone at the right upper quadrant. There is mild to moderate retained stool. No bowel obstruction seen. No gross free air. IMPRESSION: No acute findings. ACT 112: Negative or not required by law. The above report was generated using voice recognition software. It may contain grammatical, syntax or spelling errors. Electronically signed by: Jake He M.D. 09/25/2025 1:16 PM Pending Results Patient Have Any Pending Studies at Discharge: No Discharge Instructions Given to Patient (Per Discharging Provider) You were admitted for abdominal pain. You were noted to have progressive en largement of your pancreatic cancer. You were also evlauted for the presence of gallstones. You completed a course of antibiotics for the concern of cholecystitis. You were seen by Palliative Care and your pain regimen was adjusted -Increased your fentanyl patch to 37.5mcg every 72 hours -Increased your Dilaudid to 6mg every 6 hours for breakthrough pain -Started dexamethasone 4mg two times a day You had elevated pressures and your blood pressure regimen was adjusted -Increased your Coreg to 25mg two times a day -Started Hydralazine 10mg two times a day You will discharge home with hospice with plans to follow up with Palliative Care. Total Time Total Time Spent Total Time Spent (In Minutes): 40 minutes spent in discharge planning for Ms. Laureano Discharge Summary Admission Date / Reason Admission Date: DISCHARGE SUMMARY: Azalia Laureano is a 70 y/o female admitted to a medical unit. She had intractable nausea and vomiting. She was recently diagnosed to have pancreatic adenocarcinoma and evaluated by general surgery at [facility] and was currently thought to be inoperable. Blood cultures were done. Lactate and lipase was normal. She was made N.p.o., IV fluids, pain control as needed. Antiemetics as needed. really sure she Empirically started on Zosyn. Surgery consulted. Follows with [facility] oncology Dr. Webb and palliative care as outpatient. Chemo port placed on 09/22/2025. Oncology felt the pt had an extremely poor prognosis and recommend hospice Care. Palliative med was consulted. CM was consulted. Pt chose [facility] home hospice. She was discharge to hospice on this date. Admission Reason For Visit: ACUTE CHOLECYSTITIS Consultations Consultations: 09/23/25 09:42 ED Decision to Admit Stat 09/23/25 10:40 Consult General Surgery Routine 09/23/25 11:53 Consult Palliative Care Routine
== END 2025-09-29 10:55 | disposition hospice, home (50) | DRG 436 ==
LOC: ED 04:58 → EDINP 10:40 → SUATTDRO 10:40 → 2N 11:55 → 3N 09-29 02:14